=== PATIENT | female | born 1955 | race Caucasian/White ===

== ENCOUNTER → 2016-09-26 | Outpatient (CLI) | payer OTHER ==
[~2016-09-26] MED LIST: CEPH500C2 PO; CLOP1TAB54 PO; DLN/100 PO; DOXY100C41 PO; FOLI1TAB7 PO; GLC/500 PO; GLIM1TAB2 PO; LOSA50TA54 PO; PRAV40TA2 PO; PYRI100T4 PO; ZNT/150 PO
[2016-09-26 14:43] LABS: URINE APPEARANCE CLOUDY (CLEAR); URINE BILIRUBIN NEG (NEG); URINE COLOR YELLOW; URINE NITRITE NEG (NEG); URINE PH 7.5 (4.5-7.5); URINE SPECIFIC GRAVITY 1.002 (1.000-1.030); UROBILINOGEN NEG (NEG)
[2016-09-26 14:47] LABS: MANUAL MICROSCOPIC REQUIRED? NO; REVIEW REQ? YES
== END | disposition home or self-care (01) ==
LOC: C.LAB 13:01
PROVIDERS: ATTEND Internal Medicine Geriatric Medicine
DX: R35.0 Frequency of micturition (principal); R30.0 Dysuria

== ENCOUNTER → 2016-10-12 | Outpatient (CLI) | payer OTHER ==
[2016-10-12 13:05] LABS: URINE APPEARANCE CLEAR (CLEAR); URINE BILIRUBIN NEG (NEG); URINE COLOR YELLOW; URINE NITRITE NEG (NEG); URINE PH 6.5 (4.5-7.5); UROBILINOGEN NEG (NEG)
[2016-10-12 13:09] LABS: MANUAL MICROSCOPIC REQUIRED? NO; REVIEW REQ? NO
== END | disposition home or self-care (01) ==
LOC: C.LAB 12:00
PROVIDERS: ATTEND Internal Medicine Geriatric Medicine
DX: R30.0 Dysuria (principal)

== ENCOUNTER → 2016-10-31 | Outpatient (CLI) | payer OTHER ==
[~2016-10-31] MED LIST changes: +AZIT-57 PO
[2016-10-31 18:37] LABS: URINE APPEARANCE CLEAR (CLEAR); URINE BILIRUBIN NEG (NEG); URINE COLOR YELLOW; URINE NITRITE NEG (NEG); URINE SPECIFIC GRAVITY 1.007 (1.000-1.030); UROBILINOGEN NEG (NEG)
[2016-10-31 18:44] LABS: MANUAL MICROSCOPIC REQUIRED? NO; REVIEW REQ? NO
== END | disposition home or self-care (01) ==
LOC: C.LABSPEC 17:54
PROVIDERS: ATTEND Physician Assistant
DX: R39.9 Unspecified symptoms and signs involving the genitourinary system (principal); L29.8 Other pruritus

== ENCOUNTER → 2016-10-31 | Outpatient (CLI) | payer OTHER ==
[2016-11-10 13:05] LABS: HPV 16 RNA NOT DETECTED (NOT DETECTED); HPV 18 45 RNA NOT DETECTED (NOT DETECTED)
== END | disposition home or self-care (01) ==
LOC: C.PAPS 09:57
PROVIDERS: ATTEND Physician Assistant
DX: Z01.419 Encounter for gynecological examination (general) (routine) without abnormal findings (principal)

== ENCOUNTER 2017-02-09 11:45 | Emergency (ER) | payer OTHER ==
[~2017-02-09] VITALS: Ht 142.2 cm; Wt 48.9 kg
[~2017-02-09 11:45] MED LIST changes: -AZIT-57 PO; -CEPH500C2 PO; -DOXY100C41 PO; -GLC/500 PO
[2017-02-09 11:48] VITALS: TEMP 36.7; Ht 142.2 cm; Wt 48.9 kg
[2017-02-09] MEDS ORDERED: CEPH500C2 PO (13:09)
[2017-02-09 13:20] VITALS: BP 142/78; PULSE 75; O2SAT 97
--- NOTE | 2017-02-09 20:59 | EMERGENCY ROOM VISIT NOTE ---
ED Visit Note First contact with patient: 12:52 Chief Complaint: Rash. History of Present Illness: Ms. vera is a 62-year-old white female who ambulates into the ED complaining of a rash over the right lateral chest wall. Patient reports approximately 3 days ago she noted a small lump that she thought was a possible insect bite over the right lateral chest wall. She reports she picked at this area and broke it open but had no drainage. Over the last couple of days she has been noted increasing redness and swelling in this area. She denies any associated pain with this rash. Does report the rash is he itchy and she has been taken oral Benadryl without relief. She denies any other symptoms including fevers, chills, sweats, other skin eruptions, other skin color changes,, upper respiratory tract symptoms, cough, wheezing, shortness of breath, chest pain, abdominal pain, decreased appetite, nausea/vomiting. Review of Systems: As noted above in history of present illness. 8 body systems were reviewed and found to be negative as noted above. Past Medical History: Diabetes, hypertension, dyslipidemia, kidney stones, and status post cholecystectomy. Current Medications: Dilantin, Plavix, folate, vitamins, Zantac, Cozaar, Glimepiride, Pravastatin. Allergies to Medications: Clarithromycin, levothyroxine, lisinopril, Bactrim. Social History: Patient is not currently employed; she feels safe in her home environment; patient denies tobacco use. Physical Examination: Vital Signs: Date Time Temp Pulse Resp B/P (MAP) Pulse Ox O2 Delivery O2 Flow Rate FiO2 02/09/17 13:20 75 16 142/78 97 02/09/17 11:48 36.7 77 15 149/81 97 Room Air GENERAL: 62-year-old female in no acute distress, nontoxic-appearing, afebrile and hemodynamically stable. NEUROLOGICAL: Awake, alert and oriented to person, place and time. Answering questions appropriately and following commands. SKIN: Warm, dry and pink. Right Lateral Chest: Patient has an oval-shaped area of erythema measuring approximately 13 cm. This area is warm to the touch. There is no lymphangitis. No drainage from her initial wound. HEENT: Atraumatic and normocephalic. Sclera white and conjunctiva pink. Oral cavity moist and pink. Pharynx is nonerythematous or edematous. Speech normal. No lymphadenopathy. Trachea midline. No jugular venous distention. BACK: No tenderness over the bony spine. No CVA tenderness. THORAX: Lungs sounds are clear to auscultation and equal bilaterally with symmetrical chest wall. No crepitus, tenderness, subcutaneous air or deformities noted. ABDOMEN: Flat, soft and nontender. Positive bowel sounds in all quadrants. No guarding, rigidity or organomegaly. EXTREMITIES: Moves all extremities well on command and with purpose. All distal neurovascular statuses are intact and equal bilaterally. No calf tenderness or cords. ED Course: Patient is assessed as noted above. Patient's medication list was reviewed. Patient was educated about today's findings and instructed on her treatment plan ; she verbalizes understanding and agreement with this plan. Clinical Impression: Right lateral chest wall cellulitis. Decision-Making: Initially my differential diagnosis I considered cellulitis, hives, Lyme's disease, herpes zoster and other causes. Disposition: Patient discharged home in stable condition; prior to departure she was reassessed and subjectively reported she was still pain and symptom- free. Plan: Patient was encouraged to continue her current medications. Patient was prescribed Keflex 500 mg 4 times a day for 10 days. Patient was encouraged to follow-up with primary care provider return to the ED in 36-48 hours for recheck. Patient was encouraged return the ED sooner for spreading rash, red streaking, puslike drainage, fevers or any new/concerning symptoms.
== END 2017-02-09 13:22 | disposition home or self-care (01) ==
LOC: C.EDB 11:46 → C.EDD 13:22
DX: L03.313 Cellulitis of chest wall (principal); E11.9 Type 2 diabetes mellitus without complications; I10 Essential (primary) hypertension; E78.5 Hyperlipidemia, unspecified; Z87.442 Personal history of urinary calculi; Z90.49 Acquired absence of other specified parts of digestive tract; Z79.01 Long term (current) use of anticoagulants; Z79.899 Other long term (current) drug therapy

== ENCOUNTER 2017-02-11 18:35 | Emergency (ER) | payer OTHER ==
[~2017-02-11] VITALS: Ht 142.2 cm; Wt 49.0 kg
[~2017-02-11 18:35] MED LIST changes: +CEPH500C2 PO
[2017-02-11 18:38] VITALS: TEMP 36.9; Ht 142.2 cm; Wt 49.0 kg
[2017-02-11] MEDS ORDERED: GLC/500 PO (18:44)
[2017-02-11] MEDS ORDERED: DOXYCYCLINE HYCLATE 100 MG CAP PO STA (18:49)
[2017-02-11] MEDS ORDERED: DOXY100C41 PO (19:00)
--- NOTE | 2017-02-11 19:02 | EMERGENCY ROOM VISIT NOTE ---
History First contact with patient: 18:45 Chief Complaint: RASH Stated Complaint: BAD RASH DOWN SIDE History of Present Illness The patient is a 62 year old female who presents to the Emergency Room with complaints of worsening rash. The patient is evaluated 2 days ago and felt to have a cellulitis related to a bug bite. The patient states that the rash seems to be worsening and she came in for reevaluation. She is on Keflex. She denies any fevers or chills. No nausea vomiting. No trouble breathing. Review of Systems As above otherwise negative for 10 systems Past Medical/Surgical History Medical Problems: (1) Chest pain (2) CVA (3) Diabetes mellitus type 2 (4) Dizziness (5) Dizziness (6) Elevated blood pressure (7) Hyperlipidemia (8) HYPERTENSION NOS (9) Hypertensive heart disease (10) Kidney stone (11) MTHFR mutation (12) MTHR HOMOZYGOUS (13) Otitis externa (14) Rash (15) Urticaria Surgical Problems: (1) Cholecystectomy Family History Diabetes mellitus FH: gallbladder disease Hypertension Seizures Social History Smoking Status: Never Smoker Alcohol Use: occasionally Drug Use: none Marital Status: Housing Status: lives with family Occupation Status: unemployed Current/Historical Medications Scheduled Cephalexin Monohydrate (Keflex), 500 MG PO QID Clopidogrel Bisulfate (Plavix), 75 MG PO DAILY Folic Acid (Folvite), 1 MG PO DAILY Glimepiride (Glimepiride), 1 MG PO DAILY Losartan Potassium (Cozaar), 50 MG PO UD Metformin Hcl (Glucophage), 500 MG PO BID Phenytoin Sodium (Dilantin), 100 MG PO TID Pravastatin Sodium (Pravastatin Sodium), 40 MG PO HS Pyridoxine (Vitamin B6), 250 MG PO DAILY Ranitidine Hcl (Zantac), 150 MG PO DAILY Allergies Coded Allergies: Levofloxacin (Verified Allergy, Intermediate, CHEST TIGHTNESS, RASH, ) Lisinopril (Verified Allergy, Unknown, unknown, 02/05/16) Clarithromycin (Verified Adverse Reaction, Intermediate, GI UPSET, 02/05/16) Sulfamethoxazole w/Trimethoprim (Verified Adverse Reaction, Intermediate, GI UPSET,HEADACHE, 02/05/16) Physical Exam Vital Signs Date Time Temp Pulse Resp B/P (MAP) Pulse Ox O2 Delivery O2 Flow Rate FiO2 02/11/17 18:38 36.9 90 18 179/89 94 Room Air Physical Exam CONSTITUTIONAL/VITAL SIGNS: Reviewed / noted above. GENERAL: Non-toxic in appearance. INTEGUMENTARY: Warm, dry, and [place]. HEAD: Normocephalic. EYES: without scleral icterus or trauma. ENT/OROPHARYNX: clear and moist. LYMPHADENOPATHY/NECK: Is supple without lymphadenopathy or meningismus. RESPIRATORY: Lungs clear and equal. CHEST: There is a circular red area on the right lower anterior thorax with a surrounding red line. This has a characteristic appearance of erythema migrans. The patient denies seeing a tick. CARDIOVASCULAR: Regular rate and rhythm. GI/ABDOMEN: Soft and nontender. No organomegaly or pulsatile mass. No rebound or guarding. Normal bowel sounds. EXTREMITIES: Warm and well perfused. BACK: No CVA tenderness. NEUROLOGICAL: Intact without focal deficits. PSYCHIATRIC: normal affect. MUSCULOSKELETAL: Normally developed with good muscle tone. TRIAGE NURSING DOCUMENTATION REVIEWED. Medical Decision & Procedures Laboratory Results Test 02/11/17 18:49 ED Course The patient was given doxycycline by mouth. Lyme test has been drawn. Medical Decision Differential includes lung disease/erythema migrans, cellulitis. There is no evidence of systemic infection. This is a 62-year-old female who presents with worsening rash on her right lower chest wall. The findings are concerning for erythema migrans. The patient was switched from Keflex to doxycycline. Lyme test is been sent. Patient is to follow-up with her PCP for test results. She will complete a 14 day course of doxycycline for this. Impression Primary Impression: Erythema migrans (Lyme disease) Departure Information Dispostion Home / Self-Care Prescriptions Doxycycline (Monohydrate) (MONODOX) 100 Mg Cap 1 CAP PO BID for 14 Days, #28 CAP Prov: Sohail Marin D.O. 02/11/17 Referrals Damion Suárez M.D. (PCP) Patient Instructions My [facility] Additional Instructions Take doxycycline twice daily for 14 days as prescribed. Discontinue Keflex after starting doxycycline tomorrow. Follow-up with your doctor for test results. Even if Lyme test is negative, finished a course of doxycycline. Follow-up with your doctor for further care and evaluation in 1-2 days. Return to the emergency department for worsening or new symptoms or any concerns. You have been examined and treated today on an emergency basis only. This is not a substitute for, or an effort to provide, complete comprehensive medical care. It is impossible to recognize and treat all injuries or illnesses in a single emergency department visit. It is therefore important that you follow up closely with your doctor. Call as soon as possible for an appointment.
[2017-02-11 19:15] VITALS: BP 132/68; PULSE 76; O2SAT 98
== END 2017-02-11 19:16 | disposition home or self-care (01) ==
LOC: C.EDB 18:36 → C.EDD 19:16
DX: A69.20 Lyme disease, unspecified (principal); E78.5 Hyperlipidemia, unspecified; I10 Essential (primary) hypertension; I11.0 Hypertensive heart disease with heart failure; E11.9 Type 2 diabetes mellitus without complications; Z86.73 Personal history of transient ischemic attack (TIA), and cerebral infarction without residual deficits; Z87.442 Personal history of urinary calculi; Z90.49 Acquired absence of other specified parts of digestive tract; Z79.84 Long term (current) use of oral hypoglycemic drugs; Z79.899 Other long term (current) drug therapy; Z88.2 Allergy status to sulfonamides; Z88.8 Allergy status to other drugs, medicaments and biological substances; Z83.3 Family history of diabetes mellitus; Z83.79 Family history of other diseases of the digestive system; Z82.49 Family history of ischemic heart disease and other diseases of the circulatory system; Z82.0 Family history of epilepsy and other diseases of the nervous system

== ENCOUNTER 2017-05-14 12:35 | Emergency (ER) | payer OTHER ==
[~2017-05-14] VITALS: Ht 142.2 cm; Wt 51.0 kg
[~2017-05-14 12:35] MED LIST changes: -CEPH500C2 PO; +GLC/500 PO
[2017-05-14 12:40] VITALS: TEMP 36.9; Ht 142.2 cm; Wt 51.0 kg
[2017-05-14] MEDS ORDERED: ZTHM250 PO (12:58)
[2017-05-14] MEDS ORDERED: ONDANSETRON INJ 2 MG/ML 2 ML VIAL IV STA (13:15)
--- NOTE | 2017-05-14 13:28 | EMERGENCY ROOM VISIT NOTE ---
History First contact with patient: 13:03 Chief Complaint: OTHER COMPLAINT Stated Complaint: CANT SEE, PAIN, CHILLS History of Present Illness The patient is a 62 year old female who presents to the Emergency Room with complaints of headache and sinus pressure for the past week. Positive sick contacts with similar symptoms. She was prescribed a Z-Felice a few days ago which she states she has been taking. She states that she was feeling somewhat better yesterday, but her symptoms got worse again today, particularly having a headache with a lot of sinus drainage and nausea. She has had some chills as well, she is unsure about fevers as she did not check her temperature. She has been taking [id number] nighttime cold medicine and using nasal spray, she is unsure if any of the medications have decongestants in them. She also mentions that she has been having intermittent numbness/tingling in her arms and face for the past week, she is concerned about this because she has a history of a stroke in the past. She denies any persistent numbness, weakness, difficulty walking, neck pain, vision changes, slurring speech, or confusion associated with this. She states she currently has the feeling of numbness in her left arm and face. She denies any chest pain, shortness of breath, dizziness or passing out, abdominal pain, vomiting, diarrhea, urinary symptoms, rash. She does note that her son has been sick, she thinks he might have the flu and she would like to be tested for the flu today. Review of Systems A complete 10 point review of systems was reviewed with the patient with pertinent positives and negatives as per history of present illness. All else were negative. Past Medical/Surgical History Medical Problems: (1) Chest pain (2) CVA (3) Diabetes mellitus type 2 (4) Dizziness (5) Dizziness (6) Elevated blood pressure (7) Hyperlipidemia (8) HYPERTENSION NOS (9) Hypertensive heart disease (10) Kidney stone (11) MTHFR mutation (12) MTHR HOMOZYGOUS (13) Otitis externa (14) Rash (15) Urticaria Surgical Problems: (1) Cholecystectomy Family History Diabetes mellitus FH: gallbladder disease Hypertension Seizures Social History Smoking Status: Never Smoker Alcohol Use: occasionally Drug Use: none Marital Status: Housing Status: lives with family Occupation Status: unemployed Current/Historical Medications Scheduled Azithromycin (Azithromycin), 250 MG PO DIRECTED Clopidogrel Bisulfate (Plavix), 75 MG PO DAILY Folic Acid (Folvite), 1 MG PO DAILY Glimepiride (Glimepiride), 1 MG PO DAILY Losartan Potassium (Cozaar), 50 MG PO QAM Metformin Hcl (Glucophage), 500 MG PO BID Phenytoin Sodium (Dilantin), 100 MG PO TID Pravastatin Sodium (Pravastatin Sodium), 40 MG PO HS Pyridoxine (Vitamin B6), 250 MG PO DAILY Ranitidine Hcl (Zantac), 150 MG PO DAILY Physical Exam Vital Signs Date Time Temp Pulse Resp B/P (MAP) Pulse Ox O2 Delivery O2 Flow Rate FiO2 05/14/17 16:05 98 178/89 05/14/17 15:29 83 20 173/126 95 Room Air 05/14/17 14:42 82 05/14/17 14:32 96 Room Air 05/14/17 14:32 87 16 194/120 96 Room Air 05/14/17 12:40 36.9 91 18 193/110 97 Room Air Physical Exam CONSTITUTIONAL: No acute distress. Well appearing and well nourished. Alert and oriented X 4 with normal affect. HEENT: Normocephalic, atraumatic. Pupils equal, round and reactive to light, EOMI. TMs normal. Pharynx normal. Tenderness to palpation of the maxillary sinuses. NECK: Supple, full active range of motion without discomfort. RESPIRATORY: Clear to auscultation bilaterally with no wheezing, crackles, rhonchi or stridor. Equal expansion bilaterally. CARDIOVASCULAR: Regular rate and rhythm with no murmurs, rubs or gallops. Normal peripheral perfusion. No edema. GASTROINTESTINAL: Soft, nontender, nondistended. Bowel sounds present in all quadrants. MUSCULOSKELETAL: Full range of motion of all joints without discomfort. INTEGUMENTARY: No rash or other significant dermatologic conditions noted. NEUROLOGIC: Cranial nerves II-XII grossly intact. No focal neurologic deficits noted. Normal strength in all 4 extremities, normal sensation in all 4 extremities, able to differentiate sharp and dull, normal coordination, normal speech. Medical Decision & Procedures ER Provider Diagnostic Interpretation: CHEST ONE VIEW PORTABLE CLINICAL HISTORY: severe hypertension COMPARISON STUDY: 05/15/2016 FINDINGS: The cardiac and mediastinal contours are normal. There is no evidence of focal pulmonary consolidation. There is no evidence of failure. No pleural effusions are visualized. IMPRESSION: No active disease in the chest. ----- CT OF THE HEAD WITHOUT CONTRAST CLINICAL HISTORY: Severe hypertension. Blurred vision. COMPARISON STUDY: Head CT May 15, 2016. CT DOSE: 638.56 mGycm TECHNIQUE: Helical axial images of the head were obtained without IV contrast. Automated exposure control was utilized for the study. A dose lowering technique was utilized adhering to the principles of ALARA. FINDINGS: No acute intracranial hemorrhage, midline shift or mass effect is present. Ventricular system is normal. Basilar cisterns are patent. There are no extra-axial collections. An old left parieto-occipital infarct is noted. There are no findings to suggest acute dural sinus thrombosis or acute territorial infarct. There is an old lacunar infarct within the right occipital lobe. There are no significant calvarial abnormalities. There is mild mucosal thickening of the sinuses. A tiny right maxillary sinus air-fluid level is present. IMPRESSION: No acute intracranial findings. No change since exam of May 15, 2016. Laboratory Results 05/14/17 14:08 Red Blood Count 4.79, Mean Corpuscular Volume 90.2, Mean Corpuscular Hemoglobin 30.9, Mean Corpuscular Hemoglobin Concent 34.3, Mean Platelet Volume 9.1, Neutrophils (%) (Auto) 70.5, Lymphocytes (%) (Auto) 23.5, Monocytes (%) (Auto) 5.0, Eosinophils (%) (Auto) 0.3, Basophils (%) (Auto) 0.2, Neutrophils # (Auto) 4.54, Lymphocytes # (Auto) 1.51, Monocytes # (Auto) 0.32, Eosinophils # (Auto) 0.02, Basophils # (Auto) 0.01 05/14/17 14:08 Test 05/14/17 13:28 05/14/17 13:40 05/14/17 14:08 05/14/17 15:20 Influenza Type A Antigen Neg for Influ A (NEG) Influenza Type B Antigen Neg for Influ B (NEG) Prothrombin Time 10.2 SECONDS (9.0-12.0) Prothromb Time International Ratio 1.0 (0.9-1.1) Activated Partial Thromboplast Time 23.8 SECONDS (21.0-31.0) Partial Thromboplastin Ratio 0.9 White Blood Count 6.43 K/uL (4.8-10.8) Red Blood Count 4.79 M/uL (4.2-5.4) Hemoglobin 14.8 g/dL (12.0-16.0) Hematocrit 43.2 % (37-47) Mean Corpuscular Volume 90.2 fL (80-100) Mean Corpuscular Hemoglobin 30.9 pg (25-34) Mean Corpuscular Hemoglobin Concent 34.3 g/dl (32-36) Platelet Count 195 K/uL (130-400) Mean Platelet Volume 9.1 fL (7.4-10.4) Neutrophils (%) (Auto) 70.5 % Lymphocytes (%) (Auto) 23.5 % Monocytes (%) (Auto) 5.0 % Eosinophils (%) (Auto) 0.3 % Basophils (%) (Auto) 0.2 % Neutrophils # (Auto) 4.54 K/uL (1.4-6.5) Lymphocytes # (Auto) 1.51 K/uL (1.2-3.4) Monocytes # (Auto) 0.32 K/uL (0.11-0.59) Eosinophils # (Auto) 0.02 K/uL (0-0.5) Basophils # (Auto) 0.01 K/uL (0-0.2) RDW Standard Deviation 41.1 fL (36.4-46.3) RDW Coefficient of Variation 12.5 % (11.5-14.5) Immature Granulocyte % (Auto) 0.5 % Immature Granulocyte # (Auto) 0.03 K/uL (0.00-0.02) Anion Gap 8.0 mmol/L (3-11) Est Creatinine Clear Calc Drug Dose 62.4 ml/min Estimated GFR () 112.2 Estimated GFR (Non- 96.8 BUN/Creatinine Ratio 16.6 (10-20) Calcium Level 9.1 mg/dl (8.5-10.1) Urine Color YELLOW Urine Appearance CLEAR (CLEAR) Urine pH 7.0 (4.5-7.5) Urine Specific [place] 1.005 (1.000-1.030) Urine Protein NEG (NEG) Urine Glucose (UA) NEG (NEG) Urine Ketones NEG (NEG) Urine Occult Blood NEG (NEG) Urine Nitrite NEG (NEG) Urine Bilirubin NEG (NEG) Urine Urobilinogen NEG (NEG) Urine Leukocyte Esterase LARGE (NEG) Urine WBC (Auto) 10-30 /hpf (0-5) Urine RBC (Auto) 0-4 /hpf (0-4) Urine Hyaline Casts (Auto) 0 /lpf (0-5) Urine Epithelial Cells (Auto) >30 /lpf (0-5) Urine Bacteria (Auto) NEG (NEG) Medications Administered Medications (Trade) Dose Ordered Sig/Jalil Route Start Time Stop Time Status Last Admin Dose Admin Losartan Potassium (coZAAR TAB) 50 mg TODAY@1359 PO 05/14/17 13:59 05/14/17 16:56 DC 05/14/17 14:31 50 MG Ondansetron HCl (Zofran Odt) 4 mg TODAY@1359 PO 05/14/17 13:59 05/14/17 16:56 DC 05/14/17 14:31 4 MG ECG Indication: nausea Rate (beats per minute): 88 Rhythm: normal sinus Findings: no acute ischemic change, no ectopy Change: no significant change (05/15/2016) Medical Decision CC: Patient presenting with complaint of sinus congestion, headache, numbness/ tingling in arms Interpretation of Labs: No leukocytosis, no anemia, no significant electrolyte abnormalities, normal renal function. UA with leukocyte esterase and large epithelial cells, this favors contamination, urine culture pending. Differential Diagnosis: Includes, but not limited to sinusitis, viral URI, influenza, sinus headache, tension headache, migraine, CVA, intracranial hemorrhage, among others. Medication Reconciliation: I attest that I have personally reviewed the patient' s current medication list. Vital signs review: I reviewed the patient's vital signs and interpret them as follows: T: Afebrile; BP: Hypertensive; HR: Tachycardic; RR: Within normal limits; Pulse Ox: Within normal limits on room air. Blood pressure screening: The patient was found to have an elevated blood pressure and was referred to their primary doctor for recheck and further treatment. Summary: Patient was evaluated at bedside, history of physical exam performed. Patient is alert and oriented, in no acute distress, resting calmly in the stretcher. Neuro exam is normal with no focal deficits. Specifically patient has intact sensation in the bilateral extremities and face. Patient does not have any stroke-like symptoms or findings on exam. Patient is noted to be quite hypertensive and mildly tachycardic on initial exam. She did not take her morning blood pressure medicine. I also believe she may have been taking decongestants. Orders were placed at bedside for labs, UA, EKG, chest x-ray, CT of head to evaluate for cranial abnormalities. Patient discussed with Dr. Plaza, who agrees with my assessment and plan. Labs reviewed as above, no significant abnormalities. Patient denies any urinary symptoms, will send urine for culture for further evaluation. No proteinuria. Chest x-ray is clear. EKG shows normal sinus rhythm with no ischemic changes. Patient reassessed multiple times throughout ED stay, she reports that her headache has improved, her nausea is resolved. I encouraged the patient to continue taking her Z-Felice for the full course, and discussed symptomatic management and appropriate [id number] medications, specifically instructing her to avoid decongestants due to her elevated blood pressure. I encouraged her to follow up with her PCP to have her blood pressure rechecked. I also discussed return precautions should her symptoms worsen, she verbalized understanding. Patient was discharged home in stable condition and ambulatory. Impression Primary Impression: Sinus headache Departure Information Dispostion Home / Self-Care Condition GOOD Referrals Damion Suárez M.D. (PCP) Patient Instructions ED Headache Sinus, ED Sinusitis Abx Tx, My [facility] Additional Instructions Keep taking your antibiotics for your sinus infection, until you have completed the course of antibiotics. Drink plenty fluids to stay well hydrated. You may use saline nasal spray several times with the day to help flush her sinuses. You should also use humidifier or vaporizer in your bedroom to help improve your congestion. You may take Tylenol extra strength 1-2 tablets every 8 hours as needed for headache. May also try taking Mucinex, which is [id number], to help improve your congestion. Avoid any cold medications that have decongestants in them, as this can increase her blood pressure. Follow-up with your PCP in the next few days if you are not improving, or sooner if your symptoms are worsening. Please return to the emergency department for severe worsening headaches, difficulty breathing, severe dizziness or passing out, fevers/chills/feeling ill , or any other concerns.
--- NOTE | 2017-05-14 13:51 | DIAGNOSTIC IMAGING REPORT ---
CHEST ONE VIEW PORTABLE CLINICAL HISTORY: severe hypertension COMPARISON STUDY: 05/15/2016 FINDINGS: The cardiac and mediastinal contours are normal. There is no evidence of focal pulmonary consolidation. There is no evidence of failure. No pleural effusions are visualized.[ IMPRESSION: No active disease in the chest. Electronically signed by: Gavin Malhotra M.D. 05/14/2017 1:49 PM Dictated Date/Time: 05/14/2017 1:49 PM
[2017-05-14] MEDS ORDERED: ONDANSETRON 4MG OD TAB PO SCH (13:59)
[2017-05-14] MEDS ORDERED: LOSARTAN POTASSIUM 50 MG TAB PO SCH (13:59)
[2017-05-14 14:05] LABS: PARTIAL THROMBOPLASTIN RATIO 0.9; PROTHROMBIN TIME (PATIENT) 10.2 SECONDS (9.0-12.0)
[2017-05-14 14:32] VITALS: O2SAT 96
--- NOTE | 2017-05-14 14:36 | DIAGNOSTIC IMAGING REPORT ---
CT OF THE HEAD WITHOUT CONTRAST CLINICAL HISTORY: Severe hypertension. Blurred vision. COMPARISON STUDY: Head CT May 15, 2016. CT DOSE: 638.56 mGycm TECHNIQUE: Helical axial images of the head were obtained without IV contrast. Automated exposure control was utilized for the study. A dose lowering technique was utilized adhering to the principles of ALARA. FINDINGS: No acute intracranial hemorrhage, midline shift or mass effect is present. Ventricular system is normal. Basilar cisterns are patent. There are no extra-axial collections. An old left parieto-occipital infarct is noted. There are no findings to suggest acute dural sinus thrombosis or acute territorial infarct. There is an old lacunar infarct within the right occipital lobe. There are no significant calvarial abnormalities. There is mild mucosal thickening of the sinuses. A tiny right maxillary sinus air-fluid level is present. IMPRESSION: No acute intracranial findings. No change since exam of May 15, 2016. Electronically signed by: Jonn Sanchez M.D. 05/14/2017 2:35 PM Dictated Date/Time: 05/14/2017 2:25 PM
[2017-05-14 14:42] LABS: BASO % 0.2 %; BASO ABS # 0.01 K/uL (0-0.2); COMPLETE YES; EOS % 0.3 %; HEMATOCRIT 43.2 % (37-47); IG% 0.5 %; LYMPH % 23.5 %; LYMPH ABS # 1.51 K/uL (1.2-3.4); MEAN CELL VOLUME 90.2 fL (80-100); MEAN CORPUSCULAR HEMOGLOBIN 30.9 pg (25-34); MEAN CORPUSCULAR HGB CONC 34.3 g/dl (32-36); MEAN PLATELET VOLUME 9.1 fL (7.4-10.4); NEUT % 70.5 %; PLATELET COUNT 195 K/uL (130-400); RED BLOOD COUNT 4.79 M/uL (4.2-5.4); WHITE BLOOD COUNT 6.43 K/uL (4.8-10.8)
[2017-05-14 15:00] LABS: BUN/CREATININE RATIO 16.6 (10-20); CALCIUM 9.1 mg/dl (8.5-10.1); CREATININE 0.63 mg/dl (0.60-1.20); POTASSIUM 3.8 mmol/L (3.5-5.1)
[2017-05-14 15:29] VITALS: O2SAT 95
[2017-05-14 15:48] LABS: URINE APPEARANCE CLEAR (CLEAR); URINE BILIRUBIN NEG (NEG); URINE COLOR YELLOW; URINE EPITHELIAL CELL AUTO >30 /lpf (0-5); URINE NITRITE NEG (NEG); URINE SPECIFIC GRAVITY 1.005 (1.000-1.030); UROBILINOGEN NEG (NEG)
[2017-05-14 15:49] LABS: MANUAL MICROSCOPIC REQUIRED? NO; REVIEW REQ? NO
[2017-05-14 16:05] VITALS: BP 178/89; PULSE 98
== END 2017-05-14 16:30 | disposition home or self-care (01) ==
LOC: C.EDB 12:37
DX: R51 Headache (principal); Z86.73 Personal history of transient ischemic attack (TIA), and cerebral infarction without residual deficits; E11.9 Type 2 diabetes mellitus without complications; E78.5 Hyperlipidemia, unspecified; I10 Essential (primary) hypertension; Z87.442 Personal history of urinary calculi; E72.12 Methylenetetrahydrofolate reductase deficiency; Z90.49 Acquired absence of other specified parts of digestive tract; Z83.3 Family history of diabetes mellitus; Z82.49 Family history of ischemic heart disease and other diseases of the circulatory system; Z82.0 Family history of epilepsy and other diseases of the nervous system; Z79.01 Long term (current) use of anticoagulants; Z79.899 Other long term (current) drug therapy

== ENCOUNTER → 2017-11-05 | Outpatient (CLI) | payer OTHER ==
[~2017-11-05] MED LIST changes: +AZIT-57 PO; -FOLI1TAB7 PO; +FOLI1TAB8 PO
== END | disposition home or self-care (01) ==
LOC: C.PAPS 09:38
PROVIDERS: ATTEND Physician Assistant
DX: Z12.4 Encounter for screening for malignant neoplasm of cervix (principal); Z11.51 Encounter for screening for human papillomavirus (HPV)

== ENCOUNTER 2017-12-11 12:21 | Emergency (ER) | payer OTHER ==
[2017-12-11 12:24] VITALS: BP 130/73; PULSE 82; TEMP 36.7; O2SAT 99
--- NOTE | 2017-12-11 12:43 | EMERGENCY ROOM VISIT NOTE ---
History First contact with patient: 12:28 Chief Complaint: BITE Stated Complaint: TICK BITE, RED History of Present Illness The patient is a 62 year old female who presents to the Emergency Room with complaints of a tick bite to the back. The patient reports that she noticed something black in an area of redness, and is concerned that it is a tick. She was outdoors yesterday morning doing yard work. She is uncertain how long the tick may have been attached. She rates her discomfort a 7 out of 10. Review of Systems 6 system review was performed and was negative except for pertinent positives and negatives as indicated in history of present illness Past Medical/Surgical History Medical Problems: (1) Chest pain (2) CVA (3) Diabetes mellitus type 2 (4) Dizziness (5) Dizziness (6) Elevated blood pressure (7) Hyperlipidemia (8) HYPERTENSION NOS (9) Hypertensive heart disease (10) Kidney stone (11) MTHFR mutation (12) MTHR HOMOZYGOUS (13) Otitis externa (14) Rash (15) Urticaria Surgical Problems: (1) Cholecystectomy Family History Diabetes mellitus FH: gallbladder disease Hypertension Seizures Social History Smoking Status: Never Smoker Alcohol Use: occasionally Drug Use: none Marital Status: Housing Status: lives with family Occupation Status: unemployed Current/Historical Medications Scheduled Azithromycin (Azithromycin), 250 MG PO DIRECTED Clopidogrel Bisulfate (Plavix), 75 MG PO DAILY Folic Acid (Folvite), 1 MG PO DAILY Glimepiride (Glimepiride), 1 MG PO DAILY Losartan Potassium (Cozaar), 50 MG PO QAM Metformin Hcl (Glucophage), 500 MG PO BID Phenytoin Sodium (Dilantin), 100 MG PO TID Pravastatin Sodium (Pravastatin Sodium), 40 MG PO HS Pyridoxine (Vitamin B6), 250 MG PO DAILY Ranitidine Hcl (Zantac), 150 MG PO DAILY Physical Exam Vital Signs Date Time Temp Pulse Resp B/P (MAP) Pulse Ox O2 Delivery O2 Flow Rate FiO2 12/11/18 12:24 36.7 82 20 130/73 99 Room Air Physical Exam CONSTITUTIONAL: Healthy and well nourished. Alert and oriented X 3 with positive affect. RESPIRATORY: Clear to auscultation bilaterally with no wheezing, crackles, rhonchi or stridor. CARDIOVASCULAR: Regular rate and rhythm with no murmurs, rubs or gallops. INTEGUMENTARY: Examination of the right central back shows an embedded tick with notable surrounding skin erythema. No induration or fluctuance noted. NEUROLOGIC: o focal neurologic deficits noted. Medical Decision & Procedures ED Course Patient history and physical exam were performed. Nurse's notes were reviewed. The patient was found to have a tickle in the back. This was removed using a tick twister. The patient was provided education regarding tick bites. I did elect to prophylactically treat the patient with doxycycline 200 mg orally. She was instructed to follow-up with her PCP for any progressively worsening redness, swelling, pain or fever. The patient was happy with plan of care, voiced understanding of all discharge instructions, and rated her discomfort a 4 out of 10 at the time of discharge. She refused any analgesics. Medical Decision Medication Reconcilliation Current Medication List: was personally reviewed by me Blood Pressure Screening Patient's blood pressure: Normal blood pressure Impression Primary Impression: Tick bite of back Departure Information Dispostion Home / Self-Care Forms HOME CARE DOCUMENTATION FORM, IMPORTANT VISIT INFORMATION Patient Instructions My [facility], ED Facts Tick Additional Instructions You have been administered doxycycline which should eliminate your risk for Lyme disease. Follow-up with your family doctor if you have any worsening redness of the back. Problem Qualifiers Primary Impression: Tick bite of back Encounter type: initial encounter Qualified Codes: S30.860A - Insect bite ( nonvenomous) of lower back and pelvis, initial encounter; W57.XXXA - Bitten or stung by nonvenomous insect and other nonvenomous arthropods, initial encounter
[2017-12-11] MEDS ORDERED: DOXYCYCLINE HYCLATE 100 MG CAP PO ONE (12:45)
== END 2017-12-11 12:48 | disposition home or self-care (01) ==
LOC: C.EDB 12:22 → C.EDD 12:48
DX: S30.860A Insect bite (nonvenomous) of lower back and pelvis, initial encounter (principal); W57.XXXA Bitten or stung by nonvenomous insect and other nonvenomous arthropods, initial encounter; Z86.73 Personal history of transient ischemic attack (TIA), and cerebral infarction without residual deficits; E11.9 Type 2 diabetes mellitus without complications; E78.5 Hyperlipidemia, unspecified; I10 Essential (primary) hypertension; Z87.442 Personal history of urinary calculi; E72.12 Methylenetetrahydrofolate reductase deficiency; Z90.49 Acquired absence of other specified parts of digestive tract; Z83.3 Family history of diabetes mellitus; Z82.49 Family history of ischemic heart disease and other diseases of the circulatory system; Z82.0 Family history of epilepsy and other diseases of the nervous system; Z79.01 Long term (current) use of anticoagulants; Z79.899 Other long term (current) drug therapy; Z79.84 Long term (current) use of oral hypoglycemic drugs

== ENCOUNTER 2018-03-15 10:25 | Emergency (ER) | payer OTHER ==
[~2018-03-15] VITALS: Ht 142.2 cm; Wt 46.9 kg
[~2018-03-15 10:25] MED LIST changes: -AZIT-57 PO
[2018-03-15 10:30] VITALS: TEMP 37; Ht 142.2 cm; Wt 46.9 kg
--- NOTE | 2018-03-15 10:55 | EMERGENCY ROOM VISIT NOTE ---
History Report prepared by Calin: Douglas Gambino Under the Supervision of: Dr. Sohail Baumann M.D. First contact with patient: 10:39 Chief Complaint: ARM PAIN Stated Complaint: BLACK AND BLUE UPPER ARM History of Present Illness The patient is a 63 year old female who presents to the Emergency Room with complaints of pain and bruising/discoloration to the right arm and left hand. The patient states that she has been on Plavix 75 mg for the past 3-4 years following a stroke. She does not remember bruising herself. She has no other complaints. Source of History: patient Position: shoulder (left), arm (right) Quality: other (bruising) Note: No pain Review of Systems See HPI for pertinent positives & negatives. A total of 6 systems reviewed and were otherwise negative. Past Medical & Surgical Medical Problems: (1) Chest pain (2) CVA (3) Diabetes mellitus type 2 (4) Dizziness (5) Dizziness (6) Elevated blood pressure (7) Hyperlipidemia (8) HYPERTENSION NOS (9) Hypertensive heart disease (10) Kidney stone (11) MTHFR mutation (12) MTHR HOMOZYGOUS (13) Otitis externa (14) Rash (15) Urticaria Surgical Problems: (1) Cholecystectomy Family History Diabetes mellitus FH: gallbladder disease Hypertension Seizures Social History Smoking Status: Never Smoker Alcohol Use: occasionally Drug Use: none Marital Status: Housing Status: lives with family Occupation Status: unemployed Current/Historical Medications Scheduled Clopidogrel Bisulfate (Plavix), 75 MG PO DAILY Folic Acid (Folvite), 1 MG PO DAILY Glimepiride (Glimepiride), 1 MG PO DAILY Losartan Potassium (Cozaar), 50 MG PO QAM Metformin Hcl (Glucophage), 500 MG PO BID Phenytoin Sodium (Dilantin), 100 MG PO TID Pravastatin Sodium (Pravastatin Sodium), 40 MG PO HS Pyridoxine (Vitamin B6), 250 MG PO DAILY Ranitidine Hcl (Zantac), 150 MG PO DAILY Allergies Coded Allergies: Levofloxacin (Verified Allergy, Intermediate, CHEST TIGHTNESS, RASH, ) Lisinopril (Verified Allergy, Unknown, unknown, 03/15/18) Clarithromycin (Verified Adverse Reaction, Intermediate, GI UPSET, 03/15/18 ) Sulfamethoxazole w/Trimethoprim (Verified Adverse Reaction, Intermediate, GI UPSET,HEADACHE, 03/15/18) Physical Exam Vital Signs Date Time Temp Pulse Resp B/P (MAP) Pulse Ox O2 Delivery O2 Flow Rate FiO2 03/15/18 11:22 85 18 175/93 92 03/15/18 10:30 37.0 88 17 173/78 98 Room Air Physical Exam GENERAL: Awake, alert, well-appearing, in no acute distress HENT: Normocephalic, atraumatic. Oropharynx unremarkable. EYES: Normal conjunctiva. Sclera non-icteric. NECK: Supple. No nuchal rigidity. FROM. No JVD. RESPIRATORY: Clear to auscultation. CARDIAC: Regular rate, normal rhythm. Extremities warm and well perfused. Pulses equal. ABDOMEN: Soft, non-distended. No tenderness to palpation. No rebound or guarding. No masses. RECTAL: Deferred. MUSCULOSKELETAL: Chest examination reveals no tenderness. The back is symmetrical on inspection without obvious abnormality. There is no CVA tenderness to palpation. No joint edema. LOWER EXTREMITIES: Calves are equal size bilaterally and non-tender. No edema. No discoloration. NEURO: Normal sensorium. No sensory or motor deficits noted. SKIN: There is a quarter sized hematoma to the left shoulder as well as a 2x2 inch area of hematoma to the right humerus. Medical Decision & Procedures ED Course 1043: Past medical records reviewed. The patient was evaluated in room C2B. A complete history and physical examination was performed. Medical Decision Prior records reviewed and summarized above. Triage Nursing notes reviewed. Differential diagnosis: Etiologies such as fracture, dislocation, neurovascular compromise, compartment syndrome, soft tissue injury, as well as others were entertained. This is a 63-year-old female who presents emergency department complaining of bruises to her arms. There is no outright evidence of a large hematoma. The patient does have small contusions and I believe this is from taking Plavix. We reviewed the patient's history including 2 CVAs and noted this is why the patient is on Plavix. I do not believe that these bruises represent active extravasation and noted that the patient will bruise easily on Plavix. Using shared medical decision making with the patient I strongly recommended that she continue her Plavix use due to her past medical history. The patient is going to follow-up with her primary care physician. Ice was applied to the bruises. Blood Pressure Screening Patient's blood pressure: Normal blood pressure Blood pressure disposition: Elevated BP felt to be situational Impression Primary Impression: Contusion Scribe Attestation The scribe's documentation has been prepared under my direction and personally reviewed by me in its entirety. I confirm that the note above accurately reflects all work, treatment, procedures, and medical decision making performed by me. Departure Information Dispostion Home / Self-Care Referrals Damion Suárez M.D. (PCP) Forms HOME CARE DOCUMENTATION FORM, IMPORTANT VISIT INFORMATION Patient Instructions My [facility] Additional Instructions Follow up with Dr Nguyen's office You have been examined and treated today on an emergency basis only. This is not a substitute for, or an effort to provide, complete comprehensive medical care. It is impossible to recognize and treat all injuries or illnesses in a single emergency department visit. It is therefore important that you follow up closely with Dr Suárez. Call as soon as possible for an appointment. Thank you for your time and consideration. I look forward to speaking with you again soon. Please don't hesitate to call us if you have any questions. Problem Qualifiers Primary Impression: Contusion Encounter type: initial encounter Contusion area: upper arm Laterality: right Qualified Codes: S40.021A - Contusion of right upper arm, initial encounter
[2018-03-15 11:22] VITALS: BP 175/93; PULSE 85; O2SAT 92
== END 2018-03-15 11:28 | disposition home or self-care (01) ==
LOC: C.EDB 10:28 → C.EDC 11:28
DX: S40.021A Contusion of right upper arm, initial encounter (principal); X58.XXXA Exposure to other specified factors, initial encounter; Z86.73 Personal history of transient ischemic attack (TIA), and cerebral infarction without residual deficits; E11.9 Type 2 diabetes mellitus without complications; E78.5 Hyperlipidemia, unspecified; I11.9 Hypertensive heart disease without heart failure; Z79.02 Long term (current) use of antithrombotics/antiplatelets; Z79.84 Long term (current) use of oral hypoglycemic drugs; Z79.899 Other long term (current) drug therapy; Z88.2 Allergy status to sulfonamides; Z88.1 Allergy status to other antibiotic agents; Z88.8 Allergy status to other drugs, medicaments and biological substances

== ENCOUNTER → 2018-03-19 | Outpatient (CLI) | payer OTHER ==
--- NOTE | 2018-03-19 15:19 | DIAGNOSTIC IMAGING REPORT ---
R EXTREMITY NONVASCULAR LIMITED HISTORY: 63 years-old Female T14.8XXA [id number] Skin [id number] acute contusion with palpable abnormality of the right upper extremity COMPARISON: None available TECHNIQUE: Multiple real-time significant images of the right upper extremity were obtained assessing grayscale appearance and color flow FINDINGS: Mild subcutaneous edema within the area of clinical concern. There is reported bruising seen about the right upper extremity. Just deep to the area of bruising there is a ovoid hypoechoic structure within the subcutaneous tissues which is mildly complex measuring 2.0 x 0.9 x 2.0 cm without internal vascularity identified. IMPRESSION: 2.0 cm hypoechoic subcutaneous lesion within the area of clinical concern suggests probable hematoma. Correlate with clinical exam and patient history. The above report was generated using voice recognition software. It may contain grammatical, syntax or spelling errors. Electronically signed by: Wiliam Sheldon M.D. 03/19/2018 3:18 PM Dictated Date/Time: 03/19/2018 3:17 PM
[2018-03-19 17:30] LABS: MEAN CORPUSCULAR HGB CONC 34.2 g/dl (32-36); MEAN PLATELET VOLUME 9.6 fL (7.4-10.4); PLATELET COUNT 240 K/uL (130-400)
[2018-03-19 17:49] LABS: BASO % 0.7 %; BASO ABS # 0.04 K/uL (0-0.2); EOS % 0.5 %; EOS ABS # 0.03 K/uL (0-0.5); HEMATOCRIT 42.1 % (37-47); HEMOGLOBIN 14.4 g/dL (12.0-16.0); IG# 0.01 K/uL (0.00-0.02); LYMPH % 31.1 %; LYMPH ABS # 1.77 K/uL (1.2-3.4); MEAN CELL VOLUME 91.7 fL (80-100); MEAN CORPUSCULAR HEMOGLOBIN 31.4 pg (25-34); MONO % 3.9 %; MONO ABS # 0.22 K/uL (0.11-0.59); NEUT % 63.6 %; NEUT ABS # 3.62 K/uL (1.4-6.5); RED CELL DISTRIBUTION WIDTH CV 13.2 % (11.5-14.5); RED CELL DISTRIBUTION WIDTH SD 43.7 fL (36.4-46.3); WHITE BLOOD COUNT 5.69 K/uL (4.8-10.8)
== END | disposition home or self-care (01) ==
LOC: C.ULTRBC 14:56
PROVIDERS: ATTEND Nurse Practitioner Adult Health
DX: T14.8XXA Other injury of unspecified body region, initial encounter (principal); X58.XXXA Exposure to other specified factors, initial encounter; R22.9 Localized swelling, mass and lump, unspecified

== ENCOUNTER 2019-08-06 06:38 | Observation (INO) ==
[2019-08-06] MEDS ORDERED: HEPARIN (PORCINE) 1000 UNIT/ML 10 ML (CATH LAB USE ONLY) ONE (07:24)
[2019-08-06] MEDS ORDERED: fentaNYL citrate 100 MCG/2 ML VIAL ONE (07:24)
[2019-08-06] MEDS ORDERED: NiCARDipine HCL INJ 2.5 MG/ML 10 ML AMP ONE (07:24)
[2019-08-06] MEDS ORDERED: MIDAZOLAM HCL 1 MG/ML 2ML VIAL ONE ×2 (07:25→09:03)
[2019-08-06] MEDS ORDERED: NITROGLYCERIN/D5W 100MCG/ML 20ML SYR ONE (07:25)
--- NOTE | 2019-08-06 08:15 | History & Physical Bridge Note ---
Date of Service August 06, 2019 History & Physical Bridge Note I have examined the patient, reviewed the History & Physical and in the interval since the performance of the History & Physical I have noted the following changes of clinical significance: no changes noted
--- NOTE | 2019-08-06 08:15 | Pre Anesthesia Assessment ---
Date of Service August 06, 2019 Pre Sedation Assessment Vital Signs Temp Pulse Pulse Resp BP BP Pulse Ox 08/07/19 07:00 36.7 C 79 20 156/78 H 95 08/07/19 05:32 36.8 C 87 16 161/87 H 94 08/07/19 01:00 76 16 155/76 H 95 08/06/19 23:47 76 08/06/19 23:34 36.8 C 75 17 129/77 93 08/06/19 19:23 36.7 C 88 16 165/79 H 91 08/06/19 15:28 73 16 137/81 95 08/06/19 14:28 72 16 138/83 96 08/06/19 13:15 78 16 150/83 H 96 08/06/19 12:45 75 16 138/83 95 08/06/19 12:28 74 16 143/64 H 94 08/06/19 12:12 36.7 C 71 16 131/82 94 08/06/19 11:45 73 20 171/87 H 94 08/06/19 11:30 73 20 171/96 H 94 08/06/19 11:15 73 20 174/92 H 94 08/06/19 11:00 74 20 170/90 H 94 08/06/19 10:45 74 20 164/86 H 94 08/06/19 10:30 72 20 148/96 H 94 08/06/19 10:15 70 20 138/81 94 08/06/19 10:10 68 20 146/86 H 91 08/06/19 09:55 69 20 153/80 H 93 08/06/19 09:50 70 20 152/83 H 95 08/06/19 09:45 68 20 152/77 H 94 08/06/19 09:40 66 20 148/80 H 93 Cardiovascular RRR, no murmur, no edema Respiratory normal respiratory effort, lungs clear to auscultation Pre-Sedation Airway Assessment Smoking Status: Former smoker Hx Sleep Apnea: Yes Short, Thick Neck: No Thyromental Distance: > or= 3.5 Finger Breadths Oral Cavity: + Loose Teeth Mallampati Class: II ASA: ASA3 NPO Status Date of Last Intake of Fluids: 08/05/19 Time of Last Intake of Fluids: 18:00 Date of Last Intake of Solid Food: 08/05/19 Time of Last Intake of Solid Foods: 18:00 Procedure Planning Contraindications for Sedation: none Current Medications Reviewed: Yes Notes The planned sedation has been discussed with the patient. Informed Consent was obtained. I have identified the patient, determined the appropriateness of sedation and have assessed the patient immediately prior to the procedure. All medicine(s) and interventions are by my order.
[2019-08-06] MEDS ORDERED: ADENOSINE IV SOLN 3 MG/ML 20 ML VIAL IV ONE (08:58)
--- NOTE | 2019-08-06 09:02 | Post Anesthesia Assessment ---
Date of Service August 06, 2019 Post Sedation Assessment Vital Signs Temp Pulse Pulse Resp BP BP Pulse Ox 08/07/19 07:00 36.7 C 79 20 156/78 H 95 08/07/19 05:32 36.8 C 87 16 161/87 H 94 08/07/19 01:00 76 16 155/76 H 95 08/06/19 23:47 76 08/06/19 23:34 36.8 C 75 17 129/77 93 08/06/19 19:23 36.7 C 88 16 165/79 H 91 08/06/19 15:28 73 16 137/81 95 08/06/19 14:28 72 16 138/83 96 08/06/19 13:15 78 16 150/83 H 96 08/06/19 12:45 75 16 138/83 95 08/06/19 12:28 74 16 143/64 H 94 08/06/19 12:12 36.7 C 71 16 131/82 94 08/06/19 11:45 73 20 171/87 H 94 08/06/19 11:30 73 20 171/96 H 94 08/06/19 11:15 73 20 174/92 H 94 08/06/19 11:00 74 20 170/90 H 94 08/06/19 10:45 74 20 164/86 H 94 08/06/19 10:30 72 20 148/96 H 94 08/06/19 10:15 70 20 138/81 94 08/06/19 10:10 68 20 146/86 H 91 08/06/19 09:55 69 20 153/80 H 93 08/06/19 09:50 70 20 152/83 H 95 08/06/19 09:45 68 20 152/77 H 94 08/06/19 09:40 66 20 148/80 H 93 Recovery Score Activity: Moves 4 extremities Respiration: Deep Breath/Cough Circulation: +/-20% PreAnes Value Consciousness: Arouseable (by name) Oxygen Saturation: > 92% On Room Air Discharge Sedation Level of Care: Phase I Post Sedation Plan On clinical assessment, the patient appears to have tolerated the sedation without complications. Patient is recovering as anticipated. Patient will continue to be monitored by nursing and may be discharged when sedation discharge criteria are met per below protocol. Upon Completions of procedure up to 15 minutes continue every 5 minute vital signs and the P.A.R. score; then discharge to a Phase I or Fast Track to Phase II per the following guidelines: * Discharge Patient to appropriate Phase II area if PAR is 8 or greater or return to pre- procedure baseline. The post - procedure orders will be as directed. * If PAR score is less than 8 or not return to pre-procedure baseline then patient will follow Phase I monitoring till PAR is reached for Phase II. The Phase I may be done in procedure room or may call to secure a Phase I area. * If naloxone or flumazenil are used for reversal, hold in Phase I for continued monitoring from when last reversal dose was given for a minimum of 60 minutes or longer pending the nurse and/or physician discretion of patient condition before discharge to Phase II. Please call the Sedation Physician to re-evaluate and complete post-note for discharge to Phase II area. Do NOT discharge from procedure sedation or Phase 1 until post- sedation evaluation note is complete by procedure /sedation MD Sedation Discharge Instructions to be given to the patient at discharge to home.
--- NOTE | 2019-08-06 09:10 | Cardiac Catheterization ---
Cardiac Cath Procedure Full Procedure Date August 06, 2019 Pre-Procedure Diagnosis Pre-Procedure Diagnosis: Angina AUC Score AUC Score: 7 Post-Procedure Diagnosis Post-Procedure Diagnosis: Severe CAD Procedure(s) Performed Procedure(s) Performed: Coronary Angiography and Left Heart Cath Thresher [employer] John Travis DO Supply Coordinator(s) [employer]te QUALITY TECH Estimated Blood Loss Estimated Blood Loss: 5cc Medication(s) Medication(s): Fentanyl, Heparin, Lidocaine 1%, Nicardipine, Nitroglycerin and Versed Summary of Findings 75% mid LAD Hemodynamics Rest Ao:: 131/61/111 Final Ao: 125/59/88 LV: 120/5/15 Recommendations Recommendations: Management Recommendatons (FFR LAD, see interventional report under separate cover) Specimens Specimens: None Radiation Exposure (mGy) 440 Contrast (mls) 40 Fluids (cc crystalloids) Fluids (cc crystalloids): 54 Nss Anesthesia Moderate sedation. Start 0837. End 0858. Sedation monitor. Tanisha LOYD. Procedural Complication(s) None Disposition cath lab radiological technologist for FFR I attest to the content of the Intraoperative Record and any orders documented therein. Any exceptions are noted below. 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 Cardiac Status Clinical evaluation leading to the procedure CAD Presenation: Stable angina Anginal Classification: CCS III Heart Failure: No Imaging Studies Past 6 Months: Yes Stress Studies Past 6 Months: No (cardiac CT was non-diagnostic, however, mid LAD calcification reported) Coronary Anatomy Dominant: Right Left Main (% Stenosis): Ostial (30%) LAD (% Stenosis): Proximal (30% at origin of 1st diagonal, and 1st septal supervisor production), Mid (75% focal, mild calcification proximal to D2) and Distal (tapers to 1mm vessel apically with diffuse mild disease, 10-20%) D1 (% Stenosis): Ostial (20%. small vessel) D2 (% Stenosis): Ostial (20%, small vessel) Circumflex (% Stenosis): Mid (30%) OM1 (% Stenosis): Ostial (1mm vessel with mild luminal irregularities. 10%) OM2 (% Stenosis): Ostial (30%) OM3 (% Stenosis): Normal (largest of the 3 marginal branch vessels) RCA (% Stenosis): Mid (20% diffuse) and Distal (40%) R PDA (% Stenosis): Ostial (30%) R PL1 (% Stenosis): Ostial (20%) R PL2 (% Stenosis): Normal AM (% Stenosis): Normal Diagnostic Physicians Name: John Travis DO Closure Device Recommendations: Management Recommendatons (FFR LAD, see interventional report under separate cover)
[2019-08-06] MEDS ORDERED: CLOPIDOGREL BISULFATE 300 MG TAB ONE (09:33)
[2019-08-06] MEDS ORDERED: NITROGLYCERIN SL 0.4 MG/TAB TAB SL PRN (09:42)
[2019-08-06] MEDS ORDERED: ONDANSETRON INJ 2 MG/ML 2 ML VIAL IV PRN (09:42)
[2019-08-06] MEDS ORDERED: SODIUM CHLORIDE 0.9% 1000ML 1,000 ML IV SCH (09:45)
[2019-08-06] MEDS ORDERED: GLUCAGON FOR INJ 1 MG VIAL SQ PRN (09:46)
[2019-08-06] MEDS ORDERED: GLUCOSE 40% GEL 15 GM TUBE PO PRN (09:46)
[2019-08-06] MEDS ORDERED: DEXTROSE 50% 50 ML SYRINGE IV PRN (09:46)
[2019-08-06] MEDS ORDERED: CARBOHYDRATES FOR HYPOGLYCEMIA PO PRN (09:46)
[2019-08-06] MEDS ORDERED: GLUCOSE 10 TABS/TUBE PO PRN (09:46)
[2019-08-06] MEDS: INSULIN ASPART 100 UNITS/ML 3 ML PEN SC SCH ×3 (13:51→21:10)
[2019-08-06 14:15] LABS: Creatinine Clr Calc Pharmacy 53.9 ml/min; Est GFR (African American) 98.3; Est GFR (Non-African American) 84.8
[2019-08-06] MEDS: PHENYTOIN SODIUM ER 100 MG CAP PO SCH ×2 (14:24→20:27)
--- NOTE | 2019-08-06 15:29 | Electrocardiogram Report ---
Test Reason : Blood Pressure : / mmHG Vent. Rate : 069 BPM Atrial Rate : 069 BPM P-R Int : 210 ms QRS Dur : 138 ms QT Int : 458 ms P-R-T Axes : 040 -49 038 degrees QTc Int : 490 ms Sinus rhythm with 1st degree A-V block Left axis deviation Left bundle branch block Abnormal ECG When compared with ECG of 14-MAY-2017 13:26, Left bundle branch block is now Present Confirmed by Mayo Taylor ([id number]) on 08/06/2019 3:29:15 PM Referred By: Tom Vergara Confirmed By:Mayo Taylor
--- NOTE | 2019-08-06 15:35 | Electrocardiogram Report ---
Test Reason : Blood Pressure : / mmHG Vent. Rate : 071 BPM Atrial Rate : 071 BPM P-R Int : 200 ms QRS Dur : 142 ms QT Int : 446 ms P-R-T Axes : 031 -52 040 degrees QTc Int : 484 ms Normal sinus rhythm Left axis deviation Left bundle branch block Abnormal ECG When compared with ECG of 06-AUG-2019 10:35, (unconfirmed) No significant change was found Confirmed by Mayo Taylor ([id number]) on 08/06/2019 3:34:53 PM Referred By: Tom Vergara Confirmed By:Mayo Taylor
--- NOTE | 2019-08-06 16:23 | Cardiac Catheterization ---
[facility] Data: Group Home Manager Cardiac Status Clinical evaluation leading to the procedure CAD Presenation: Unstable angina Anginal Classification: CCS III Heart Failure: No Cardiogenic Shock within 24 Hours: No Cardiac Arrest within 24 Hours: No Imaging Studies Past 6 Months: Yes Stress Studies Past 6 Months: No Diagnostic Physicians Name: Gio Padilla MD Status: Elective Closure Device Closure Device: Radial Band Recommendations: PCI without planned CABG PCI Indication: Angina despite med therapy Lesion Segment Name: mid LAD Culprit Artery: Yes Stenosis Prior to Rx (%): 70 Chronic Total Occlusion: No IVUS: No FFR: Yes Ratio: greater than 0.75% (iFR) Pre-Procedure STACY Flow: 3 Previously Treated Lesion: No Lesion Complexity: Non-High/Non-C Lesion Length (mm): 15 Thrombus Present: No Bifurcation Lesion: Yes Guidewire Across Lesion: Stenosis Post-Procedure (%): 0 Post-Procedure STACY Flow: 3 Devices(s) Deployed: Yes Yes Intraprocedure Events Significant Disection: No Perforation: No Cardiac Cath Procedure Full Procedure Date August 06, 2019 Pre-Procedure Diagnosis Pre-Procedure Diagnosis: Angina AUC Score AUC Score: 7 Post-Procedure Diagnosis Post-Procedure Diagnosis: Severe CAD and Successful PCI Procedure(s) Performed Procedure(s) Performed: Drug Eluting Stent and Fractional Flow [place] Admission Specialist Gio Padilla MD Professional Model(s) Chente DARDEN Estimated Blood Loss Estimated Blood Loss: 15 Medication(s) Medication(s): Clopidogrel, Fentanyl, Heparin, Nicardipine, Nitroglycerin and Versed Summary of Findings Indication: Refractory angina Access: 6Fr right radial artery Catheters: EBU 3.5 guide Findings: For full details of patient's coronary angiography please cath report dictated by Dr. Travis. Briefly, patient found to have severe single vessel disease with a 70% stenosis involving her Mid LAD. Decision to further evaluate with FFR and potentially proceed with PCI. -- PCI -- Antithrombotic therapy: Heparin, Clopidogrel Procedure: Left main cannulated with EBU 3.5 guide BMW wire passed across lesion into distal vessel ACIST FFR catheter placed across lesion into late-mid LAD Pd/Pa 0.76 Mid LAD lesion predilated with 2.0 compliant balloon Dilated lesion stented with 2.25 x 18 mm Natalio LEANDER Stent post-dilated with stent balloon. IC vasodilators administered for spasm Post procedure STACY 3 flow, stent well expanded with minimal residual stenosis and no apparent cardiac complications. Arterial Closure: TR Band Summary: 1. Severe single vessel coronary artery disease - 70% mid LAD (iFR 0.76) 2. Successful PCI of mid LAD with single drug-eluting stent (2.25 x 18 mm Natalio LEANDER). 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 Procedural Complication(s) None Disposition PCU I attest to the content of the Intraoperative Record and any orders documented therein. Any exceptions are noted below. [facility] Card Cath Procedure Codes Cardiac Catheterization Procedure 1: Cardiovascular Cath Procedures: 47706 (Doppler) Pressure Wire Moderate Sedation Procedure 1: Sedation/Anesthesia: 40494 Mod Sedation by the same physician;Init15 Min Child Age 5 & Up Procedure 2: Sedation/Anesthesia: 81555 Mod Sedation by the same physician; Ea [id number] Minutes Stenting Procedure 1: Cardiovascular Stent Procedures: 79084 Perc transcatheter placement of intracoronary stent(s), with ang PG Care Time/CCT Total # of Minutes Spent Total Time Spent with Patient: Total time spent is greater than 50% in coordination of care (as documented) at patient's floor/unit and/or counseling patient:
[2019-08-06] MEDS: PRAVASTATIN SOD 40 MG TAB PO SCH (20:27)
--- NOTE | 2019-08-07 05:11 | Consultation Report ---
DATE OF CONSULTATION: 08/07/2019 CHIEF COMPLAINT: Chest pain. HISTORY OF PRESENT ILLNESS: This is a 64-year-old female with past medical history significant for CVA 6 years ago, diabetes, hypertension, epilepsy, former smoker, depression, hypothyroidism, hyperlipidemia, GERD, status post elective cardiac catheterization, found to have mid LAD lesion which was status post stent. The patient was having chest pain as outpatient and coronary CT was nondiagnostic from significant motion artifact and she is status post cardiac catheterization yesterday and found to have 70% occlusion of mid LAD and status post stent placement. In the middle of the night, she complained of chest pain, so we were called for a consult. The patient says the pain lasted for about 2 hours and it got resolved when she changed the position of her sleep. Nitro was given, but she says the pain got resolved before the nitro. EKG, no significant changes. Currently resting comfortably and hemodynamically stable. She says she is walking and going to the bathroom for micturating and she is doing fine. Denies any nausea. No headache, no blurred vision, no earache, no runny nose, no sore throat. Appetite is okay. Normal bowel and bladder movements. Currently resting comfortably and hemodynamically stable. ALLERGIES: LEVOFLOXACIN, LISINOPRIL, BACTRIM, CLARITHROMYCIN, FAMOTIDINE, BIAXIN. PAST MEDICAL HISTORY: As mentioned above. PAST SURGICAL HISTORY: Status post cardiac catheterization and stent placement, , laparoscopic cholecystectomy. MEDICATIONS: Currently the patient is on aspirin 81 mg p.o. daily, Plavix 75 mg p.o. daily, amlodipine 5 mg p.o. daily, Lovenox 40 mg subcutaneous q. 24 hours, Lexapro 10 mg p.o. daily, folic acid 1 mg p.o. a.m., insulin sliding scale, levothyroxine 25 mcg p.o. daily, losartan 100 mg p.o. daily, Toprol 25 mg p.o. daily, nitroglycerin sublingual p.r.n., Protonix 40 mg p.o. daily, Dilantin ER 100 mg p.o. t.i.d., pravastatin 40 mg p.o. at bedtime. FAMILY HISTORY: Significant for father had prostate cancer; mother had diabetes, CHF; sister has heart disorder and diabetes; brother has kidney disease and alcoholism. SOCIAL HISTORY: . Former smoker, quit 30 years ago. No alcohol use, no drug use. REVIEW OF SYSTEMS: As per HPI. Rest of the review of systems negative. PHYSICAL EXAMINATION: GENERAL: The patient is of moderate build, not in acute distress. VITAL SIGNS: Temperature 36.8, pulse 76, respiratory rate 16, blood pressure 150/76, oxygen 95% on room air. HEENT: No pallor, no icterus. NECK: No JVD, no neck masses, no carotid bruits. CARDIOVASCULAR: S1, S2 heard, regular rate and rhythm, no murmur, no gallop. RESPIRATORY SYSTEM: Normal AP diameter. No accessory muscle use. No wheezing, no crackles. ABDOMEN: Soft, bowel sounds present, nontender. No distention. CENTRAL NERVOUS SYSTEM: Nonfocal. EXTREMITIES: No edema, no erythema. LABORATORY DATA: Creatinine 0.7. Troponin I of 7.4. EKG: Sinus rhythm with first-degree AV block at a rate of 83, left axis deviation, left bundle branch block, QT prolongation of 502. ASSESSMENT AND PLAN: This is a 64-year-old female status post ongoing chest pain and status post elective cardiac catheterization and status post stent to LAD who complains of chest pain. 1. Chest pain, unstable angina. The patient is status post cardiac catheterization and mid LAD stent, complains of chest pain. EKG is unremarkable. Troponin is 7.4, possibly from procedure, but we will do serial cardiac enzymes. Cardiology on board and notified. On aspirin, Plavix, On Toprol-XL and statin. Closely monitor in the tele floor. 2. Diabetes. Continue holding home p.o. medication. Placed on insulin sliding scale. Follow the blood sugars. 3. Hypertension, on losartan, Toprol-XL and amlodipine. Will monitor the blood pressure. 4. Depression, on Lexapro. 5. Hypothyroidism, on Synthroid. 6. History of convulsive seizures, on phenytoin, we will monitor. 7. Deep venous thrombosis prophylaxis, on Lovenox. DISPOSITION: Monitor in the tele floor, as per cardiology. Level 1 full code. MTDD
[2019-08-07] MEDS: LEVOTHYROXINE SODIUM 25 MCG TABLET PO SCH (05:33)
[2019-08-07 07:30] LABS: Basophils # (auto) 0.02 K/uL (0-0.2); Basophils % (auto) 0.2 %; Eosinophils # (auto) 0.03 K/uL (0-0.5); Eosinophils % (auto) 0.4 %; Hematocrit (blood only) 40.6 % (37-47); Hemoglobin 14.1 g/dL (12.0-16.0); Immature Granulocytes # (auto) 0.03 K/uL (0.00-0.02); Immature Granulocytes % (auto) 0.4 %; Lymphocytes # (auto) 1.32 K/uL (1.2-3.4); Lymphocytes % (auto) 15.6 %; Mean Corpuscular Hemoglobin 31.8 pg (25-34); Mean Corpuscular Hgb Conc 34.7 g/dL (32-36); Mean Corpuscular Volume 91.4 fL (80-100); Monocytes # (auto) 0.43 K/uL (0.11-0.59); Monocytes % (auto) 5.1 %; Neutrophils # (auto) 6.65 K/uL (1.4-6.5); Neutrophils % (auto) 78.3 %; Platelet Count 195 K/uL (130-400); RDW Coefficient of Variation 12.9 % (11.5-14.5); Red Blood Count 4.44 M/uL (4.2-5.4); White Blood Count 8.48 K/uL (4.8-10.8)
[2019-08-07] MEDS: ISOSORBIDE MONO EXTENDED REL 30 MG TABCR PO SCH (08:03)
[2019-08-07] MEDS: PANTOprazole 40 MG TAB PO SCH (08:04)
[2019-08-07] MEDS: CLOPIDOGREL BISULFATE 75 MG TAB PO SCH (08:04)
[2019-08-07] MEDS: METOPROLOL SUCC 25MG EXT REL TAB PO SCH (08:04)
[2019-08-07] MEDS: LOSARTAN POTASSIUM 50 MG TAB PO SCH (08:04)
[2019-08-07] MEDS: FOLIC ACID 1 MG TAB PO SCH (08:04)
[2019-08-07] MEDS: AMLODIPINE BESYLATE 5 MG TAB PO SCH (08:04)
[2019-08-07] MEDS: PHENYTOIN SODIUM ER 100 MG CAP PO SCH ×3 (08:05→19:51)
[2019-08-07] MEDS: ESCITALOPRAM OXALATE 10 MG TAB PO SCH (08:05)
[2019-08-07] MEDS: ASPIRIN 81 MG ECTAB PO SCH (08:05)
[2019-08-07] MEDS: INSULIN ASPART 100 UNITS/ML 3 ML PEN SC SCH ×4 (08:05→21:31)
[2019-08-07 08:06] LABS: BUN Creatinine Ratio 14.8 (10-20); Creatinine Clr Calc Pharmacy 51.1 ml/min; Est GFR (African American) 93.8; Est GFR (Non-African American) 80.9
[2019-08-07] MEDS: ENOXAPARIN INJ 40 MG/0.4 ML SYR SQ SCH (08:06)
[2019-08-07 08:16] LABS: Estimated Average Glucose 174 mg/dl; Hemoglobin A1C 7.7 % (4.5-5.6)
--- NOTE | 2019-08-07 08:57 | Cardiology Progress Note ---
Date of Service August 07, 2019 Assessment & Plan (1) Presence of stent in LAD coronary artery: (2) Elevated troponin I level: (3) Hypertension: (4) Hyperlipidemia: 64-year-old female admitted 08/06/2019 for elective cardiac catheterization due to anginal symptoms. Cardiac catheterization demonstrating severe mid LAD stenosis. Drug-eluting stent implanted 08/06/2019. I suspect the diagonal branch vessel covered by the LAD stent may have occluded resulting in chest discomfort and elevated troponin, although stent thrombosis is a concern. Her troponin has trended upward to 10.5. No significant ECG changes, however, nondiagnostic due to underlying left bundle branch block. Resting 2D transthoracic echocardiogram ordered for regional wall motion assessment. Long-acting nitrates added this morning. Patient remains pain-free. Further recommendations pending review of echocardiogram. Addendum: Echo reviewed demonstrating anteroapical hypokinesis. Recommend repeat coronary angiography. Patient agreeable. Subjective Patient seen and examined at the bedside. I was called by nursing overnight due to chest pressure and tightness. Patient evaluated the bedside by hospitalist. Repeat ECG unchanged, however, nondiagnostic due to left bundle branch block. Discomfort spontaneously resolved. Patient treated with 1 sublingual nitroglycerin. Reports mild recurrence in the early a.m., however, currently asymptomatic and feeling well. She is consuming her a.m. meal and is requesting discharge if possible. Initial troponin 7.4 which is trended upward to 10.5 this morning. Blood pressure remains mildly elevated. She received her medications at approximately 8:30 AM. is present at bedside. Review of Systems Review of Systems: All systems reviewed & are unremarkable except as noted in HPI & below Physical Exam Constitutional: well nourished Respiratory: normal respiratory effort, lungs clear to auscultation Cardiovascular: Rate/Rhythm: regular rate and regular rhythm Heart Sounds: normal S1 and normal S2; no click, no gallop, no murmur and no cardiac rub Vessels: radial pulses present; no JVD and no carotid bruit Extremities: no edema Gastrointestinal (Abdomen): Inspection/Auscultation: normal bowel sounds; abdomen not distended Percussion/Palpation: abdomen soft; abdomen nontender, no guarding and abdomen not rigid Musculoskeletal: no cyanosis or clubbing, extremities motor strength 5/5 Skin: no rashes, warm and dry Neurologic: CN's II-XI intact bilaterally and moves all extremities; no focal motor deficits Psychiatric: A+Ox3, euthymic affect Results & Data Vital Signs (Past 12 Hours) Vital Signs Temp Pulse Pulse Resp BP BP Pulse Ox 08/07/19 07:00 36.7 C 79 20 156/78 H 95 08/07/19 05:32 36.8 C 87 16 161/87 H 94 08/07/19 01:00 76 16 155/76 H 95 08/06/19 23:47 76 08/06/19 23:34 36.8 C 75 17 129/77 93 Laboratory Results Laboratory Results - last 24 hr 08/06/19 08/06/19 08/06/19 09:17 12:47 13:37 WBC RBC Hgb Hct MCV MCH MCHC RDW Std Deviation RDW Coeff of Celina Plt Count MPV Immature Gran % (Auto) Neut % (Auto) Lymph % (Auto) [place] % (Auto) Eos % (Auto) Baso % (Auto) Immature Gran # (Auto) Neut # (Auto) Lymph # (Auto) [place] # (Auto) Eos # (Auto) Baso # (Auto) Activ Coag Time Kaolin 268 H Sodium Potassium Chloride Carbon Dioxide Anion Gap BUN Creatinine 0.75 Est Cr Clr Drug Dosing 53.9 Est GFR ( Amer) 98.3 Est GFR (Non-Af Amer) 84.8 BUN/Creatinine Ratio Glucose POC Glucose 252 H Estimat Average Glucose Hemoglobin A1c Calcium Troponin I 08/06/19 08/06/19 08/07/19 16:28 20:47 01:26 WBC RBC Hgb Hct MCV MCH MCHC RDW Std Deviation RDW Coeff of Celina Plt Count MPV Immature Gran % (Auto) Neut % (Auto) Lymph % (Auto) [place] % (Auto) Eos % (Auto) Baso % (Auto) Immature Gran # (Auto) Neut # (Auto) Lymph # (Auto) [place] # (Auto) Eos # (Auto) Baso # (Auto) Activ Coag Time Kaolin Sodium Potassium Chloride Carbon Dioxide Anion Gap BUN Creatinine Est Cr Clr Drug Dosing Est GFR ( Amer) Est GFR (Non-Af Amer) BUN/Creatinine Ratio Glucose POC Glucose 136 H 169 H Estimat Average Glucose Hemoglobin A1c Calcium Troponin I 7.460 H* 08/07/19 08/07/19 08/07/19 07:06 07:16 07:16 WBC 8.48 RBC 4.44 Hgb 14.1 Hct 40.6 MCV 91.4 MCH 31.8 MCHC 34.7 RDW Std Deviation 43.0 RDW Coeff of Celina 12.9 Plt Count 195 MPV 9.0 Immature Gran % (Auto) 0.4 Neut % (Auto) 78.3 Lymph % (Auto) 15.6 [place] % (Auto) 5.1 Eos % (Auto) 0.4 Baso % (Auto) 0.2 Immature Gran # (Auto) 0.03 H Neut # (Auto) 6.65 H Lymph # (Auto) 1.32 [place] # (Auto) 0.43 Eos # (Auto) 0.03 Baso # (Auto) 0.02 Activ Coag Time Kaolin Sodium 134 L Potassium 4.0 Chloride 102 Carbon Dioxide 26 Anion Gap 6.0 BUN 12 Creatinine 0.78 Est Cr Clr Drug Dosing 51.1 Est GFR ( Amer) 93.8 Est GFR (Non-Af Amer) 80.9 BUN/Creatinine Ratio 14.8 Glucose 214 H POC Glucose 275 H Estimat Average Glucose Hemoglobin A1c Calcium 9.0 Troponin I 08/07/19 08/07/19 07:16 07:16 WBC RBC Hgb Hct MCV MCH MCHC RDW Std Deviation RDW Coeff of Celina Plt Count MPV Immature Gran % (Auto) Neut % (Auto) Lymph % (Auto) [place] % (Auto) Eos % (Auto) Baso % (Auto) Immature Gran # (Auto) Neut # (Auto) Lymph # (Auto) [place] # (Auto) Eos # (Auto) Baso # (Auto) Activ Coag Time Kaolin Sodium Potassium Chloride Carbon Dioxide Anion Gap BUN Creatinine Est Cr Clr Drug Dosing Est GFR ( Amer) Est GFR (Non-Af Amer) BUN/Creatinine Ratio Glucose POC Glucose Estimat Average Glucose 174 Hemoglobin A1c 7.7 H Calcium Troponin I 10.500 H*
[2019-08-07] MEDS ORDERED: HEPARIN (PORCINE) 1000 UNIT/ML 10 ML (CATH LAB USE ONLY) ONE (11:24)
[2019-08-07] MEDS ORDERED: fentaNYL citrate 100 MCG/2 ML VIAL ONE (11:24)
[2019-08-07] MEDS ORDERED: NiCARDipine HCL INJ 2.5 MG/ML 10 ML AMP ONE (11:24)
[2019-08-07] MEDS ORDERED: MIDAZOLAM HCL 1 MG/ML 2ML VIAL ONE (11:24)
[2019-08-07] MEDS ORDERED: NITROGLYCERIN/D5W 100MCG/ML 20ML SYR ONE (11:25)
--- NOTE | 2019-08-07 11:32 | Pre Anesthesia Assessment ---
Date of Service August 07, 2019 Pre Sedation Assessment Vital Signs Temp Pulse Pulse Resp BP BP Pulse Ox 08/07/19 13:05 75 16 117/68 92 08/07/19 13:00 72 16 126/78 92 08/07/19 12:57 83 16 133/66 94 08/07/19 11:48 86 16 115/57 L 97 08/07/19 08:00 76 08/07/19 07:00 36.7 C 79 20 156/78 H 95 08/07/19 05:32 36.8 C 87 16 161/87 H 94 08/07/19 01:00 76 16 155/76 H 95 08/06/19 23:47 76 08/06/19 23:34 36.8 C 75 17 129/77 93 08/06/19 19:23 36.7 C 88 16 165/79 H 91 08/06/19 15:28 73 16 137/81 95 08/06/19 14:28 72 16 138/83 96 Cardiovascular RRR, no murmur, no edema Respiratory normal respiratory effort, lungs clear to auscultation Pre-Sedation Airway Assessment Smoking Status: Former smoker Hx Sleep Apnea: Yes Short, Thick Neck: No Thyromental Distance: > or= 3.5 Finger Breadths Oral Cavity: + Loose Teeth Mallampati Class: II ASA: ASA3 NPO Status Date of Last Intake of Fluids: 08/07/19 Time of Last Intake of Fluids: 07:00 Date of Last Intake of Solid Food: 08/07/19 Time of Last Intake of Solid Foods: 07:00 Notes The planned sedation has been discussed with the patient. Informed Consent was obtained. I have identified the patient, determined the appropriateness of sedation and have assessed the patient immediately prior to the procedure. All medicine(s) and interventions are by my order.
[2019-08-07] MEDS ORDERED: ONDANSETRON INJ 2 MG/ML 2 ML VIAL IV PRN (11:46)
--- NOTE | 2019-08-07 12:51 | Post Anesthesia Assessment ---
Date of Service August 07, 2019 Post Sedation Assessment Vital Signs Temp Pulse Pulse Resp BP BP Pulse Ox 08/07/19 11:48 86 16 115/57 L 97 08/07/19 08:00 76 08/07/19 07:00 98.1 F 79 20 156/78 H 95 08/07/19 05:32 98.2 F 87 16 161/87 H 94 08/07/19 01:00 76 16 155/76 H 95 08/06/19 23:47 76 08/06/19 23:34 98.2 F 75 17 129/77 93 08/06/19 19:23 98.1 F 88 16 165/79 H 91 08/06/19 15:28 73 16 137/81 95 08/06/19 14:28 72 16 138/83 96 08/06/19 13:15 78 16 150/83 H 96 Recovery Score Activity: Moves 4 extremities Respiration: Deep Breath/Cough Circulation: +/-20% PreAnes Value Consciousness: Fully Awake Oxygen Saturation: > 92% On Room Air Post Anesthesia Score: 10 Discharge Sedation Level of Care: Fast Track Phase II Post Sedation Plan On clinical assessment, the patient appears to have tolerated the sedation without complications. Patient is recovering as anticipated. Patient will continue to be monitored by nursing and may be discharged when sedation discharge criteria are met per below protocol. Upon Completions of procedure up to 15 minutes continue every 5 minute vital signs and the P.A.R. score; then discharge to a Phase I or Fast Track to Phase II per the following guidelines: * Discharge Patient to appropriate Phase II area if PAR is 8 or greater or return to pre- procedure baseline. The post - procedure orders will be as directed. * If PAR score is less than 8 or not return to pre-procedure baseline then patient will follow Phase I monitoring till PAR is reached for Phase II. The Phase I may be done in procedure room or may call to secure a Phase I area. * If naloxone or flumazenil are used for reversal, hold in Phase I for continued monitoring from when last reversal dose was given for a minimum of 60 minutes or longer pending the nurse and/or physician discretion of patient condition before discharge to Phase II. Please call the Sedation Physician to re-evaluate and complete post-note for discharge to Phase II area. Do NOT discharge from procedure sedation or Phase 1 until post- sedation evaluation note is complete by procedure /sedation MD Sedation Discharge Instructions to be given to the patient at discharge to home.
--- NOTE | 2019-08-07 12:54 | Post Anesthesia Assessment ---
Date of Service August 07, 2019 Post Sedation Assessment Vital Signs Temp Pulse Pulse Resp BP BP Pulse Ox 08/07/19 13:05 75 16 117/68 92 08/07/19 13:00 72 16 126/78 92 08/07/19 12:57 83 16 133/66 94 08/07/19 11:48 86 16 115/57 L 97 08/07/19 08:00 76 08/07/19 07:00 36.7 C 79 20 156/78 H 95 08/07/19 05:32 36.8 C 87 16 161/87 H 94 08/07/19 01:00 76 16 155/76 H 95 08/06/19 23:47 76 08/06/19 23:34 36.8 C 75 17 129/77 93 08/06/19 19:23 36.7 C 88 16 165/79 H 91 08/06/19 15:28 73 16 137/81 95 08/06/19 14:28 72 16 138/83 96 Recovery Score Activity: Moves 4 extremities Respiration: Deep Breath/Cough Circulation: +/-20% PreAnes Value Consciousness: Fully Awake Oxygen Saturation: > 92% On Room Air Post Anesthesia Score: 10 Discharge Sedation Level of Care: Phase I Post Sedation Plan On clinical assessment, the patient appears to have tolerated the sedation without complications. Patient is recovering as anticipated. Patient will continue to be monitored by nursing and may be discharged when sedation discharge criteria are met per below protocol. Upon Completions of procedure up to 15 minutes continue every 5 minute vital signs and the P.A.R. score; then discharge to a Phase I or Fast Track to Phase II per the following guidelines: * Discharge Patient to appropriate Phase II area if PAR is 8 or greater or return to pre- procedure baseline. The post - procedure orders will be as directed. * If PAR score is less than 8 or not return to pre-procedure baseline then patient will follow Phase I monitoring till PAR is reached for Phase II. The Phase I may be done in procedure room or may call to secure a Phase I area. * If naloxone or flumazenil are used for reversal, hold in Phase I for continued monitoring from when last reversal dose was given for a minimum of 60 minutes or longer pending the nurse and/or physician discretion of patient condition before discharge to Phase II. Please call the Sedation Physician to re-evaluate and complete post-note for discharge to Phase II area. Do NOT discharge from procedure sedation or Phase 1 until post- sedation evaluation note is complete by procedure /sedation MD Sedation Discharge Instructions to be given to the patient at discharge to home.
--- NOTE | 2019-08-07 12:57 | Cardiac Catheterization ---
Cardiac Cath Procedure Full Procedure Date August 07, 2019 Pre-Procedure Diagnosis Pre-Procedure Diagnosis: Angina AUC Score AUC Score: 7 Post-Procedure Diagnosis Post-Procedure Diagnosis: Moderate CAD Procedure(s) Performed Procedure(s) Performed: Coronary Angiography Rail Car Welder John Travis DO Railway Station Manager(s) Narendra DARDEN Estimated Blood Loss Estimated Blood Loss: 5cc Medication(s) Medication(s): Clopidogrel, Fentanyl, Heparin, Nicardipine, Nitroglycerin and Versed Summary of Findings Patent LAD stent 50% hazy mid LAD stenosis distal to stent Hemodynamics Rest Ao:: 123/67/89 Final Ao: 137/68/105 LV: n/A Recommendations Recommendations: PCI without planned CABG Specimens Specimens: None Radiation Exposure (mGy) 448 Contrast (mls) 40 Fluids (cc crystalloids) Fluids (cc crystalloids): 117 Drains Drains: none Anesthesia Moderate sedation. Start 1205. End 1233. Sedation monitorMelecio RN Procedural Complication(s) None Disposition Case discussed with interventional cardiology. Patient will remain in Application Analyst for PCI of mid LAD. I attest to the content of the Intraoperative Record and any orders documented therein. Any exceptions are noted below. ACC Data: Application Analyst Cardiac Status Clinical evaluation leading to the procedure Patient developed chest discomfort at approximately 1 AM 08/07/2019. Discomfort lasting nearly 60 minutes and spontaneously resolved. She was treated with sublingual nitroglycerin. Mild episode of recurrent chest discomfort in the a.m. 08/07/2019. Initial troponin 7.4 trending upward to 10.5. 2D transthoracic echocardiogram demonstrating apical hypokinesis suggestive of LAD territory ischemia/infarction. Repeat coronary angiography recommended for reassessment. CAD Presenation: Non STEMI Anginal Classification: CCS IV Heart Failure: No Cardiogenic Shock within 24 Hours: No Cardiac Arrest within 24 Hours: No Imaging Studies Past 6 Months: Yes Stress Studies Past 6 Months: No STEMI OR Non-STEMI Symptom Onset Date: 08/07/19 Symptom Onset Time: 01:02 Thrombolytics: No Coronary Anatomy Dominant: Right Left Main (% Stenosis): Ostial (30% ) LAD (% Stenosis): Proximal (30% at origin of first diagonal branch vessel, first septal supervisor sheet manufacturing), Mid (Widely patent stent. 50% hazy stenosis distal to stent) and Distal (Tapers to 1 mm vessel apically with diffuse mild disease, 10 to 20%) D1 (% Stenosis): Ostial (20%, small vessel) D2 (% Stenosis): Ostial (subtotal occlusion, jailed by LAD stent, STACY 1 flow) Circumflex (% Stenosis): Mid (30%) OM1 (% Stenosis): Ostial (1mm vessel with mild luminal irregularities, 10%) OM2 (% Stenosis): Ostial (30%) OM3 (% Stenosis): Normal (Largest of the 3 marginal branch vessels.) L PL1 (% Stenosis): Proximal (10-20% diffuse, small 1.5mm vessel) RCA (% Stenosis): Mid (20% diffuse) and Distal (40%) R PDA (% Stenosis): Ostial (40%) R PL1 (% Stenosis): Ostial (20%) R PL2 (% Stenosis): Distal (tapers to 1mm with diffuse moderate luminal irregularities, 30-40%) AM (% Stenosis): Normal Diagnostic Physicians Name: John Travis DO Status: Urgent Closure Device Percutaneous Entry Location: Radial Closure Device: Radial Band Recommendations: PCI without planned CABG Intraprocedure Events Significant Disection: No Perforation: No
--- NOTE | 2019-08-07 13:02 | Cardiac Catheterization ---
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 Clinical evaluation leading to the procedure CAD Presenation: Non STEMI Anginal Classification: CCS IV Heart Failure: No Cardiogenic Shock within 24 Hours: No Cardiac Arrest within 24 Hours: No Imaging Studies Past 6 Months: Yes Stress Studies Past 6 Months: No Diagnostic Physicians Name: Gio Padilla MD Status: Elective Closure Device Percutaneous Entry Location: Radial Recommendations: PCI without planned CABG PCI Indication: PCI for high risk Non-HAZEL Lesion Segment Name: Mid LAD Culprit Artery: Yes Stenosis Prior to Rx (%): 50-60 Chronic Total Occlusion: No IVUS: No FFR: No Pre-Procedure STACY Flow: 3 Previously Treated Lesion: Timeframe: less than 1 month Treated with Stent: Yes Stent Type: LEANDER Yes Lesion Complexity: Non-High/Non-C Lesion Length (mm): 8 Thrombus Present: No Bifurcation Lesion: No Guidewire Across Lesion: Stenosis Post-Procedure (%): 0 Post-Procedure STACY Flow: 3 Devices(s) Deployed: Yes Yes Intraprocedure Events Significant Disection: No Perforation: No Cardiac Cath Procedure Full Procedure Date August 07, 2019 Pre-Procedure Diagnosis Pre-Procedure Diagnosis: Non STEMI and Angina AUC Score AUC Score: 7 Post-Procedure Diagnosis Post-Procedure Diagnosis: Severe CAD and Successful PCI Procedure(s) Performed Procedure(s) Performed: Drug Eluting Stent Fire Prevention Engineer Gio Padilla MD Appeals Nurse(s) Narendra Estimated Blood Loss Estimated Blood Loss: 15 Medication(s) Medication(s): Clopidogrel, Fentanyl, Heparin, Nicardipine, Nitroglycerin and Versed Summary of Findings Indication: Post PCI with single LEANDER to mid LAD yesterday (2.25 x 18 mm Natalio). After initially feeling well patient developed chest pain overnight with rising troponin to 10 and apical wall motion abnormality. Repeat angiography revealed STACY I flow in very small second diagonal which was unchanged from post procedure. Also noted to have a 50% eccentric, hazy stenosis just distal to prior stent. With new wall motion abnormality decision made to proceed stenting of stenosis in LAD just distal to prior stent. Access: 6 Fr right radial artery Catheters: JL 3.5 guide -- PCI -- Antithrombotic therapy: Heparin, clopidogrel Procedure: Left main cannulated with EBU 3.5 guide BMW wire passed across lesion into distal vessel 2.25 x 12 mm [place] stent placed to residual mid LAD lesion, overlapping distal aspect of stent placed yesterday Stent postdilated with stent balloon IC vasodilators administered for spasm Post procedure STACY 3 flow, stent well expanded with minimal residual stenosis and no apparent cardiac complications. Arterial Closure: TR band Summary: 1. Residual mid LAD moderate to severe disease (STACY III flow), possible edge dissection post stenting yesterday. 2. Successful PCI of mid LAD with drug-eluting stent (2.25 x 12 Natalio) overlapping distal aspect of prior stent. Recommendations: To PCU for continued monitoring Continue dual-antiplatelet therapy for at least 1 year Continue statin, and ASCVD risk factor modification Consult cardiac Rehab Hemodynamics Rest Ao:: 146/62/95 Final Ao: 167/79/114 LV: -- Recommendations Recommendations: PCI without planned CABG Specimens Specimens: None Radiation Exposure (mGy) 823 Contrast (mls) 80 Fluids (cc crystalloids) Fluids (cc crystalloids): 76 Drains Drains: none Anesthesia Moderate sedation. Procedural Complication(s) None Disposition PCU I attest to the content of the Intraoperative Record and any orders documented therein. Any exceptions are noted below. [facility] Card Cath Procedure Codes Moderate Sedation Procedure 1: Sedation/Anesthesia: 62248 Mod Sedation by the same physician;Init15 Min Child Age 5 & Up Stenting Procedure 1: Cardiovascular Stent Procedures: 36927 Perc transcatheter placement of intracoronary stent(s), with ang PG Care Time/CCT Total # of Minutes Spent Total Time Spent with Patient: Total time spent is greater than 50% in coordination of care (as documented) at patient's floor/unit and/or counseling patient:
[2019-08-07] MEDS ORDERED: SODIUM CHLORIDE 0.9% 1000ML 1,000 ML IV SCH (13:15)
--- NOTE | 2019-08-07 16:38 | Hospitalist Progress Note ---
Date of Service August 07, 2019 Assessment & Plan (1) CAD (coronary artery disease): Elective cardiac cath due to anginal symptoms was done on 08/06/2019 Noted to have 70% mid LAD lesion status post LEANDER placement Did not have any significant symptoms following the procedure but troponin has been going up She underwent repeat cardiac cath today and another stent was placed in LAD overlapping the first stent Will observe in the telemetry Present on Admission?: Yes (2) Presence of stent in LAD coronary artery: Status post mid LAD stent placement on 08/06/2019 NST MO with increasing troponin Repeat cardiac cath today with a second stent placement distal to the first 1 overlapping it We will monitor overnight Appreciate cardiology input and recommendation Dual antiplatelet for 1 year and continue other cardiac medications including statin (3) Elevated troponin I level: As above (4) Depression with anxiety: Very anxious Continue with current medications (5) Hypothyroidism: Continue replacement (6) Seizure disorder: Continue phenytoin No seizure activity Subjective 08/07/2019 The patient was seen and examined in telemetry unit in presence of the She does not complain any chest pain and/or palpitation She is worried of having an heart attack with increasing troponin She denies any shortness of breath and/or nausea vomiting Review of Systems Review of Systems: All systems reviewed and are unremarkable except as noted below Cardiovascular: no chest pain and no palpitations Physical Exam Physical Exam: Lying in bed comfortably but very anxious Constitutional: well developed, well nourished and + ill appearing; no acute distress Eyes: PERRL, conjunctivae normal, anicteric sclerae ENMT: external ear and nose normal, oropharynx normal Neck: trachea midline, no thyromegaly Respiratory: normal respiratory effort Auscultation: lungs clear to auscultation bilaterally Cardiovascular: Rate/Rhythm: regular rate and regular rhythm Heart Sounds: no murmur Gastrointestinal (Abdomen): Inspection/Auscultation: abdomen normal to inspection and normal bowel sounds Percussion/Palpation: abdomen soft Neurologic: moves all extremities and + focal motor deficit Lymphatic: no cervical or axillary lymphadenopathy Results & Data Vital Signs (Past 12 Hours) Vital Signs Temp Pulse Pulse Resp BP BP Pulse Ox 08/07/19 15:17 76 16 135/83 96 08/07/19 14:47 78 106/66 95 08/07/19 14:17 76 16 107/66 95 08/07/19 13:47 82 16 111/68 94 08/07/19 13:15 76 16 115/75 92 08/07/19 13:10 76 16 104/75 92 08/07/19 13:05 75 16 117/68 92 08/07/19 13:00 72 16 126/78 92 08/07/19 12:57 83 16 133/66 94 08/07/19 11:48 86 16 115/57 L 97 08/07/19 08:00 76 08/07/19 07:00 36.7 C 79 20 156/78 H 95 08/07/19 05:32 36.8 C 87 16 161/87 H 94 Laboratory Results Short CBC 08/07/19 Range/Units 07:16 WBC 8.48 (4.8-10.8) K/uL Hgb 14.1 (12.0-16.0) g/dL Hct 40.6 (37-47) % Plt Count 195 (130-400) K/uL BMP 08/07/19 07:16 Sodium 134 L Potassium 4.0 Chloride 102 Carbon Dioxide 26 BUN 12 Creatinine 0.78 Glucose 214 H Calcium 9.0 Cardiac Enzymes 08/07/19 08/07/19 08/07/19 Range/Units 01:26 07:16 13:44 Troponin I 7.460 H* 10.500 H* 10.400 H* (0-0.045) ng/ml Medications Administered Current Inpatient Medications Amlodipine Besylate (Norvasc) 5 mg PO DAILY [facility] Stop: 09/06/19 08:59 Last Admin: 08/07/19 08:04 Dose: 5 mg Documented by: Aspirin (Ecotrin Ectab) 81 mg PO DAILY [facility] Stop: 09/06/19 08:59 Last Admin: 08/07/19 08:05 Dose: 81 mg Documented by: Clopidogrel Bisulfate (Plavix) 75 mg PO DAILY [facility] Stop: 09/06/19 08:59 Last Admin: 08/07/19 08:04 Dose: 75 mg Documented by: Dextrose (Dextrose 50%) 25 - 50 ml IV UD PRN; Protocol PRN Reason: Hypoglycemia Protocol Stop: 09/05/19 09:45 Enoxaparin Sodium (Lovenox) 40 mg SQ Q24H [facility] Stop: 09/06/19 08:59 Last Admin: 08/07/19 08:06 Dose: 40 mg Documented by: Escitalopram Oxalate (Lexapro Tab) [facility] Stop: 09/06/19 08:59 Last Admin: 08/07/19 08:05 Dose: 10 mg Documented by: Folic Acid (Folvite) 1 mg [facility] Stop: 09/06/19 08:59 Last Admin: 08/07/19 08:04 Dose: 1 mg Documented by: Glucagon (Glucagen) 1 mg SQ UD PRN; Protocol PRN Reason: Hypoglycemia Protocol Stop: 09/05/19 09:45 Glucose (Dex4 Glucose) 4 - 8 tabs PO UD PRN; Protocol PRN Reason: Hypoglycemia Protocol Stop: 09/05/19 09:45 Glucose (Glucose 40%) 15 - 30 gm PO UD PRN; Protocol PRN Reason: Hypoglycemia Protocol Stop: 09/05/19 09:45 Sodium Chloride (Nss 1000ml) 1,000 mls @ 100 mls/hr IV .Q10H [facility] Stop: 08/07/19 18:14 Last Admin: 08/07/19 13:50 Dose: 100 mls/hr Documented by: Insulin Aspart (Novolog Flexpen) 0 units SC [facility] Stop: 09/05/19 11:29 Last Admin: 08/07/19 12:19 Dose: Not Given Documented by: Isosorbide Mononitrate (Imdur Extended Rel) 30 mg PO [facility] Stop: 09/06/19 08:59 Last Admin: 08/07/19 08:03 Dose: 30 mg Documented by: Levothyroxine Sodium (Synthroid) 25 mcg PO DAILYBB [facility] Stop: 09/06/19 06:29 Last Admin: 08/07/19 05:33 Dose: 25 mcg Documented by: Losartan Potassium (Cozaar) 100 mg PO [facility] Stop: 09/06/19 08:59 Last Admin: 08/07/19 08:04 Dose: 100 mg Documented by: Metoprolol Succinate (Toprol Xl) 25 mg PO DAILY [facility] Stop: 09/06/19 08:59 Last Admin: 08/07/19 08:04 Dose: 25 mg Documented by: Miscellaneous (Order Awaiting Action) 1 ea N/A QS [facility] Stop: 09/05/19 15:59 Last Admin: 08/06/19 23:26 Dose: Not Given Documented by: Miscellaneous (Carbohydrates For Hypoglycemia) 15 - 30 gm PO UD PRN PRN Reason: Hypoglycemia Protocol Stop: 09/05/19 09:45 Nitroglycerin (Nitrostat) 0.4 mg SL PRN PRN PRN Reason: Chest Pain Stop: 09/05/19 09:41 Last Admin: 08/07/19 01:01 Dose: 0.4 mg Documented by: Ondansetron HCl (Zofran) 4 mg IV Q6H PRN PRN Reason: Nausea And Vomiting Stop: 09/05/19 09:41 Last Admin: 08/07/19 11:50 Dose: 4 mg Documented by: Ondansetron HCl (Zofran) 4 mg IV Q4H PRN PRN Reason: Nausea Stop: 09/06/19 11:45 Pantoprazole Sodium (Protonix) 40 mg PO DAILY [facility] Stop: 09/06/19 08:59 Last Admin: 08/07/19 08:04 Dose: 40 mg Documented by: Phenytoin Sodium (Dilantin Er) 100 mg PO TID [facility] Stop: 09/05/19 13:59 Last Admin: 08/07/19 15:15 Dose: 100 mg Documented by: Pravastatin Sodium (Pravachol) 40 mg PO HS [facility] Stop: 09/05/19 20:59 Last Admin: 08/06/19 20:27 Dose: 40 mg Documented by:
[2019-08-07] MEDS: PRAVASTATIN SOD 40 MG TAB PO SCH (19:51)
--- NOTE | 2019-08-07 23:10 | Electrocardiogram Report ---
Test Reason : Blood Pressure : / mmHG Vent. Rate : 075 BPM Atrial Rate : 075 BPM P-R Int : 198 ms QRS Dur : 132 ms QT Int : 438 ms P-R-T Axes : 028 099 042 degrees QTc Int : 489 ms Normal sinus rhythm Rightward axis Non-specific intra-ventricular conduction block Abnormal ECG When compared with ECG of 06-AUG-2019 14:04, QRS axis Shifted right QRS voltage has decreased Confirmed by Daniel Back ([id number]) on 08/07/2019 11:10:36 PM Referred By: Tom Vergara Confirmed By:Daniel Back
--- NOTE | 2019-08-07 23:11 | Electrocardiogram Report ---
Test Reason : Blood Pressure : / mmHG Vent. Rate : 083 BPM Atrial Rate : 083 BPM P-R Int : 228 ms QRS Dur : 140 ms QT Int : 428 ms P-R-T Axes : 065 -55 080 degrees QTc Int : 502 ms Sinus rhythm with 1st degree A-V block Left axis deviation Left bundle branch block Abnormal ECG When compared with ECG of 07-AUG-2019 00:32, [place] interval has increased QRS axis Shifted left T wave inversion now evident in Lateral leads Confirmed by Daniel Back ([id number]) on 08/07/2019 11:11:15 PM Referred By: Tom Vergara Confirmed By:Daniel Back
--- NOTE | 2019-08-07 23:34 | Electrocardiogram Report ---
Test Reason : Blood Pressure : / mmHG Vent. Rate : 081 BPM Atrial Rate : 081 BPM P-R Int : 194 ms QRS Dur : 136 ms QT Int : 428 ms P-R-T Axes : 039 -52 070 degrees QTc Int : 497 ms Normal sinus rhythm Left axis deviation Left bundle branch block Abnormal ECG When compared with ECG of 07-AUG-2019 01:11, [place] interval has decreased Confirmed by Daniel Back ([id number]) on 08/07/2019 11:34:49 PM Referred By: Tom Vergara Confirmed By:Daniel Back
[2019-08-08] MEDS: LEVOTHYROXINE SODIUM 25 MCG TABLET PO SCH (05:50)
[2019-08-08 05:53] LABS: Basophils # (auto) 0.01 K/uL (0-0.2); Basophils % (auto) 0.1 %; Eosinophils # (auto) 0.03 K/uL (0-0.5); Eosinophils % (auto) 0.4 %; Hematocrit (blood only) 37.6 % (37-47); Hemoglobin 12.9 g/dL (12.0-16.0); Immature Granulocytes # (auto) 0.01 K/uL (0.00-0.02); Immature Granulocytes % (auto) 0.1 %; Lymphocytes # (auto) 1.37 K/uL (1.2-3.4); Lymphocytes % (auto) 17.5 %; Mean Corpuscular Hemoglobin 31.5 pg (25-34); Mean Corpuscular Hgb Conc 34.3 g/dL (32-36); Mean Corpuscular Volume 91.9 fL (80-100); Monocytes # (auto) 0.51 K/uL (0.11-0.59); Monocytes % (auto) 6.5 %; Neutrophils # (auto) 5.88 K/uL (1.4-6.5); Neutrophils % (auto) 75.4 %; Platelet Count 184 K/uL (130-400); RDW Standard Deviation 43.5 fL (36.4-46.3); Red Blood Count 4.09 M/uL (4.2-5.4); White Blood Count 7.81 K/uL (4.8-10.8)
[2019-08-08 06:24] LABS: BUN Creatinine Ratio 17.2 (10-20); Calcium 8.3 mg/dl (8.5-10.1); Creatinine Clr Calc Pharmacy 63.1 ml/min; Est GFR (African American) 110.6; Est GFR (Non-African American) 95.5; Magnesium 1.9 mg/dl (1.8-2.4); Potassium 3.9 mmol/L (3.5-5.1)
[2019-08-08] MEDS: INSULIN ASPART 100 UNITS/ML 3 ML PEN SC SCH ×2 (08:50→11:56)
[2019-08-08] MEDS: CLOPIDOGREL BISULFATE 75 MG TAB PO SCH (08:51)
[2019-08-08] MEDS: METOPROLOL SUCC 25MG EXT REL TAB PO SCH (08:51)
[2019-08-08] MEDS: PHENYTOIN SODIUM ER 100 MG CAP PO SCH (08:51)
[2019-08-08] MEDS: ISOSORBIDE MONO EXTENDED REL 30 MG TABCR PO SCH (08:51)
[2019-08-08] MEDS: AMLODIPINE BESYLATE 5 MG TAB PO SCH (08:51)
[2019-08-08] MEDS: ESCITALOPRAM OXALATE 10 MG TAB PO SCH (08:51)
[2019-08-08] MEDS: PANTOprazole 40 MG TAB PO SCH (08:52)
[2019-08-08] MEDS: LOSARTAN POTASSIUM 50 MG TAB PO SCH (08:52)
[2019-08-08] MEDS: ASPIRIN 81 MG ECTAB PO SCH (08:52)
[2019-08-08] MEDS: FOLIC ACID 1 MG TAB PO SCH (08:52)
[2019-08-08] MEDS: ENOXAPARIN INJ 40 MG/0.4 ML SYR SQ SCH (08:53)
--- NOTE | 2019-08-08 10:26 | Cardiology Progress Note ---
Date of Service August 08, 2019 Assessment & Plan (1) Non-ST elevation (NSTEMI) myocardial infarction: (2) Presence of stent in LAD coronary artery: (3) Elevated troponin I level: (4) Hypertension: (5) Hyperlipidemia: Patient underwent repeat coronary angiography secondary to postprocedural NSTEMI. Angiography demonstrated 50% LAD stenosis distal to the previously implanted stent. Subtotal diagonal branch occlusion noted. A second drug- eluting stent was implanted without complication. Patient observed overnight without recurrent chest discomfort. No sustained dysrhythmias. Recommend continuing dual antiplatelet therapy for a minimum of 6 months post percutaneous intervention. Previously taking dual antiplatelet therapy long- term secondary to history of TIA/CVA. Transition to high potency statin therapy, atorvastatin 40 mg daily. Repeat resting 2D transthoracic echocardiogram in 6 to 12 weeks for reassessment of LV wall motion/systolic function. Continue isosorbide monohydrate 30 mg daily in addition to other cardiovascular medications as previously ordered. I will arrange for outpatient cardiology follow-up in 2 weeks. Subjective Patient seen and examined at the bedside. No recurrent chest pain overnight. Feeling well from a cardiovascular perspective. Requesting discharge if possible. Patient underwent successful repeat catheterization yesterday with implantation of a second drug-eluting stent to left anterior descending artery. The diagonal branch vessel was noted to be subtotally occluded. Tolerating medications and diet. Denies abdominal discomfort, back pain, fever, chills, frequency, urgency, or dysuria. Notes tenderness of her right anterior wrist. is present at bedside. Offers no additional concerns/complaints this time. Review of Systems Review of Systems: All systems reviewed & are unremarkable except as noted in HPI & below Physical Exam Constitutional: well nourished ENMT: Mallampati Class: II Respiratory: normal respiratory effort, lungs clear to auscultation Cardiovascular: RRR, no murmur, no edema Rate/Rhythm: regular rate and regular rhythm Heart Sounds: normal S1 and normal S2; no click, no gallop, no murmur and no cardiac rub Vessels: radial pulses present; no JVD and no carotid bruit Extremities: no edema Gastrointestinal (Abdomen): Inspection/Auscultation: normal bowel sounds; abdomen not distended Percussion/Palpation: abdomen soft; abdomen nontender, no guarding and abdomen not rigid Musculoskeletal: no cyanosis or clubbing, extremities motor strength 5/5 Skin: no rashes, warm and dry Neurologic: CN's II-XI intact bilaterally and moves all extremities; no focal motor deficits Psychiatric: A+Ox3, euthymic affect Results & Data Vital Signs (Past 12 Hours) Vital Signs Temp Pulse Resp BP Pulse Ox 08/08/19 06:46 36.8 C 78 19 122/74 95 08/08/19 04:03 36.5 C 82 19 145/65 H 94 08/07/19 23:21 36.8 C 87 17 123/69 92
[2019-08-08 10:56] VITALS: PULSE 83; TEMP 97.9; O2SAT 94
[2019-08-08] MEDS ORDERED: ATORVASTATIN 40 MG TAB PO SCH (11:00)
--- NOTE | 2019-08-08 11:25 | Hospitalist Progress Note ---
Date of Service August 08, 2019 Assessment & Plan (1) CAD (coronary artery disease): Elective cardiac cath due to anginal symptoms was done on 08/06/2019 Noted to have 70% mid LAD lesion status post LEANDER placement Did not have any significant symptoms following the procedure but troponin has b een going up She underwent repeat cardiac cath today and another stent was placed in LAD overlapping the first stent Will observe in the telemetry No events overnight and the patient remains asymptomatic Was evaluated by cardiology this morning and advised that she can go home today (2) Presence of stent in LAD coronary artery: Status post mid LAD stent placement on 08/06/2019 NST NM with increasing troponin Repeat cardiac cath today with a second stent placement distal to the first 1 overlapping it We will monitor overnight Appreciate cardiology input and recommendation Dual antiplatelet therapy for at least 6 months with increasing dose of atorvastatin and continue with the [facility] Outpatient cardiology and primary care appointment (3) Elevated troponin I level: As above (4) Depression with anxiety: Very anxious Continue with current medications (5) Hypothyroidism: Continue replacement (6) Seizure disorder: Continue phenytoin No seizure activity Subjective 08/07/2019 The patient was seen and examined in telemetry unit in presence of the She does not complain any chest pain and/or palpitation She is worried of having an heart attack with increasing troponin She denies any shortness of breath and/or nausea vomiting 08/08/2019 Patient was seen and examined in telemetry unit She is a status post second stent placement following non-ST elevation NM after the first stent She has been stable overnight and denies any symptoms as of this morning She will be discharged home this afternoon Review of Systems Review of Systems: All systems reviewed and are unremarkable except as noted below Physical Exam Physical Exam: Lying in bed comfortably Constitutional: well developed, well nourished and + ill appearing; no acute distress Eyes: PERRL, conjunctivae normal, anicteric sclerae ENMT: external ear and nose normal, oropharynx normal Neck: trachea midline, no thyromegaly Respiratory: normal respiratory effort Auscultation: lungs clear to ausc ultation bilaterally Cardiovascular: Rate/Rhythm: regular rate and regular rhythm Heart Sounds: no murmur Gastrointestinal (Abdomen): Inspection/Auscultation: abdomen normal to inspection and normal bowel sounds Percussion/Palpation: abdomen soft Musculoskeletal: Denies any acute arthritis involving any joints Neurologic: moves all extremities and + focal motor deficit Lymphatic: no cervical or axillary lymphadenopathy Results & Data Vital Signs (Past 12 Hours) Vital Signs Temp Pulse Resp BP Pulse Ox 08/08/19 10:55 36.6 C 83 18 97/57 L 94 08/08/19 06:46 36.8 C 78 19 122/74 95 08/08/19 04:03 36.5 C 82 19 145/65 H 94 Laboratory Results Short CBC 08/08/19 Range/Units 05:35 WBC 7.81 (4.8-10.8) K/uL Hgb 12.9 (12.0-16.0) g/dL Hct 37.6 (37-47) % Plt Count 184 (130-400) K/uL BMP 08/08/19 05:35 Sodium 138 Potassium 3.9 Chloride 105 Carbon Dioxide 27 BUN 11 Creatinine 0.63 Glucose 189 H Calcium 8.3 L Cardiac Enzymes 08/07/19 Range/Units 13:44 Troponin I 10.400 H* (0-0.045) ng/ml Medications Administered Current Inpatient Medications Amlodipine Besylate (Norvasc) 5 mg PO DAILY [facility] Stop: 09/06/19 08:59 Last Admin: 08/08/19 08:51 Dose: 5 mg Documented by: Aspirin (Ecotrin Ectab) 81 mg PO DAILY [facility] Stop: 09/06/19 08:59 Last Admin: 08/08/19 08:52 Dose: 81 mg Documented by: Atorvastatin Calcium (Lipitor) 40 mg PO QAM [facility] Stop: 09/07/19 10:59 Clopidogrel Bisulfate (Plavix) 75 mg PO DAILY [facility] Stop: 09/06/19 08:59 Last Admin: 08/08/19 08:51 Dose: 75 mg Documented by: Dextrose (Dextrose 50%) 25 - 50 ml IV UD PRN; Protocol PRN Reason: Hypoglycemia Protocol Stop: 09/05/19 09:45 Enoxaparin Sodium (Lovenox) 40 mg SQ Q24H [facility] Stop: 09/06/19 08:59 Last Admin: 08/08/19 08:53 Dose: Not Given Documented by: Escitalopram Oxalate (Lexapro Tab) 10 mg PO QAM [facility] Stop: 09/06/19 08:59 Last Admin: 08/08/19 08:51 Dose: 10 mg Documented by: Folic Acid (Folvite) 1 mg PO QAM [facility] Stop: 09/06/19 08:59 Last Admin: 08/08/19 08:52 Dose: 1 mg Documented by: Glucagon (Glucagen) 1 mg SQ UD PRN; Protocol PRN Reason: Hypoglycemia Protocol Stop: 09/05/19 09:45 Glucose (Dex4 Glucose) 4 - 8 tabs PO UD PRN; Protocol PRN Reason: Hypoglycemia Protocol Stop: 09/05/19 09:45 Glucose (Glucose 40%) 15 - 30 gm PO UD PRN; Protocol PRN Reason: Hypoglycemia Protocol Stop: 09/05/19 09:45 Insulin Aspart (Novolog Flexpen) 0 units SC [facility] Stop: 09/05/19 11:29 Last Admin: 08/08/19 08:50 Dose: 1 units Documented by: Isosorbide Mononitrate (Imdur Extended Rel) 30 mg PO [facility] Stop: 09/06/19 08:59 Last Admin: 08/08/19 08:51 Dose: 30 mg Documented by: [facility]othy[facility]ine [facility]) [facility]: 09/06/19 06:29 Last Admin: 08/08/19 05:50 Dose: 25 mcg Documented by: Losartan Potassium (Cozaar) 100 mg PO [facility] Stop: 09/06/19 08:59 Last Admin: 08/08/19 08:52 Dose: 100 mg Documented by: Metoprolol Succinate (Toprol Xl) 25 mg PO DAILY [facility] Stop: 09/06/19 08:59 Last Admin: 08/08/19 08:51 Dose: 25 mg Documented by: Miscellaneous (Order Awaiting Action) 1 ea N/A QS [facility] Stop: 09/05/19 15:59 Last Admin: 08/08/19 01:02 Dose: Not Given Documented by: Miscellaneous (Carbohydrates For Hypoglycemia) 15 - 30 gm PO UD PRN PRN Reason: Hypoglycemia Protocol Stop: 09/05/19 09:45 Nitroglycerin (Nitrostat) 0.4 mg SL PRN PRN PRN Reason: Chest Pain Stop: 09/05/19 09:41 Last Admin: 08/07/19 01:01 Dose: 0.4 mg Documented by: Ondansetron HCl (Zofran) 4 mg IV Q6H PRN PRN Reason: Nausea And Vomiting Stop: 09/05/19 09:41 Last Admin: 08/07/19 11:50 Dose: 4 mg Documented by: Ondansetron HCl (Zofran) 4 mg IV Q4H PRN PRN Reason: Nausea Stop: 09/06/19 11:45 Pantoprazole Sodium (Protonix) 40 mg PO DAILY [facility] Stop: 09/06/19 08:59 Last Admin: 08/08/19 08:52 Dose: 40 mg Documented by: Phenytoin Sodium (Dilantin Er) 100 mg PO TID [facility] Stop: 09/05/19 13:59 Last Admin: 08/08/19 08:51 Dose: 100 mg Documented by:
[2019-08-08 14:09] VITALS: BP 161/87
--- NOTE | 2019-08-09 08:01 | Discharge Summary ---
Date of Service August 09, 2019 Admission HPI Per Admitting Provider DICTATED BY: Ra De Luna MD DATE OF CONSULTATION: 08/07/2019 CHIEF COMPLAINT: Chest pain. HISTORY OF PRESENT ILLNESS: This is a 64-year-old female with past medical history significant for CVA 6 years ago, diabetes, hypertension, epilepsy, former smoker, depression, hypothyroidism, hyperlipidemia, GERD, status post elective cardiac catheterization, found to have mid LAD lesion which was status post stent. The patient was having chest pain as outpatient and coronary CT was nondiagnostic from significant motion artifact and she is status post cardiac catheterization yesterday and found to have 70% occlusion of mid LAD and status post stent placement. In the middle of the night, she complained of chest pain, so we were called for a consult. The patient says the pain lasted for about 2 hours and it got resolved when she changed the position of her sleep. Nitro was given, but she says the pain got resolved before the nitro. EKG, no significant changes. Currently resting comfortably and hemodynamically stable. She says she is walking and going to the bathroom for micturating and she is doing fine. Denies any nausea. No headache, no blurred vision, no earache, no runny nose, no sore throat. Appetite is okay. Normal bowel and bladder movements. Currently resting comfortably and hemodynamically stable Admission Exam Per Admitting Provider GENERAL: The patient is of moderate build, not in acute distress. VITAL SIGNS: Temperature 36.8, pulse 76, respiratory rate 16, blood pressure 150/76, oxygen 95% on room air. HEENT: No pallor, no icterus. NECK: No JVD, no neck masses, no carotid bruits. CARDIOVASCULAR: S1, S2 heard, regular rate and rhythm, no murmur, no gallop. RESPIRATORY SYSTEM: Normal AP diameter. No accessory muscle use. No wheezing, no crackles. ABDOMEN: Soft, bowel sounds present, nontender. No distention. CENTRAL NERVOUS SYSTEM: Nonfocal. EXTREMITIES: No edema, no erythema. Principal Diagnosis CAD status post LAD stents x2, non-ST STEFANIE, depression with anxiety, hypothyroidism Discharge Exam Constitutional well developed, well nourished and + ill appearing; no acute distress Eyes PERRL, conjunctivae normal, anicteric sclerae ENMT external ear and nose normal, oropharynx normal Neck trachea midline, no thyromegaly Respiratory normal respiratory effort Auscultation: lungs clear to auscultation bilaterally Cardiovascular Rate/Rhythm: regular rate and regular rhythm Heart Sounds: no murmur Gastrointestinal (Abdomen) Inspection/Auscultation: abdomen normal to inspection and normal bowel sounds Percussion/Palpation: abdomen soft Neurologic moves all extremities and + focal motor deficit Lymphatic no cervical or axillary lymphadenopathy Discharge Data Allergies Allergy/AdvReac Type Severity Reaction Status Date / Time levofloxacin Allergy Intermediate CHEST Verified 06/17/19 10:03 TIGHTNESS, RASH lisinopril Allergy Unknown unknown Verified 06/17/19 10:03 Bactrim AdvReac Intermediate GI Verified 03/15/18 11:06 UPSET,HEADACHE clarithromycin AdvReac Intermediate GI UPSET Verified 06/17/19 10:03 sulfamethoxazole AdvReac Intermediate GI Verified 06/17/19 10:03 UPSET,HEADACHE trimethoprim AdvReac Intermediate GI Verified 06/17/19 10:03 UPSET,HEADACHE famotidine AdvReac Chest Pain Verified 08/01/19 12:31 Biaxin TABS Allergy Unknown Unknown Uncoded 08/06/19 07:34 Consultations 08/06/19 09:44 Consult Cardiac Rehabilitation Routine 08/07/19 00:53 Consult Hospitalist Stat 08/07/19 11:25 Consult Cardiac Catheterization Stat Procedures Performed Operation Date: 08/06/19 08:00 Actual Procedures p Cath, Left with Cors and Vent - John Travis, DO s Cineradiography w/Routine Exam - John Travis, DO s Drug Eluting Stent SGl Vessel - Benjie Padilla MD s Fraction Flow [place] SGL Ves - Benjie Padilla MD Operation Date: 08/07/19 11:25 Actual Procedures s Cineradiography w/Routine Exam - John Travis DO p Cath, Coronaries ONLY (no LV) - John Travis DO p Drug Eluting Stent SGl Vessel - Benjie Padilla MD Ordered Studies 08/06/19 06:36 CL Cath Imgs for PACS use only Routine 08/07/19 11:24 CL Cath Imgs for PACS use only Urgent Hospital Course (1) CAD (coronary artery disease): Elective cardiac cath due to anginal symptoms was done on 08/06/2019 Noted to have 70% mid LAD lesion status post LEANDER placement Did not have any significant symptoms following the procedure but troponin has been going up She underwent repeat cardiac cath today and another stent was placed in LAD overlapping the first stent Will observe in the telemetry No events overnight and the patient remains asymptomatic Was evaluated by cardiology this morning and advised that she can go home today (2) Presence of stent in LAD coronary artery: Status post mid LAD stent placement on 08/06/2019 NST SC with increasing troponin Repeat cardiac cath today with a second stent placement distal to the first 1 overlapping it We will monitor overnight Appreciate cardiology input and recommendation Dual antiplatelet therapy for at least 6 months with increasing dose of atorvastatin and continue with the [facility] Outpatient cardiology and primary care appointment (3) Elevated troponin I level: As above (4) Depression with anxiety: Very anxious Continue with current medications (5) Hypothyroidism: Continue replacement (6) Seizure disorder: Continue phenytoin No seizure activity Total Time Total Time Spent Total Time Spent (In Minutes): 35 minutes Total Time Includes: Examination of the Patient, Discharge Planning, Medication Reconciliation and Communication With Other Providers Discharge Plan Discharge Items Patient Disposition: Home - Self-Care Reason For Visit: POST PCI Discharge Diagnosis: CAD status post LAD stents x2, non-ST STEFANIE, depression with anxiety, hypothyroidism Condition on Discharge: Good Activity: Resume your previous activity Non-emergency contact: Primary Care Provider Call non-emergency contact if: you have any medication questions and your symptoms worsen Follow-up/Referrals: Eliazar Peck, [Primary Care Provider] - (Your doctor's office will call for an appointment within 7 days. Cardiology will call with an appointment in 2 weeks) Diet: Heart Healthy Addtl Attending Provider Instructions: Please continue the medications as advised Dual antiplatelet therapy continued for at least 6 months Pending Studies at Discharge: No Stand-Alone Forms: [employer], Smoking Cessation Medications and DC Order Prescriptions: New atorvastatin 40 mg Tablet 40 mg PO QAM 30 Days Qty: 30 RF: 0 isosorbide mononitrate 30 mg Tablet Extended Release 24 Hr 30 mg PO QAM 30 Days Qty: 30 RF: 0 pantoprazole 40 mg Tablet,Delayed Release (Dr/Ec) 40 mg PO DAILY 30 Days Qty: 30 RF: 0 nitroglycerin [Nitrostat] 0.4 mg Tablet, Sublingual 0.4 mg sublingual PRN PRN (Reason: chest pain) 30 Days Qty: 25 RF: 0 Continued escitalopram oxalate 10 mg tablet 10 mg PO QAM Qty: 90 RF: 3 levothyroxine 25 mcg tablet 25 mcg PO QAM Qty: 90 RF: 3 losartan 100 mg tablet 100 mg PO QAM Qty: 30 RF: 6 metoprolol succinate 25 mg tablet extended release 24 hr 25 mg PO DAILY Qty: 30 RF: 2 aspirin [Adult Low Dose Aspirin] 81 mg tablet,delayed release (DR/EC) 81 mg PO DAILY RF: 0 phenytoin sodium extended 100 mg Capsule 100 mg PO TID RF: 0 clopidogrel [Plavix] 75 mg Tablet 75 mg PO DAILY RF: 0 olopatadine 0.1 % Drops 1 drp OPHTHALMIC (EYE) DAILY RF: 0 folic acid 1 mg Tablet 1 mg PO QAM RF: 0 pyridoxine (vitamin B6) [Vitamin B-6] 250 mg Tablet 250 mg PO QAM RF: 0 amlodipine 5 mg Tablet 5 mg PO DAILY RF: 0 metformin 1,000 mg Tablet 1,000 mg PO BID RF: 0 Discontinued omeprazole 20 mg capsule,delayed release(DR/EC) 20 mg PO DAILY Qty: 30 RF: 3 pravastatin 40 mg Tablet 40 mg PO HS RF: 0 Discharge Orders: Discharge Order (Routine); Ordered 08/08/19 Ordered By: Mirlande Turcios/Other Patient Handouts: Diabetes Manage A1C Test Admission Data Admit Date/Time: 08/06/19 09:41 Attending Provider: John Travis Admit Provider: Benjie Padilla Primary Care Provider: Eliazar Peck Other Providers: Ra De Luna Manabendra ; John Travis Other Interventions: Discharge Summary Assessment (RN) Last Done: 08/08/19 14:05 DC Date/Time DO NOT enter until pt leaves facility: 08/08/19 14:58
== END 2019-08-08 14:58 | disposition home or self-care (01) ==
LOC: 2S 06:38 → CC 06:38
PROC: CLB.CCO (2019-08-07 11:25)
DX: Z79.4 Long term (current) use of insulin; Z88.2 Allergy status to sulfonamides; E78.5 Hyperlipidemia, unspecified; Z86.73 Personal history of transient ischemic attack (TIA), and cerebral infarction without residual deficits; Z79.82 Long term (current) use of aspirin; I10 Essential (primary) hypertension; R79.89 Other specified abnormal findings of blood chemistry; Z88.1 Allergy status to other antibiotic agents; Z79.899 Other long term (current) drug therapy; F32.9 Major depressive disorder, single episode, unspecified; E03.9 Hypothyroidism, unspecified; G40.909 Epilepsy, unspecified, not intractable, without status epilepticus; Z88.8 Allergy status to other drugs, medicaments and biological substances; E11.9 Type 2 diabetes mellitus without complications; I25.119 Atherosclerotic heart disease of native coronary artery with unspecified angina pectoris; Z87.891 Personal history of nicotine dependence; K21.9 Gastro-esophageal reflux disease without esophagitis

== ENCOUNTER 2024-02-06 11:44 | Inpatient (IN) ==
--- NOTE | 2024-02-06 12:34 | Emergency Department Note ---
History of Present Illness General Chief complaint: Hypotension Stated complaint: LOW BP , REF BY DOC Time Seen by Provider: 02/06/24 12:21 Source: patient, family ( who is at the bedside), RN notes reviewed and old records reviewed (I have reviewed records from primary care office visit today for similar) Mode of arrival: ambulatory Limitations: no limitations History of Present Illness This patient is a 61-year-old female was sent over from her doctor's office with concern for possible sepsis. The patient has been sick for a couple weeks she says she has been having bladder pain with some dysuria she had cloudy urine in the office she has pain in her back bilaterally she had a fever off-and-on no nausea or vomiting but she is not been drinking much ,no diarrhea, no blood or melena stool. No fall or trauma, no chest pain or shortness of breath. Her blood pressure was in the 90s in the office although she only weighs 44 kg. Home Medications Medication Instructions Recorded Confirmed Type folic acid 1 mg tablet 1 mg PO QAM 12/31/18 02/06/24 History pyridoxine (vitamin B6) 250 mg 250 mg PO QAM 12/31/18 02/06/24 History tablet (Vitamin B-6) aspirin 81 mg tablet,delayed 81 mg PO QAM 06/17/19 02/06/24 History release (Adult Low Dose Aspirin) nitroglycerin 0.4 mg sublingual 0.4 mg sublingual Q5M PRN chest 04/07/20 02/06/24 Rx tablet pain #30 tabs cholecalciferol (vitamin D3) 50 50 mcg PO QAM 03/10/21 02/06/24 History mcg (2,000 unit) capsule miscellaneous medical supply #1 ea 10/27/21 02/06/24 Rx (Blood Pressure Cuff) losartan 100 mg tablet 100 mg PO QAM #90 tabs 02/07/23 02/06/24 Rx phenytoin sodium extended 100 mg 100 mg PO TID #270 caps 02/16/23 02/06/24 Rx capsule ezetimibe 10 mg tablet 10 mg PO QAM 06/08/23 02/06/24 History escitalopram oxalate 10 mg tablet 10 mg PO QAM PRN anxiety #90 tabs 11/15/23 02/06/24 Rx amlodipine 5 mg tablet 5 mg PO BID 02/06/24 02/06/24 History atorvastatin 80 mg tablet 80 mg PO QAM 02/06/24 02/06/24 History carvedilol 6.25 mg tablet 6.25 mg PO BID 02/06/24 02/06/24 History clopidogrel 75 mg tablet (Plavix) 75 mg PO QAM 02/06/24 02/06/24 History empagliflozin 10 mg tablet 10 mg PO HS 02/06/24 02/06/24 History (Jardiance) isosorbide mononitrate 30 mg 30 mg PO BID 02/06/24 02/06/24 History tablet,extended release 24 hr levothyroxine 50 mcg tablet 50 mcg PO DAILYBB 02/06/24 02/06/24 History (Synthroid) pantoprazole 40 mg tablet,delayed 40 mg PO QAM 02/06/24 02/06/24 History release Allergies Allergy/AdvReac Type Severity Reaction Status Date / Time levofloxacin Allergy Intermediate CHEST Verified 02/06/24 11:04 TIGHTNESS, RASH Bactrim AdvReac Intermediate GI Verified 03/15/18 11:06 UPSET,HEADACHE clarithromycin AdvReac Intermediate GI UPSET Verified 02/06/24 11:04 levothyroxine sodium AdvReac Intermediate dizziness, Verified 02/06/24 11:04 headache, nausea and vomitting lisinopril AdvReac Intermediate cough Verified 02/06/24 11:04 sulfamethoxazole AdvReac Intermediate GI Verified 02/06/24 11:04 UPSET,HEADACHE trimethoprim AdvReac Intermediate GI Verified 02/06/24 11:04 UPSET,HEADACHE famotidine AdvReac Chest Pain Verified 02/06/24 11:04 Biaxin TABS Allergy Intermediate GI upset Uncoded 02/06/24 11:04 Past Med/Surg History Problem List (Updated 02/06/24 @ 14:00 by Eliazar Rg MD) Back pain (Acute) Hydronephrosis (Acute) UTI (urinary tract infection) (Acute) Abdominal pain (Acute) Hypertension CAD (coronary artery disease) DM type 2 (diabetes mellitus, type 2) Hyperlipidemia Stroke 5-6 years ago - on plavix; no residual deficits Seizure disorder last seizure 5-6 years shortly after stroke Hypothyroidism Depression with anxiety 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 Xerosis cutis (Acute) Medical History Abnormal CT scan, gastrointestinal tract No further Intervention, seen by General Surgery Non-ST elevation (NSTEMI) myocardial infarction Left facial numbness Primary hypercoagulable state Fatty liver History of cerebral artery occlusion 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) Elevated alkaline phosphatase level Elevated blood protein Diverticular disease Cataract Chronic headache GERD (gastroesophageal reflux disease) Surgical History Presence of stent in LAD coronary artery Hx of right cataract extraction 01/21/19: was given 3mg of IV versed History of esophagogastroduodenoscopy (EGD) History of colonoscopy History of cholecystectomy History of x 3 Family History Mother Family history of diabetes mellitus Acute myocardial infarction Heart disease Daughter Family history of diabetes mellitus Son Family history of diabetes mellitus Brother Cirrhosis of liver Father Acute myocardial infarction Prostate cancer Aunt Breast cancer Ovarian carcinoma Social History Smoking Status: Never smoker Second Hand Exposure: Yes (as a child; mother smoked); Do You Dip or Chew Tobacco: No; Hx Alcohol Use: No Hx Substance Use: No Preferred Language: Occitan Communication Ability: Effective Food Mixer Assembler Required: No Beliefs That Will Affect Care: None Current Living Situation: Family Current Living Situation Comment: son and brother Feels Safe at Home: Yes caffeine: Yes Dental Care, Regularly: No Physical Activity Frequency: Does not Exercise Seatbelt Use: always Sunscreen Use: No Assistive Devices: None Review of Systems A total of 10 systems reviewed and were otherwise negative Physical Exam Vital Signs Vital Signs - 24 hr 02/06/24 11:47 02/06/24 12:15 02/06/24 12:36 Temperature 36.7 C Temperature Source Oral Pulse Rate 85 89 Pulse Rhythm Respiratory Rate 16 Respiratory Effort / Characteristics Non-Labored Spontaneous Respiratory Depth Normal Blood Pressure 109/62 Blood Pressure Mean 77 Pulse Oximetry 98 98 Oxygen Delivery Method Room Air Room Air Oxygen Flow Rate 0 Sepsis Recent Fever Within 48 Hours Yes Sepsis New/Unexplained Change in Mental Status No Sepsis Action Taken by Nursing No Action Required 02/06/24 12:36 02/06/24 13:02 02/06/24 14:18 Temperature Temperature Source Pulse Rate 80 78 75 Pulse Rhythm Regular Respiratory Rate 21 17 15 Respiratory Effort / Characteristics Respiratory Depth Blood Pressure 109/64 109/65 Blood Pressure Mean 76 79 Pulse Oximetry 98 98 Oxygen Delivery Method Room Air Oxygen Flow Rate Sepsis Recent Fever Within 48 Hours Sepsis New/Unexplained Change in Mental Status Sepsis Action Taken by Nursing General: Well developed well nourished older female who appears in no acute distress, breathing comfortably on room air. Normal speech HEENT: Normal cephalic atraumatic. Pupils are equal round and reactive to light. Extraocular movements are intact. Oropharynx is pink with moist mucous membranes. No swelling of the mouth lips or tongue. Neck: Supple with a midline trachea. No meningeal signs or stiffness, no JVD or bruits. No Stridor. Chest: Clear to auscultation bilaterally. No wheezes or rhonchi. No increased work of breathing. Heart: Regular rate and rhythm without murmurs or gallops. Abdomen: Soft nontender, nondistended without rebound guarding or rigidity. Extremities: No cyanosis clubbing or edema. No calf tenderness or assymetry Spine/Back. Non tender to palpation. No CVA tenderness Skin: Good turgor without rashes. Neurologic exam: Cranial nerves two through 12 are intact. Motor and sensation are intact and symmetrical throughout. Course Administered Medications Discontinued Medications Sodium Chloride (Nss) 500 mls @ 999 mls/hr IV .Q31M STA Stop: 02/06/24 12:20 Last Admin: 02/06/24 13:07 Dose: Not Given Documented By: QUIANA Ceftriaxone Sodium (Rocephin) 1,000 mg in 50 mls @ 100 mls/hr IV NOW STA Stop: 02/06/24 13:04 Last Infusion: 02/06/24 13:49 Dose: Infused Documented By: Admin: 02/06/24 13:06 Dose: 100 mls/hr Documented By: QUIANA Medical Decision Making Differential Diagnosis Urinary tract infection, kidney stone, sepsis, intra-abdominal process, dehydration, electrolyte or metabolic abnormality Medical Records Attestation: I reviewed the patient's medical records. Home Medications Current Medication List: was personally reviewed by ut Laboratory Data Attestation: I reviewed the patient's lab results. 02/06/24 12:15 02/06/24 12:15 Lab Results 02/06/24 02/06/24 02/06/24 Range/Units 12:15 12:31 12:50 WBC 5.66 (4.8-10.8) K/ul RBC 4.13 L (4.20-5.40) M/uL Hgb 12.2 (12.0-16.0) g/dl Hct 36.6 L (37.0-47.0) % MCV 88.6 (80.0-100.0) fL MCH 29.5 (25.0-34.0) pg MCHC 33.3 (32.0-36.0) g/dL RDW Std Deviation 44.6 (36.4-46.3) fL RDW Coeff of [place] 13.7 (11.5-14.5) % Plt Count 271 (130-400) K/uL MPV 9.6 (9.4-12.4) fL Immature Gran % (Auto) 0.5 % Neut % (Auto) 71.2 % Lymph % (Auto) 19.3 % [place] % (Auto) 8.3 % Eos % (Auto) 0.0 % Baso % (Auto) 0.7 % Neut # (Auto) 4.03 (1.40-6.50) K/uL Lymph # (Auto) 1.09 L (1.20-3.40) K/uL [place] # (Auto) 0.47 (0.11-0.59) K/uL Eos # (Auto) 0.00 (0.00-0.50) K/uL Baso # (Auto) 0.04 (0.00-0.20) K/uL Immature Gran # (Auto) 0.03 (0.01-0.20) K/uL PT 11.1 (9.0-12.0) Seconds INR 1.0 (0.9-1.1) APTT 25 (21-31) Seconds PTT Ratio 0.9 Sodium 133 L (136-145) mmol/L Potassium 4.0 (3.5-5.1) mmol/L Chloride 98 (98-107) mmol/L Carbon Dioxide 26 (21-32) mmol/L Anion Gap 9 (3-11) BUN 20 (6-23) mg/dl Creatinine 0.98 (0.6-1.2) mg/dl Est Cr Clr Drug Dosing 34.4 ml/min Est GFR ( Amer) 68.7 ml/min Est GFR (Non-Af Amer) 59.3 ml/min BUN/Creatinine Ratio 20.4 H (10-20) Glucose 156 H (70-99(Fasting)) mg/dl Lactate 1.1 (0.4-2.0) mmol/L Calcium 9.3 (8.6-10.3) mg/dl Magnesium 2.0 (1.7-2.4) mg/dl Total Bilirubin 0.4 (0.2-1.0) mg/dl AST 240 H (13-39) U/L ALT 186 H (7-52) U/L Alkaline Phosphatase 106 H (34-104) U/L Troponin I High Sens 3.9 (0-14) pg/ml Total Protein 8.9 H (6.0-8.3) gm/dl Albumin 3.6 (3.4-5.0) gm/dl Globulin 5.3 H (2.5-4.0) gm/dl Albumin/Globulin Ratio 0.7 L (0.9-2) Urine Color Yellow Urine Appearance Turbid A (Clear) Urine pH 6.0 (4.5-7.5) Ur Specific [place] 1.013 (1.000-1.030) Urine Protein 1+ H (Negative) Urine Glucose (UA) 3+ H (Negative) Urine Ketones Negative (Negative) Urine Blood 2+ H (Negative) Urine Nitrite Negative (Negative) Urine Bilirubin Negative (Negative) Urine Urobilinogen Negative (Negative) Ur Leukocyte Esterase 3+ H (Negative) Urine WBC (Auto) >50 H (0-5) /hpf Urine RBC (Auto) 0-2 (0-2) /hpf U Hyaline Cast (Auto) 0-2 (0-2) /lpf U Epithel Cells (Auto) 0-2 (0-2) /hpf Urine Bacteria (Auto) 3+ H (None Seen) Ur Renal Epithelial Cell Present A (None Presnt) /lpf Urine Mucus Present A (None Prsent) Imaging Data Attestation: I personally reviewed and interpreted this imaging study as follows: My Impression: CT of the abdomen and pelvis with and without contrastthere is hydronephrosis on the right. Radiologist's Impression: Abdomen/Pelvis CT 02/06/24 12:29 CT SCAN OF THE ABDOMEN AND PELVIS WITHOUT IV CONTRAST CLINICAL HISTORY: Generalized abdominal pain. Flank pain. COMPARISON STUDY: Abdominal CT dated 02/28/2021. TECHNIQUE: CT scan of the abdomen and pelvis is performed from the lung bases to the proximal femora. Images are reviewed in the axial, sagittal, and coronal planes. IV contrast was not administered for this examination. Note that the examination was performed in suboptimal fashion without oral and IV contrast. A dose lowering technique was utilized adhering to the principles of ALARA. The examination is significantly degraded by motion artifact. CT DOSE: 445.12 mGy.cm FINDINGS: Lung bases: The heart is top normal in size and without pericardial effusion. The coronary arteries are densely calcified. Evaluation of the lung bases is degraded by motion artifact. There is a 2.0 cm irregular nodular opacity at the left lung base seen on image #19. A nodule is seen in the right middle lobe on image #16. No lobar consolidation or pleural effusion is identified.. Liver: The unenhanced liver is normal in size, contour, and attenuation. There is no intrahepatic biliary ductal dilatation. Gallbladder: Surgically absent noting clips in the gallbladder fossa. Spleen: Normal in size and attenuation. Pancreas: The unenhanced pancreas is grossly unremarkable. Adrenal glands: Unremarkable. Kidneys: The unenhanced kidneys are normal in size. There is moderate right- sided hydroureteronephrosis. The mid to distal ureter is decompressed, and no obstructing stone or lesion is identified. This may related to retroperitoneal lymphadenopathy versus scarring/fibrosis. There are 2 nonobstructing right renal calculi which measure up to 5 mm. No left renal calculi are seen and there is no left-sided hydronephrosis. Foci of cortical scarring are noted in the right kidney. A 2.4 cm exophytic cyst arises from the right upper pole. Abdominal vasculature: The abdominal aorta is normal in course and caliber noting moderate atherosclerotic calcification. Bowel: There is mild to moderate colonic diverticulosis without CT evidence of acute diverticulitis. No bowel obstruction is seen. The appendix is well- visualized and normal. Peritoneum: There is no intraperitoneal free air or abdominal ascites. There are fat-containing umbilical and periumbilical hernias. Lymphadenopathy: There is ill-defined soft tissue thickening in the retroperitoneum around the abdominal aorta seen on axial images #92-129. Some of this almost certainly represents lymphadenopathy. An aortocaval node on image #102 measures 1.1 cm in short axis. There are enlarged right iliac chain nodes seen on image #20 and 35 and #247. These measure up to 1.8 cm in short axis. A mildly enlarged left iliac chain node on image #220 measures 1.0 cm in short axis. No inguinal lymphadenopathy is seen. Pelvic viscera: The bladder is decompressed and appears thick-walled with surrounding infiltration. The uterus and adnexa are normal as visualized. Skeletal structures: The skeletal structures are osteopenic. There is mild lumbosacral spondylosis. No lytic or blastic lesions are seen. IMPRESSION: 1. There are pathologically enlarged retroperitoneal and iliac chain lymph nodes. Neoplasm is the diagnosis of exclusion. 2. There is moderate right hydroureteronephrosis. There is abrupt caliber change in the retroperitoneum, with no obstructing stone identified. This could be related to retroperitoneal scarring/fibrosis or possibly lymphadenopathy. Follow up with urology is recommended. 3. There is an indeterminant 2.0 cm pulmonary lesion at the left lung mass. Although this could potentially be on an infectious/inflammatory basis, a neoplastic process is not excluded. A follow-up chest CT in 1 months time is recommended for reassessment and full evaluation of the thorax. 4. There is a 4 mm right middle lobe pulmonary nodule. This can also be resistive follow-up. 5. Coronary artery atherosclerosis. 6. Colonic diverticulosis without CT evidence of acute diverticulitis. 7. Right-sided nephrolithiasis. 8. The bladder is decompressed and appears thick walled. Correlate with clinical findings and urinalysis. 9. Additional findings as above. ACT 112: Positive. There are findings on this exam that require communication between the performing entity and the patient following Patient Test Result Information Act ([place] Act 112) guidelines. Electronically signed by: Gordo Arias M.D. 02/06/2024 1:29 PM ECG Data Attestation: I personally reviewed and interpreted this ECG as follows: Indication: + abdominal pain and + weakness Rate (beats per minute): 80 Rhythm: + normal sinus ECG Intervals/blocks: + Left bundle branch block and + Normal QT ECG [place]: + Normal ECG ST segments: + Normal ST segments ECG Findings: no PACs or no PVCs Comparison ECG Date: from (06/18/2023) Change: no significant change MDM Narrative This patient is 69-year-old female who was sent over from her doctor's office after having concern for possible urosepsis. IV access was established was hydrated with 1 L IV normal saline bolus. Blood and urine cultures were obtained she was given Rocephin 1 g IV. I did a CAT scan to rule out any obstructive uropathy or any intra-abdominal process. Her inflammatory markers with a white count and lactic acid are normal. Her liver functions are moderately elevated, she tells me she has not been taking any Tylenol/acetaminophen. She tells me her liver functions have been elevated for years. Urinalysis does suggest UTI. She did have an abnormal CT with some moderate right hydronephrosis. She also had a 2 cm pulmonary nodule as well as pathologic enlarged retroperitoneal and iliac lymph nodes concerning for possible malignancy. I do think she will need to be admitted/observed I discussed the case at length in consultation with urology, I did discuss case with Peggy and she will discuss with her attending as well. The patient will need to be admitted/observed to the medical team I have consulted and discussed the case with Dr. Root, [facility] hospitalist, as well and urology will consult as needed. Continuous cardiac monitoring: Orders placed in EMR for continuous registered nurse cardiac telemetry call upon my evaluation patient to be normal sinus rhythm with a rate of 80 Impression & Plan Abdominal pain, UTI (urinary tract infection), Hydronephrosis, Back pain Discharge Plan Visit Data Chief Complaint: Hypotension Stated Complaint: LOW BP , REF BY DOC ED Provider: Eliazar Rg Discharge Problem: Abdominal pain, UTI (urinary tract infection), Hydronephrosis, Back pain Forms Stand Alone Forms: My [facility] Prescriptions Prescriptions: No Action nitroglycerin 0.4 mg tablet, sublingual 0.4 mg sublingual Q5M PRN (Reason: chest pain) Qty: 30 0RF Rx Instructions: do not exceed 3 doses per episode cholecalciferol (vitamin D3) 50 mcg (2,000 unit) capsule 50 mcg PO QAM (DME) Blood Pressure Cuff Misc See Rx Instructions .Route Qty: 1 0RF Rx Instructions: BLOOD PRESSURE CUFF CHECK 2-3 TIMES DAILY DX: I10 losartan 100 mg tablet 100 mg PO QAM Qty: 90 3RF phenytoin sodium extended 100 mg capsule 100 mg PO TID Qty: 270 3RF escitalopram oxalate 10 mg tablet 10 mg PO QAM PRN (Reason: anxiety) Qty: 90 3RF aspirin [Adult Low Dose Aspirin] 81 mg tablet,delayed release (DR/EC) 81 mg PO QAM folic acid 1 mg Tablet 1 mg PO QAM pyridoxine (vitamin B6) [Vitamin B-6] 250 mg Tablet 250 mg PO QAM ezetimibe 10 mg tablet 10 mg PO QAM carvedilol 6.25 mg tablet 6.25 mg PO BID atorvastatin 80 mg tablet 80 mg PO QAM isosorbide mononitrate 30 mg tablet extended release 24 hr 30 mg PO BID clopidogrel [Plavix] 75 mg tablet 75 mg PO QAM amlodipine 5 mg tablet 5 mg PO BID pantoprazole 40 mg tablet,delayed release (DR/EC) 40 mg PO QAM Jardiance 10 mg tablet 10 mg PO HS levothyroxine [Synthroid] 50 mcg tablet 50 mcg PO DAILYBB Referrals Referrals: Eliazar Peck DO [Primary Care Provider] - Discharge Problem: Abdominal pain Qualifiers: Abdominal location: generalized Qualified Code(s): R10.84 - Generalized abdominal pain UTI (urinary tract infection) Qualifiers: Urinary tract infection type: acute cystitis Hematuria presence: with hematuria Qualified Code(s): N30.01 - Acute cystitis with hematuria Hydronephrosis Qualifiers: Hydronephrosis type: unspecified Qualified Code(s): N13.30 - Unspecified hydronephrosis Back pain Qualifiers: Back pain location: low back pain Chronicity: acute Back pain laterality: b ilateral Sciatica presence: without sciatica Qualified Code(s): M54.50 - Low back pain, unspecified
[2024-02-06 12:53] LABS: Basophils # (auto) 0.04 K/uL (0.00-0.20); Basophils % (auto) 0.7 %; Hematocrit (blood only) 36.6 % (37.0-47.0); Hemoglobin 12.2 g/dl (12.0-16.0); Immature Granulocytes # (auto) 0.03 K/uL (0.01-0.20); Immature Granulocytes % (auto) 0.5 %; Lymphocytes # (auto) 1.09 K/uL (1.20-3.40); Lymphocytes % (auto) 19.3 %; Mean Corpuscular Hemoglobin 29.5 pg (25.0-34.0); Mean Corpuscular Hgb Conc 33.3 g/dL (32.0-36.0); Mean Corpuscular Volume 88.6 fL (80.0-100.0); Mean Platelet Volume 9.6 fL (9.4-12.4); Monocytes # (auto) 0.47 K/uL (0.11-0.59); Monocytes % (auto) 8.3 %; Neutrophils # (auto) 4.03 K/uL (1.40-6.50); Neutrophils % (auto) 71.2 %; Platelet Count 271 K/uL (130-400); RDW Coefficient of Variation 13.7 % (11.5-14.5); RDW Standard Deviation 44.6 fL (36.4-46.3); Red Blood Count 4.13 M/uL (4.20-5.40); White Blood Count 5.66 K/ul (4.8-10.8)
--- NOTE | 2024-02-06 12:56 | Electrocardiogram Report ---
Test Reason : Blood Pressure : / mmHG Vent. Rate : 162 BPM Atrial Rate : 162 BPM P-R Int : 000 ms QRS Dur : 062 ms QT Int : 166 ms P-R-T Axes : -10 264 -12 degrees QTc Int : 272 ms Sinus rhythm Non-specific intra-ventricular conduction delay Poor R wave progression, consider anterior VT vs. lead placement vs. LVH Abnormal ECG Confirmed by Gio Vallejo ([id number]) on 02/06/2024 12:56:02 PM Referred By: Confirmed By:Tc Vallejo
[2024-02-06 13:01] LABS: Albumin Globulin Ratio 0.7 (0.9-2); Albumin Level 3.6 gm/dl (3.4-5.0); BUN Creatinine Ratio 20.4 (10-20); Bilirubin,Total 0.4 mg/dl (0.2-1.0); Calcium 9.3 mg/dl (8.6-10.3); Creatinine Clr Calc Pharmacy 34.4 ml/min; Est GFR (African American) 68.7 ml/min; Est GFR (Non-African American) 59.3 ml/min; Globulin 5.3 gm/dl (2.5-4.0); Total Protein 8.9 gm/dl (6.0-8.3)
[2024-02-06] MEDS: cefTRIAXone SODIUM 1,000 MG/50 ML BAG IV STA (13:06)
[2024-02-06 13:07] LABS: Troponin I High Sensitivity 3.9 pg/ml (0-14)
[2024-02-06] MEDS: SODIUM CHLORIDE 0.9% 500 ML IV STA (13:07)
[2024-02-06 13:10] LABS: Partial Thromboplastin Ratio 0.9; Partial Thromboplastin Time 25 Seconds (21-31); Prothrombin Time 11.1 Seconds (9.0-12.0)
--- NOTE | 2024-02-06 13:30 | CT Scan Report ---
CT SCAN OF THE ABDOMEN AND PELVIS WITHOUT IV CONTRAST CLINICAL HISTORY: Generalized abdominal pain. Flank pain. COMPARISON STUDY: Abdominal CT dated 02/28/2021. TECHNIQUE: CT scan of the abdomen and pelvis is performed from the lung bases to the proximal femora. Images are reviewed in the axial, sagittal, and coronal planes. IV contrast was not administered for this examination. Note that the examination was performed in suboptimal fashion without oral and IV contrast. A dose lowering technique was utilized adhering to the principles of ALARA. The examination is significantly degraded by motion artifact. CT DOSE: 445.12 mGy.cm FINDINGS: Lung bases: The heart is top normal in size and without pericardial effusion. The coronary arteries a re densely calcified. Evaluation of the lung bases is degraded by motion artifact. There is a 2.0 cm irregular nodular opacity at the left lung base seen on image #19. A nodule is seen in the right midd le lobe on image #16. No lobar consolidation or pleural effusion is identified.. Liver: The unenhanced liver is normal in size, contour, and attenuation. There is no intrahepatic tatyana iary ductal dilatation. Gallbladder: Surgically absent noting clips in the gallbladder fossa. Spleen: Normal in size and attenuation. Pancreas: The unenhanced pancreas is grossly unremarkable. Adrenal glands: Unremarkable. Kidneys: The unenhanced kidneys are normal in size. There is moderate right-sided hydroureteronephros is. The mid to distal ureter is decompressed, and no obstructing stone or lesion is identified. This may related to retroperitoneal lymphadenopathy versus scarring/fibrosis. There are 2 nonobstructing r ight renal calculi which measure up to 5 mm. No left renal calculi are seen and there is no left-side d hydronephrosis. Foci of cortical scarring are noted in the right kidney. A 2.4 cm exophytic cyst ar ises from the right upper pole. Abdominal vasculature: The abdominal aorta is normal in course and caliber noting moderate atheroscle rotic calcification. Bowel: There is mild to moderate colonic diverticulosis without CT evidence of acute diverticulitis. No bowel obstruction is seen. The appendix is well-visualized and normal. Peritoneum: There is no intraperitoneal free air or abdominal ascites. There are fat-containing umbil ical and periumbilical hernias. Lymphadenopathy: There is ill-defined soft tissue thickening in the retroperitoneum around the abdomi nal aorta seen on axial images #92-129. Some of this almost certainly represents lymphadenopathy. An aortocaval node on image #102 measures 1.1 cm in short axis. There are enlarged right iliac chain nod es seen on image #20 and 35 and #247. These measure up to 1.8 cm in short axis. A mildly enlarged lef t iliac chain node on image #220 measures 1.0 cm in short axis. No inguinal lymphadenopathy is seen. Pelvic viscera: The bladder is decompressed and appears thick-walled with surrounding infiltration. T he uterus and adnexa are normal as visualized. Skeletal structures: The skeletal structures are osteopenic. There is mild lumbosacral spondylosis. N o lytic or blastic lesions are seen. IMPRESSION: 1. There are pathologically enlarged retroperitoneal and iliac chain lymph nodes. Neoplasm is the marilu gnosis of exclusion. 2. There is moderate right hydroureteronephrosis. There is abrupt caliber change in the retroperitone um, with no obstructing stone identified. This could be related to retroperitoneal scarring/fibrosis or possibly lymphadenopathy. Follow up with urology is recommended. 3. There is an indeterminant 2.0 cm pulmonary lesion at the left lung mass. Although this could poten tially be on an infectious/inflammatory basis, a neoplastic process is not excluded. A follow-up ches t CT in 1 months time is recommended for reassessment and full evaluation of the thorax. 4. There is a 4 mm right middle lobe pulmonary nodule. This can also be resistive follow-up. 5. Coronary artery atherosclerosis. 6. Colonic diverticulosis without CT evidence of acute diverticulitis. 7. Right-sided nephrolithiasis. 8. The bladder is decompressed and appears thick walled. Correlate with clinical findings and urinaly sis. 9. Additional findings as above. ACT 112: Positive. There are findings on this exam that require communication between the performing entity and the patient following Patient Test Result Information Act ([place] Act 112) guidelines. Electronically signed by: Gordo Arias M.D. 02/06/2024 1:29 PM
[2024-02-06 13:31] LABS: Appearance Urine Turbid (Clear); Bacteria Urine Automated 3+ (None Seen); Bilirubin Urine Negative (Negative); Blood Urine 2+ (Negative); Color Urine Yellow; Epithelial Cell Urine Auto 0-2 /hpf (0-2); Glucose Urine UA 3+ (Negative); Ketones Urine Negative (Negative); Leukocyte Esterase Urine 3+ (Negative); Nitrite Urine Negative (Negative); Protein Urine 1+ (Negative); RBC Urine Automated 0-2 /hpf (0-2); Specific Gravity Urine 1.013 (1.000-1.030); Urobilinogen Urine Negative (Negative); WBC Urine Automated >50 /hpf (0-5)
[2024-02-06 13:49] LABS: Mucus Urine Present (None Prsent); Renal Epithelial Cells Urine Present /lpf (None Presnt)
[2024-02-06 13:50] LABS: Cast Urine Automated 0-2 /lpf (0-2)
--- NOTE | 2024-02-06 14:31 | History & Physical Report ---
Date of Service February 06, 2024 Assessment & Plan (1) UTI (urinary tract infection): Plan: with obstruction therefore urology consulted with plan for ureteral stent Hold Jardiance Ceftriaxone 2g IV daily pending follow up urine and blood cultures (2) Hydronephrosis: Plan: Urology consulted (3) Retroperitoneal lymphadenopathy: Plan: with pulmonary nodules concerning for metastatic disease CT chest with IV contrast in AM - consider biopsy of appropriate area inpatient vs. outpatient (4) DM type 2 (diabetes mellitus, type 2): Plan: Hemoglobin A1C 8.01 February 2023, repeat with AM labs Hold Jardiance due to UTI Novolog: --Goal BSG Range: Low 110 mg/dL, High 140 mg/dL --Correction Factor: 50 mg/dL/unit No carb ratio --BSGs ACHS if eating, q6h if npo Add Lantus if needing regular Novolog (5) Seizure disorder: Plan: Continue phenytoin (6) Depression with anxiety: Plan: Prescribed PRN - patient reports taking q2d (7) Hypertension: Plan: Due to hypotension will hold losartan, ISMN and amlodipine and re-introduce as BP allows Continue carvedilol to avoid rebound tachycardia and increased risk of GA Plan VTE Prophylaxis - Lovenox 40mg SQ daily Diet - NPO, T2DM after stent insertion Disposition - admit to PCU Admission and Anticipated Discharge Date Admission Date: February 06, 2024 History of Present Illness Chief Complaint: Low blood pressure Primary Care Provider: Eliazar Peck DO Arabella Jordan is a 69 year old female who presents to the ER from PCP office due to concerns for UTI and low blood pressure with concerns of sepsis. She reports symptoms started 2 weeks ago with feeling nauseous when eating, decreased taste, sweating, chills, pain in lower abdomen. Abdominal pain with no radiation. Worse on bending over and palpation. Severity 0/10 currently while lying down and not moving. Associated dysuria and cloudy urine. The pain got worse today so she called PCP office and after visit recommended coming to the ER due to low blood pressure. She has noticed dizziness and lightheadedness but this is no worse than usual and ongoing for year. No syncopal episodes. She took all her morning medications but did notice they were harder to swallow today - this has not been an issue previously. Allergies Allergy/AdvReac Type Severity Reaction Status Date / Time levofloxacin Allergy Intermediate CHEST Verified 02/06/24 16:45 TIGHTNESS, RASH Bactrim AdvReac Intermediate GI Verified 03/15/18 11:06 UPSET,HEADACHE clarithromycin AdvReac Intermediate GI UPSET Verified 02/06/24 16:45 levothyroxine sodium AdvReac Intermediate dizziness, Verified 02/06/24 16:45 headache, nausea and vomitting lisinopril AdvReac Intermediate cough Verified 02/06/24 16:45 sulfamethoxazole AdvReac Intermediate GI Verified 02/06/24 16:45 UPSET,HEADACHE trimethoprim AdvReac Intermediate GI Verified 02/06/24 16:45 UPSET,HEADACHE famotidine AdvReac Chest Pain Verified 02/06/24 16:45 Home Medications Medication Instructions Recorded Confirmed Type folic acid 1 mg tablet 1 mg PO QAM 12/31/18 02/06/24 History pyridoxine (vitamin B6) 250 mg 250 mg PO QAM 12/31/18 02/06/24 History tablet (Vitamin B-6) aspirin 81 mg tablet,delayed 81 mg PO QAM 06/17/19 02/06/24 History release (Adult Low Dose Aspirin) nitroglycerin 0.4 mg sublingual 0.4 mg sublingual Q5M PRN chest 04/07/20 02/06/24 Rx tablet pain #30 tabs cholecalciferol (vitamin D3) 50 50 mcg PO QAM 03/10/21 02/06/24 History mcg (2,000 unit) capsule miscellaneous medical supply #1 ea 10/27/21 02/06/24 Rx (Blood Pressure Cuff) losartan 100 mg tablet 100 mg PO QAM #90 tabs 02/07/23 02/06/24 Rx phenytoin sodium extended 100 mg 100 mg PO TID #270 caps 02/16/23 02/06/24 Rx capsule ezetimibe 10 mg tablet 10 mg PO QAM 06/08/23 02/06/24 History escitalopram oxalate 10 mg tablet 10 mg PO QAM PRN anxiety #90 tabs 11/15/23 02/06/24 Rx amlodipine 5 mg tablet 5 mg PO BID 02/06/24 02/06/24 History atorvastatin 80 mg tablet 80 mg PO QAM 02/06/24 02/06/24 History carvedilol 6.25 mg tablet 6.25 mg PO BID 02/06/24 02/06/24 History clopidogrel 75 mg tablet (Plavix) 75 mg PO QAM 02/06/24 02/06/24 History empagliflozin 10 mg tablet 10 mg PO HS 02/06/24 02/06/24 History (Jardiance) isosorbide mononitrate 30 mg 30 mg PO BID 02/06/24 02/06/24 History tablet,extended release 24 hr levothyroxine 50 mcg tablet 50 mcg PO DAILYBB 02/06/24 02/06/24 History (Synthroid) pantoprazole 40 mg tablet,delayed 40 mg PO QAM 02/06/24 02/06/24 History release Past Med/Surg History Problem List (Updated 02/06/24 @ 19:33 by Navjot Root MD) Retroperitoneal lymphadenopathy Back pain (Acute) Hydronephrosis (Acute) UTI (urinary tract infection) (Acute) Abdominal pain (Acute) Hypertension CAD (coronary artery disease) DM type 2 (diabetes mellitus, type 2) Hyperlipidemia Seizure disorder last seizure 5-6 years shortly after stroke Depression with anxiety 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 Xerosis cutis (Acute) Medical History (Updated 02/06/24 @ 19:33 by Navjot Root MD) Stroke 5-6 years ago - on plavix; no residual deficits Hypothyroidism Abnormal CT scan, gastrointestinal tract No further Intervention, seen by General Surgery Non-ST elevation (NSTEMI) myocardial infarction Left facial numbness Primary hypercoagulable state Fatty liver History of cerebral artery occlusion 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) Elevated alkaline phosphatase level Elevated blood protein Diverticular disease Cataract Chronic headache GERD (gastroesophageal reflux disease) Surgical History Presence of stent in LAD coronary artery Hx of right cataract extraction 01/21/19: was given 3mg of IV versed History of esophagogastroduodenoscopy (EGD) History of colonoscopy History of cholecystectomy History of x 3 Family History Mother Family history of diabetes mellitus Acute myocardial infarction Heart disease Daughter Family history of diabetes mellitus Son Family history of diabetes mellitus Brother Cirrhosis of liver Father Acute myocardial infarction Prostate cancer Aunt Breast cancer Ovarian carcinoma Social History Smoking Status: Never smoker Second Hand Exposure: Yes (as a child; mother smoked); Do You Dip or Chew Tobacco: No; Hx Alcohol Use: No Hx Substance Use: No Preferred Language: German Communication Ability: Effective Silk Screen Layout Drafter Required: No Beliefs That Will Affect Care: None Current Living Situation: Spouse and Family Current Living Situation Comment: son and brother Feels Safe at Home: Yes caffeine: Yes Dental Care, Regularly: No Physical Activity Frequency: Does not Exercise Seatbelt Use: always Sunscreen Use: No Assistive Devices: None Review of Systems Review of Systems: All systems reviewed & are unremarkable except as noted in HPI & below Physical Exam Constitutional: well developed and + frail appearing; + not well nourished and no acute distress Eyes: PERRL, conjunctivae normal, anicteric sclerae ENMT: external ear and nose normal, oropharynx normal Respiratory: normal respiratory effort, lungs clear to auscultation Cardiovascular: RRR, no murmur, no edema Gastrointestinal (Abdomen): Inspection/Auscultation: abdomen normal to inspection; abdomen not distended Percussion/Palpation: + abdomen tender (lower abdominal) and abdomen soft; no guarding and abdomen not rigid Musculoskeletal: no cyanosis or clubbing, extremities motor strength 5/5 Skin: no rashes, warm and dry Neurologic: moves all extremities and awake; not confused Psychiatric: A+Ox3, euthymic affect Genitourinary: no CVA tenderness Results & Data Results & Data Vital Signs (Past 12 Hours) Vital Signs Temp Pulse Resp BP Pulse Ox O2 Del Method O2 Flow Rate 02/06/24 14:18 75 15 109/65 02/06/24 13:02 78 17 109/64 98 02/06/24 12:36 80 21 98 Room Air 02/06/24 12:36 98 Room Air 0 02/06/24 12:15 89 02/06/24 11:47 36.7 C 85 16 109/62 98 Room Air Laboratory Results Abnormal lab results 02/06/24 02/06/24 Range/Units 12:15 12:50 RBC 4.13 L (4.20-5.40) M/uL Hct 36.6 L (37.0-47.0) % Lymph # (Auto) 1.09 L (1.20-3.40) K/uL Sodium 133 L (136-145) mmol/L BUN/Creatinine Ratio 20.4 H (10-20) Glucose 156 H (70-99(Fasting)) mg/dl AST 240 H (13-39) U/L ALT 186 H (7-52) U/L Alkaline Phosphatase 106 H (34-104) U/L Total Protein 8.9 H (6.0-8.3) gm/dl Globulin 5.3 H (2.5-4.0) gm/dl Albumin/Globulin Ratio 0.7 L (0.9-2) Urine Appearance Turbid A (Clear) Urine Protein 1+ H (Negative) Urine Glucose (UA) 3+ H (Negative) Urine Blood 2+ H (Negative) Ur Leukocyte Esterase 3+ H (Negative) Urine WBC (Auto) >50 H (0-5) /hpf Urine Bacteria (Auto) 3+ H (None Seen) Ur Renal Epithelial Cell Present A (None Presnt) /lpf Urine Mucus Present A (None Prsent) Diagnostic Findings CT SCAN OF THE ABDOMEN AND PELVIS WITHOUT IV CONTRAST CLINICAL HISTORY: Generalized abdominal pain. Flank pain. COMPARISON STUDY: Abdominal CT dated 02/28/2021. TECHNIQUE: CT scan of the abdomen and pelvis is performed from the lung bases to the proximal femora. Images are reviewed in the axial, sagittal, and coronal planes. IV contrast was not administered for this examination. Note that the examination was performed in suboptimal fashion without oral and IV contrast. A dose lowering technique was utilized adhering to the principles of ALARA. The examination is significantly degraded by motion artifact. CT DOSE: 445.12 mGy.cm FINDINGS: Lung bases: The heart is top normal in size and without pericardial effusion. The coronary arteries are densely calcified. Evaluation of the lung bases is de graded by motion artifact. There is a 2.0 cm irregular nodular opacity at the left lung base seen on image #19. A nodule is seen in the right middle lobe on image #16. No lobar consolidation or pleural effusion is identified.. Liver: The unenhanced liver is normal in size, contour, and attenuation. There is no intrahepatic biliary ductal dilatation. Gallbladder: Surgically absent noting clips in the gallbladder fossa. Spleen: Normal in size and attenuation. Pancreas: The unenhanced pancreas is grossly unremarkable. Adrenal glands: Unremarkable. Kidneys: The unenhanced kidneys are normal in size. There is moderate right- sided hydroureteronephrosis. The mid to distal ureter is decompressed, and no obstructing stone or lesion is identified. This may related to retroperitoneal lymphadenopathy versus scarring/fibrosis. There are 2 nonobstructing right renal calculi which measure up to 5 mm. No left renal calculi are seen and there is no left-sided hydronephrosis. Foci of cortical scarring are noted in the right kidney. A 2.4 cm exophytic cyst arises from the right upper pole. Abdominal vasculature: The abdominal aorta is normal in course and caliber noting moderate atherosclerotic calcification. Bowel: There is mild to moderate colonic diverticulosis without CT evidence of acute diverticulitis. No bowel obstruction is seen. The appendix is well- visualized and normal. Peritoneum: There is no intraperitoneal free air or abdominal ascites. There are fat-containing umbilical and periumbilical hernias. Lymphadenopathy: There is ill-defined soft tissue thickening in the retroperitoneum around the abdominal aorta seen on axial images #92-129. Some of this almost certainly represents lymphadenopathy. An aortocaval node on image #102 measures 1.1 cm in short axis. There are enlarged right iliac chain nodes seen on image #20 and 35 and #247. These measure up to 1.8 cm in short axis. A mildly enlarged left iliac chain node on image #220 measures 1.0 cm in short axis. No inguinal lymphadenopathy is seen. Pelvic viscera: The bladder is decompressed and appears thick-walled with surrounding infiltration. The uterus and adnexa are normal as visualized. Skeletal structures: The skeletal structures are osteopenic. There is mild lumbosacral spondylosis. No lytic or blastic lesions are seen. IMPRESSION: 1. There are pathologically enlarged retroperitoneal and iliac chain lymph nod es. Neoplasm is the diagnosis of exclusion. 2. There is moderate right hydroureteronephrosis. There is abrupt caliber change in the retroperitoneum, with no obstructing stone identified. This could be related to retroperitoneal scarring/fibrosis or possibly lymphadenopathy. Follow up with urology is recommended. 3. There is an indeterminant 2.0 cm pulmonary lesion at the left lung mass. Although this could potentially be on an infectious/inflammatory basis, a neoplastic process is not excluded. A follow-up chest CT in 1 months time is recommended for reassessment and full evaluation of the thorax. 4. There is a 4 mm right middle lobe pulmonary nodule. This can also be resistive follow-up. 5. Coronary artery atherosclerosis. 6. Colonic diverticulosis without CT evidence of acute diverticulitis. 7. Right-sided nephrolithiasis. 8. The bladder is decompressed and appears thick walled. Correlate with clinical findings and urinalysis. 9. Additional findings as above. Medications Administered ER medications given: Normal saline 500 mL bolus Ceftriaxone 1000 mg IV ECG Rate (beats per minute): 77 Rhythm: normal sinus Findings: + LBBB Comparison ECG Date: from (June 08, 2023) Change: the following changes noted (Suspected lead placement changes only with poor quality background) Code Status & VTE Plan Code Status Full VTE Prophylaxis Plan VTE Prophylaxis will be ordered: Yes PG Care Time/CCT Total # of Minutes Spent Total Time Spent with Patient: Total time spent is greater than 50% in coordination of care (as documented) at patient's floor/unit and/or counseling patient: Coding Level of Care Code 82067 INT INP/OBS CARE 3/75MIN Diagnoses UTI (urinary tract infection) N30.01 Hematuria presence: with hematuria Urinary tract infection type: acute cystitis Hydronephrosis N13.30 Hydronephrosis type: unspecified Retroperitoneal lymphadenopathy R59.0 DM type 2 (diabetes mellitus, type 2) E11.9 Seizure disorder G40.909 Depression with anxiety F41.8 Hypertension I10 (1) UTI (urinary tract infection) Hematuria presence: with hematuria Urinary tract infection type: acute cyst itis Qualified Code(s): N30.01 - Acute cystitis with hematuria (2) Hydronephrosis Hydronephrosis type: unspecified Qualified Code(s): N13.30 - Unspecified hydronephrosis
--- NOTE | 2024-02-06 14:46 | XRay Report ---
XR chest 1V portable HISTORY: 69 years-old Female Sepsis COMPARISON: 06/08/2023 TECHNIQUE: AP view of the chest FINDINGS: Cardiomediastinal and hilar silhouettes are within normal limits. Coronary arterial stenting. No pneu mothorax or pleural effusion. Indeterminate 2.0 cm nodular density projects over the lateral left hea rt border. The lungs are clear. Bones appear grossly intact. Bilateral rotator cuff calcific tendinos is. Cholecystectomy. IMPRESSION: 1. No acute process. 2. Suspicious 2 cm left lower lobe pulmonary nodule. Follow-up with pulmonology is needed. ACT 112: Positive. There are findings on this exam that require communication between the performing entity and the patient following Patient Test Result Information Act ([place] Act 112) guidelines. The above report was generated using voice recognition software. It may contain grammatical, syntax o r spelling errors. Electronically signed by: Wilver Sheldon M.D. 02/06/2024 2:44 PM
--- NOTE | 2024-02-06 15:36 | Anesthesiology Consultation ---
Date of Service February 06, 2024 Assessment & Plan (1) Encounter for pre-operative examination: Chart Review Chart Review: Acceptable Risk for Surgery History Surgery Operation Date: 02/06/24 11:25 Proposed Procedures p Cystoscopy, Right Retrograde Pyelogram, Right Stent Placement - Niraj Ceballos MD Height/Weight Height: 4 ft 8 in Weight: 44.6 kg Allergies Allergy/AdvReac Type Severity Reaction Status Date / Time levofloxacin Allergy Intermediate CHEST Verified 02/06/24 11:04 TIGHTNESS, RASH Bactrim AdvReac Intermediate GI Verified 03/15/18 11:06 UPSET,HEADACHE clarithromycin AdvReac Intermediate GI UPSET Verified 02/06/24 11:04 levothyroxine sodium AdvReac Intermediate dizziness, Verified 02/06/24 11:04 headache, nausea and vomitting lisinopril AdvReac Intermediate cough Verified 02/06/24 11:04 sulfamethoxazole AdvReac Intermediate GI Verified 02/06/24 11:04 UPSET,HEADACHE trimethoprim AdvReac Intermediate GI Verified 02/06/24 11:04 UPSET,HEADACHE famotidine AdvReac Chest Pain Verified 02/06/24 11:04 Biaxin TABS Allergy Intermediate GI upset Uncoded 02/06/24 11:04 Medications Home Medications Medication Instructions Recorded Confirmed Last Taken folic acid 1 mg tablet 1 mg PO QAM 12/31/18 02/06/24 02/06/24 pyridoxine (vitamin B6) 250 mg 250 mg PO QAM 12/31/18 02/06/24 02/06/24 tablet (Vitamin B-6) aspirin 81 mg tablet,delayed 81 mg PO QAM 06/17/19 02/06/24 02/06/24 release (Adult Low Dose Aspirin) nitroglycerin 0.4 mg sublingual 0.4 mg sublingual Q5M PRN chest 04/07/20 02/06/24 Unknown tablet pain #30 tabs cholecalciferol (vitamin D3) 50 50 mcg PO QAM 03/10/21 02/06/24 02/06/24 mcg (2,000 unit) capsule miscellaneous medical supply #1 ea 10/27/21 02/06/24 Unknown (Blood Pressure Cuff) losartan 100 mg tablet 100 mg PO QAM #90 tabs 07/12/23 07/10/24 07/10/24 phenytoin sodium extended 100 mg 100 mg PO TID #270 caps 02/16/23 02/06/24 02/06/24 capsule ezetimibe 10 mg tablet 10 mg PO QAM 06/08/23 02/06/24 02/06/24 escitalopram oxalate 10 mg tablet 10 mg PO QAM PRN anxiety #90 tabs 11/15/23 02/06/24 02/06/24 amlodipine 5 mg tablet 5 mg PO BID 02/06/24 02/06/24 02/06/24 atorvastatin 80 mg tablet 80 mg PO QAM 02/06/24 02/06/24 02/06/24 carvedilol 6.25 mg tablet 6.25 mg PO BID 02/06/24 02/06/24 02/06/24 clopidogrel 75 mg tablet (Plavix) 75 mg PO QAM 02/06/24 02/06/24 02/06/24 empagliflozin 10 mg tablet 10 mg PO HS 02/06/24 02/06/24 02/05/24 (Jardiance) isosorbide mononitrate 30 mg 30 mg PO BID 02/06/24 02/06/24 02/06/24 tablet,extended release 24 hr levothyroxine 50 mcg tablet 50 mcg PO DAILYBB 02/06/24 02/06/24 02/06/24 (Synthroid) pantoprazole 40 mg tablet,delayed 40 mg PO QAM 02/06/24 02/06/24 02/06/24 release Past Medical History Medical History (Updated 02/06/24 @ 15:35 by Fidencio Shaw MD) Stroke 5-6 years ago - on plavix; no residual deficits Hypothyroidism Abnormal CT scan, gastrointestinal tract No further Intervention, seen by General Surgery Non-ST elevation (NSTEMI) myocardial infarction Left facial numbness Primary hypercoagulable state Fatty liver History of cerebral artery occlusion Homozygous MTHFR mutation 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 (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/11) Elevated alkaline phosphatase level Elevated blood protein Diverticular disease Cataract Chronic headache GERD (gastroesophageal reflux disease) Past Family History Family History Mother Family history of diabetes mellitus Acute myocardial infarction Heart disease Daughter Family history of diabetes mellitus Son Family history of diabetes mellitus Brother Cirrhosis of liver Father Acute myocardial infarction Prostate cancer Aunt Breast cancer Ovarian carcinoma Past Surgical History Surgical History Presence of stent in LAD coronary artery Hx of right cataract extraction 01/21/19: was given 3mg of IV versed History of esophagogastroduodenoscopy (EGD) History of colonoscopy History of cholecystectomy History of x 3 Social History Smoking Status: Never smoker Do You Dip or Chew Tobacco: No Hx Alcohol Use: No Alcohol type: beer alcohol intake frequency: a few times a week Hx Substance Use: No substance use type: does not use Physical Exam Vital Signs Last Vital Signs Temp 36.7 C 02/06/24 11:47 Pulse 75 02/06/24 14:18 Resp 15 02/06/24 14:18 BP 109/65 02/06/24 14:18 Pulse Ox 98 02/06/24 13:02 O2 Del Method Room Air 02/06/24 12:36 O2 Flow Rate 0 02/06/24 12:36 Testing Laboratory Results 02/06/24 12:15 02/06/24 12:15 PT 11.1 Seconds (9.0-12.0) 02/06/24 12:15 INR 1.0 (0.9-1.1) 02/06/24 12:15 APTT 25 Seconds (21-31) 02/06/24 12:15 Urine Color Yellow 02/06/24 12:50 Urine Appearance Turbid (Clear) A 02/06/24 12:50 Urine pH 6.0 (4.5-7.5) 02/06/24 12:50 Ur Specific Cropsey 1.013 (1.000-1.030) 02/06/24 12:50 Urine Protein 1+ (Negative) H 02/06/24 12:50 Urine Glucose (UA) 3+ (Negative) H 02/06/24 12:50 Urine Ketones Negative (Negative) 02/06/24 12:50 Urine Nitrite Negative (Negative) 02/06/24 12:50 Ur Leukocyte Esterase 3+ (Negative) H 02/06/24 12:50 Urine WBC (Auto) >50 /hpf (0-5) H 02/06/24 12:50 Urine RBC (Auto) 0-2 /hpf (0-2) 02/06/24 12:50 U Hyaline Cast (Auto) 0-2 /lpf (0-2) 02/06/24 12:50 U Epithel Cells (Auto) 0-2 /hpf (0-2) 02/06/24 12:50 Urine Bacteria (Auto) 3+ (None Seen) H 02/06/24 12:50 Echocardiogram Date: 09/09/21 EF: 60-65% LV Function: normal Valvular Disease: + MR (mod) mod TR
[2024-02-06] MEDS ORDERED: ONDANSETRON INJ 2 MG/ML 2 ML VIAL IV PRN (16:45)
[2024-02-06] MEDS ORDERED: ATROPINE SULFATE 0.1 MG/ML 10ML SYR IV PRN (16:45)
[2024-02-06] MEDS ORDERED: fentaNYL citrate PF 100 MCG/2 ML VIAL IV PRN (16:45)
--- NOTE | 2024-02-06 16:45 | Urology Consultation ---
Date of Consultation February 06, 2024 Assessment & Plan (1) Hydronephrosis: (2) UTI (urinary tract infection): Plan We reviewed her CT findings, specifically the moderate right-sided hydronephrosis with an abrupt caliber change in the retroperitoneum, with no obstructing stone identified and could be related to retroperitoneal scarring/fibrosis or possibly lymphadenopathy. We discussed recommendation for ureteral stent placement given the right-sided hydronephrosis and concern for infection. Ureteral stents were discussed as well as postoperative issues and pain management. Risks and benefits were discussed. All questions were answered. She is agreeable to proceeding. Will plan to proceed to OR today for cystoscopy, right retrograde pyelogram, right ureteral stent placement with Dr. Ceballos. Risks and benefits to be reviewed with patient by Dr. Ceballos. She had ceftriaxone in the ED. Keep NPO. Urology will follow. Supervising Physician Co-Signing Physician Notes Discussed patient with JULIAN. Agree with plan. Given her new right hydronephrosis and urinalysis concerning for infection, recommend cystoscopy with right stent placement. This is likely from enlarged retroperitoneal lymphadenopathy given that she had no hydro or lymphadenopathy on a scan 3 years ago. Consent obtained. Patient marked History of Present Illness History of Present Illness 69 year old female who presented to the ER today at the recommendation of her PCP due to hypotension and concerns for UTI and sepsis. On arrival she was a febrile and mildly hypotensive. Labs showing no leukocytosis and normal renal function. Urinalysis with 2+ blood, 3+ LE,>50 WBC, 3+ bacteria. CT abdomen pelvis was obtained and demonstrated moderate right hydronephrosis with an abrupt caliber change in the retroperitoneum with no obstructing stone identified which could be related to retroperitoneal scarring/fibrosis or possibly lymphadenopathy. Urine and blood cultures collected and pending. IV ceftriaxone given. Patient admitted to medicine service. CT abdomen pelvis- 1. There are pathologically enlarged retroperitoneal and iliac chain lymph nodes. Neoplasm is the diagnosis of exclusion. 2. There is moderate right hydroureteronephrosis. There is abrupt caliber change in the retroperitoneum, with no obstructing stone identified. This could be related to retroperitoneal scarring/fibrosis or possibly lymphadenopathy. Follow up with urology is recommended. 3. There is an indeterminant 2.0 cm pulmonary lesion at the left lung mass. Although this could potentially be on an infectious/inflammatory basis, a neoplastic process is not excluded. A follow-up chest CT in 1 months time is recommended for reassessment and full evaluation of the thorax. 4. There is a 4 mm right middle lobe pulmonary nodule. This can also be resistive follow-up. 5. Coronary artery atherosclerosis. 6. Colonic diverticulosis without CT evidence of acute diverticulitis. 7. Right-sided nephrolithiasis. 8. The bladder is decompressed and appears thick walled. Correlate with clinical findings and urinalysis. Patient seen at bedside in the ED. Awake, resting bed on arrival. No acute distress. She denies any prior urological history. Allergies Allergy/AdvReac Type Severity Reaction Status Date / Time levofloxacin Allergy Intermediate CHEST Verified 02/06/24 16:45 TIGHTNESS, RASH Bactrim AdvReac Intermediate GI Verified 03/15/18 11:06 UPSET,HEADACHE clarithromycin AdvReac Intermediate GI UPSET Verified 02/06/24 16:45 levothyroxine sodium AdvReac Intermediate dizziness, Verified 02/06/24 16:45 headache, nausea and vomitting lisinopril AdvReac Intermediate cough Verified 02/06/24 16:45 sulfamethoxazole AdvReac Intermediate GI Verified 02/06/24 16:45 UPSET,HEADACHE trimethoprim AdvReac Intermediate GI Verified 02/06/24 16:45 UPSET,HEADACHE famotidine AdvReac Chest Pain Verified 02/06/24 16:45 Biaxin TABS Allergy Intermediate GI upset Uncoded 02/06/24 11:04 Home Medications Medication Instructions Recorded Confirmed Type folic acid 1 mg tablet 1 mg PO QAM 12/31/18 02/06/24 History pyridoxine (vitamin B6) 250 mg 250 mg PO QAM 12/31/18 02/06/24 History tablet (Vitamin B-6) aspirin 81 mg tablet,delayed 81 mg PO QAM 06/17/19 02/06/24 History release (Adult Low Dose Aspirin) nitroglycerin 0.4 mg sublingual 0.4 mg sublingual Q5M PRN chest 04/07/20 02/06/24 Rx tablet pain #30 tabs cholecalciferol (vitamin D3) 50 50 mcg PO QAM 03/10/21 02/06/24 History mcg (2,000 unit) capsule miscellaneous medical supply #1 ea 10/27/21 02/06/24 Rx (Blood Pressure Cuff) losartan 100 mg tablet 100 mg PO QAM #90 tabs 02/07/23 02/06/24 Rx phenytoin sodium extended 100 mg 100 mg PO TID #270 caps 02/16/23 02/06/24 Rx capsule ezetimibe 10 mg tablet 10 mg PO QAM 06/08/23 02/06/24 History escitalopram oxalate 10 mg tablet 10 mg PO QAM PRN anxiety #90 tabs 11/15/23 02/06/24 Rx amlodipine 5 mg tablet 5 mg PO BID 02/06/24 02/06/24 History atorvastatin 80 mg tablet 80 mg PO QAM 02/06/24 02/06/24 History carvedilol 6.25 mg tablet 6.25 mg PO BID 02/06/24 02/06/24 History clopidogrel 75 mg tablet (Plavix) 75 mg PO QAM 02/06/24 02/06/24 History empagliflozin 10 mg tablet 10 mg PO HS 02/06/24 02/06/24 History (Jardiance) isosorbide mononitrate 30 mg 30 mg PO BID 02/06/24 02/06/24 History tablet,extended release 24 hr levothyroxine 50 mcg tablet 50 mcg PO DAILYBB 02/06/24 02/06/24 History (Synthroid) pantoprazole 40 mg tablet,delayed 40 mg PO QAM 02/06/24 02/06/24 History release Patient History Medical History (Updated 02/06/24 @ 15:35 by Fidencio Shaw MD) Stroke 5-6 years ago - on plavix; no residual deficits Hypothyroidism Abnormal CT scan, gastrointestinal tract No further Intervention, seen by General Surgery Non-ST elevation (NSTEMI) myocardial infarction Left facial numbness Primary hypercoagulable state Fatty liver History of cerebral artery occlusion Homozygous MTHFR mutation [id number] (12/30/11) Elevated alkaline phosphatase level Elevated blood protein Diverticular disease Cataract Chronic headache GERD (gastroesophageal reflux disease) Surgical History Presence of stent in LAD coronary artery Hx of right cataract extraction 01/21/19: was given 3mg of IV versed History of esophagogastroduodenoscopy (EGD) History of colonoscopy History of cholecystectomy History of x 3 Family History Mother Family history of diabetes mellitus Acute myocardial infarction Heart disease Daughter Family history of diabetes mellitus Son Family history of diabetes mellitus Brother Cirrhosis of liver Father Acute myocardial infarction Prostate cancer Aunt Breast cancer Ovarian carcinoma Social History Smoking Status: Never smoker Second Hand Exposure: Yes (as a child; mother smoked); Do You Dip or Chew Tobacco: No; Hx Alcohol Use: No Hx Substance Use: No Preferred Language: Sinhala Communication Ability: Effective Teaching Associate Required: No Beliefs That Will Affect Care: None Current Living Situation: Family Current Living Situation Comment: son and brother Feels Safe at Home: Yes caffeine: Yes Dental Care, Regularly: No Physical Activity Frequency: Does not Exercise Seatbelt Use: always Sunscreen Use: No Assistive Devices: None Review of Systems Review of Systems: All systems reviewed & are unremarkable except as noted in HPI & below Physical Exam Constitutional: no acute distress Neck: normal visual inspection Respiratory: no respiratory distress and no labored breathing Musculoskeletal: Head/Neck/Chest: normocephalic Skin: No visible rashes or lesions to exposed skin areas Neurologic: moves all extremities and awake Psychiatric: A+Ox3, euthymic affect Results & Data Vital Signs (Past 12 Hours) Vital Signs Temp Pulse Resp BP Pulse Ox O2 Del Method O2 Flow Rate 02/06/24 14:18 75 15 109/65 02/06/24 13:02 78 17 109/64 98 02/06/24 12:36 80 21 98 Room Air 02/06/24 12:36 98 Room Air 0 02/06/24 12:15 89 02/06/24 11:47 36.7 C 85 16 109/62 98 Room Air PG Care Time/CCT Total # of Minutes Spent Total Time Spent with Patient: Total time spent is greater than 50% in coordination of care (as documented) at patient's floor/unit and/or counseling patient: Coding Level of Care Code 20110 INT INP/OBS CARE 2/55MIN Diagnoses Hydronephrosis N13.30 Hydronephrosis type: unspecified UTI (urinary tract infection) N30.01 Hematuria presence: with hematuria Urinary tract infection type: acute cystitis (1) Hydronephrosis Hydronephrosis type: unspecified Qualified Code(s): N13.30 - Unspecified hydronephrosis (2) UTI (urinary tract infection) Hematuria presence: with hematuria Urinary tract infection type: acute cystitis Qualified Code(s): N30.01 - Acute cystitis with hematuria
[2024-02-06] MEDS ORDERED: LIDOCAINE 2% 2 ML VIAL/AMP(20MG/ML) INFIL ONE (16:54)
[2024-02-06] MEDS ORDERED: MIDAZOLAM HCL 1 MG/ML 2ML VIAL ONE (16:54)
[2024-02-06] MEDS ORDERED: DEXAMETHASONE SOD INJ 4 MG/ML VIAL ONE (16:54)
[2024-02-06] MEDS ORDERED: ESCITALOPRAM OXALATE 10 MG TAB PO PRN (16:54)
[2024-02-06] MEDS ORDERED: fentaNYL citrate PF 100 MCG/2 ML VIAL ONE (16:54)
[2024-02-06] MEDS ORDERED: PROPOFOL IV EMULSION 10 MG/ML 20 ML VIAL IV ONE (16:54)
[2024-02-06] MEDS ORDERED: ONDANSETRON INJ 2 MG/ML 2 ML VIAL ONE (16:54)
[2024-02-06] MEDS: IOTHALAMATE MEGLUMINE II 17.2% 250 ML VIAL INSTIL ONE (17:16)
--- NOTE | 2024-02-06 17:19 | Operative Report ---
PG Post Operative Report Pre & Post Diagnosis Operation Date: 02/06/24 11:25 Pre-Op Diagnosis: urinary tract infection with hydronephrosis Post-Op Diagnosis: urinary tract infection with hydronephrosis I identified the patient and participated in the time-out.: Yes Procedure Operation Date: 02/06/24 11:25 Actual Procedures p Cystoscopy, Right Retrograde Pyelogram with radiographic interpretation, Right Stent Placement(Right) - Niraj Ceballos MD Surgeon Niraj Ceballos MD Instant Potato Processor None Estimated Blood Loss 0 Findings See Below Moderate right hydronephrosis. Stent in appropriate position. Specimens None Drains 6 Jamaican by 26 cm right ureteral stent Anesthesia Type MAC Complications none Indications 69-year-old female with right hydronephrosis and retroperitoneal lymphadenopathy with a UA suspicious Description of Procedure After informed consent was obtained, the patient was transported operative suite. MAC anesthesia was induced. The patient was placed in dorsolithotomy position prepped and draped in a sterile fashion. They received preoperative ceftriaxone for antibiotic prophylaxis. An appropriate surgical timeout was performed. A 22 Jamaican rigid scope was inserted per urethra into the bladder. Shin cystoscopy revealed no stones or lesions. There was global cystitis cystica likely from infection. I turned my attention the right ureteral orifice and intubated this with a 5 Jamaican open-ended catheter. A right retrograde pyelogram was shot which showed mild to moderate hydronephrosis. A sensor wire was advanced into the kidney and confirmed fluoroscopically. A 6 Jamaican by 26 cm right ureteral stent was deployed with a good proximal coil in the renal pelvis and a good distal coil noted in the bladder, confirmed fluoroscopically and under direct visualization, respectively. The bladder was emptied and the scope was removed. This concluded the end of the case. All counts were correct at the end of the case. I was present, scrubbed, and actively participated for the entirety of the procedure. I attest to the content of the Intraoperative Record and any orders documented therein. Any exceptions are noted below.
--- NOTE | 2024-02-06 17:42 | Fluoroscopy Report ---
FL retrograde includes kub CLINICAL HISTORY: RT SIDEright-sided ureteral stent placement COMPARISON STUDY: CT of same day FLUOROSCOPY TIME: 7.2 seconds FLUOROSCOPY IMAGES: 1 EXPOSURE DOSE: 0.80 mGy FINDINGS: Status post placement of a right ureteral stent. Proximal portion appears to be in satisfac tory positioning and the distal portion was not imaged. Contrast noted within the dilated renal colle cting system. Right upper quadrant surgical clips. IMPRESSION: Fluoroscopic assistance as above. ACT 112: Negative or not required by law. Electronically signed by: Wilver Sheldon M.D. 02/06/2024 5:41 PM
--- NOTE | 2024-02-06 17:44 | Anesthesiology Progress Note ---
Date of Service February 06, 2024 Anesthesia Post Procedure Vital Signs Vital Signs: Temp Pulse Pulse Resp BP BP Pulse Ox 02/06/24 17:30 78 20 106/67 93 02/06/24 17:24 36.4 C L 78 18 97/64 L 99 02/06/24 16:46 36.6 C 79 20 109/68 95 02/06/24 16:40 36.6 C 79 20 109/68 95 02/06/24 14:18 75 15 109/65 02/06/24 13:02 78 17 109/64 98 02/06/24 12:36 80 21 98 02/06/24 12:36 98 02/06/24 12:15 89 02/06/24 11:47 36.7 C 85 16 109/62 98 O2 Del Method O2 Flow Rate 02/06/24 17:30 Room Air 02/06/24 17:24 Oxymask 6 02/06/24 16:46 Room Air 02/06/24 16:40 Room Air 02/06/24 14:18 02/06/24 13:02 02/06/24 12:36 Room Air 02/06/24 12:36 Room Air 0 02/06/24 12:15 02/06/24 11:47 Room Air Transfer of Care Handoff Completed per policy Notes Mental Status: alert / awake / arousable Patient Amnestic to Procedure: Yes Nausea / Vomiting: adequately controlled Pain: adequately controlled Airway Patency, RR, SpO2: stable & adequate BP & HR: stable & adequate Hydration State: stable & adequate Anesthetic Complications: no major complications apparent
[2024-02-06] MEDS: LACTATED RINGER'S 1,000 ML IV SCH (18:05)
[2024-02-06] MEDS ORDERED: GLUCAGON FOR INJ 1 MG VIAL SQ PRN (19:30)
[2024-02-06] MEDS ORDERED: DEXTROSE 50% 50 ML SYRINGE IV PRN (19:30)
[2024-02-06] MEDS ORDERED: CARBOHYDRATES FOR HYPOGLYCEMIA PO PRN (19:30)
[2024-02-06] MEDS ORDERED: GLUCOSE 40% GEL 15 GM TUBE PO PRN (19:30)
[2024-02-06] MEDS ORDERED: GLUCOSE 10 TAB/TUBE PO PRN (19:30)
[2024-02-06] MEDS: PHENYTOIN SODIUM ER 100 MG CAP PO SCH (20:17)
[2024-02-06] MEDS: carvediloL 6.25 MG TAB PO SCH (20:17)
[2024-02-06] MEDS: INSULIN ASPART PER UNIT CHARGE SC SCH (21:31)
[2024-02-07] MEDS: HYDROmorphone INJ 0.5 MG/0.5 ML SYR IV STA (04:10)
[2024-02-07] MEDS: LEVOTHYROXINE SODIUM 50 MCG TABLET PO SCH (05:44)
[2024-02-07] MEDS: OPTIRAY 320 100ml IV ONE (06:41)
[2024-02-07 06:52] LABS: Basophils # (auto) 0.01 K/uL (0.00-0.20); Basophils % (auto) 0.2 %; Hematocrit (blood only) 30.7 % (37.0-47.0); Hemoglobin 10.1 g/dl (12.0-16.0); Immature Granulocytes # (auto) 0.02 K/uL (0.01-0.20); Immature Granulocytes % (auto) 0.5 %; Lymphocytes % (auto) 28.5 %; Mean Corpuscular Hemoglobin 29.5 pg (25.0-34.0); Mean Corpuscular Hgb Conc 32.9 g/dL (32.0-36.0); Mean Corpuscular Volume 89.8 fL (80.0-100.0); Mean Platelet Volume 9.6 fL (9.4-12.4); Monocytes # (auto) 0.34 K/uL (0.11-0.59); Monocytes % (auto) 8.1 %; Neutrophils # (auto) 2.64 K/uL (1.40-6.50); Neutrophils % (auto) 62.7 %; Platelet Count 223 K/uL (130-400); RDW Coefficient of Variation 13.2 % (11.5-14.5); RDW Standard Deviation 43.6 fL (36.4-46.3); Red Blood Count 3.42 M/uL (4.20-5.40); White Blood Count 4.21 K/ul (4.8-10.8)
[2024-02-07 07:05] LABS: Estimated Average Glucose 160 mg/dl; Hemoglobin A1C 7.2 % (4.5-5.6)
[2024-02-07 07:38] LABS: Albumin Globulin Ratio 0.7 (0.9-2); Albumin Level 2.9 gm/dl (3.4-5.0); BUN Creatinine Ratio 22.2 (10-20); Bilirubin,Total 0.2 mg/dl (0.2-1.0); Calcium 8.4 mg/dl (8.6-10.3); Est GFR (African American) 99.7 ml/min; Est GFR (Non-African American) 86.1 ml/min; Globulin 3.9 gm/dl (2.5-4.0); Potassium 4.1 mmol/L (3.5-5.1); Total Protein 6.8 gm/dl (6.0-8.3)
[2024-02-07] MEDS: CHOLECALCIFEROL 25 MCG (1000 UNITS) TAB PO SCH (07:55)
[2024-02-07] MEDS: ATORVASTATIN 40 MG TAB PO SCH (07:55)
[2024-02-07] MEDS: FOLIC ACID 1 MG TAB PO SCH (07:55)
[2024-02-07] MEDS: EZETIMIBE 10 MG TAB PO SCH (07:56)
[2024-02-07] MEDS: PANTOprazole 40 MG TAB PO SCH (07:56)
[2024-02-07] MEDS: ASPIRIN 81 MG ECTAB PO SCH (07:56)
[2024-02-07] MEDS: CLOPIDOGREL BISULFATE 75 MG TAB PO SCH (07:56)
[2024-02-07] MEDS: ESCITALOPRAM OXALATE 10 MG TAB PO SCH (07:57)
[2024-02-07] MEDS: ENOXAPARIN INJ 40 MG/0.4 ML SYR SQ SCH (07:57)
--- NOTE | 2024-02-07 08:25 | Hospitalist Progress Note ---
Date of Service February 07, 2024 Assessment & Plan (1) UTI (urinary tract infection): (2) Hydronephrosis: (3) Retroperitoneal lymphadenopathy: (4) DM type 2 (diabetes mellitus, type 2): (5) Seizure disorder: (6) Depression with anxiety: (7) Hypertension: (8) Pulmonary nodule: Plan Arabella Jordan is a 69 year old female w PMH CAD, T2DM, HTN, HPLD, stroke and seizure d/o who presents from PCP for UTI and low BP w concern for sepsis. #UTI, uncomplicated #Hydronephrosis - 2 wks dysuria w cloudy urine, a/w abd pain. BP 90s/60s at admission. Does not meet SIRS criteria (temp, WBC count wnl) - UA showed turbid appearance, 1+ prot, 3+ gluc, 2+ blood, 3+ leuk esterase, >50 WBC/hpf, 3+ bact - Initial UCx showed gram negative bacilli - CT abd/pelvis showed R hydronephrosis w no obstructing stone; may be 2/2 retroperitoneal scarring / LAD - Urology consulted: s/p cystoscopy and right ureteral stent placement - Continue Ceftriaxone 2g IV daily and modify according to sensitivities; follow up urine and blood cultures pending #Retroperitoneal lymphadenopathy - CT showed pathologically enlarged retroperitoneal and iliac chain lymph nodes; - Outpatient followup to biopsy #Pulmonary nodule - CT showed: 1.3 x 0.8 cm lymph node adjacent to the descending thoracic aorta increased in size from prior; new 4 mm solid nodule in apical REILLY, 4 mm subpleural solid nodule in LLL, 8 mm fissural nodule within lingula, 2.2 cm nodular consolidation in basal LLL + adjacent linear consolidative opacities, several additional scattered bilateral solid pulmonary nodules which are subcentimeter include a 6 mm solid nodule within the right upper lobe - follow up chest CT recc'd in 1 mo - Pulmonology f/u outpt T2DM - last A1c (02/06) was 7.2 - holding jardiance - sliding scale insulin while inpatient - Novolog: Goal: Low 110, High 140; Correction Factor: 50 mg/dL/unit; no carb ratio --BSGs ACHS if eating, q6h if npo --Add Lantus if needing regular Novolog #HTN - Holding losartan, ISMN, amlodipine d/t low BP; re-introduce as BP allows - Continue carvedilol to avoid rebound tachy #Transaminitis - recheck LFT daily Continue tx for chronic conditions - CAD - s/p stent placement - h/o stroke - aspirin and Plavix - seizure d/o - phenytoin - HPLD - atorvastatin, ezetimibe - GERD - pantoprazole - Depression + anxiety - escitalopram VTE Prophylaxis - Lovenox 40mg SQ daily Diet - NPO, T2DM after stent insertion Disposition - admit to PCU Admission and Anticipated Discharge Date Admission Date: February 06, 2024 Supervising Physician Co-Signing Physician Notes Attending attestation Pt seen and examined in concert with Dr. Rush. In agreement with the documented findings as noted in the resident documentation with any exceptions or additions as noted here. Essential resolution of urinary complaint with improving fatigue and reports no subjective fevers, though flushing somewhat. On examination, S1/S2 nl RRR no MCG. CTAB. Abd NT/ND BS+ve UTI, acute - UCx, BCx pending - continue ceftriaxone, narrow as culture results become available Pulmonary nodules - will need outpatient pulm follow up for further evaluation Abdominal lymphadenopathy - concerning for neoplasm vs. systemic inflammatory/autoimmune - patient aware after d/w Dr. Ceballos and questions further answered by primary team. Will need outpatient follow up w/ bx Else see resident documentation as noted. Subjective Pt reports feeling well this morning. She says she has been eating well, able to get out of bed to urinate, and no longer experiencing abd pain or burning with urination. She denies any chest or flank pain, SOB, n/v, difficulties urinating. Her daughter is present at bedside and CT findings and need for biopsy was discussed with them. Pt has no questions or complaints and expressed understanding of the results and treatment plan. Review of Systems 2 Review of Systems: Per HPI. Physical Exam 2 Physical Exam: General: NAD HEENT: NCAT, poor dentition CV: RRR, no edema Pulm: CTAB, no increased WOB GI: soft, nt/nd, +BS : no suprapubic tenderness Skin: warm, dry, pink Results & Data Results & Data Vital Signs (Past 12 Hours) Vital Signs Temp Pulse Pulse Resp BP BP Pulse Ox 02/07/24 16:01 36.8 C 71 19 128/79 94 02/07/24 11:32 37.2 C 69 18 122/70 93 02/07/24 09:00 56 L 02/07/24 09:00 02/07/24 07:20 36.6 C 59 L 18 147/73 H 94 02/07/24 03:38 36.5 C 63 18 142/74 H 94 02/06/24 23:00 36.4 C L 77 16 112/64 96 02/06/24 23:00 75 02/06/24 20:10 36.5 C 82 16 104/60 92 02/06/24 18:25 81 02/06/24 18:12 02/06/24 18:06 36.4 C L 79 18 123/79 98 Intake and Output 02/07/24 02/07/24 02/07/24 06:59 14:59 22:59 Intake Total 1200 / 1850 1770 / 1770 Output Total 1050 / 1200 1025 / 1375 350 / 1375 Balance 150 / 650 745 / 395 -350 / 395 Intake: IV 1000 / 1050 1050 / 1050 Lactated Ringer's 1,000 ml @ 1000 / 1000 1000 / 1000 125 mls/hr IV .Q8H [facility] Rx#: [id number] cefTRIAXone SODIUM 2,000 mg In 50 / 50 50 ml @ 100 mls/hr IV Q24H [facility] Rx#:[id number] Oral 200 / 400 720 / 720 Output: Urine 1050 / 1200 1025 / 1375 350 / 1375 Other: Weight 45 kg Weight Measurement Method Standing Scale Laboratory Results 02/07/24 06:04 02/07/24 06:04 AST 190 H (13-39) ALT 152 H (7-52) UA Color Yellow Appearance Turbid pH 5.5 Sp. Gr 1.014 Protein 2+ Glucose 3+ Ketones trace Blood 2+ Nitrite Pos Bilirubin Neg Leuk. Esterase 3+ WBC >50/hpf Hyaline cast 11-20/lpf Bacteria 4+ Diagnostic Findings Retrograde Pyelogram 02/06/24 00:00 FL retrograde includes kub CLINICAL HISTORY: RT SIDEright-sided ureteral stent placement COMPARISON STUDY: CT of same day FLUOROSCOPY TIME: 7.2 seconds FLUOROSCOPY IMAGES: 1 EXPOSURE DOSE: 0.80 mGy FINDINGS: Status post placement of a right ureteral stent. Proximal portion appears to be in satisfactory positioning and the distal portion was not imaged. Contrast noted within the dilated renal collecting system. Right upper quadrant surgical clips. IMPRESSION: Fluoroscopic assistance as above. Electronically signed by: Wilver Sheldon M.D. 02/06/2024 5:41 PM Chest X-Ray 02/06/24 11:50 XR chest 1V portable HISTORY: 69 years-old Female Sepsis COMPARISON: 06/08/2023 TECHNIQUE: AP view of the chest FINDINGS: Cardiomediastinal and hilar silhouettes are within normal limits. Coronary arterial stenting. No pneumothorax or pleural effusion. Indeterminate 2.0 cm nodular density projects over the lateral left heart border. The lungs are clear. Bones appear grossly intact. Bilateral rotator cuff calcific tendinosis. Cholecystectomy. IMPRESSION: 1. No acute process. 2. Suspicious 2 cm left lower lobe pulmonary nodule. Follow-up with pulmonology is needed. Electronically signed by: Wilver Sheldon M.D. 02/06/2024 2:44 PM Abdomen/Pelvis CT 02/06/24 12:29 CT SCAN OF THE ABDOMEN AND PELVIS WITHOUT IV CONTRAST CLINICAL HISTORY: Generalized abdominal pain. Flank pain. COMPARISON STUDY: Abdominal CT dated 02/28/2021. TECHNIQUE: CT scan of the abdomen and pelvis is performed from the lung bases to the proximal femora. Images are reviewed in the axial, sagittal, and coronal planes. IV contrast was not administered for this examination. Note that the examination was performed in suboptimal fashion without oral and IV contrast. A dose lowering technique was utilized adhering to the principles of ALARA. The examination is significantly degraded by motion artifact. CT DOSE: 445.12 mGy.cm FINDINGS: Lung bases: The heart is top normal in size and without pericardial effusion. The coronary arteries are densely calcified. Evaluation of the lung bases is degraded by motion artifact. There is a 2.0 cm irregular nodular opacity at the left lung base seen on image #19. A nodule is seen in the right middle lobe on image #16. No lobar consolidation or pleural effusion is identified.. Liver: The unenhanced liver is normal in size, contour, and attenuation. There is no intrahepatic biliary ductal dilatation. Gallbladder: Surgically absent noting clips in the gallbladder fossa. Spleen: Normal in size and attenuation. Pancreas: The unenhanced pancreas is grossly unremarkable. Adrenal glands: Unremarkable. Kidneys: The unenhanced kidneys are normal in size. There is moderate right- sided hydroureteronephrosis. The mid to distal ureter is decompressed, and no obstructing stone or lesion is identified. This may related to retroperitoneal lymphadenopathy versus scarring/fibrosis. There are 2 nonobstructing right renal calculi which measure up to 5 mm. No left renal calculi are seen and there is no left-sided hydronephrosis. Foci of cortical scarring are noted in the right kidney. A 2.4 cm exophytic cyst arises from the right upper pole. Abdominal vasculature: The abdominal aorta is normal in course and caliber noting moderate atherosclerotic calcification. Bowel: There is mild to moderate colonic diverticulosis without CT evidence of acute diverticulitis. No bowel obstruction is seen. The appendix is well- visualized and normal. Peritoneum: There is no intraperitoneal free air or abdominal ascites. There are fat-containing umbilical and periumbilical hernias. Lymphadenopathy: There is ill-defined soft tissue thickening in the retroperitoneum around the abdominal aorta seen on axial images #92-129. Some of this almost certainly represents lymphadenopathy. An aortocaval node on image #102 measures 1.1 cm in short axis. There are enlarged right iliac chain nodes seen on image #20 and 35 and #247. These measure up to 1.8 cm in short axis. A mildly enlarged left iliac chain node on image #220 measures 1.0 cm in short axis. No inguinal lymphadenopathy is seen. Pelvic viscera: The bladder is decompressed and appears thick-walled with surrounding infiltration. The uterus and adnexa are normal as visualized. Skeletal structures: The skeletal structures are osteopenic. There is mild lumbosacral spondylosis. No lytic or blastic lesions are seen. IMPRESSION: 1. There are pathologically enlarged retroperitoneal and iliac chain lymph nodes. Neoplasm is the diagnosis of exclusion. 2. There is moderate right hydroureteronephrosis. There is abrupt caliber change in the retroperitoneum, with no obstructing stone identified. This could be related to retroperitoneal scarring/fibrosis or possibly lymphadenopathy. Follow up with urology is recommended. 3. There is an indeterminant 2.0 cm pulmonary lesion at the left lung mass. Although this could potentially be on an infectious/inflammatory basis, a neoplastic process is not excluded. A follow-up chest CT in 1 months time is recommended for reassessment and full evaluation of the thorax. 4. There is a 4 mm right middle lobe pulmonary nodule. This can also be resistive follow-up. 5. Coronary artery atherosclerosis. 6. Colonic diverticulosis without CT evidence of acute diverticulitis. 7. Right-sided nephrolithiasis. 8. The bladder is decompressed and appears thick walled. Correlate with clinical findings and urinalysis. 9. Additional findings as above. Electronically signed by: Gordo Arias M.D. 02/06/2024 1:[address] 02/07/24 07:[address] WITH CONTRAST CT DOSE: 392.24 mGy.cm HISTORY: Follow-up study in a patient with history of pulmonary nodules pulmonary nodules ?metastatic disease TECHNIQUE: Multiaxial CT images of the chest were performed following the IV administration of 94 cc of Optiray. A dose lowering technique was utilized adhering to the principles of ALARA. COMPARISON: Chest CT from outside hospital 12/02/2020 FINDINGS: Unremarkable thyroid. The heart is enlarged. No pericardial effusion. Extensive coronary artery calcifications. Atherosclerosis of the aorta without aneurysm or dissection. Unremarkable pulmonary artery. No pathologically enlarged lymph nodes identified. Subcentimeter mediastinal and hilar lymph nodes. There is a 1.3 x 0.8 cm lymph node adjacent to the descending thoracic aorta image 125 which is increased in size from prior. There is no pneumothorax or pleural effusion. No airspace consolidation typical for pneumonia. Scattered bilateral subcentimeter solid pulmonary nodules. There is a 4 mm solid nodule within the apical left upper lobe on image 38, new from prior. 4 mm subpleural solid nodule within the left lower lobe on image 58 is also new. There is an 8 mm fissural nodule within the lingula on image 118 which is new. 2.2 cm nodular consolidation within the basal left lower lobe on image 135 with adjacent linear consolidative opacities. Several additional scattered bilateral solid pulmonary nodules which are subcentimeter include a 6 mm solid nodule within the right upper lobe on image 72. Central airways are patent. No acute upper abdominal abnormality. Exophytic cyst of the superior pole right kidney. Cortical scarring of the right kidney superior pole. Unremarkable soft tissues. No acute fracture or destructive bone lesion. IMPRESSION: 1. There are numerous new mostly subcentimeter solid pulmonary nodules of the lungs as above, most of which measure 4-6 mm. 2. 2.2 cm lobular nodular consolidation within the basal left lower lobe with 8 mm solid nodule in the lingula. Follow-up with pulmonology is needed. 3. 1.3 x 0.8 cm lymph node adjacent to the descending thoracic aorta. Attention on follow-up recommended. 4. No pleural effusion. Please refer to below summary of Fleischner criteria recommendations for follow- up of incidental CT nodules (Rubén Morales, Guidelines for management of small pulmonary nodules detected on CT scans: A statement from the Fleischner Society, Radiology 237: [phone].) SOLID NODULES Multiple nodules size: <6 mm * Low risk patients: no routine follow-up * high risk patients: optional CT at 12 months Multiple nodules size: 6-8 mm * Low risk patients: follow-up at 3-6 months, then consider further follow-up at 18-24 months * high risk patients: follow-up at 3-6 months, then at 18-24 months if no change Multiple nodules size: >8 mm * Low risk patients: follow-up at 3-6 months, then consider further follow-up at 18-24 months * high risk patients: follow-up at 3-6 months, then at 18-24 months if no change Note: newly detected indeterminate nodule in persons 35 years of age or older. * Low risk patients: minimal or absent history of smoking and/or other known risk factors * high risk patients: history of smoking or of other known risk factors (e.g. first degree relative with lung cancer, or exposure to asbestos, radon, uranium) * if a nodule up to 8 mm is partly solid or is ground glass further follow-up is required after 24 months to exclude possible slow growing adenocarcinoma (ESTEPHANIA) Electronically signed by: Wilver Sheldon M.D. 02/07/2024 8:27 AM Resident Activity Tracking Resident Involvement: Resident Care Provided Care Provided: Adult Hospital Medicine (1) UTI (urinary tract infection) Hematuria presence: with hematuria Urinary tract infection type: acute cystitis Qualified Code(s): N30.01 - Acute cystitis with hematuria (2) Hydronephrosis Hydronephrosis type: unspecified Qualified Code(s): N13.30 - Unspecified hydronephrosis
--- NOTE | 2024-02-07 08:29 | CT Scan Report ---
CHEST CT WITH CONTRAST CT DOSE: 392.24 mGy.cm HISTORY: Follow-up study in a patient with history of pulmonary nodules pulmonary nodules ?metastati c disease TECHNIQUE: Multiaxial CT images of the chest were performed following the IV administration of 94 cc of Optiray. A dose lowering technique was utilized adhering to the principles of ALARA. COMPARISON: Chest CT from outside hospital 12/02/2020 FINDINGS: Unremarkable thyroid. The heart is enlarged. No pericardial effusion. Extensive coronary ar isidoro calcifications. Atherosclerosis of the aorta without aneurysm or dissection. Unremarkable pulmon maite artery. No pathologically enlarged lymph nodes identified. Subcentimeter mediastinal and hilar ly mph nodes. There is a 1.3 x 0.8 cm lymph node adjacent to the descending thoracic aorta image 125 whi ch is increased in size from prior. There is no pneumothorax or pleural effusion. No airspace consolidation typical for pneumonia. Scatte red bilateral subcentimeter solid pulmonary nodules. There is a 4 mm solid nodule within the apical l eft upper lobe on image 38, new from prior. 4 mm subpleural solid nodule within the left lower lobe o n image 58 is also new. There is an 8 mm fissural nodule within the lingula on image 118 which is new . 2.2 cm nodular consolidation within the basal left lower lobe on image 135 with adjacent linear con solidative opacities. Several additional scattered bilateral solid pulmonary nodules which are subcen timeter include a 6 mm solid nodule within the right upper lobe on image 72. Central airways are donovan nt. No acute upper abdominal abnormality. Exophytic cyst of the superior pole right kidney. Cortical scar ring of the right kidney superior pole. Unremarkable soft tissues. No acute fracture or destructive b one lesion. IMPRESSION: 1. There are numerous new mostly subcentimeter solid pulmonary nodules of the lungs as above, most of which measure 4-6 mm. 2. 2.2 cm lobular nodular consolidation within the basal left lower lobe with 8 mm solid nodule in th e lingula. Follow-up with pulmonology is needed. 3. 1.3 x 0.8 cm lymph node adjacent to the descending thoracic aorta. Attention on follow-up recommen ded. 4. No pleural effusion. Please refer to below summary of Fleischner criteria recommendations for follow-up of incidental CT n payam Morales, Guidelines for management of small pulmonary nodules detected on CT scans: A sta tement from the Fleischner Society, Radiology 237: [phone].) SOLID NODULES Multiple nodules size: <6 mm * Low risk patients: no routine follow-up * high risk patients: optional CT at 12 months Multiple nodules size: 6-8 mm * Low risk patients: follow-up at 3-6 months, then consider further follow-up at 18-24 months * high risk patients: follow-up at 3-6 months, then at 18-24 months if no change Multiple nodules size: >8 mm * Low risk patients: follow-up at 3-6 months, then consider further follow-up at 18-24 months * high risk patients: follow-up at 3-6 months, then at 18-24 months if no change Note: newly detected indeterminate nodule in persons 35 years of age or older. * Low risk patients: minimal or absent history of smoking and/or other known risk factors * high risk patients: history of smoking or of other known risk factors (e.g. first degree relative with lung cancer, or exposure to asbestos, radon, uranium) * if a nodule up to 8 mm is partly solid or is ground glass further follow-up is required after 24 m onths to exclude possible slow growing adenocarcinoma (ESTEPHANIA) ACT 112: Negative or not required by law. Electronically signed by: Wilver Sheldon M.D. 02/07/2024 8:27 AM
[2024-02-07] MEDS: cefTRIAXone SODIUM 2,000 MG/50 ML BAG IV SCH (12:13)
--- NOTE | 2024-02-07 14:06 | Urology Progress Note ---
Date of Service February 07, 2024 Assessment & Plan (1) Hydronephrosis: (2) UTI (urinary tract infection): Plan - Postop day #1 status post cystoscopy and right ureteral stent placement - Tolerating the stent with minimal bother - Afebrile and hemodynamically stable - Labs reviewed-WBC 4.21, hemoglobin 10.1, creatinine 0.72 - Urine culture preliminary gram-negative bacilli - Voiding spontaneously, continue to monitor. Bladder scan PRN. - No further urological intervention warranted - Continue antibiotics and tailor as culture data becomes available - Continue supportive care and management per primary team - Will arrange outpatient follow-up with our service for stent management - Urology will follow peripherally. Please call with any further questions or concerns. Admission and Anticipated Discharge Date Admission Date: February 06, 2024 Subjective Patient seen at bedside today Awake, resting in bed on arrival No acute distress Daughter at bedside Overall feeling better Tolerating the stent with minimal bother Denies fever, chills, nausea, vomiting Voiding without issue Review of Systems Constitutional: as per Subjective / HPI Gastrointestinal: as per Subjective / HPI Genitourinary: as per Subjective / HPI Physical Exam Constitutional: no acute distress Respiratory: no respiratory distress and no labored breathing Neurologic: moves all extremities and awake Psychiatric: A+Ox3, euthymic affect Results & Data Vital Signs (Past 12 Hours) Vital Signs Temp Pulse Pulse Resp BP BP Pulse Ox 02/07/24 11:32 37.2 C 69 18 122/70 93 02/07/24 09:00 56 L 02/07/24 09:00 02/07/24 07:20 36.6 C 59 L 18 147/73 H 94 02/07/24 03:38 36.5 C 63 18 142/74 H 94 O2 Del Method 02/07/24 11:32 Room Air 02/07/24 09:00 02/07/24 09:00 Room Air 02/07/24 07:20 Room Air 02/07/24 03:38 Room Air PG Care Time/CCT Total # of Minutes Spent Total Time Spent with Patient: Total time spent is greater than 50% in coordination of care (as documented) at patient's floor/unit and/or counseling patient: Coding Level of Care Code 00171 SUB INP/OBS CARE 2/35MIN Diagnoses Hydronephrosis N13.30 Hydronephrosis type: unspecified UTI (urinary tract infection) N30.01 Hematuria presence: with hematuria Urinary tract infection type: acute cystitis (1) Hydronephrosis Hydronephrosis type: unspecified Qualified Code(s): N13.30 - Unspecified hydronephrosis (2) UTI (urinary tract infection) Hematuria presence: with hematuria Urinary tract infection type: acute cystitis Qualified Code(s): N30.01 - Acute cystitis with hematuria
[2024-02-08 07:22] LABS: Basophils # (auto) 0.04 K/uL (0.00-0.20); Basophils % (auto) 0.8 %; Eosinophils # (auto) 0.05 K/uL (0.00-0.50); Hematocrit (blood only) 34.4 % (37.0-47.0); Hemoglobin 11.5 g/dl (12.0-16.0); Immature Granulocytes # (auto) 0.01 K/uL (0.01-0.20); Immature Granulocytes % (auto) 0.2 %; Lymphocytes # (auto) 1.46 K/uL (1.20-3.40); Lymphocytes % (auto) 30.6 %; Mean Corpuscular Hemoglobin 29.9 pg (25.0-34.0); Mean Corpuscular Hgb Conc 33.4 g/dL (32.0-36.0); Mean Corpuscular Volume 89.6 fL (80.0-100.0); Mean Platelet Volume 9.5 fL (9.4-12.4); Monocytes # (auto) 0.32 K/uL (0.11-0.59); Monocytes % (auto) 6.7 %; Neutrophils # (auto) 2.89 K/uL (1.40-6.50); Neutrophils % (auto) 60.7 %; Platelet Count 263 K/uL (130-400); RDW Coefficient of Variation 13.3 % (11.5-14.5); RDW Standard Deviation 43.7 fL (36.4-46.3); Red Blood Count 3.84 M/uL (4.20-5.40); White Blood Count 4.77 K/ul (4.8-10.8)
[2024-02-08 07:45] LABS: Albumin Globulin Ratio 0.7 (0.9-2); BUN Creatinine Ratio 18.4 (10-20); Bilirubin,Total 0.3 mg/dl (0.2-1.0); Calcium 8.5 mg/dl (8.6-10.3); Creatinine Clr Calc Pharmacy 44.4 ml/min; Est GFR (African American) 93.4 ml/min; Est GFR (Non-African American) 80.6 ml/min; Globulin 4.4 gm/dl (2.5-4.0); Potassium 4.1 mmol/L (3.5-5.1); Total Protein 7.4 gm/dl (6.0-8.3)
--- NOTE | 2024-02-08 10:45 | Discharge Summary ---
Date of Service February 08, 2024 Admission HPI Per Admitting Provider Arabella Jordan is a 69 year old female who presents to the ER from PCP office due to concerns for UTI and low blood pressure with concerns of sepsis. She reports symptoms started 2 weeks ago with feeling nauseous when eating, decreased taste, sweating, chills, pain in lower abdomen. Abdominal pain with no radiation. Worse on bending over and palpation. Severity 0/10 currently while lying down and not moving. Associated dysuria and cloudy urine. The pain got worse today so she called PCP office and after visit recommended coming to the ER due to low blood pressure. She has noticed dizziness and lightheadedness but this is no worse than usual and ongoing for year. No syncopal episodes. She took all her morning medications but did notice they were harder to swallow today - this has not been an issue previously. Admission Exam Per Admitting Provider Constitutional: well developed and + frail appearing; + not well nourished and no acute distress Eyes: PERRL, conjunctivae normal, anicteric sclerae ENMT: external ear and nose normal, oropharynx normal Respiratory: normal respiratory effort, lungs clear to auscultation Cardiovascular: RRR, no murmur, no edema Gastrointestinal (Abdomen): Inspection/Auscultation: abdomen normal to inspection; abdomen not distended Percussion/Palpation: + abdomen tender (lower abdominal) and abdomen soft; no guarding and abdomen not rigid Musculoskeletal: no cyanosis or clubbing, extremities motor strength 5/5 Skin: no rashes, warm and dry Neurologic: moves all extremities and awake; not confused Psychiatric: A+Ox3, euthymic affect Genitourinary: no CVA tenderness Principal Diagnosis UTI Discharge Exam General: NAD HEENT: NCAT, poor dentition CV: RRR, no edema Pulm: CTAB, no increased WOB GI: soft, nt/nd, +BS : no suprapubic tenderness Skin: warm, dry, pink Discharge Data Allergies Allergy/AdvReac Type Severity Reaction Status Date / Time levofloxacin Allergy Intermediate CHEST Verified 02/06/24 16:45 TIGHTNESS, RASH Bactrim AdvReac Intermediate GI Verified 03/15/18 11:06 UPSET,HEADACHE clarithromycin AdvReac Intermediate GI UPSET Verified 02/06/24 16:45 levothyroxine sodium AdvReac Intermediate dizziness, Verified 02/06/24 16:45 headache, nausea and vomitting lisinopril AdvReac Intermediate cough Verified 02/06/24 16:45 sulfamethoxazole AdvReac Intermediate GI Verified 02/06/24 16:45 UPSET,HEADACHE trimethoprim AdvReac Intermediate GI Verified 02/06/24 16:45 UPSET,HEADACHE famotidine AdvReac Chest Pain Verified 02/06/24 16:45 Consultations 02/06/24 19:33 Consult Urology Routine Procedures Performed Operation Date: 02/06/24 11:25 Actual Procedures p Cystoscopy, Right Retrograde Pyelogram, Right Stent Placement(Right) - Niraj Ceballos MD Ordered Studies Retrograde Pyelogram 02/06/24 00:00 FL retrograde includes kub FINDINGS: Status post placement of a right ureteral stent. Proximal portion appears to be in satisfactory positioning and the distal portion was not imaged. Contrast noted within the dilated renal collecting system. Right upper quadrant surgical clips. IMPRESSION: Fluoroscopic assistance as above. Electronically signed by: Wilver Sheldon M.D. 02/06/2024 5:41 PM Chest X-Ray 02/06/24 11:50 XR chest 1V portable FINDINGS: Cardiomediastinal and hilar silhouettes are within normal limits. Coronary arterial stenting. No pneumothorax or pleural effusion. Indeterminate 2.0 cm nodular density projects over the lateral left heart border. The lungs are clear. Bones appear grossly intact. Bilateral rotator cuff calcific tendinosis. Cholecystectomy. IMPRESSION: 1. No acute process. 2. Suspicious 2 cm left lower lobe pulmonary nodule. Follow-up with pulmonology is needed. Electronically signed by: Wilver Sheldon M.D. 02/06/2024 2:44 PM Abdomen/Pelvis CT 02/06/24 12:29 CT SCAN OF THE ABDOMEN AND PELVIS WITHOUT IV CONTRAST FINDINGS: Lung bases: The heart is top normal in size and without pericardial effusion. The coronary arteries are densely calcified. Evaluation of the lung bases is degraded by motion artifact. There is a 2.0 cm irregular nodular opacity at the left lung base seen on image #19. A nodule is seen in the right middle lobe on image #16. No lobar consolidation or pleural effusion is identified.. Liver: The unenhanced liver is normal in size, contour, and attenuation. There is no intrahepatic biliary ductal dilatation. Gallbladder: Surgically absent noting clips in the gallbladder fossa. Spleen: Normal in size and attenuation. Pancreas: The unenhanced pancreas is grossly unremarkable. Adrenal glands: Unremarkable. Kidneys: The unenhanced kidneys are normal in size. There is moderate right- sided hydroureteronephrosis. The mid to distal ureter is decompressed, and no obstructing stone or lesion is identified. This may related to retroperitoneal lymphadenopathy versus scarring/fibrosis. There are 2 nonobstructing right renal calculi which measure up to 5 mm. No left renal calculi are seen and there is no left-sided hydronephrosis. Foci of cortical scarring are noted in the right kidney. A 2.4 cm exophytic cyst arises from the right upper pole. Abdominal vasculature: The abdominal aorta is normal in course and caliber noting moderate atherosclerotic calcification. Bowel: There is mild to moderate colonic diverticulosis without CT evidence of acute diverticulitis. No bowel obstruction is seen. The appendix is well- visualized and normal. Peritoneum: There is no intraperitoneal free air or abdominal ascites. There are fat-containing umbilical and periumbilical hernias. Lymphadenopathy: There is ill-defined soft tissue thickening in the retroperitoneum around the abdominal aorta seen on axial images #92-129. Some of this almost certainly represents lymphadenopathy. An aortocaval node on image #102 measures 1.1 cm in short axis. There are enlarged right iliac chain nodes seen on image #20 and 35 and #247. These measure up to 1.8 cm in short axis. A mildly enlarged left iliac chain node on image #220 measures 1.0 cm in short axis. No inguinal lymphadenopathy is seen. Pelvic viscera: The bladder is decompressed and appears thick-walled with surrounding infiltration. The uterus and adnexa are normal as visualized. Skeletal structures: The skeletal structures are osteopenic. There is mild lumbosacral spondylosis. No lytic or blastic lesions are seen. IMPRESSION: 1. There are pathologically enlarged retroperitoneal and iliac chain lymph nodes. Neoplasm is the diagnosis of exclusion. 2. There is moderate right hydroureteronephrosis. There is abrupt caliber change in the retroperitoneum, with no obstructing stone identified. This could be related to retroperitoneal scarring/fibrosis or possibly lymphadenopathy. Follow up with urology is recommended. 3. There is an indeterminant 2.0 cm pulmonary lesion at the left lung mass. Although this could potentially be on an infectious/inflammatory basis, a neoplastic process is not excluded. A follow-up chest CT in 1 months time is recommended for reassessment and full evaluation of the thorax. 4. There is a 4 mm right middle lobe pulmonary nodule. This can also be resistive follow-up. 5. Coronary artery atherosclerosis. 6. Colonic diverticulosis without CT evidence of acute diverticulitis. 7. Right-sided nephrolithiasis. 8. The bladder is decompressed and appears thick walled. Correlate with clinical findings and urinalysis. 9. Additional findings as above. Electronically signed by: Gordo Arias M.D. 02/06/2024 1:[address] 02/07/24 07:[address] WITH CONTRAST COMPARISON: Chest CT from outside hospital 12/02/2020 FINDINGS: Unremarkable thyroid. The heart is enlarged. No pericardial effusion. Extensive coronary artery calcifications. Atherosclerosis of the aorta without aneurysm or dissection. Unremarkable pulmonary artery. No pathologically enlarged lymph nodes identified. Subcentimeter mediastinal and hilar lymph nodes. There is a 1.3 x 0.8 cm lymph node adjacent to the descending thoracic aorta image 125 which is increased in size from prior. There is no pneumothorax or pleural effusion. No airspace consolidation typical for pneumonia. Scattered bilateral subcentimeter solid pulmonary nodules. There is a 4 mm solid nodule within the apical left upper lobe on image 38, new from prior. 4 mm subpleural solid nodule within the left lower lobe on image 58 is also new. There is an 8 mm fissural nodule within the lingula on image 118 which is new. 2.2 cm nodular consolidation within the basal left lower lobe on image 135 with adjacent linear consolidative opacities. Several additional scattered bilateral solid pulmonary nodules which are subcentimeter include a 6 mm solid nodule within the right upper lobe on image 72. Central airways are patent. No acute upper abdominal abnormality. Exophytic cyst of the superior pole right kidney. Cortical scarring of the right kidney superior pole. Unremarkable soft tissues. No acute fracture or destructive bone lesion. IMPRESSION: 1. There are numerous new mostly subcentimeter solid pulmonary nodules of the lungs as above, most of which measure 4-6 mm. 2. 2.2 cm lobular nodular consolidation within the basal left lower lobe with 8 mm solid nodule in the lingula. Follow-up with pulmonology is needed. 3. 1.3 x 0.8 cm lymph node adjacent to the descending thoracic aorta. Attention on follow-up recommended. 4. No pleural effusion. Please refer to below summary of Fleischner criteria recommendations for follow- up of incidental CT nodules (Rubén Morales, Guidelines for management of small pulmonary nodules detected on CT scans: A statement from the Fleischner Society, Radiology 237: [phone].) SOLID NODULES Multiple nodules size: <6 mm * Low risk patients: no routine follow-up * high risk patients: optional CT at 12 months Multiple nodules size: 6-8 mm * Low risk patients: follow-up at 3-6 months, then consider further follow-up at 18-24 months * high risk patients: follow-up at 3-6 months, then at 18-24 months if no change Multiple nodules size: >8 mm * Low risk patients: follow-up at 3-6 months, then consider further follow-up at 18-24 months * high risk patients: follow-up at 3-6 months, then at 18-24 months if no change Note: newly detected indeterminate nodule in persons 35 years of age or older. * Low risk patients: minimal or absent history of smoking and/or other known risk factors * high risk patients: history of smoking or of other known risk factors (e.g. first degree relative with lung cancer, or exposure to asbestos, radon, uranium) * if a nodule up to 8 mm is partly solid or is ground glass further follow-up is required after 24 months to exclude possible slow growing adenocarcinoma ([place]) Electronically signed by: Wilver Sheldon M.D. 02/07/2024 8:27 AM Hospital Course (1) UTI (urinary tract infection): (2) Pulmonary nodule: (3) Retroperitoneal lymphadenopathy: (4) Hydronephrosis: (5) Hypertension: (6) DM type 2 (diabetes mellitus, type 2): (7) Seizure disorder: (8) Depression with anxiety: Plan Arabella Jordan is a 69 year old female w PMH CAD, T2DM, HTN, HPLD, stroke and seizure d/o who presents from PCP for UTI and low BP w concern for sepsis. #UTI, uncomplicated #Hydronephrosis - 2 wks dysuria w cloudy urine, a/w abd pain. BP 90s/60s at admission. Did not meet SIRS criteria (temp, WBC count wnl) - UA showed turbid appearance, 1+ prot, 3+ gluc, 2+ blood, 3+ leuk esterase, >50 WBC/hpf, 3+ bact. Initial UCx showed gram negative bacilli, further speciated as roy-sensitive E. coli. CT abd/pelvis showed R hydronephrosis w no obstructing stone - Urology consulted: s/p cystoscopy and right ureteral stent placement - Started on cephalexin 500mg PO BID for 7 days - Will need followup with urology for stent removal #Retroperitoneal lymphadenopathy - CT showed pathologically enlarged retroperitoneal and iliac chain lymph nodes. - Need for biopsy was discussed with patient, and outpatient followup will be necessary - Schedule followup with IR for after resolution of her sx #Pulmonary nodule - CT showed: 1.3 x 0.8 cm lymph node adjacent to the descending thoracic aorta increased in size from prior; new 4 mm solid nodule in apical REILLY, 4 mm subpleural solid nodule in LLL, 8 mm fissural nodule within lingula, 2.2 cm nodular consolidation in basal LLL + adjacent linear consolidative opacities, several additional scattered bilateral solid pulmonary nodules which are subcentimeter include a 6 mm solid nodule within the right upper lobe - Follow up chest CT recc'd in 1 mo; needs outpatient appt with pulmonology T2DM - last A1c (02/06) was 7.2 - pt was on sliding scale insulin while inpatient. jardiance was held and can be restarted - Novolog: BSGs ACHS, goal 110-140, Correction Factor 50 mg/dL/unit; no carb ratio --Add Lantus if needing regular Novolog #HTN - Losartan, ISMN, and amlodipine were held d/t initial low BP; carvedilol continued to avoid rebound tachy - Restart losartan and ISM, continue carvedilol, hold amlodipine and evaluate need to continue at appt with PCP #Transaminitis - trending down. likely 2/2 acute infection/inflammation - recheck LFTs at outpt followup Continue tx for chronic conditions - CAD - s/p stent placement - h/o stroke - aspirin and Plavix - seizure d/o - phenytoin - HPLD - atorvastatin, ezetimibe - GERD - pantoprazole - Depression + anxiety - escitalopram Total Time Total Time Spent Total Time Spent (In Minutes): 35 minutes Discharge Plan Discharge Items Patient Disposition: Home - Self-Care Reason For Visit: UTI, HYPOTENSION, HYDRONEPHROSIS Discharge Diagnosis: UTI Activity: Per Instructions section Non-emergency contact: Primary Care Provider Call non-emergency contact if: you have any medication questions, your symptoms worsen and you have a fever Follow-up/Referrals: Eliazar Peck DO [Primary Care Provider] - 02/12/24 11:30 am Diet: Regular Diet Texture: Easy to Chew Addtl Attending Provider Instructions: You were seen here due to a urinary tract infection. You were treated with antibiotics, which will continue for another 7 days after discharge. Be sure take as directed and to complete your full course of antibiotics. You also had swelling in one kidney, so a stent was placed, which will need to be removed. Your medication list has been reviewed and reconciled upon discharge to ensure accuracy and continuity of care. An updated list of all your medications is included with your hospital discharge paperwork. Please review this list closely and make not of any changes. NEW: Keflex (cephalexin) 500mg twice a day for 7 days KEEP: * carvedilol 6.25mg PO twice a day * isosorbide 30mg PO twice a day * losartan 100mg PO every morning HOLD: amlodipine 5 mg PO twice a day A discharge summary will be sent to your PCP to ensure continuity of care. Please bring this discharge summary with you to your next office appointment so that your provider can review it at that time. Follow-up appointments: * 02/12/24, 10:00am - Eliazar Peck/Aziza English * You will need to follow up with urology to remove the ureteral stent * You will need to follow up with pulmonology to further evaluate nodules identified on imaging. * You will need to follow up with IR to biopsy the enlarged lymph nodes identified on imaging. Contact your PCP if your symptoms worsen. Call 911 or go to the emergency department if you have any of the following: * Sudden, severe abdominal pain or nausea/vomiting * Severe chest pain, or chest pain that radiates to your jaw or arm * Sudden, severe shortness of breath or difficulty breathing Pending Studies at Discharge: No Stand-Alone Forms: My [employer], Smoking Cessation Medications and DC Order Prescriptions: New cephalexin 500 mg capsule 500 mg PO BID 7 Days Qty: 14 0RF Continued nitroglycerin 0.4 mg tablet, sublingual 0.4 mg sublingual Q5M PRN (Reason: chest pain) Qty: 30 0RF Rx Instructions: do not exceed 3 doses per episode cholecalciferol (vitamin D3) 50 mcg (2,000 unit) capsule 50 mcg PO QAM (DME) Blood Pressure Cuff Misc See Rx Instructions .Route Qty: 1 0RF Rx Instructions: BLOOD PRESSURE CUFF CHECK 2-3 TIMES DAILY DX: I10 losartan 100 mg tablet 100 mg PO QAM Qty: 90 3RF phenytoin sodium extended 100 mg capsule 100 mg PO TID Qty: 270 3RF escitalopram oxalate 10 mg tablet 10 mg PO QAM PRN (Reason: anxiety) Qty: 90 3RF aspirin [Adult Low Dose Aspirin] 81 mg tablet,delayed release (DR/EC) 81 mg PO QAM folic acid 1 mg Tablet 1 mg PO QAM pyridoxine (vitamin B6) [Vitamin B-6] 250 mg Tablet 250 mg PO QAM ezetimibe 10 mg tablet 10 mg PO QAM carvedilol 6.25 mg tablet 6.25 mg PO BID atorvastatin 80 mg tablet 80 mg PO QAM isosorbide mononitrate 30 mg tablet extended release 24 hr 30 mg PO BID clopidogrel [Plavix] 75 mg tablet 75 mg PO QAM pantoprazole 40 mg tablet,delayed release (DR/EC) 40 mg PO QAM Jardiance 10 mg tablet 10 mg PO HS levothyroxine [Synthroid] 50 mcg tablet 50 mcg PO DAILYBB Held amlodipine 5 mg tablet 5 mg PO BID Hold Instructions: Resume on 02/15/24. Hypertension meds stopped during hospital stay. Did not want to re-introduce all at once Discharge Orders: Discharge Order (Routine); Ordered 02/08/24 Ordered By: Mian Rush Admission Data Admit Date/Time: 02/06/24 14:33 Attending Provider: Too Cyr Admit Provider: Navjot Root Primary Care Provider: Eliazar Peck Other Providers: Niraj Ceballos Other Interventions: Discharge Summary Assessment (RN) Last Done: 02/08/24 14:34 Supervising Physician Co-Signing Physician Notes ATTESTATION I also saw the patient and confirmed aleman portions of the history and exam. I agree with the impression and plan in the resident documentation, and as summarized below. Patient feeling well today. She is looking forward to going home. Reviewed all the findings of the CT scan and potential workup. Fortunately, she does have a follow-up with her PCP previously scheduled next week. EXAM 128/79, 79, 19, 36.8, 93% on room air She is pleasant. No distress appreciated. Heart regular rate and rhythm Lungs clear with nonlabored respirations Abdomen soft and nontender Calf without tenderness or swelling DATA Labs Hemoglobin 11.5 BMP unremarkable except for elevated glucose of 123 AST 141, ALT 146 Micro Urine culture collected 02/06/2024 shows pansensitive E. coli IMPRESSION & PLAN Urinary tract infection, acute Transition to Keflex 500 mg p.o. twice daily to complete course Pulmonary nodules Pulmonary follow-up arranged by case management Abdominal lymphadenopathy Uncertain, neoplasm versus inflammatory Tissue could be obtained via interventional radiology Will coordinate additional follow-up with PCP Hypertension Blood pressures were low upon admission so antihypertensives held appropriately Will have her resume losartan and Imdur Will have her hold her amlodipine until PCP follow-up Additional per resident documentation Resident Activity Tracking Resident Involvement: Resident Care Provided Care Provided: Adult [facility] Medicine
== END 2024-02-08 15:02 | disposition home or self-care (01) | DRG 660 ==
LOC: ED 11:44 → SUATTDRO 14:33 → 2E 14:33

== ENCOUNTER 2024-02-18 17:22 | Inpatient (IN) ==
[2024-02-18 18:46] LABS: Appearance Urine Clear (Clear); Bacteria Urine Automated None Seen (None Seen); Bilirubin Urine Negative (Negative); Blood Urine 2+ (Negative); Cast Urine Automated 0-2 /lpf (0-2); Color Urine Yellow; Epithelial Cell Urine Auto 0-2 /hpf (0-2); Glucose Urine UA 2+ (Negative); Ketones Urine Negative (Negative); Leukocyte Esterase Urine 2+ (Negative); Nitrite Urine Negative (Negative); Protein Urine 1+ (Negative); RBC Urine Automated >20 /hpf (0-2); Specific Gravity Urine 1.012 (1.000-1.030); Urobilinogen Urine Negative (Negative)
[2024-02-18 18:55] LABS: Basophils # (auto) 0.08 K/uL (0.00-0.20); Basophils % (auto) 1.2 %; Eosinophils # (auto) 0.12 K/uL (0.00-0.50); Eosinophils % (auto) 1.8 %; Hematocrit (blood only) 36.8 % (37.0-47.0); Hemoglobin 11.9 g/dl (12.0-16.0); Immature Granulocytes # (auto) 0.02 K/uL (0.01-0.20); Immature Granulocytes % (auto) 0.3 %; Lymphocytes # (auto) 2.06 K/uL (1.20-3.40); Lymphocytes % (auto) 31.4 %; Mean Corpuscular Hemoglobin 29.5 pg (25.0-34.0); Mean Corpuscular Hgb Conc 32.3 g/dL (32.0-36.0); Mean Corpuscular Volume 91.3 fL (80.0-100.0); Mean Platelet Volume 9.1 fL (9.4-12.4); Monocytes # (auto) 0.35 K/uL (0.11-0.59); Monocytes % (auto) 5.3 %; Neutrophils # (auto) 3.93 K/uL (1.40-6.50); Platelet Count 375 K/uL (130-400); RDW Coefficient of Variation 14.9 % (11.5-14.5); RDW Standard Deviation 49.2 fL (36.4-46.3); Red Blood Count 4.03 M/uL (4.20-5.40); White Blood Count 6.56 K/ul (4.8-10.8)
[2024-02-18 19:13] LABS: Alanine Aminotransferase 48 U/L (7-52); Albumin Level 3.8 gm/dl (3.4-5.0); Alkaline Phosphatase 140 U/L (34-104); Anion Gap 6 (3-11); Aspartate Aminotransferase 60 U/L (13-39); BUN Creatinine Ratio 8.8 (10-20); Bilirubin,Total 0.4 mg/dl (0.2-1.0); Blood Urea Nitrogen 9 mg/dl (6-23); Calcium 9.3 mg/dl (8.6-10.3); Carbon Dioxide 31 mmol/L (21-32); Chloride 102 mmol/L (98-107); Est GFR (African American) 65.5 ml/min; Est GFR (Non-African American) 56.5 ml/min; Glucose 122 mg/dl (70-99(Fasting)); Lipase 23 U/L (11-82); Potassium 4.8 mmol/L (3.5-5.1); Sodium 139 mmol/L (136-145)
[2024-02-18] MEDS: cefTRIAXone SODIUM 2,000 MG/50 ML BAG IV STA (20:32)
--- NOTE | 2024-02-18 20:37 | Emergency Department Note ---
Impression & Plan Infection and inflammatory reaction due to indwelling ureteral stent, sequela, UTI (urinary tract infection) ED Provider Note NAME: ED QUIROZ AGE: 69 SEX: F : 1955 ARRIVES VIA: Walk-In INFORMANT: Patient, ED PROVIDER(S): Erasmo Hooker MD CHIEF COMPLAINT: Stent infection HPI: This is a 69-year-old female presenting for concerns of stent infection. Patient notes that over the past few days she has noticed intermittent fevers, increasing urinary frequency/dysuria. She has worsening back pain as well. She finished antibiotics for a previous UTI/hydronephrosis that required right-sided stenting. She reports a new cough, congestion as well. She notes no significant shortness of breath or chest pain however. ROS: See above HPI for pertinent positives & negatives. A total of 10 systems reviewed and were otherwise negative. PHYSICAL EXAMINATION: General: resting comfortably in no acute distress Head: Normocephalic and atraumatic Eyes: Normal inspection, extraocular muscles intact Ear, nose, throat: Normal external exam Neck: Normal range of motion Respiratory: lungs clear to auscultation bilaterally Cardiovascular: Regular rate/rhythm, no murmur GI: soft, nontender, no guarding or rebound Extremities: nontender, moves all extremities Neuro: The patient awake and alert, appropriately conversive, no focal deficits, symmetric faces Skin: Warm, dry, and intact MEDICAL DECISION MAKING: This is a 69-year-old female presenting for concerns of stent infection. Patient has noted increased back pain, intermittent fevers, increased urinary frequency/dysuria. Patient have a stent in place. Concern for stent infection. Will also order an upper respiratory panel as patient has no congestion and right-sided cervical lymphadenopathy. -Blood work is reviewed showing no leukocytosis, hemoglobin 11.9. Otherwise patient's no electrolyte disturbances. AST still elevated over ALT. Urinalysis reveals signs of UTI. -Discussed care with Dr. Sands, urology, who states that with UTI, previous symptoms and stent patient will likely require IV antibiotics. -Discussed with patient was comfortable with admission at this time -Upper respiratory panel is negative -Discussed care with Dr. Richmond, for admission Differential diagnosis: UTI, stent infection, upper respiratory infection, pneumonia ER treatment provided: See below Diagnostics interpreted by me: ECG: None Cardiac Monitoring: An order was placed for continuous cardiac monitoring. The monitor shows a rate of 86 with sinus rhythm. Laboratory studies: As stated above and show below. Imaging studies: See below. 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 Xerosis cutis (Acute) Medical History Stroke Hypothyroidism Abnormal CT scan, gastrointestinal tract Non-ST elevation (NSTEMI) myocardial infarction Left facial numbness Primary hypercoagulable state Fatty liver History of cerebral artery occlusion 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) Elevated alkaline phosphatase level Elevated blood protein Diverticular disease Cataract Chronic headache GERD (gastroesophageal reflux disease) Surgical History Presence of stent in LAD coronary artery Hx of right cataract extraction History of esophagogastroduodenoscopy (EGD) History of colonoscopy History of cholecystectomy History of Family History Mother Family history of diabetes mellitus Acute myocardial infarction Heart disease Daughter Family history of diabetes mellitus Son Family history of diabetes mellitus Brother Cirrhosis of liver Father Acute myocardial infarction Prostate cancer Aunt Breast cancer Ovarian carcinoma Social History Smoking Status: Never smoker Second Hand Exposure: Yes (as a child; mother smoked); Do You Dip or Chew Tobacco: No; Hx Alcohol Use: No Hx Substance Use: No Preferred Language: Romansh Communication Ability: Effective Polystyrene Bead Molder Required: No Beliefs That Will Affect Care: None Current Living Situation: Spouse and Family Current Living Situation Comment: son and brother Feels Safe at Home: Yes caffeine: Yes Dental Care, Regularly: No Physical Activity Frequency: Does not Exercise Seatbelt Use: always Sunscreen Use: No Assistive Devices: None Allergies Allergies Allergy/AdvReac Type Severity Reaction Status Date / Time levofloxacin Allergy Intermediate CHEST Verified 02/18/24 21:00 TIGHTNESS, RASH Bactrim AdvReac Intermediate GI Verified 03/15/18 11:06 UPSET,HEADACHE clarithromycin AdvReac Intermediate GI UPSET Verified 02/18/24 21:00 levothyroxine sodium AdvReac Intermediate dizziness, Verified 02/18/24 21:00 headache, nausea and vomitting lisinopril AdvReac Intermediate cough Verified 02/18/24 21:00 sulfamethoxazole AdvReac Intermediate GI Verified 02/18/24 21:00 UPSET,HEADACHE trimethoprim AdvReac Intermediate GI Verified 02/18/24 21:00 UPSET,HEADACHE famotidine AdvReac Chest Pain Verified 02/18/24 21:00 Home Meds Home Medications Medication Instructions Recorded Confirmed folic acid 1 mg tablet 1 mg PO QAM 12/31/18 02/18/24 pyridoxine (vitamin B6) 250 mg 250 mg PO QAM 12/31/18 02/18/24 tablet (Vitamin B-6) aspirin 81 mg tablet,delayed 81 mg PO QAM 06/17/19 02/18/24 release (Adult Low Dose Aspirin) cholecalciferol (vitamin D3) 50 50 mcg PO QAM 03/10/21 02/18/24 mcg (2,000 unit) capsule ezetimibe 10 mg tablet 10 mg PO QAM 06/08/23 02/18/24 atorvastatin 80 mg tablet 80 mg PO QAM 02/06/24 02/18/24 carvedilol 6.25 mg tablet 6.25 mg PO BID 02/06/24 02/18/24 clopidogrel 75 mg tablet (Plavix) 75 mg PO QAM 02/06/24 02/18/24 isosorbide mononitrate 30 mg 30 mg PO BID 02/06/24 02/18/24 tablet,extended release 24 hr levothyroxine 50 mcg tablet 50 mcg PO DAILYBB 02/06/24 02/18/24 (Synthroid) pantoprazole 40 mg tablet,delayed 40 mg PO QAM 02/06/24 02/18/24 release Previous Rx's Medication Instructions Recorded nitroglycerin 0.4 mg sublingual 0.4 mg sublingual Q5M PRN chest 04/07/20 tablet pain #30 tabs miscellaneous medical supply #1 ea 10/27/21 (Blood Pressure Cuff) losartan 100 mg tablet 100 mg PO QAM #90 tabs 02/07/23 phenytoin sodium extended 100 mg 100 mg PO TID #270 caps 02/16/23 capsule escitalopram oxalate 10 mg tablet 10 mg PO QAM PRN anxiety #90 tabs 11/15/23 amlodipine 5 mg tablet 5 mg PO DAILY #1 tab 02/12/24 Results & Data (ED) Vital Signs Vital Signs - 24 hr 02/18/24 17:37 02/18/24 18:26 02/18/24 18:34 Temperature 36.6 C Temperature Source Temporal Artery Scan Pulse Rate 86 Pulse Rate [Apical] 87 Respiratory Rate 18 18 Respiratory Effort / Characteristics Non-Labored Respiratory Depth Normal Respiratory Pattern Regular Blood Pressure 146/77 H Blood Pressure [Right Arm] 135/85 Blood Pressure Mean 100 Blood Pressure Mean [Right Arm] 101 Blood Pressure Position Sitting Pulse Oximetry 95 96 Oxygen Delivery Method Room Air Room Air Sepsis Recent Fever Within 48 Hours No Sepsis New/Unexplained Change in Mental Status No Sepsis Action Taken by Nursing No Action Required 02/18/24 20:04 02/18/24 22:04 02/18/24 22:29 Temperature Temperature Source Pulse Rate 86 Pulse Rate [Apical] 85 93 H Respiratory Rate 15 21 Respiratory Effort / Characteristics Respiratory Depth Respiratory Pattern Blood Pressure Blood Pressure [Right Arm] 122/75 128/85 Blood Pressure Mean Blood Pressure Mean [Right Arm] 90 99 Blood Pressure Position Pulse Oximetry 94 95 Oxygen Delivery Method Room Air Room Air Sepsis Recent Fever Within 48 Hours Sepsis New/Unexplained Change in Mental Status Sepsis Action Taken by Nursing Laboratory Data 02/18/24 18:30 02/18/24 18:30 Lab Results 02/18/24 02/18/24 02/18/24 Range/Units 18:30 19:58 22:10 WBC 6.56 (4.8-10.8) K/ul RBC 4.03 L (4.20-5.40) M/uL Hgb 11.9 L (12.0-16.0) g/dl Hct 36.8 L (37.0-47.0) % MCV 91.3 (80.0-100.0) fL MCH 29.5 (25.0-34.0) pg MCHC 32.3 (32.0-36.0) g/dL RDW Std Deviation 49.2 H (36.4-46.3) fL RDW Coeff of [place] 14.9 H (11.5-14.5) % Plt Count 375 (130-400) K/uL MPV 9.1 L (9.4-12.4) fL Immature Gran % (Auto) 0.3 % Neut % (Auto) 60.0 % Lymph % (Auto) 31.4 % [place] % (Auto) 5.3 % Eos % (Auto) 1.8 % Baso % (Auto) 1.2 % Neut # (Auto) 3.93 (1.40-6.50) K/uL Lymph # (Auto) 2.06 (1.20-3.40) K/uL [place] # (Auto) 0.35 (0.11-0.59) K/uL Eos # (Auto) 0.12 (0.00-0.50) K/uL Baso # (Auto) 0.08 (0.00-0.20) K/uL Immature Gran # (Auto) 0.02 (0.01-0.20) K/uL Sodium 139 (136-145) mmol/L Potassium 4.8 (3.5-5.1) mmol/L Chloride 102 (98-107) mmol/L Carbon Dioxide 31 (21-32) mmol/L Anion Gap 6 (3-11) BUN 9 (6-23) mg/dl Creatinine 1.02 (0.6-1.2) mg/dl Est Cr Clr Drug Dosing 33.0 ml/min Est GFR ( Amer) 65.5 ml/min Est GFR (Non-Af Amer) 56.5 ml/min BUN/Creatinine Ratio 8.8 L (10-20) Glucose 122 H (70-99(Fasting)) mg/dl POC Glucose 135 H (70-99) mg/dl Calcium 9.3 (8.6-10.3) mg/dl Total Bilirubin 0.4 (0.2-1.0) mg/dl Direct Bilirubin TNP AST 60 H (13-39) U/L ALT 48 (7-52) U/L Alkaline Phosphatase 140 H (34-104) U/L Total Protein 8.0 (6.0-8.3) gm/dl Albumin 3.8 (3.4-5.0) gm/dl Lipase 23 (11-82) U/L Urine Color Yellow Urine Appearance Clear (Clear) Urine pH 8.0 H (4.5-7.5) Ur Specific [place] 1.012 (1.000-1.030) Urine Protein 1+ H (Negative) Urine Glucose (UA) 2+ H (Negative) Urine Ketones Negative (Negative) Urine Blood 2+ H (Negative) Urine Nitrite Negative (Negative) Urine Bilirubin Negative (Negative) Urine Urobilinogen Negative (Negative) Ur Leukocyte Esterase 2+ H (Negative) Urine WBC (Auto) 11-20 H (0-5) /hpf Urine RBC (Auto) >20 H (0-2) /hpf U Hyaline Cast (Auto) 0-2 (0-2) /lpf U Epithel Cells (Auto) 0-2 (0-2) /hpf Urine Bacteria (Auto) None Seen (None Seen) Adenovirus (PCR) Not Detected (NotDetected) B. pertussis DNA (PCR) Not Detected (NotDetected) B.parapertussis DNA PCR Not Detected (NotDetected) C. pneumoniae DNA (PCR) Not Detected (NotDetected) Coronavirus OC43 (PCR) Not Detected (NotDetected) Coronavirus HKU1 (PCR) Not Detected (NotDetected) Coronavirus 229E (PCR) Not Detected (NotDetected) SARS-CoV-2 (PCR) Not Detected (NotDetected) Coronavirus NL63 (PCR) Not Detected (NotDetected) Human Metapneumovir PCR Not Detected (NotDetected) Influenza Type A (PCR) Not Detected (NotDetected) Influenza Type B (PCR) Not Detected (NotDetected) M. pneumoniae (PCR) Not Detected (NotDetected) Parainfluenza 1 (PCR) Not Detected (NotDetected) Parainfluenza 2 (PCR) Not Detected (NotDetected) Parainfluenza 3 (PCR) Not Detected (NotDetected) Parainfluenza 4 (PCR) Not Detected (NotDetected) RSV (PCR) Not Detected (NotDetected) Entero/Rhino (PCR) Not Detected (NotDetected) Administered Medications Discontinued Medications Ceftriaxone Sodium (Rocephin) 2,000 mg in 50 mls @ 100 mls/hr IV NOW STA Stop: 02/18/24 20:48 Last Infusion: 02/18/24 21:45 Dose: Infused Documented By: Admin: 02/18/24 20:32 Dose: 100 mls/hr Documented By: ROGER Phenytoin Sodium (Phenytoin Sodium Er 100 Mg Cap) 100 mg PO NOW STA Stop: 02/18/24 21:32 Last Admin: 02/18/24 22:31 Dose: 100 mg Documented By: SHIVAM Discharge Plan Visit Data Chief Complaint: Infection Stated Complaint: STENT, INFECTION ED Provider: Erasmo Hooker Discharge Problem: Infection and inflammatory reaction due to indwelling ureteral stent, sequela, UTI (urinary tract infection) Forms Stand Alone Forms: [facility] [employer] Prescriptions Prescriptions: No Action nitroglycerin 0.4 mg tablet, sublingual 0.4 mg sublingual Q5M PRN (Reason: chest pain) Qty: 30 0RF Rx Instructions: do not exceed 3 doses per episode cholecalciferol (vitamin D3) 50 mcg (2,000 unit) capsule 50 mcg PO QAM (DME) Blood Pressure Cuff Misc See Rx Instructions .Route Qty: 1 0RF Rx Instructions: BLOOD PRESSURE CUFF CHECK 2-3 TIMES DAILY DX: I10 losartan 100 mg tablet 100 mg PO QAM Qty: 90 3RF phenytoin sodium extended 100 mg capsule 100 mg PO TID Qty: 270 3RF escitalopram oxalate 10 mg tablet 10 mg PO QAM PRN (Reason: anxiety) Qty: 90 3RF aspirin [Adult Low Dose Aspirin] 81 mg tablet,delayed release (DR/EC) 81 mg PO QAM amlodipine 5 mg tablet 5 mg PO DAILY Qty: 1 0RF Hold Instructions: Resume on 02/15/24. Hypertension meds stopped during hospital stay. Did not want to re-introduce all at once folic acid 1 mg Tablet 1 mg PO QAM pyridoxine (vitamin B6) [Vitamin B-6] 250 mg Tablet 250 mg PO QAM ezetimibe 10 mg tablet 10 mg PO QAM carvedilol 6.25 mg tablet 6.25 mg PO BID atorvastatin 80 mg tablet 80 mg PO QAM isosorbide mononitrate 30 mg tablet extended release 24 hr 30 mg PO BID clopidogrel [Plavix] 75 mg tablet 75 mg PO QAM pantoprazole 40 mg tablet,delayed release (DR/EC) 40 mg PO QAM levothyroxine [Synthroid] 50 mcg tablet 50 mcg PO DAILYBB Referrals Referrals: Eliazar Peck DO [Primary Care Provider] -
--- NOTE | 2024-02-18 20:51 | History & Physical Report ---
Date of Service February 18, 2024 Assessment & Plan (1) UTI (urinary tract infection): Plan: Admit to med/surge Currently stable nontoxic-appearing Patient presented to the ED at the recommendation of her PCP today due to recurrent bilateral flank pain, dysuria, and increased urinary frequency UA today notes 11-20 WBC, 2+ leukocyte esterase Urology was consulted as she had a right ureteral stent placed with Dr. Ceballos on 02/06/2024, the recommended admission with IV antibiotics at this time Status post 1 dose of ceftriaxone in the ED, we will continue with ceftriaxone for now as she recently grew pansensitive E. coli on last admission Renal function is stable, will hold off on repeat imaging at this time Urology has been consulted Follow urine/blood cultures obtained in the ED Heart healthy/DM type II diet Lovenox for DVT prophylaxis AM CBC, CMP, mag, PT/INR (2) Status post placement of ureteral stent: Plan: See UTI Follow urology consult (3) Hypertension: Plan: Currently stable Will continue home carvedilol, losartan Will hold home amlodipine for now to avoid hypotension in case she would become septic (4) CAD (coronary artery disease): Plan: No recent chest pain Continue aspirin, carvedilol (5) DM type 2 (diabetes mellitus, type 2): Plan: Monitor BSG ACHS, goal is [id number] Will start CF of 50 and CR 15 ACHS Hold basal insulin for now she is not on this at home Adjust regimen as needed (6) Seizure disorder: Plan: Continue phenytoin Plan The patient was discussed with Dr. Richmond at time of admission History of Present Illness Primary Care Provider: DO Arabella Pierson is a 69-year-old female with a past medical history significant for DM type II, hypertension, GERD, previous stroke, seizure disorder, coronary artery disease who presented to the [facility] ED at the recommendation of her PCP due to concerns for developing kidney infection. Per chart review, the patient was recently admitted to [facility] from 02/06/2024 - 02/08/2024 due to UTI and right-sided hydronephrosis with an abrupt caliber change in the retroperitoneum without obstructing stone. Caliber change was thought to be related to retroperitoneal scarring/fibrosis or possible lymphadenopathy. The patient underwent cystoscopy with right ureteral stent placement with Dr. Ceballos on 02/06/2024.Urine cultures grew gram-negative bacilli with pansensitive E. coli. She was discharged with a course of cephalexin twice daily x 7 days with urology follow-up for stent removal. She was noted to be hypertensive on arrival at 146/77 but otherwise stable. Creatinine of 1.02 (baseline appears to be near 0.8), Improving LFTs compared to last admission, UA with 1+ protein, 2+ glucose, 2+ blood, 2+ leukocyte Estrace, 11-20 WBC, greater than 20 RBC, and negative for bacteria.Full respiratory BioFire was negative. The ED spoke with urology who recommended medicine admission for IV antibiotics for at least 24 hours prior to any intervention, they will continue to follow. Prior to admission the patient was given a dose of ceftriaxone. Patient was sitting in bed in no acute distress at time of exam. She states that she had been doing well after discharge and confirmed that she did complete her course of Keflex. Starting on 02/15/2022 she started develop chills, subjective fever, bilateral flank pain, dysuria, and increased urinary frequency. Denies recent chest pain, shortness of breath, abdominal pain, nausea/vomiting, lower extremity swelling, diarrhea, and recent trauma. She confirms that she is a full code. Please refer to Dr. Richmond's attestation for any changes to the treatment plan Allergies Allergy/AdvReac Type Severity Reaction Status Date / Time levofloxacin Allergy Intermediate CHEST Verified 02/18/24 21:00 TIGHTNESS, RASH Bactrim AdvReac Intermediate GI Verified 03/15/18 11:06 UPSET,HEADACHE clarithromycin AdvReac Intermediate GI UPSET Verified 02/18/24 21:00 levothyroxine sodium AdvReac Intermediate dizziness, Verified 02/18/24 21:00 headache, nausea and vomitting lisinopril AdvReac Intermediate cough Verified 02/18/24 21:00 sulfamethoxazole AdvReac Intermediate GI Verified 02/18/24 21:00 UPSET,HEADACHE trimethoprim AdvReac Intermediate GI Verified 02/18/24 21:00 UPSET,HEADACHE famotidine AdvReac Chest Pain Verified 02/18/24 21:00 Home Medications Medication Instructions Recorded Confirmed Type folic acid 1 mg tablet 1 mg PO QAM 12/31/18 02/18/24 History pyridoxine (vitamin B6) 250 mg 250 mg PO QAM 12/31/18 02/18/24 History tablet (Vitamin B-6) aspirin 81 mg tablet,delayed 81 mg PO QAM 06/17/19 02/18/24 History release (Adult Low Dose Aspirin) nitroglycerin 0.4 mg sublingual 0.4 mg sublingual Q5M PRN chest 04/07/20 02/18/24 Rx tablet pain #30 tabs cholecalciferol (vitamin D3) 50 50 mcg PO QAM 03/10/21 02/18/24 History mcg (2,000 unit) capsule miscellaneous medical supply #1 ea 10/27/21 02/18/24 Rx (Blood Pressure Cuff) losartan 100 mg tablet 100 mg PO QAM #90 tabs 02/07/23 02/18/24 Rx phenytoin sodium extended 100 mg 100 mg PO TID #270 caps 02/16/23 02/18/24 Rx capsule ezetimibe 10 mg tablet 10 mg PO QAM 06/08/23 02/18/24 History escitalopram oxalate 10 mg tablet 10 mg PO QAM PRN anxiety #90 tabs 11/15/23 02/18/24 Rx atorvastatin 80 mg tablet 80 mg PO QAM 02/06/24 02/18/24 History carvedilol 6.25 mg tablet 6.25 mg PO BID 02/06/24 02/18/24 History clopidogrel 75 mg tablet (Plavix) 75 mg PO QAM 02/06/24 02/18/24 History isosorbide mononitrate 30 mg 30 mg PO BID 02/06/24 02/18/24 History tablet,extended release 24 hr levothyroxine 50 mcg tablet 50 mcg PO DAILYBB 02/06/24 02/18/24 History (Synthroid) pantoprazole 40 mg tablet,delayed 40 mg PO QAM 02/06/24 02/18/24 History release amlodipine 5 mg tablet 5 mg PO DAILY #1 tab 02/12/24 02/18/24 Rx 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 Xerosis cutis (Acute) Medical History Stroke Hypothyroidism Abnormal CT scan, gastrointestinal tract Non-ST elevation (NSTEMI) myocardial infarction Left facial numbness Primary hypercoagulable state Fatty liver History of cerebral artery occlusion 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) Elevated alkaline phosphatase level Elevated blood protein Diverticular disease Cataract Chronic headache GERD (gastroesophageal reflux disease) Surgical History Presence of stent in LAD coronary artery Hx of right cataract extraction History of esophagogastroduodenoscopy (EGD) History of colonoscopy History of cholecystectomy History of Family History Mother Family history of diabetes mellitus Acute myocardial infarction Heart disease Daughter Family history of diabetes mellitus Son Family history of diabetes mellitus Brother Cirrhosis of liver Father Acute myocardial infarction Prostate cancer Aunt Breast cancer Ovarian carcinoma Social History Smoking Status: Never smoker Second Hand Exposure: Yes (as a child; mother smoked); Do You Dip or Chew Tobacco: No; Hx Alcohol Use: No Hx Substance Use: No Preferred Language: Telugu Communication Ability: Effective Dance Master Required: No Beliefs That Will Affect Care: None Current Living Situation: Spouse Current Living Situation Comment: son and brother Other Information That Helps Us Care for You: No Feels Safe at Home: Yes Safety Concerns: Feels Safe At This Time caffeine: Yes Dental Care, Regularly: No Physical Activity Frequency: Does not Exercise Seatbelt Use: always Sunscreen Use: No Assistive Devices: None Physical Exam Physical Exam: Physical Exam: General: In no acute distress, stated age, well-nourished, non-toxic appearing HEENT: Normocephalic, atraumatic, no scleral icterus, pupils around round, symmetrical, and reactive to light, moist mucus membranes, trachea midline, no thyromegaly Chest/Pulm: No respiratory distress, symmetrical chest expansion, clear breath sounds throughout Cardiac: RRR, no murmurs noted Abdomen: Negative for ascites and bruising, normoactive bowel sounds, soft, non-tender to palpation throughout : Negative CVA tenderness BL Musculoskeletal: Symmetrical and without signs of acute trauma, upper and lower extremities with full ROM, no atrophy, spasticity, or flaccidity Extremities: Radial, dorsalis pedis, and posterior tibial pulses are intact and symmetrical, no edema noted in the BL LE's Skin: Warm, dry, no rashes , lesions, or scars noted Neuro: Alert and oriented to person, place, month, year, and president, no focal defects, no tremors noted Psych: No acute distress, calm and cooperative during the exam Results & Data Results & Data Vital Signs (Past 12 Hours) Vital Signs Temp Pulse Pulse Resp BP BP Pulse Ox 02/18/24 20:04 85 15 122/75 94 02/18/24 18:34 86 02/18/24 18:26 87 18 135/85 96 02/18/24 17:37 36.6 C 18 146/77 H 95 O2 Del Method 02/18/24 20:04 Room Air 02/18/24 18:34 02/18/24 18:26 Room Air 02/18/24 17:37 Room Air Laboratory Results Abnormal lab results 02/18/24 Range/Units 18:30 RBC 4.03 L (4.20-5.40) M/uL Hgb 11.9 L (12.0-16.0) g/dl Hct 36.8 L (37.0-47.0) % RDW Std Deviation 49.2 H (36.4-46.3) fL RDW Coeff of [place]ina 14.9 H (11.5-14.5) % MPV 9.1 L (9.4-12.4) fL BUN/Creatinine Ratio 8.8 L (10-20) Glucose 122 H (70-99(Fasting)) mg/dl AST 60 H (13-39) U/L Alkaline Phosphatase 140 H (34-104) U/L Urine pH 8.0 H (4.5-7.5) Urine Protein 1+ H (Negative) Urine Glucose (UA) 2+ H (Negative) Urine Blood 2+ H (Negative) Ur Leukocyte Esterase 2+ H (Negative) Urine WBC (Auto) 11-20 H (0-5) /hpf Urine RBC (Auto) >20 H (0-2) /hpf Code Status & VTE Plan Code Status Full code VTE Prophylaxis Plan VTE Prophylaxis will be ordered: Yes Supervising Physician Co-Signing Physician Notes Patient seen and examined, chart reviewed, case discussed with ANDI Fox and I agree with the assessment and plan as above. In brief, patient is a 69yo female with history of DM, HTN, GERD, Seizure and CAD - recently had cystoscopy with placement of right ureteral stent on 02/06/24. Patient had a UTI secondary to roy-sensitive E. coli which was treated with Keflex. Patient returns with dysuria and increased urinary frequency as well as fever, flank pain and chills. On exam she is resting comfortably, NAD Skin - intact, no rash HEENT - MMM, Neck supple Heart - +S1/S2, regular, no m/r/g Lungs - CTA Abd - soft, NT/ND. No CVA tenderness appreciated Ext - warm, well perfused Labs and images reviewed UA with no bacteria - was just on abx Assessment/Plan- suspected UTI, right ureteral stent in place -Urology consultation -Ceftriaxone -Follow cultures -Consider imaging to confirm location of stent -Remainder as above PG Care Time/CCT Total # of Minutes Spent Total Time Spent with Patient: Total time spent is greater than 50% in coordination of care (as documented) at patient's floor/unit and/or counseling patient: [place] [address] INT INP/OBS CARE 2/55MIN Patient Type Established Medical Decision Making Moderate Complexity Diagnoses UTI (urinary tract infection) N30.01 Hematuria presence: with hematuria Urinary tract infection type: acute cystitis Status post placement of ureteral stent Z96.0 Hypertension I10 CAD (coronary artery disease) I25.10 DM type 2 (diabetes mellitus, type 2) E11.9 Seizure disorder G40.909 (1) UTI (urinary tract infection) Hematuria presence: with hematuria Urinary tract infection type: acute cyst itis Qualified Code(s): N30.01 - Acute cystitis with hematuria
[2024-02-18] MEDS ORDERED: CARBOHYDRATES FOR HYPOGLYCEMIA PO PRN (20:58)
[2024-02-18] MEDS ORDERED: DEXTROSE 50% 50 ML SYRINGE IV PRN (20:58)
[2024-02-18] MEDS ORDERED: GLUCAGON FOR INJ 1 MG VIAL SQ PRN (20:58)
[2024-02-18] MEDS ORDERED: GLUCOSE 40% GEL 15 GM TUBE PO PRN (20:58)
[2024-02-18] MEDS ORDERED: GLUCOSE 10 TAB/TUBE PO PRN (20:58)
[2024-02-18 21:04] LABS: Adenovirus PCR Not Detected (NotDetected); Bordetella parapertussis PCR Not Detected (NotDetected); Bordetella pertussis PCR Not Detected (NotDetected); Chlamydia pneumoniae PCR Not Detected (NotDetected); Coronavirus 229E PCR Not Detected (NotDetected); Coronavirus CoV-2 (COVID19)PCR Not Detected (NotDetected); Coronavirus HKU1 PCR Not Detected (NotDetected); Coronavirus NL63 PCR Not Detected (NotDetected); Coronavirus OC43PCR Not Detected (NotDetected); Human Metapneumovirus PCR Not Detected (NotDetected); Influenza A PCR Not Detected (NotDetected); Influenza B PCR Not Detected (NotDetected); Mycoplasma pneumoniae PCR Not Detected (NotDetected); Parainfluenza Virus 1 PCR Not Detected (NotDetected); Parainfluenza Virus 2 PCR Not Detected (NotDetected); Parainfluenza Virus 3 PCR Not Detected (NotDetected); Parainfluenza Virus 4 PCR Not Detected (NotDetected); Respiratory Syncytial VirusPCR Not Detected (NotDetected); Rhinovirus/Enterovirus PCR Not Detected (NotDetected)
[2024-02-18] MEDS: PHENYTOIN SODIUM ER 100 MG CAP PO STA (22:31)
[2024-02-18] MEDS ORDERED: ENOXAPARIN INJ 40 MG/0.4 ML SYR SQ SCH (23:19)
[2024-02-18] MEDS ORDERED: ESCITALOPRAM OXALATE 10 MG TAB PO PRN (23:19)
[2024-02-18] MEDS: INSULIN ASPART PER UNIT CHARGE SC SCH (23:22)
[2024-02-18] MEDS: carvediloL 6.25 MG TAB PO SCH (23:58)
[2024-02-18] MEDS: ISOSORBIDE MONO EXTENDED REL 30 MG TABCR PO SCH (23:58)
[2024-02-19] MEDS: LEVOTHYROXINE SODIUM 50 MCG TABLET PO SCH (05:35)
--- NOTE | 2024-02-19 07:22 | Hospitalist Progress Note ---
Date of Service February 19, 2024 Assessment & Plan (1) UTI (urinary tract infection): Plan: Pt had right ureteral stent placed with Dr. Ceballos on 02/06/2024. UA in ED on 02-18-24 showed WBC, 2+ leukocyte esterase, urine cultures were obtained. Pt started on IV ceftriaxone in ED due to pansensitive with most recent UTI. Pt appears stable and reporting improvement in symptoms. Awaiting results from urine culture. Continue IV ceftriaxone Urology has been consulted Follow urine/blood cultures obtained in the ED Lovenox for DVT prophylaxis (2) Status post placement of ureteral stent: Plan: See UTI Follow urology consult (3) Hypertension: Plan: Patient's BP have been stable since arrival to ED. Will continue home carvedilol and losartan Holding home amlodipine to avoid hypotension in case she would become septic - Will continue to monitor (4) CAD (coronary artery disease): Plan: Pt has hx of CAD and hyperlipidemia. Pt is currently not c/o chest pain or SOB. Continue aspirin, carvedilol - Heart healthy diet (5) DM type 2 (diabetes mellitus, type 2): Plan: Patient's BG have have been fairly stable running between 122-146 since admission. - Monitor BSG ACHS, goal is [id number] Continue CF of 50 and CR 15 ACHS No basal insulin as she is not on this at home - DM2 diet (6) Seizure disorder: Plan: No current reported seizures since admission. Continue phenytoin Admission and Anticipated Discharge Date Admission Date: February 18, 2024 Supervising Physician Co-Signing Physician Notes Attending Physician Supervision Note: I independently interviewed and examined the patient and verified the aleman history and physical, reviewed labs and image studies and agree with findings and care plan noted above. 69-year-old female who is status post right stent placement on 02/06/2024 who reported back to the ER due to concern for stent infection. Probable Urinary Stent (placed 02/05) infection - Normal WBC, kidney function. KUB confirmed good stent placement. -pain, dysuria, frequency, flank pain, fever/chills - all resolved. -continue ceftriaxone until cultures are back. -consider adding prn flomax/pyridum if needed. -urology following. -suspecting presenting symptoms as expected post stent symptoms. Subjective Pt is a 69 yo female who with PMedHX HTN, DM2, seizure disorder, hyperlipidemia. Patient had recent hospital stay for UTI s/p ureteral stent 2 weeks ago. Pt had recently finished her course of abx prescribed after last hospital stay on 02-17-24. She started having chills, dysuria, increase urinary frequency, and generally feeling ill, pt called PCP and was advised to go to ED. Pt was started on IV ceftriaxone on 02-18-24. She is reporting feeling better on 02-19-24 with reduced frequency of urination, no dysuria, and no chills. Physical Exam Physical Exam: Physical Exam: General: In no acute distress, stated age, well-nourished, non-toxic appearing HEENT: Normocephalic, atraumatic, no scleral icterus, pupils around round, symmetrical, and reactive to light, moist mucus membranes, trachea midline, no thyromegaly Chest/Pulm: No respiratory distress, symmetrical chest expansion, clear breath sounds throughout Cardiac: RRR, no murmurs noted Abdomen: Negative for ascites and bruising, normoactive bowel sounds, soft, tender to palpation at bladder : Negative CVA tenderness B/L Extremities: Radial, dorsalis pedis, and posterior tibial pulses are intact and symmetrical, no edema noted in the BL LE's Skin: Warm, dry Neuro: Alert and oriented x3, no focal defects Psych: No acute distress, calm and cooperative during the exam Results & Data Results & Data Vital Signs (Past 12 Hours) Vital Signs Temp Pulse Pulse Resp BP Pulse Ox Pulse Ox 02/19/24 07:18 36.7 C 84 16 111/82 93 02/18/24 23:19 96 02/18/24 23:10 02/18/24 23:10 36.5 C 15 160/85 H 96 02/18/24 22:57 36.6 C 92 H 17 138/83 95 02/18/24 22:29 86 02/18/24 22:04 93 H 21 128/85 95 02/18/24 20:04 85 15 122/75 94 O2 Del Method O2 Del Method 02/19/24 07:18 Room Air 02/18/24 23:19 Room Air 02/18/24 23:10 Room Air 02/18/24 23:10 Room Air 02/18/24 22:57 Room Air 02/18/24 22:29 02/18/24 22:04 Room Air 02/18/24 20:04 Room Air Laboratory Results 02/19/24 02/19/24 02/18/24 Range/Units 07:56 07:55 22:10 WBC 5.11 (4.8-10.8) K/ul RBC 3.89 L (4.20-5.40) M/uL Hgb 11.5 L (12.0-16.0) g/dl Hct 35.6 L (37.0-47.0) % MCV 91.5 (80.0-100.0) fL MCH 29.6 (25.0-34.0) pg MCHC 32.3 (32.0-36.0) g/dL RDW Std Deviation 49.2 H (36.4-46.3) fL RDW Coeff of Celina 14.8 H (11.5-14.5) % Plt Count 328 (130-400) K/uL MPV 9.1 L (9.4-12.4) fL Immature Gran % (Auto) 0.2 % Neut % (Auto) 60.4 % Lymph % (Auto) 29.9 % [place] % (Auto) 6.1 % Eos % (Auto) 2.0 % Baso % (Auto) 1.4 % Neut # (Auto) 3.09 (1.40-6.50) K/uL Lymph # (Auto) 1.53 (1.20-3.40) K/uL [place] # (Auto) 0.31 (0.11-0.59) K/uL Eos # (Auto) 0.10 (0.00-0.50) K/uL Baso # (Auto) 0.07 (0.00-0.20) K/uL Immature Gran # (Auto) 0.01 (0.01-0.20) K/uL Sodium Pending (136-145) mmol/L Potassium Pending (3.5-5.1) mmol/L Chloride Pending (98-107) mmol/L Carbon Dioxide Pending (21-32) mmol/L Anion Gap Pending (3-11) BUN Pending (6-23) mg/dl Creatinine Pending (0.6-1.2) mg/dl Est Cr Clr Drug Dosing Pending ml/min Est GFR ( Amer) Pending ml/min Est GFR (Non-Af Amer) Pending ml/min BUN/Creatinine Ratio Pending (10-20) Glucose Pending (70-99(Fasting)) mg/dl POC Glucose 145 H 135 H (70-99) mg/dl Calcium Pending (8.6-10.3) mg/dl Magnesium Pending Total Bilirubin Pending (0.2-1.0) mg/dl Direct Bilirubin AST Pending (13-39) U/L ALT Pending (7-52) U/L Alkaline Phosphatase Pending (34-104) U/L Total Protein Pending (6.0-8.3) gm/dl Albumin Pending (3.4-5.0) gm/dl Globulin Pending Albumin/Globulin Ratio Pending Lipase (11-82) U/L Urine Color Urine Appearance (Clear) Urine pH (4.5-7.5) Ur Specific [place] (1.000-1.030) Urine Protein (Negative) Urine Glucose (UA) (Negative) Urine Ketones (Negative) Urine Blood (Negative) Urine Nitrite (Negative) Urine Bilirubin (Negative) Urine Urobilinogen (Negative) Ur Leukocyte Esterase (Negative) Urine WBC (Auto) (0-5) /hpf Urine RBC (Auto) (0-2) /hpf U Hyaline Cast (Auto) (0-2) /lpf U Epithel Cells (Auto) (0-2) /hpf Urine Bacteria (Auto) (None Seen) Adenovirus (PCR) (NotDetected) B. pertussis DNA (PCR) (NotDetected) B.parapertussis DNA PCR (NotDetected) C. pneumoniae DNA (PCR) (NotDetected) Coronavirus OC43 (PCR) (NotDetected) Coronavirus HKU1 (PCR) (NotDetected) Coronavirus 229E (PCR) (NotDetected) SARS-CoV-2 (PCR) (NotDetected) Coronavirus NL63 (PCR) (NotDetected) Human Metapneumovir PCR (NotDetected) Influenza Type A (PCR) (NotDetected) Influenza Type B (PCR) (NotDetected) M. pneumoniae (PCR) (NotDetected) Parainfluenza 1 (PCR) (NotDetected) Parainfluenza 2 (PCR) (NotDetected) Parainfluenza 3 (PCR) (NotDetected) Parainfluenza 4 (PCR) (NotDetected) RSV (PCR) (NotDetected) Entero/Rhino (PCR) (NotDetected) 02/18/24 02/18/24 Range/Units 19:58 18:30 WBC 6.56 (4.8-10.8) K/ul RBC 4.03 L (4.20-5.40) M/uL Hgb 11.9 L (12.0-16.0) g/dl Hct 36.8 L (37.0-47.0) % MCV 91.3 (80.0-100.0) fL MCH 29.5 (25.0-34.0) pg MCHC 32.3 (32.0-36.0) g/dL RDW Std Deviation 49.2 H (36.4-46.3) fL RDW Coeff of [place] 14.9 H (11.5-14.5) % Plt Count 375 (130-400) K/uL MPV 9.1 L (9.4-12.4) fL Immature Gran % (Auto) 0.3 % Neut % (Auto) 60.0 % Lymph % (Auto) 31.4 % [place] % (Auto) 5.3 % Eos % (Auto) 1.8 % Baso % (Auto) 1.2 % Neut # (Auto) 3.93 (1.40-6.50) K/uL Lymph # (Auto) 2.06 (1.20-3.40) K/uL [place] # (Auto) 0.35 (0.11-0.59) K/uL Eos # (Auto) 0.12 (0.00-0.50) K/uL Baso # (Auto) 0.08 (0.00-0.20) K/uL Immature Gran # (Auto) 0.02 (0.01-0.20) K/uL Sodium 139 (136-145) mmol/L Potassium 4.8 (3.5-5.1) mmol/L Chloride 102 (98-107) mmol/L Carbon Dioxide 31 (21-32) mmol/L Anion Gap 6 (3-11) BUN 9 (6-23) mg/dl Creatinine 1.02 (0.6-1.2) mg/dl Est Cr Clr Drug Dosing 33.0 ml/min Est GFR ( Amer) 65.5 ml/min Est GFR (Non-Af Amer) 56.5 ml/min BUN/Creatinine Ratio 8.8 L (10-20) Glucose 122 H (70-99(Fasting)) mg/dl POC Glucose (70-99) mg/dl Calcium 9.3 (8.6-10.3) mg/dl Magnesium Total Bilirubin 0.4 (0.2-1.0) mg/dl Direct Bilirubin TNP AST 60 H (13-39) U/L ALT 48 (7-52) U/L Alkaline Phosphatase 140 H (34-104) U/L Total Protein 8.0 (6.0-8.3) gm/dl Albumin 3.8 (3.4-5.0) gm/dl Globulin Albumin/Globulin Ratio Lipase 23 (11-82) U/L Urine Color Yellow Urine Appearance Clear (Clear) Urine pH 8.0 H (4.5-7.5) Ur Specific [place] 1.012 (1.000-1.030) Urine Protein 1+ H (Negative) Urine Glucose (UA) 2+ H (Negative) Urine Ketones Negative (Negative) Urine Blood 2+ H (Negative) Urine Nitrite Negative (Negative) Urine Bilirubin Negative (Negative) Urine Urobilinogen Negative (Negative) Ur Leukocyte Esterase 2+ H (Negative) Urine WBC (Auto) 11-20 H (0-5) /hpf Urine RBC (Auto) >20 H (0-2) /hpf U Hyaline Cast (Auto) 0-2 (0-2) /lpf U Epithel Cells (Auto) 0-2 (0-2) /hpf Urine Bacteria (Auto) None Seen (None Seen) Adenovirus (PCR) Not Detected (NotDetected) B. pertussis DNA (PCR) Not Detected (NotDetected) B.parapertussis DNA PCR Not Detected (NotDetected) C. pneumoniae DNA (PCR) Not Detected (NotDetected) Coronavirus OC43 (PCR) Not Detected (NotDetected) Coronavirus HKU1 (PCR) Not Detected (NotDetected) Coronavirus 229E (PCR) Not Detected (NotDetected) SARS-CoV-2 (PCR) Not Detected (NotDetected) Coronavirus NL63 (PCR) Not Detected (NotDetected) Human Metapneumovir PCR Not Detected (NotDetected) Influenza Type A (PCR) Not Detected (NotDetected) Influenza Type B (PCR) Not Detected (NotDetected) M. pneumoniae (PCR) Not Detected (NotDetected) Parainfluenza 1 (PCR) Not Detected (NotDetected) Parainfluenza 2 (PCR) Not Detected (NotDetected) Parainfluenza 3 (PCR) Not Detected (NotDetected) Parainfluenza 4 (PCR) Not Detected (NotDetected) RSV (PCR) Not Detected (NotDetected) Entero/Rhino (PCR) Not Detected (NotDetected) (1) UTI (urinary tract infection) Hematuria presence: with hematuria Urinary tract infection type: acute cystitis Qualified Code(s): N30.01 - Acute cystitis with hematuria
--- NOTE | 2024-02-19 08:03 | Urology Consultation ---
Date of Consultation February 19, 2024 Assessment & Plan (1) UTI (urinary tract infection): (2) Status post placement of ureteral stent: (3) Hydronephrosis: Plan 69-year-old female who is status post right stent placement on 02/06/2024 who reported back to the ER due to concern for stent infection. No leukocytosis on admission, normal kidney function No imaging was completed to verify right stent placement Patient has been afebrile and hemodynamically stable Urine and blood cultures are still pending Patient was having stent discomfort which is common post stent placement including dysuria, urinary frequency/urgency Trend antibiotics according to culture results, treat empirically until data available KUB to verify right stent placement May use Pyridium and Flomax to help with stent discomfort-we do lengthy discussion about common symptoms post stent placement Other medical management and comfort care per primary team Urology outpatient appointment- follow-up as scheduled We will follow peripherally-please contact for any questions or concerns History of Present Illness Attending Physician: Tata Young MD History of Present Illness 69-year-old female who reported to the ER on 02/18/2024 with intermittent fevers, urinary urgency frequency and dysuria and worsening bilateral flank pain. In the ER they had concerns for stent infection and recommended admitting patient with urine and blood cultures. On 02/06/2024 she underwent a right stent placement due to right-sided mild to moderate hydronephrosis without stone, could be related to retroperitoneal scarring/fibrosis or possibly lymphadenopathy. Labs reviewed: WBCs 6.56 Hemoglobin 11.9 Creatinine 1.02 Glucose 122 UA showed 1+ protein, 2+ glucose, negative ketones, 2+ blood negative nitrates 2+ leukocyte Estrace, 11-20 WBCs, greater than 20 RBCs no bacteria Blood and urine cultures pending No imaging has been completed. Patient resting comfortably in bed. She states she finished her antibiotics on Sunday and on Sunday was developing chills and sweats. She was also having she admitted also to urinary urgency and frequency along with bilateral flank pain so she came to the ER for further evaluation. This morning she is denying any abdominal or flank pain, fevers, chills, sweats, N/V, gross hematuria, dysuria. She is overall feeling well. Allergies Allergy/AdvReac Type Severity Reaction Status Date / Time levofloxacin Allergy Intermediate CHEST Verified 02/18/24 21:00 TIGHTNESS, RASH Bactrim AdvReac Intermediate GI Verified 03/15/18 11:06 UPSET,HEADACHE clarithromycin AdvReac Intermediate GI UPSET Verified 02/18/24 21:00 levothyroxine sodium AdvReac Intermediate dizziness, Verified 02/18/24 21:00 headache, nausea and vomitting lisinopril AdvReac Intermediate cough Verified 02/18/24 21:00 sulfamethoxazole AdvReac Intermediate GI Verified 02/18/24 21:00 UPSET,HEADACHE trimethoprim AdvReac Intermediate GI Verified 02/18/24 21:00 UPSET,HEADACHE famotidine AdvReac Chest Pain Verified 02/18/24 21:00 Home Medications Medication Instructions Recorded Confirmed Type folic acid 1 mg tablet 1 mg PO QAM 12/31/18 02/18/24 History pyridoxine (vitamin B6) 250 mg 250 mg PO QAM 12/31/18 02/18/24 History tablet (Vitamin B-6) aspirin 81 mg tablet,delayed 81 mg PO QAM 06/17/19 02/18/24 History release (Adult Low Dose Aspirin) nitroglycerin 0.4 mg sublingual 0.4 mg sublingual Q5M PRN chest 04/07/20 02/18/24 Rx tablet pain #30 tabs cholecalciferol (vitamin D3) 50 50 mcg PO QAM 03/10/21 02/18/24 History mcg (2,000 unit) capsule miscellaneous medical supply #1 ea 10/27/21 02/18/24 Rx (Blood Pressure Cuff) losartan 100 mg tablet 100 mg PO QAM #90 tabs 02/07/23 02/18/24 Rx phenytoin sodium extended 100 mg 100 mg PO TID #270 caps 02/16/23 02/18/24 Rx capsule ezetimibe 10 mg tablet 10 mg PO QAM 06/08/23 02/18/24 History escitalopram oxalate 10 mg tablet 10 mg PO QAM PRN anxiety #90 tabs 11/15/23 02/18/24 Rx atorvastatin 80 mg tablet 80 mg PO QAM 02/06/24 02/18/24 History carvedilol 6.25 mg tablet 6.25 mg PO BID 02/06/24 02/18/24 History clopidogrel 75 mg tablet (Plavix) 75 mg PO QAM 02/06/24 02/18/24 History isosorbide mononitrate 30 mg 30 mg PO BID 02/06/24 02/18/24 History tablet,extended release 24 hr levothyroxine 50 mcg tablet 50 mcg PO DAILYBB 02/06/24 02/18/24 History (Synthroid) pantoprazole 40 mg tablet,delayed 40 mg PO QAM 02/06/24 02/18/24 History release amlodipine 5 mg tablet 5 mg PO DAILY #1 tab 02/12/24 02/18/24 Rx Patient History Medical History Stroke Hypothyroidism Abnormal CT scan, gastrointestinal tract Non-ST elevation (NSTEMI) myocardial infarction Left facial numbness Primary hypercoagulable state Fatty liver History of cerebral artery occlusion 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) Elevated alkaline phosphatase level Elevated blood protein Diverticular disease Cataract Chronic headache GERD (gastroesophageal reflux disease) Surgical History Presence of stent in LAD coronary artery Hx of right cataract extraction History of esophagogastroduodenoscopy (EGD) History of colonoscopy History of cholecystectomy History of Family History Mother Family history of diabetes mellitus Acute myocardial infarction Heart disease Daughter Family history of diabetes mellitus Son Family history of diabetes mellitus Brother Cirrhosis of liver Father Acute myocardial infarction Prostate cancer Aunt Breast cancer Ovarian carcinoma Social History Smoking Status: Never smoker Second Hand Exposure: Yes (as a child; mother smoked); Do You Dip or Chew Tobacco: No; Hx Alcohol Use: No Hx Substance Use: No Preferred Language: Thai Communication Ability: Effective Sales Operations Required: No Beliefs That Will Affect Care: None Current Living Situation: Spouse Current Living Situation Comment: son and brother Other Information That Helps Us Care for You: No Feels Safe at Home: Yes Safety Concerns: Feels Safe At This Time caffeine: Yes Dental Care, Regularly: No Physical Activity Frequency: Does not Exercise Seatbelt Use: always Sunscreen Use: No Assistive Devices: None Review of Systems Review of Systems: 14 point review of systems negative exce pt for otherwise indicated. Physical Exam Constitutional: well developed and well nourished; no acute distress Respiratory: normal respiratory effort and able to speak in complete sentences Musculoskeletal: Extremities: extremities normal to inspection Psychiatric: Orientation: alert and oriented x 3 Results & Data Vital Signs (Past 12 Hours) Vital Signs Temp Pulse Pulse Resp BP Pulse Ox Pulse Ox 02/19/24 07:18 36.7 C 84 16 111/82 93 02/18/24 23:19 96 02/18/24 23:10 02/18/24 23:10 36.5 C 15 160/85 H 96 02/18/24 22:57 36.6 C 92 H 17 138/83 95 02/18/24 22:29 86 02/18/24 22:04 93 H 21 128/85 95 02/18/24 20:04 85 15 122/75 94 O2 Del Method O2 Del Method 02/19/24 07:18 Room Air 02/18/24 23:19 Room Air 02/18/24 23:10 Room Air 02/18/24 23:10 Room Air 02/18/24 22:57 Room Air 02/18/24 22:29 02/18/24 22:04 Room Air 02/18/24 20:04 Room Air PG Care Time/CCT Total # of Minutes Spent Total Time Spent with Patient: Total time spent is greater than 50% in coordination of care (as documented) at patient's floor/unit and/or counseling patient: Coding Level of Care Code 76726 INT INP/OBS CARE 2MIN Diagnoses UTI (urinary tract infection) N39.0 Status post placement of ureteral stent Z96.0 Hydronephrosis N13.30 Hydronephrosis type: unspecified (3) Hydronephrosis Hydronephrosis type: unspecified Qualified Code(s): N13.30 - Unspecified hydronephrosis
[2024-02-19 08:44] LABS: Basophils # (auto) 0.07 K/uL (0.00-0.20); Basophils % (auto) 1.4 %; Hematocrit (blood only) 35.6 % (37.0-47.0); Hemoglobin 11.5 g/dl (12.0-16.0); Immature Granulocytes # (auto) 0.01 K/uL (0.01-0.20); Immature Granulocytes % (auto) 0.2 %; Lymphocytes # (auto) 1.53 K/uL (1.20-3.40); Lymphocytes % (auto) 29.9 %; Mean Corpuscular Hemoglobin 29.6 pg (25.0-34.0); Mean Corpuscular Hgb Conc 32.3 g/dL (32.0-36.0); Mean Corpuscular Volume 91.5 fL (80.0-100.0); Mean Platelet Volume 9.1 fL (9.4-12.4); Monocytes # (auto) 0.31 K/uL (0.11-0.59); Monocytes % (auto) 6.1 %; Neutrophils # (auto) 3.09 K/uL (1.40-6.50); Neutrophils % (auto) 60.4 %; Platelet Count 328 K/uL (130-400); RDW Coefficient of Variation 14.8 % (11.5-14.5); RDW Standard Deviation 49.2 fL (36.4-46.3); Red Blood Count 3.89 M/uL (4.20-5.40); White Blood Count 5.11 K/ul (4.8-10.8)
[2024-02-19] MEDS: LOSARTAN POTASSIUM 50 MG TAB PO SCH (08:55)
[2024-02-19] MEDS: CLOPIDOGREL BISULFATE 75 MG TAB PO SCH (08:55)
[2024-02-19] MEDS: HEPARIN SOD 5,000 UNIT/0.5 ML VIAL SQ SCH (08:55)
[2024-02-19] MEDS: EZETIMIBE 10 MG TAB PO SCH (08:55)
[2024-02-19] MEDS: ASPIRIN 81 MG ECTAB PO SCH (08:55)
[2024-02-19] MEDS: PANTOprazole 40 MG TAB PO SCH (08:55)
[2024-02-19] MEDS: PYRIDOXINE HCL 50 MG TAB PO SCH (08:56)
[2024-02-19] MEDS: PHENYTOIN SODIUM ER 100 MG CAP PO SCH (08:56)
[2024-02-19 09:12] LABS: Albumin Level 3.6 gm/dl (3.4-5.0); BUN Creatinine Ratio 16.1 (10-20); Bilirubin,Total 0.4 mg/dl (0.2-1.0); Creatinine Clr Calc Pharmacy 38.7 ml/min; Est GFR (African American) 79.3 ml/min; Est GFR (Non-African American) 68.5 ml/min; Globulin 3.7 gm/dl (2.5-4.0); Potassium 4.1 mmol/L (3.5-5.1); Total Protein 7.3 gm/dl (6.0-8.3)
[2024-02-19] MEDS: ATORVASTATIN 40 MG TAB PO SCH (10:56)
--- NOTE | 2024-02-19 12:25 | XRay Report ---
KUB HISTORY: Right ureteral stent placement. COMPARISON: Abdomen and pelvis CT 02/06/2024. FINDINGS: The bowel gas pattern is unremarkable. There are no dilated loops of small bowel to suggest an obstruction. No ureteral calculi. Calcifications in the deep pelvis likely represent phleboliths . A right ureteral stent appears in good position. Prior cholecystectomy. Moderate fecal retention. T here is a stable 4 mm stone within the lower pole of the right kidney. No left renal calculi. No pneu moperitoneum or pneumatosis. IMPRESSION: 1. The right ureteral stent appears in good position. 2. Stable right-sided nephrolithiasis. 3. No ureteral calculi. ACT 112: Negative or not required by law. Electronically signed by: Bret Andrade M.D. 02/19/2024 12:24 PM
[2024-02-19] MEDS: cefTRIAXone SODIUM 2,000 MG/50 ML BAG IV SCH (20:39)
--- NOTE | 2024-02-20 06:48 | Hospitalist Progress Note ---
Date of Service February 20, 2024 Assessment & Plan (1) UTI (urinary tract infection): Plan: Pt had right ureteral stent placed with Dr. Ceballos on 02/06/2024. UA in ED on 02-18-24 showed WBC, 2+ leukocyte esterase, urine cultures were obtained. Pt started on IV ceftriaxone in ED due to pansensitive with most recent UTI. Pt appears stable and reporting improvement in symptoms. Awaiting results from blood and urine culture. Continue IV ceftriaxone Urology has been consulted Follow urine/blood cultures obtained in the ED Lovenox for DVT prophylaxis (2) Status post placement of ureteral stent: Plan: See UTI Follow urology consult (3) Hypertension: Plan: Patient's BP have been stable since arrival to ED. Will continue home carvedilol and losartan Holding home amlodipine to avoid hypotension in case she would become septic - Will continue to monitor (4) CAD (coronary artery disease): Plan: Pt has hx of CAD and hyperlipidemia. Pt is currently not c/o chest pain or SOB. Continue aspirin, carvedilol - Heart healthy diet (5) DM type 2 (diabetes mellitus, type 2): Plan: Patient's BG have have been fairly stable running between 122-146 since admission. - Monitor BSG ACHS, goal is [id number] Continue CF of 50 and CR 15 ACHS No basal insulin as she is not on this at home - DM2 diet (6) Seizure disorder: Plan: No current reported seizures since admission. Continue phenytoin Admission and Anticipated Discharge Date Admission Date: February 18, 2024 Subjective Pt is a 69 yo female who with PMedHX HTN, DM2, seizure disorder, hyperlipidemia. Patient had recent hospital stay for UTI s/p ureteral stent 2 weeks ago. Pt had recently finished her course of abx prescribed after last hospital stay on 02-17-24. She started having chills, dysuria, increase urinary frequency, and generally feeling ill, pt called PCP and was advised to go to ED. Pt was started on IV ceftriaxone on 02-18-24. She is reporting feeling better on 02-19-24 with reduced frequency of urination, no dysuria, and no chills. Physical Exam Physical Exam: Physical Exam: General: In no acute distress, stated age, well-nourished, non-toxic appearing HEENT: Normocephalic, atraumatic, no scleral icterus, pupils around round, symmetrical, and reactive to light, moist mucus membranes, trachea midline, no thyromegaly Chest/Pulm: No respiratory distress, symmetrical chest expansion, clear breath sounds throughout Cardiac: RRR, no murmurs noted Abdomen: Negative for ascites and bruising, normoactive bowel sounds, soft, nontender to palpation : Negative CVA tenderness B/L Skin: Warm, dry Neuro: Alert and oriented x3, no focal defects Psych: No acute distress, calm and cooperative during the exam Results & Data Results & Data Vital Signs (Past 12 Hours) Vital Signs Temp Pulse Resp BP Pulse Ox O2 Del Method 02/19/24 20:46 36.6 C 81 16 100/63 96 Room Air 02/19/24 19:15 Room Air (1) UTI (urinary tract infection) Hematuria presence: with hematuria Urinary tract infection type: acute cystitis Qualified Code(s): N30.01 - Acute cystitis with hematuria
[2024-02-20 08:09] LABS: Basophils # (auto) 0.07 K/uL (0.00-0.20); Basophils % (auto) 1.3 %; Eosinophils % (auto) 1.9 %; Hematocrit (blood only) 36.3 % (37.0-47.0); Hemoglobin 11.5 g/dl (12.0-16.0); Immature Granulocytes # (auto) 0.01 K/uL (0.01-0.20); Immature Granulocytes % (auto) 0.2 %; Lymphocytes # (auto) 1.65 K/uL (1.20-3.40); Lymphocytes % (auto) 30.8 %; Mean Corpuscular Hemoglobin 29.6 pg (25.0-34.0); Mean Corpuscular Hgb Conc 31.7 g/dL (32.0-36.0); Mean Corpuscular Volume 93.3 fL (80.0-100.0); Monocytes % (auto) 5.6 %; Neutrophils # (auto) 3.22 K/uL (1.40-6.50); Neutrophils % (auto) 60.2 %; Platelet Count 294 K/uL (130-400); RDW Standard Deviation 51.3 fL (36.4-46.3); Red Blood Count 3.89 M/uL (4.20-5.40); White Blood Count 5.35 K/ul (4.8-10.8)
[2024-02-20 08:14] LABS: Albumin Globulin Ratio 0.9 (0.9-2); Albumin Level 3.7 gm/dl (3.4-5.0); BUN Creatinine Ratio 21.5 (10-20); Bilirubin,Total 0.3 mg/dl (0.2-1.0); Creatinine Clr Calc Pharmacy 36.2 ml/min; Est GFR (African American) 73.2 ml/min; Est GFR (Non-African American) 63.1 ml/min; Potassium 4.4 mmol/L (3.5-5.1); Total Protein 7.7 gm/dl (6.0-8.3)
--- NOTE | 2024-02-20 18:02 | Discharge Summary ---
Date of Service February 20, 2024 Admission HPI Per Admitting Provider Arabella is a 69-year-old female with a past medical history significant for DM type II, hypertension, GERD, previous stroke, seizure disorder, coronary artery disease who presented to the [facility] ED at the recommendation of her PCP due to concerns for developing kidney infection. Per chart review, the patient was recently admitted to [facility] from 02/06/2024 - 02/08/2024 due to UTI and right-sided hydronephrosis with an abrupt caliber change in the retroperitoneum without obstructing stone. Caliber change was thought to be related to retroperitoneal scarring/fibrosis or possib le lymphadenopathy. The patient underwent cystoscopy with right ureteral stent placement with Dr. Ceballos on 02/06/2024.Urine cultures grew gram-negative bacilli with pansensitive E. coli. She was discharged with a course of cephalexin twice daily x 7 days with urology follow-up for stent removal. She was noted to be hypertensive on arrival at 146/77 but otherwise stable. Creatinine of 1.02 (baseline appears to be near 0.8), Improving LFTs compared to last admission, UA with 1+ protein, 2+ glucose, 2+ blood, 2+ leukocyte Estrace, 11-20 WBC, greater than 20 RBC, and negative for bacteria.Full respiratory BioFire was negative. The ED spoke with urology who recommended medicine admission for IV antibiotics for at least 24 hours prior to any intervention, they will continue to follow. Prior to admission the patient was given a dose of ceftriaxone. Patient was sitting in bed in no acute distress at time of exam. She states that she had been doing well after discharge and confirmed that she did complete her course of Keflex. Starting on 02/15/2022 she started develop chills, subjective fever, bilateral flank pain, dysuria, and increased urinary frequency. Denies recent chest pain, shortness of breath, abdominal pain, nausea/vomiting, lower extremity swelling, diarrhea, and recent trauma. She confirms that she is a full code. Please refer to Dr. Richmond's attestation for any changes to the treatment plan Principal Diagnosis Ureteral stent pain Discharge Exam General: NAD, A&O x 3 HEENT: NCAT, poor dentition CV: RRR, no edema Pulm: CTAB, no increased WOB GI: soft, nt/nd, +BS : no suprapubic tenderness Skin: warm, dry, pink Discharge Data Allergies Allergy/AdvReac Type Severity Reaction Status Date / Time levofloxacin Allergy Intermediate CHEST Verified 02/18/24 21:00 TIGHTNESS, RASH Bactrim AdvReac Intermediate GI Verified 03/15/18 11:06 UPSET,HEADACHE clarithromycin AdvReac Intermediate GI UPSET Verified 02/18/24 21:00 levothyroxine sodium AdvReac Intermediate dizziness, Verified 02/18/24 21:00 headache, nausea and vomitting lisinopril AdvReac Intermediate cough Verified 02/18/24 21:00 sulfamethoxazole AdvReac Intermediate GI Verified 02/18/24 21:00 UPSET,HEADACHE trimethoprim AdvReac Intermediate GI Verified 02/18/24 21:00 UPSET,HEADACHE famotidine AdvReac Chest Pain Verified 02/18/24 21:00 Consultations 02/18/24 21:13 ED Decision to Admit Stat 02/18/24 21:27 Consult Urology Routine Ordered Studies KUB X-Ray 02/19/24 10:50 KUB HISTORY: Right ureteral stent placement. COMPARISON: Abdomen and pelvis CT 02/06/2024. FINDINGS: The bowel gas pattern is unremarkable. There are no dilated loops of small bowel to suggest an obstruction. No ureteral calculi. Calcifications in the deep pelvis likely represent phleboliths. A right ureteral stent appears in good position. Prior cholecystectomy. Moderate fecal retention. There is a stable 4 mm stone within the lower pole of the right kidney. No left renal calculi. No pneumoperitoneum or pneumatosis. IMPRESSION: 1. The right ureteral stent appears in good position. 2. Stable right-sided nephrolithiasis. 3. No ureteral calculi. ACT 112: Negative or not required by law. Electronically signed by: Bret Andrade M.D. 02/19/2024 12:24 PM Hospital Course (1) UTI (urinary tract infection): (2) Status post placement of ureteral stent: (3) Hypertension: (4) CAD (coronary artery disease): (5) DM type 2 (diabetes mellitus, type 2): (6) Seizure disorder: Plan 1) UTI (urinary tract infection): (2) Status post placement of ureteral stent: Plan: Pt had right ureteral stent placed with Dr. Ceballos on 02/06/2024. UA in ED on 02-18-24 showed WBC, 2+ leukocyte esterase, urine cultures were obtained. Pt started on IV ceftriaxone in ED due to pansensitive with most recent UTI. Pt appears stable and reporting improvement in symptoms. Blood culture was negative, urine culture resulted in gram+ cocci with low counts of other mixed dagoberto totaling <9000 cfu/ml Discontinued IV ceftriaxone Urology recommended Flomax Total Time Total Time Spent Total Time Spent (In Minutes): Refer to attending attestation Discharge Plan Discharge Items Patient Disposition: Home - Self-Care Reason For Visit: UTI, RECENT URETERAL STENT PLACEMENT Discharge Diagnosis: Urinary stent discomfort Activity: Resume your previous activity Non-emergency contact: Primary Care Provider Call non-emergency contact if: you have any medication questions, your pain is concerning for you and your temperature is above 101.5 Follow-up/Referrals: Eliazar Peck DO [Primary Care Provider] - 02/22/24 2:45 pm (WITH ELEN VALENTIN) Niraj Ceballos MD [Physician] - 03/14/24 11:20 am Diet: Regular Addtl Attending Provider Instructions: You were admitted to the hospital for urinary stent discomfort. A discharge summary will be sent to your primary care physician to ensure continuity of care. Please bring this discharge summary with you to your next of fice appointment so that your provider can review it at that time. Follow-up appointments: * Make a follow-up appointment with your PCP within the next week. It is very important that you follow up with them shortly after discharge from the hospital. * You have appointment with urology on 03/14/[address] Ceballos at 11:20am. * Keep all your follow-up appointments as already scheduled. If you cannot make an appointment, notify your provider. Medications: Your medication list has been reviewed and reconciled upon discharge to ensure accuracy and continuity of care. An updated list of all your medications is included with your hospital discharge paperwork. Please review this list closely, and make note of any changes. * We sent a new medication called Flomax to the pharmacy. Take Flomax 0.4 mg once a day. * If you have any issues filling these prescriptions, please call [phone] and ask to leave a message for Dr. Sharma. * Take your medications as instructed; do not skip a dose of your medicines. Make sure all of your doctors know every medicine you are taking (including [id number] medicines, vitamins, and supplements). Call your primary care provider before taking any new medicines (including over- the-counter medicines, vitamins, and supplements), because some of these may interact with your current medications, or may make your symptoms worse. Tell your primary care provider if you cannot afford your medications. CONTACT YOUR PRIMARY CARE PROVIDER if you experience any of the following: * Worsening of symptoms * Fever, chills, or fatigue * Difficulty following your treatment plan, or difficulty taking medications CALL 911 OR GO TO THE EMERGENCY DEPARTMENT if you experience any of the following: * Sudden, severe abdominal pain or nausea/vomiting * Severe chest pain, or chest pain that radiates (moves) to your jaw or arm * Sudden, severe shortness of breath or difficulty breathing Thank you for allowing us to participate in your care. Pending Studies at Discharge: No Stand-Alone Forms: [employer], Smoking Cessation Medications and DC Order Prescriptions: New tamsulosin [Flomax] 0.4 mg capsule 0.4 mg PO DAILY Qty: 30 0RF Continued nitroglycerin 0.4 mg tablet, sublingual 0.4 mg sublingual Q5M PRN (Reason: chest pain) Qty: 30 0RF Rx Instructions: do not exceed 3 doses per episode cholecalciferol (vitamin D3) 50 mcg (2,000 unit) capsule 50 mcg PO QAM (DME) Blood Pressure Cuff Misc See Rx Instructions .Route Qty: 1 0RF Rx Instructions: BLOOD PRESSURE CUFF CHECK 2-3 TIMES DAILY DX: I10 losartan 100 mg tablet 100 mg PO QAM Qty: 90 3RF phenytoin sodium extended 100 mg capsule 100 mg PO TID Qty: 270 3RF escitalopram oxalate 10 mg tablet 10 mg PO QAM PRN (Reason: anxiety) Qty: 90 3RF aspirin [Adult Low Dose Aspirin] 81 mg tablet,delayed release (DR/EC) 81 mg PO QAM amlodipine 5 mg tablet 5 mg PO DAILY Qty: 1 0RF Hold Instructions: Resume on 02/15/24. Hypertension meds stopped during hospital stay. Did not want to re-introduce all at once folic acid 1 mg Tablet 1 mg PO QAM pyridoxine (vitamin B6) [Vitamin B-6] 250 mg Tablet 250 mg PO QAM ezetimibe 10 mg tablet 10 mg PO QAM carvedilol 6.25 mg tablet 6.25 mg PO BID atorvastatin 80 mg tablet 80 mg PO QAM isosorbide mononitrate 30 mg tablet extended release 24 hr 30 mg PO BID clopidogrel [Plavix] 75 mg tablet 75 mg PO QAM pantoprazole 40 mg tablet,delayed release (DR/EC) 40 mg PO QAM levothyroxine [Synthroid] 50 mcg tablet 50 mcg PO DAILYBB Discharge Orders: Discharge Order (Routine); Ordered 02/20/24 Ordered By: Gordo Turcios/Other Patient Handouts: Anatomy of the Female Urinary Tract, Having a Ureteral Stent, Urinary Tract Infections in Women Admission Data Admit Date/Time: 02/18/24 20:57 Attending Provider: Tata Young Admit Provider: Lorena Richmond Primary Care Provider: Eliazar Peck Other Providers: Lorena Richmond; Beltran Sands Other Interventions: Discharge Summary Assessment (RN) Last Done: 02/20/24 15:12 Supervising Physician Co-Signing Physician Notes Attending Physician Supervision Note: I independently interviewed and examined the patient and verified the aleman history and physical, reviewed labs and image studies and agree with findings and care plan noted above. 69-year-old female who is status post right stent placement on 02/06/2024 who reported back to the ER due to concern for stent infection. Post urinary stent placement symptoms - Urinary Stent (placed 02/05) infection ruled out - Normal WBC, kidney function. KUB confirmed good stent placement. -pain, dysuria, frequency, flank pain, fever/chills - all resolved with supportive care. -ceftriaxone d/mirta once cultures negative. -prn flomax rx sent. -seen by urology - presenting symptoms as expected post stent symptoms.
== END 2024-02-20 18:13 | disposition home or self-care (01) | DRG 699 ==
LOC: ED 17:22 → SUATTDRO 20:57 → 3W 20:57

== ENCOUNTER 2024-07-07 17:57 | Inpatient (IN) ==
[2024-07-07] MEDS: SODIUM CHLORIDE 0.9% 1,000 ML IV ONE ×2 (18:28→20:15)
[2024-07-07] MEDS: ONDANSETRON INJ 2 MG/ML 2 ML VIAL IV STA (18:35)
--- NOTE | 2024-07-07 18:45 | XRay Report ---
EXAM: Radiograph of the Chest 1 View INDICATION: Chest pain. TECHNIQUE: Frontal view of the chest. COMPARISON: 03/05/2024 FINDINGS: Lungs and pleural spaces: No consolidation or pulmonary edema. No pleural effusion or pneumothorax. Heart: Stable cardiac shadow. Left coronary stent unchanged. Mediastinum: Normal contour. Bones/joints: Mild calcific tendinitis right shoulder. No acute osseous abnormality. Soft tissues: No abnormality noted. No radiopaque foreign body noted. Tubes, lines and devices: Proximal aspect of a right ureteral stent is unchanged. Upper abdomen: No abnormality noted. IMPRESSION: No acute cardiopulmonary disease. ACT 112: Negative or not required by law. Electronically signed by Tracy Walker 07-07-2024 6:44 PM
[2024-07-07 19:03] LABS: Albumin Globulin Ratio 0.8 (0.9-2); Albumin Level 3.5 gm/dl (3.4-5.0); BUN Creatinine Ratio 13.9 (10-20); Bilirubin,Total 0.7 mg/dl (0.2-1.0); Calcium 8.4 mg/dl (8.6-10.3); Creatinine Clr Calc Pharmacy 10.1 ml/min; Globulin 4.3 gm/dl (2.5-4.0); Potassium 4.3 mmol/L (3.5-5.1); Total Protein 7.8 gm/dl (6.0-8.3)
[2024-07-07 19:06] LABS: Basophils # (auto) 0.01 K/uL (0.00-0.20); Dohle Bodies 1+; Hematocrit (blood only) 28.1 % (37.0-47.0); Hemoglobin 9.9 g/dl (12.0-16.0); Immature Granulocytes # (auto) 0.95 K/uL (0.01-0.20); Immature Granulocytes % (auto) 2.9 %; Lymphocytes # (auto) 1.34 K/uL (1.20-3.40); Mean Corpuscular Hemoglobin 31.3 pg (25.0-34.0); Mean Corpuscular Hgb Conc 35.2 g/dL (32.0-36.0); Mean Corpuscular Volume 88.9 fL (80.0-100.0); Mean Platelet Volume 10.3 fL (9.4-12.4); Monocytes # (auto) 1.23 K/uL (0.11-0.59); Monocytes % (auto) 3.7 %; Neutrophils # (auto) 29.65 K/uL (1.40-6.50); Neutrophils % (auto) 89.4 %; Platelet Count 139 K/uL (130-400); Polychromasia 1+; RDW Coefficient of Variation 17.7 % (11.5-14.5); RDW Standard Deviation 54.1 fL (36.4-46.3); Red Blood Count 3.16 M/uL (4.20-5.40); Toxic Granulation 1+; White Blood Count 33.18 K/ul (4.8-10.8)
[2024-07-07 19:09] LABS: Troponin I High Sensitivity 40.2 pg/ml (0-14)
[2024-07-07] MEDS ORDERED: VANCOMYCIN HCL 750 MG in SODIUM CHLORIDE 0.9% 500 ML IV ONE (19:14)
[2024-07-07] MEDS ORDERED: VANCOMYCIN CONSULT ACTIVE PRN (19:14)
[2024-07-07] MEDS: PIPERACILLIN/TAZOBACTAM 4.5 GM/100 ML BAG IV ONE (19:41)
--- NOTE | 2024-07-07 20:03 | Emergency Department Note ---
Impression & Plan Sepsis, Acute UTI, CAYETANO (acute kidney injury) ED Provider Note Diagnosis: Sepsis, acute kidney injury, blurred vision Disposition: Admission CHIEF COMPLAINT: Vomiting HPI: Patient is a 69-year-old female presenting with complaint of complaint of vomiting. Patient states generalized weakness. Patient states an episode between 4 and 5:00 where she had transient vision loss from the right eye and it returned and now she just has blurred vision from the right eye. Patient denies any trouble with moving her arms and legs. Patient denies any numbness or tingling. Patient denies change change in speech. PAST MEDICAL HISTORY: See Below PAST SURGICAL HISTORY: See Below SOCIAL HISTORY: See Below HOME MEDICATIONS: See Below ALLERGIES: See Below VITALS: See Below PHYSICAL EXAMINATION: GENERAL: Well appearing, well nourished, NAD, non-toxic. EYE EXAM: Normal conjunctiva. OROPHARYNX: Moist mucus membranes. Grossly normal dentition. NECK: Supple, LUNGS: Clear to auscultation. Normal chest wall mechanics. HEART: NSR ABDOMEN: Abdomen soft, diffuse pain BACK: No CVA TTP. SKIN: No rashes and no bruising. UPPER EXTREMITIES: Upper extremities are grossly normal LOWER EXTREMITIES: Grossly normal, no edema. NEURO EXAM: A&O x3,, normal speech, 5 out of 5 muscle strength upper and lower extremities bilaterally, Intact sensation upper and lower extremities bilaterally PSYCH: Cooperative MEDICAL DECISION MAKING: History obtained from: Patient, significant other ER Course: Patient is a 69-year-old female presenting with complaint of generalized weakness nausea vomiting and blurred vision. Patient states this afternoon she had brief episode of vision loss and then vision became blurred. Patient on arrival in the emergency room denies any current vision loss. Patient has bilateral blurred vision. Patient found on blood work to have leukocytosis of 33. Patient has elevated lactate. Patient given multiple boluses of normal saline with improvement of blood pressure as well as broad-spectrum antibiotics of Zosyn and vancomycin. Patient had some mild abdominal pain CT abdomen pelvis was performed. Patient also had CT scan of the head negative for acute intracranial hemorrhage. Patient found to have acute renal failure with a creatinine of 3. Patient admitted to hospital service further treatment and evaluation. Labs (independently interpreted) are significant for: Leukocytosis, elevated lactate Imaging results (independently interpreted): Chest x-ray clear EKG interpretation (independently interpreted): Normal sinus rhythm no ST segment elevation or depression Medications given: Zosyn, vancomycin, normal saline bolus x 2 Consultants: Hospitalist Triage Nursing notes reviewed and agree them. Vital Signs: reviewed and remarkable for: no significant abnormalities Critical care time 40 minutes this does not include time for procedures Past Med/Surg History Problem List (Updated 07/08/24 @ 02:46 by Sohail Delgado DO) CAYETANO (acute kidney injury) (Acute) Acute UTI (Acute) Sepsis (Acute) Uterine cancer Hypothyroidism Metastatic cancer Infection and inflammatory reaction due to indwelling ureteral stent, sequela (Acute) Elevated LFTs Pulmonary nodule Retroperitoneal lymphadenopathy 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 Xerosis cutis (Acute) Hyperlipidemia Medical History Pulmonary nodule Retroperitoneal lymphadenopathy Ovarian cancer per pt, "I have cancer in my ovaries and then they need to check to see if it spread anywhere." States she is to have a D&C at [facility] on 03/21 to "clean out all the scar tissue.". Surgery is planned as an OP and pt. cannot recall who the surgeon is. LBBB (left bundle branch block) Chronic Hyperlipidemia Multiple pulmonary nodules determined by computed tomography of lung CAD (coronary artery disease) Stents x2 (2019) Depression with anxiety Seizure disorder Most recent seizure No issues since DM type 2 (diabetes mellitus, type 2) Hypertension Stroke ~, no residual issues Taking Plavix Abnormal CT scan, gastrointestinal tract No further Intervention, seen by General Surgery Non-ST elevation (NSTEMI) myocardial infarction 07/2019 > 2 stents Follows with [facility] Primary hypercoagulable state Fatty liver History of cerebral artery occlusion CVA ~ 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 Diverticular disease Chronic headache GERD (gastroesophageal reflux disease) Surgical History S/P cystoscopy with ureteral stent placement (01/2024) Presence of stent in LAD coronary artery 2019 > stents x2 Hx of right cataract extraction 01/21/19: was given 3mg of IV versed History of esophagogastroduodenoscopy (EGD) History of colonoscopy History of cholecystectomy History of x3 Family History Mother Family history of diabetes mellitus Acute myocardial infarction Heart disease Daughter Family history of diabetes mellitus Son Family history of diabetes mellitus Brother Cirrhosis of liver Father Acute myocardial infarction Prostate cancer Aunt Breast cancer Ovarian carcinoma Social History Smoking Status: Never smoker Tobacco Type: Cigarettes Age Started Using Tobacco: 14; Age Quit Using Tobacco: 33; packs per day: 2; Second Hand Exposure: Yes (as a child); Do You Dip or Chew Tobacco: No; Hx Alcohol Use: No Hx Substance Use: No Preferred Language: Kyrgyz Communication Ability: Effective [employer] Required: No Beliefs That Will Affect Care: None Current Living Situation: Family Current Living Situation Comment: Lives with 2 sons Feels Safe at Home: Yes caffeine: Yes Dental Care, Regularly: No Physical Activity Frequency: Does not Exercise Seatbelt Use: always Sunscreen Use: No Assistive Devices: None Allergies Allergies Allergy/AdvReac Type Severity Reaction Status Date / Time levofloxacin Allergy Intermediate Chest Verified 06/19/24 08:49 tightness, rash Bactrim AdvReac Intermediate GI Verified 03/15/18 11:06 UPSET,HEADACHE clarithromycin AdvReac Intermediate GI upset Verified 06/19/24 08:49 famotidine AdvReac Intermediate Chest Pain Verified 06/19/24 08:49 levothyroxine sodium AdvReac Intermediate Dizziness, Verified 06/19/24 08:49 headache, nausea and vomiting lisinopril AdvReac Intermediate Cough Verified 06/19/24 08:49 sulfamethoxazole AdvReac Intermediate GI upset, Verified 06/19/24 08:49 headache trimethoprim AdvReac Intermediate GI upset, Verified 06/19/24 08:49 headache Home Meds Home Medications Medication Instructions Recorded Confirmed folic acid 1 mg tablet 1 mg PO QAM 12/31/18 06/21/24 pyridoxine (vitamin B6) 250 mg 250 mg PO QAM 12/31/18 06/21/24 tablet (Vitamin B-6) aspirin 81 mg tablet,delayed 81 mg PO QAM 06/17/19 06/21/24 release (Adult Low Dose Aspirin) cholecalciferol (vitamin D3) 50 50 mcg PO QAM 03/10/21 06/21/24 mcg (2,000 unit) capsule ezetimibe 10 mg tablet (Zetia) 10 mg PO QAM 06/08/23 06/21/24 carvedilol 6.25 mg tablet 6.25 mg PO BID 02/06/24 06/21/24 clopidogrel 75 mg tablet (Plavix) 75 mg PO QAM 02/06/24 06/21/24 isosorbide mononitrate 30 mg 30 mg PO BID 02/06/24 06/21/24 tablet,extended release 24 hr pantoprazole 40 mg tablet,delayed 40 mg PO QAM 02/06/24 06/21/24 release (Protonix) amlodipine 5 mg tablet (Norvasc) 5 mg PO BID 03/11/24 06/21/24 tamsulosin 0.4 mg capsule (Flomax) 0.4 mg PO HS 03/11/24 06/21/24 escitalopram oxalate 10 mg tablet 10 mg PO QAM PRN anxiety 03/18/24 06/21/24 (Lexapro) phenytoin sodium extended 100 mg 100 mg PO TID 03/18/24 06/21/24 capsule (Dilantin Extended) dexamethasone 4 mg tablet 20 mg PO DIRECTED 05/20/24 06/21/24 olanzapine 2.5 mg tablet 2.5 mg PO DAILY PRN n/v 05/20/24 06/21/24 prochlorperazine maleate 10 mg 10 mg PO DAILY PRN n/v 05/20/24 06/21/24 tablet Previous Rx's Medication Instructions Recorded nitroglycerin 0.4 mg sublingual 0.4 mg sublingual Q5M PRN chest 04/07/20 tablet pain #30 tabs miscellaneous medical supply #1 ea 10/27/21 (Blood Pressure Cuff) metformin 500 mg tablet 500 mg PO BID #90 tabs 02/28/24 losartan 100 mg tablet 100 mg PO QAM #90 tabs 03/03/24 atorvastatin 80 mg tablet 80 mg PO QAM #90 tabs 03/10/24 levothyroxine 50 mcg tablet 50 mcg PO QAM #90 tabs 04/08/24 (Synthroid) Carboplatin #1 ea 05/20/24 Fosaprepitant #1 ea 05/20/24 Paclitaxel #1 ea 05/20/24 Palonsetron #1 ea 05/20/24 Pembrolizumab #1 ea 05/20/24 Results & Data (ED) Vital Signs Vital Signs - 24 hr 07/07/24 18:06 07/07/24 18:35 07/07/24 18:36 Temperature 36.8 C Temperature Source Temporal Artery Scan Pulse Rate 126 H 117 H Pulse Rate [Apical] 110 H Pulse Rate from SpO2 Sensor Pulse Rhythm [Apical] Pulse Strength [Apical] Respiratory Rate 20 23 Respiratory Effort / Characteristics Non-Labored Spontaneous Respiratory Depth Normal Respiratory Pattern Regular Blood Pressure 88/60 L Blood Pressure [Left Arm] 100/63 Blood Pressure Mean 69 Blood Pressure Mean [Left Arm] 75 Blood Pressure Position Sitting Blood Pressure Position [Left Arm] Pulse Oximetry 95 97 Oxygen Delivery Method Room Air Sepsis Recent Fever Within 48 Hours No Sepsis New/Unexplained Change in Mental Status No Sepsis Action Taken by Nursing No Action Required 07/07/24 18:36 07/07/24 18:37 07/07/24 18:38 Temperature Temperature Source Pulse Rate 112 H 110 H Pulse Rate [Apical] Pulse Rate from SpO2 Sensor Pulse Rhythm [Apical] Pulse Strength [Apical] Respiratory Rate 23 22 Respiratory Effort / Characteristics Respiratory Depth Respiratory Pattern Blood Pressure 100/63 Blood Pressure [Left Arm] Blood Pressure Mean 74 Blood Pressure Mean [Left Arm] Blood Pressure Position Blood Pressure Position [Left Arm] Pulse Oximetry 98 Oxygen Delivery Method Room Air Sepsis Recent Fever Within 48 Hours Sepsis New/Unexplained Change in Mental Status Sepsis Action Taken by Nursing 07/07/24 18:42 07/07/24 19:18 07/07/24 19:21 Temperature Temperature Source Pulse Rate 106 H 95 H 93 H Pulse Rate [Apical] Pulse Rate from SpO2 Sensor 106 H 95 H 93 H Pulse Rhythm [Apical] Pulse Strength [Apical] Respiratory Rate 20 16 16 Respiratory Effort / Characteristics Respiratory Depth Respiratory Pattern Blood Pressure Blood Pressure [Left Arm] Blood Pressure Mean Blood Pressure Mean [Left Arm] Blood Pressure Position Blood Pressure Position [Left Arm] Pulse Oximetry 99 97 98 Oxygen Delivery Method Sepsis Recent Fever Within 48 Hours Sepsis New/Unexplained Change in Mental Status Sepsis Action Taken by Nursing 07/07/24 19:42 07/07/24 20:00 07/07/24 20:06 Temperature Temperature Source Pulse Rate 115 H 98 H Pulse Rate [Apical] 100 H Pulse Rate from SpO2 Sensor 99 H Pulse Rhythm [Apical] Pulse Strength [Apical] Respiratory Rate 21 24 33 H Respiratory Effort / Characteristics Respiratory Depth Respiratory Pattern Blood Pressure Blood Pressure [Left Arm] 88/52 L Blood Pressure Mean Blood Pressure Mean [Left Arm] 64 Blood Pressure Position Blood Pressure Position [Left Arm] Pulse Oximetry 98 96 Oxygen Delivery Method Sepsis Recent Fever Within 48 Hours Sepsis New/Unexplained Change in Mental Status Sepsis Action Taken by Nursing 07/07/24 20:09 07/07/24 20:12 07/07/24 20:15 Temperature Temperature Source Pulse Rate 101 H Pulse Rate [Apical] Pulse Rate from SpO2 Sensor 100 H Pulse Rhythm [Apical] Pulse Strength [Apical] Respiratory Rate 28 H Respiratory Effort / Characteristics Respiratory Depth Respiratory Pattern Blood Pressure 88/52 L 89/58 L Blood Pressure [Left Arm] Blood Pressure Mean 62 74 Blood Pressure Mean [Left Arm] Blood Pressure Position Blood Pressure Position [Left Arm] Pulse Oximetry 98 Oxygen Delivery Method Sepsis Recent Fever Within 48 Hours Sepsis New/Unexplained Change in Mental Status Sepsis Action Taken by Nursing 07/07/24 20:21 07/07/24 20:30 07/07/24 20:36 Temperature Temperature Source Pulse Rate 100 H 95 H Pulse Rate [Apical] Pulse Rate from SpO2 Sensor 100 H 95 H Pulse Rhythm [Apical] Pulse Strength [Apical] Respiratory Rate 21 18 Respiratory Effort / Characteristics Respiratory Depth Respiratory Pattern Blood Pressure 92/52 L Blood Pressure [Left Arm] Blood Pressure Mean 62 Blood Pressure Mean [Left Arm] Blood Pressure Position Blood Pressure Position [Left Arm] Pulse Oximetry 97 97 Oxygen Delivery Method Sepsis Recent Fever Within 48 Hours Sepsis New/Unexplained Change in Mental Status Sepsis Action Taken by Nursing 07/07/24 20:45 07/07/24 20:48 07/07/24 20:51 Temperature Temperature Source Pulse Rate 89 88 Pulse Rate [Apical] Pulse Rate from SpO2 Sensor 89 88 Pulse Rhythm [Apical] Pulse Strength [Apical] Respiratory Rate 18 19 Respiratory Effort / Characteristics Respiratory Depth Respiratory Pattern Blood Pressure 98/52 L Blood Pressure [Left Arm] Blood Pressure Mean 76 Blood Pressure Mean [Left Arm] Blood Pressure Position Blood Pressure Position [Left Arm] Pulse Oximetry 96 96 Oxygen Delivery Method Sepsis Recent Fever Within 48 Hours Sepsis New/Unexplained Change in Mental Status Sepsis Action Taken by Nursing 07/07/24 20:57 07/07/24 21:00 07/07/24 21:03 Temperature Temperature Source Pulse Rate 86 84 Pulse Rate [Apical] Pulse Rate from SpO2 Sensor 86 84 Pulse Rhythm [Apical] Pulse Strength [Apical] Respiratory Rate 15 15 Respiratory Effort / Characteristics Respiratory Depth Respiratory Pattern Blood Pressure 89/51 L Blood Pressure [Left Arm] Blood Pressure Mean 67 Blood Pressure Mean [Left Arm] Blood Pressure Position Blood Pressure Position [Left Arm] Pulse Oximetry 96 97 Oxygen Delivery Method Sepsis Recent Fever Within 48 Hours Sepsis New/Unexplained Change in Mental Status Sepsis Action Taken by Nursing 07/07/24 21:15 07/07/24 21:15 07/07/24 21:30 Temperature Temperature Source Pulse Rate 88 Pulse Rate [Apical] Pulse Rate from SpO2 Sensor 89 Pulse Rhythm [Apical] Pulse Strength [Apical] Respiratory Rate 28 H Respiratory Effort / Characteristics Respiratory Depth Respiratory Pattern Blood Pressure 94/53 L 82/44 L Blood Pressure [Left Arm] Blood Pressure Mean 78 61 Blood Pressure Mean [Left Arm] Blood Pressure Position Blood Pressure Position [Left Arm] Pulse Oximetry 96 Oxygen Delivery Method Sepsis Recent Fever Within 48 Hours Sepsis New/Unexplained Change in Mental Status Sepsis Action Taken by Nursing 07/07/24 21:30 07/07/24 21:42 07/07/24 21:45 Temperature Temperature Source Pulse Rate 81 82 Pulse Rate [Apical] Pulse Rate from SpO2 Sensor 81 82 Pulse Rhythm [Apical] Pulse Strength [Apical] Respiratory Rate 16 19 Respiratory Effort / Characteristics Respiratory Depth Respiratory Pattern Blood Pressure 99/61 L Blood Pressure [Left Arm] Blood Pressure Mean 79 Blood Pressure Mean [Left Arm] Blood Pressure Position Blood Pressure Position [Left Arm] Pulse Oximetry 96 96 Oxygen Delivery Method Sepsis Recent Fever Within 48 Hours Sepsis New/Unexplained Change in Mental Status Sepsis Action Taken by Nursing 07/07/24 21:45 07/07/24 22:00 07/07/24 22:00 Temperature Temperature Source Pulse Rate 88 88 Pulse Rate [Apical] 91 H Pulse Rate from SpO2 Sensor 89 88 Pulse Rhythm [Apical] Pulse Strength [Apical] Respiratory Rate 14 18 24 Respiratory Effort / Characteristics Respiratory Depth Respiratory Pattern Blood Pressure Blood Pressure [Left Arm] 97/55 L Blood Pressure Mean Blood Pressure Mean [Left Arm] 69 Blood Pressure Position Blood Pressure Position [Left Arm] Pulse Oximetry 98 95 96 Oxygen Delivery Method Sepsis Recent Fever Within 48 Hours Sepsis New/Unexplained Change in Mental Status Sepsis Action Taken by Nursing 07/07/24 22:00 07/07/24 22:12 07/07/24 22:15 Temperature Temperature Source Pulse Rate 90 Pulse Rate [Apical] Pulse Rate from SpO2 Sensor Pulse Rhythm [Apical] Pulse Strength [Apical] Respiratory Rate 17 Respiratory Effort / Characteristics Respiratory Depth Respiratory Pattern Blood Pressure 97/55 L 105/72 Blood Pressure [Left Arm] Blood Pressure Mean 63 82 Blood Pressure Mean [Left Arm] Blood Pressure Position Blood Pressure Position [Left Arm] Pulse Oximetry Oxygen Delivery Method Sepsis Recent Fever Within 48 Hours Sepsis New/Unexplained Change in Mental Status Sepsis Action Taken by Nursing 07/07/24 22:21 07/07/24 22:24 07/07/24 23:00 Temperature Temperature Source Pulse Rate 93 H 87 Pulse Rate [Apical] 85 Pulse Rate from SpO2 Sensor 93 H Pulse Rhythm [Apical] Regular Pulse Strength [Apical] Normal Respiratory Rate 19 19 Respiratory Effort / Characteristics Non-Labored Spontaneous Respiratory Depth Normal Respiratory Pattern Regular Blood Pressure Blood Pressure [Left Arm] 92/54 L Blood Pressure Mean Blood Pressure Mean [Left Arm] 66 Blood Pressure Position Blood Pressure Position [Left Arm] Lying Pulse Oximetry 96 98 Oxygen Delivery Method Room Air Sepsis Recent Fever Within 48 Hours Sepsis New/Unexplained Change in Mental Status Sepsis Action Taken by Nursing Laboratory Data 07/07/24 18:30 07/07/24 18:30 Lab Results 07/07/24 07/07/24 07/07/24 Range/Units 18:30 18:33 20:26 WBC 33.18 H* (4.8-10.8) K/ul RBC 3.16 L (4.20-5.40) M/uL Hgb 9.9 L (12.0-16.0) g/dl Hct 28.1 L (37.0-47.0) % MCV 88.9 (80.0-100.0) fL MCH 31.3 (25.0-34.0) pg MCHC 35.2 (32.0-36.0) g/dL RDW Std Deviation 54.1 H (36.4-46.3) fL RDW Coeff of Celina 17.7 H (11.5-14.5) % Plt Count 139 (130-400) K/uL MPV 10.3 (9.4-12.4) fL Immature Gran % (Auto) 2.9 % Neut % (Auto) 89.4 % Lymph % (Auto) 4.0 % Arthur % (Auto) 3.7 % Eos % (Auto) 0.0 % Baso % (Auto) 0.0 % Neut # (Auto) 29.65 H (1.40-6.50) K/uL Lymph # (Auto) 1.34 (1.20-3.40) K/uL Arthur # (Auto) 1.23 H (0.11-0.59) K/uL Eos # (Auto) 0.00 (0.00-0.50) K/uL Baso # (Auto) 0.01 (0.00-0.20) K/uL Immature Gran # (Auto) 0.95 H (0.01-0.20) K/uL Toxic Granulation 1+ Dohle Bodies 1+ Polychromasia 1+ Sodium 131 L (136-145) mmol/L Potassium 4.3 (3.5-5.1) mmol/L Chloride 98 (98-107) mmol/L Carbon Dioxide 19 L (21-32) mmol/L Anion Gap 14 H (3-11) BUN 46 H (6-23) mg/dl Creatinine 3.30 H (0.6-1.2) mg/dl Est Cr Clr Drug Dosing 10.1 ml/min eGFR 14.65 BUN/Creatinine Ratio 13.9 (10-20) Glucose 214 H (70-99(Fasting)) mg/dl Lactate 2.1 H* 1.4 (0.4-2.0) mmol/L Calcium 8.4 L (8.6-10.3) mg/dl Total Bilirubin 0.7 (0.2-1.0) mg/dl AST 23 (13-39) U/L ALT 15 (7-52) U/L Alkaline Phosphatase 162 H (34-104) U/L Troponin I High Sens 40.2 H 17.7 H D (0-14) pg/ml Total Protein 7.8 (6.0-8.3) gm/dl Albumin 3.5 (3.4-5.0) gm/dl Globulin 4.3 H (2.5-4.0) gm/dl Albumin/Globulin Ratio 0.8 L (0.9-2) Lipase 18 (11-82) U/L Urine Color Urine Appearance (Clear) Urine pH (4.5-7.5) Ur Specific [place] (1.000-1.030) Urine Protein (Negative) Urine Glucose (UA) (Negative) Urine Ketones (Negative) Urine Blood (Negative) Urine Nitrite (Negative) Urine Bilirubin (Negative) Urine Urobilinogen (Negative) Ur Leukocyte Esterase (Negative) Urine RBC (0-2) /hpf Urine WBC (0-5) /hpf Ur Epithelial Cells (0-2) /hpf Urine Bacteria (None Seen) 07/07/24 Range/Units 22:16 WBC (4.8-10.8) K/ul RBC (4.20-5.40) M/uL Hgb (12.0-16.0) g/dl Hct (37.0-47.0) % MCV (80.0-100.0) fL MCH (25.0-34.0) pg MCHC (32.0-36.0) g/dL RDW Std Deviation (36.4-46.3) fL RDW Coeff of Celina (11.5-14.5) % Plt Count (130-400) K/uL MPV (9.4-12.4) fL Immature Gran % (Auto) % Neut % (Auto) % Lymph % (Auto) % Arthur % (Auto) % Eos % (Auto) % Baso % (Auto) % Neut # (Auto) (1.40-6.50) K/uL Lymph # (Auto) (1.20-3.40) K/uL Arthur # (Auto) (0.11-0.59) K/uL Eos # (Auto) (0.00-0.50) K/uL Baso # (Auto) (0.00-0.20) K/uL Immature Gran # (Auto) (0.01-0.20) K/uL Toxic Granulation Dohle Bodies Polychromasia Sodium (136-145) mmol/L Potassium (3.5-5.1) mmol/L Chloride (98-107) mmol/L Carbon Dioxide (21-32) mmol/L Anion Gap (3-11) BUN (6-23) mg/dl Creatinine (0.6-1.2) mg/dl Est Cr Clr Drug Dosing ml/min eGFR BUN/Creatinine Ratio (10-20) Glucose (70-99(Fasting)) mg/dl Lactate (0.4-2.0) mmol/L Calcium (8.6-10.3) mg/dl Total Bilirubin (0.2-1.0) mg/dl AST (13-39) U/L ALT (7-52) U/L Alkaline Phosphatase (34-104) U/L Troponin I High Sens (0-14) pg/ml Total Protein (6.0-8.3) gm/dl Albumin (3.4-5.0) gm/dl Globulin (2.5-4.0) gm/dl Albumin/Globulin Ratio (0.9-2) Lipase (11-82) U/L Urine Color Yellow Urine Appearance Cloudy A (Clear) Urine pH 5.5 (4.5-7.5) Ur Specific [place] 1.025 (1.000-1.030) Urine Protein 3+ H (Negative) Urine Glucose (UA) Negative (Negative) Urine Ketones Negative (Negative) Urine Blood 3+ H (Negative) Urine Nitrite Negative (Negative) Urine Bilirubin Negative (Negative) Urine Urobilinogen Negative (Negative) Ur Leukocyte Esterase 2+ H (Negative) Urine RBC >20 H (0-2) /hpf Urine WBC >50 H (0-5) /hpf Ur Epithelial Cells 0-2 (0-2) /hpf Urine Bacteria 3+ H (None Seen) Administered Medications Sodium Chloride (Nss) 1,000 mls @ 150 mls/hr IV .Q6H40M REJI Stop: 07/08/24 12:34 Last Admin: 07/07/24 23:51 Dose: 150 mls/hr Documented By: AKANKSHA Discontinued Medications Hydrocortisone Sodium Succinate (Hydrocortisone Sod Succinate 100 Mg/2 Ml Vial) 100 mg IV NOW STA Stop: 07/07/24 23:23 Last Admin: 07/07/24 23:50 Dose: 100 mg Documented By: AKANKSHA Sodium Chloride (Nss) 1,000 mls @ 999 mls/hr IV .Q1H1M ONE Stop: 07/07/24 19:21 Last Infusion: 07/07/24 19:42 Dose: Infused Documented By: Admin: 07/07/24 18:28 Dose: 999 mls/hr Documented By: Piperacillin Sod/Tazobactam Sod (Zosyn) 4.5 gm in 100 mls @ 200 mls/hr IV NOW ONE; Protocol Stop: 07/07/24 19:43 Last Infusion: 07/07/24 21:26 Dose: Infused Documented By: Admin: 07/07/24 19:41 Dose: 200 mls/hr Documented By: JONI Vancomycin HCl 750 mg/ Sodium (Chloride) 265 mls @ 200 mls/hr IV NOW STA Stop: 07/07/24 21:10 Last Infusion: 07/07/24 21:47 Dose: Infused Documented By: Admin: 07/07/24 20:15 Dose: 200 mls/hr Documented By: JONI Sodium Chloride (Nss) 1,000 mls @ 999 mls/hr IV .Q1H1M ONE Stop: 07/07/24 21:11 Last Infusion: 07/07/24 21:08 Dose: Infused Documented By: Admin: 07/07/24 20:15 Dose: 999 mls/hr Documented By: JONI Ondansetron HCl (Ondansetron Inj 2 Mg/Ml 2 Ml Vial) 4 mg IV NOW STA Stop: 07/07/24 18:22 Last Admin: 07/07/24 18:35 Dose: 4 mg Documented By: JONI Phenytoin Sodium (Phenytoin Sodium Er 100 Mg Cap) 100 mg PO NOW STA Stop: 07/07/24 23:39 Last Admin: 07/07/24 23:50 Dose: 100 mg Documented By: AKANKSHA Imaging Data Radiologist's Impression: Head CT 07/07/24 18:21 Exam(s): CT HEAD Without Contrast EXAM: CT Head Without Intravenous Contrast CLINICAL HISTORY: Reason for exam: right blurred vision, transient loss of vision. TECHNIQUE: Axial computed tomography images of the head/brain without intravenous contrast. CTDI is 37.61 mGy and DLP is 546.36 mGy-cm. Automated exposure control was utilized for the study. A dose lowering technique was utilized adhering to the principles of ALARA. COMPARISON: No relevant prior studies available. FINDINGS: Brain: No intracranial hemorrhage. Chronic infarcts involving the left parieto-occipital lobes. Global parenchymal atrophy. Scattered chronic white matter changes and lacunar infarcts. Ventricles: Unremarkable. Bones/joints: Unremarkable. No fracture. Soft tissues: Unremarkable. Sinuses: No acute sinusitis. Mastoid air cells: Unremarkable as visualized. IMPRESSION: No acute abnormality. Electronically signed by: Pascual Oshea MD 07/07/24 21:37 PM Chest X-Ray 07/07/24 18:22 EXAM: Radiograph of the Chest 1 View INDICATION: Chest pain. TECHNIQUE: Frontal view of the chest. COMPARISON: 03/05/2024 FINDINGS: Lungs and pleural spaces: No consolidation or pulmonary edema. No pleural effusion or pneumothorax. Heart: Stable cardiac shadow. Left coronary stent unchanged. Mediastinum: Normal contour. Bones/joints: Mild calcific tendinitis right shoulder. No acute osseous abnormality. Soft tissues: No abnormality noted. No radiopaque foreign body noted. Tubes, lines and devices: Proximal aspect of a right ureteral stent is unchanged. Upper abdomen: No abnormality noted. IMPRESSION: No acute cardiopulmonary disease. ACT 112: Negative or not required by law. Electronically signed by Tracy Walker 07-07-2024 6:44 PM Abdomen/Pelvis CT 07/07/24 19:14 Exam(s): CT ABDOMEN + PELVIS Without Contrast EXAM: CT Abdomen and Pelvis Without Intravenous Contrast CLINICAL HISTORY: Reason for exam: vomiting, CAYETANO. TECHNIQUE: Axial computed tomography images of the abdomen and pelvis without intravenous contrast. CTDI is 11.74 mGy and DLP is 531.72 mGy-cm. Automated exposure control was utilized for the study. A dose lowering technique was utilized adhering to the principles of ALARA. COMPARISON: No relevant prior studies available. FINDINGS: Pleural space: Trace left pleural effusion. ABDOMEN: Liver: Unremarkable. Gallbladder and bile ducts: Cholecystectomy. Pancreas: Unremarkable. Spleen: Unremarkable. Adrenals: Unremarkable. Kidneys and ureters: Mild bilateral hydronephrosis. Right sided nephroureteral stent in place. No obstructing stone. Stomach and bowel: Unremarkable. PELVIS: Appendix: No findings to suggest acute appendicitis. Bladder: Unremarkable. Reproductive: Unremarkable as visualized. ABDOMEN and PELVIS: Intraperitoneal space: Unremarkable. No free air. No significant fluid collection. Bones/joints: No acute fracture. Soft tissues: Fat-containing umbilical hernia. Vasculature: Unremarkable. Lymph nodes: Unremarkable. IMPRESSION: Mild bilateral hydronephrosis. Right sided nephroureteral stent in place. No obstructing stone. Electronically signed by: Pascual Oshea MD 07/07/24 21:40 PM Discharge Plan Visit Data Chief Complaint: Back Injury/Pain Stated Complaint: BACK AND NECK PAIN, CANT SEE, CANCER ED Provider: Sohail Delgado Discharge Problem: Sepsis, Acute UTI, CAYETANO (acute kidney injury) Patient Disposition: Admitted As Inpatient Discharge Instructions Interventions: ED Discharge Assessment Last Done: 07/08/24 01:41
[2024-07-07] MEDS: VANCOMYCIN 750 MG in SODIUM CHLORIDE 0.9% 250 ML IV STA (20:15)
--- NOTE | 2024-07-07 21:37 | CT Scan Report ---
Exam(s): CT HEAD Without Contrast EXAM: CT Head Without Intravenous Contrast CLINICAL HISTORY: Reason for exam: right blurred vision, transient loss of vision. TECHNIQUE: Axial computed tomography images of the head/brain without intravenous contrast. CTDI is 37.61 mGy and DLP is 546.36 mGy-cm. Automated exposure control was utilized for the study. A dose lowering technique was utilized adhering to the principles of ALARA. COMPARISON: No relevant prior studies available. FINDINGS: Brain: No intracranial hemorrhage. Chronic infarcts involving the left parieto-occipital lobes. Global parenchymal atrophy. Scattered chronic white matter changes and lacunar infarcts. Ventricles: Unremarkable. Bones/joints: Unremarkable. No fracture. Soft tissues: Unremarkable. Sinuses: No acute sinusitis. Mastoid air cells: Unremarkable as visualized. IMPRESSION: No acute abnormality. Electronically signed by: Pascual Oshea MD 07/07/24 21:37 PM
--- NOTE | 2024-07-07 21:41 | CT Scan Report ---
Exam(s): CT ABDOMEN + PELVIS Without Contrast EXAM: CT Abdomen and Pelvis Without Intravenous Contrast CLINICAL HISTORY: Reason for exam: vomiting, CAYETANO. TECHNIQUE: Axial computed tomography images of the abdomen and pelvis without intravenous contrast. CTDI is 11.74 mGy and DLP is 531.72 mGy-cm. Automated exposure control was utilized for the study. A dose lowering technique was utilized adhering to the principles of ALARA. COMPARISON: No relevant prior studies available. FINDINGS: Pleural space: Trace left pleural effusion. ABDOMEN: Liver: Unremarkable. Gallbladder and bile ducts: Cholecystectomy. Pancreas: Unremarkable. Spleen: Unremarkable. Adrenals: Unremarkable. Kidneys and ureters: Mild bilateral hydronephrosis. Right sided nephroureteral stent in place. No obstructing stone. Stomach and bowel: Unremarkable. PELVIS: Appendix: No findings to suggest acute appendicitis. Bladder: Unremarkable. Reproductive: Unremarkable as visualized. ABDOMEN and PELVIS: Intraperitoneal space: Unremarkable. No free air. No significant fluid collection. Bones/joints: No acute fracture. Soft tissues: Fat-containing umbilical hernia. Vasculature: Unremarkable. Lymph nodes: Unremarkable. IMPRESSION: Mild bilateral hydronephrosis. Right sided nephroureteral stent in place. No obstructing stone. Electronically signed by: Pascual Oshea MD 07/07/24 21:40 PM
[2024-07-07 22:23] LABS: Appearance Urine Cloudy (Clear); Bilirubin Urine Negative (Negative); Blood Urine 3+ (Negative); Color Urine Yellow; Glucose Urine UA Negative (Negative); Ketones Urine Negative (Negative); Leukocyte Esterase Urine 2+ (Negative); Nitrite Urine Negative (Negative); Protein Urine 3+ (Negative); Specific Gravity Urine 1.025 (1.000-1.030); Urobilinogen Urine Negative (Negative); pH Urine 5.5 (4.5-7.5)
[2024-07-07 22:31] LABS: Bacteria Urine 3+ (None Seen)
[2024-07-07 22:32] LABS: WBC Urine >50 /hpf (0-5)
[2024-07-07 22:34] LABS: Epithelial Cell Urine 0-2 /hpf (0-2); RBC Urine >20 /hpf (0-2)
--- NOTE | 2024-07-07 23:26 | History & Physical Report ---
Date of Service July 07, 2024 Assessment & Plan (1) Sepsis due to urinary tract infection: (2) Acute kidney injury superimposed on CKD: (3) Metastatic cancer: (4) Uterine cancer: (5) Infection and inflammatory reaction due to indwelling ureteral stent, sequela: Plan Sepsis due to urinary tract infection/mild bilateral hydro/right sided nephroureteral stent- Hold all antihypertensives Follow urine culture and sensitivity Received vancomycin IV and Zosyn IV from the ED Admit on daptomycin IV and Zosyn IV Lowest reported blood pressure 82/44 Status post 2 L normal saline bolus from the ED NSS at 100 mL/h x 2 L Placed Pastor catheter N.p.o. after midnight Zofran 4 mg IV every 6 hours as needed Consult urology Acute kidney injury superimposed on CKD- Creatinine 3.30, with base 1.50 IV fluids as noted above Recheck laboratories in the [facility] Stage IV uterine cancer with metastases- Consult hematology oncology Stress dose hydrocortisone 100 mg IV every 8 hours Elevated troponin- Initial troponin 40.2, with follow-up 17.7, likely supply/demand mismatch History of Present Illness Chief Complaint: The patient presents to the emergency department with complaint of nausea and vomiting, generalized weakness and with a reported episode of transient blurred vision in the right eye, but denies no visual loss at this time. Primary Care Provider: Eliazar Peck DO The patient is a 69-year-old female with a past medical history including stage IV uterine cancer, hypothyroidism, metastatic cancer, hyperlipidemia, diabetes mellitus, CAD, and hypertension. She presents to the emergency department with symptoms of nausea and vomiting earlier this afternoon after a small meal. As noted above, there was a question about blurred vision in the right eye, which she denies at this time. Nausea and vomiting has since resolved as well, and may have been due to eating a grilled cheese sandwich which she would try to settle her stomach, followed by pie. Allergies Allergy/AdvReac Type Severity Reaction Status Date / Time levofloxacin Allergy Intermediate Chest Verified 06/19/24 08:49 tightness, rash Bactrim AdvReac Intermediate GI Verified 03/15/18 11:06 UPSET,HEADACHE clarithromycin AdvReac Intermediate GI upset Verified 06/19/24 08:49 famotidine AdvReac Intermediate Chest Pain Verified 06/19/24 08:49 levothyroxine sodium AdvReac Intermediate Dizziness, Verified 06/19/24 08:49 headache, nausea and vomiting lisinopril AdvReac Intermediate Cough Verified 06/19/24 08:49 sulfamethoxazole AdvReac Intermediate GI upset, Verified 06/19/24 08:49 headache trimethoprim AdvReac Intermediate GI upset, Verified 06/19/24 08:49 headache Home Medications Medication Instructions Recorded Confirmed Type folic acid 1 mg tablet 1 mg PO QAM 12/31/18 06/21/24 History pyridoxine (vitamin B6) 250 mg 250 mg PO QAM 12/31/18 06/21/24 History tablet (Vitamin B-6) aspirin 81 mg tablet,delayed 81 mg PO QAM 06/17/19 06/21/24 History release (Adult Low Dose Aspirin) nitroglycerin 0.4 mg sublingual 0.4 mg sublingual Q5M PRN chest 04/07/20 06/21/24 Rx tablet pain #30 tabs cholecalciferol (vitamin D3) 50 50 mcg PO QAM 03/10/21 06/21/24 History mcg (2,000 unit) capsule miscellaneous medical supply #1 ea 10/27/21 06/19/24 Rx (Blood Pressure Cuff) ezetimibe 10 mg tablet (Zetia) 10 mg PO QAM 06/08/23 06/21/24 History carvedilol 6.25 mg tablet 6.25 mg PO BID 02/06/24 06/21/24 History clopidogrel 75 mg tablet (Plavix) 75 mg PO QAM 02/06/24 06/21/24 History isosorbide mononitrate 30 mg 30 mg PO BID 02/06/24 06/21/24 History tablet,extended release 24 hr pantoprazole 40 mg tablet,delayed 40 mg PO QAM 02/06/24 06/21/24 History release (Protonix) metformin 500 mg tablet 500 mg PO BID #90 tabs 02/28/24 06/21/24 Rx losartan 100 mg tablet 100 mg PO QAM #90 tabs 03/03/24 06/21/24 Rx atorvastatin 80 mg tablet 80 mg PO QAM #90 tabs 03/10/24 06/21/24 Rx amlodipine 5 mg tablet (Norvasc) 5 mg PO BID 03/11/24 06/21/24 History tamsulosin 0.4 mg capsule (Flomax) 0.4 mg PO HS 03/11/24 06/21/24 History escitalopram oxalate 10 mg tablet 10 mg PO QAM PRN anxiety 03/18/24 06/21/24 History (Lexapro) phenytoin sodium extended 100 mg 100 mg PO TID 03/18/24 06/21/24 History capsule (Dilantin Extended) levothyroxine 50 mcg tablet 50 mcg PO QAM #90 tabs 04/08/24 06/21/24 Rx (Synthroid) Carboplatin #1 ea 05/20/24 06/19/24 Rx Fosaprepitant #1 ea 05/20/24 06/19/24 Rx Paclitaxel #1 ea 05/20/24 06/19/24 Rx Palonsetron #1 ea 05/20/24 06/19/24 Rx Pembrolizumab #1 ea 05/20/24 06/19/24 Rx dexamethasone 4 mg tablet 20 mg PO DIRECTED 05/20/24 06/21/24 History olanzapine 2.5 mg tablet 2.5 mg PO DAILY PRN n/v 05/20/24 06/21/24 History prochlorperazine maleate 10 mg 10 mg PO DAILY PRN n/v 05/20/24 06/21/24 History tablet Past Med/Surg History Problem List (Updated 07/08/24 @ 03:40 by Nawaf Caraballo MD) Sepsis due to urinary tract infection Acute kidney injury superimposed on CKD CAYETANO (acute kidney injury) (Acute) Acute UTI (Acute) Sepsis (Acute) Uterine cancer Hypothyroidism Metastatic cancer Infection and inflammatory reaction due to indwelling ureteral stent, sequela (Acute) Elevated LFTs Pulmonary nodule Retroperitoneal lymphadenopathy 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 Xerosis cutis (Acute) Hyperlipidemia Medical History Pulmonary nodule Retroperitoneal lymphadenopathy Ovarian cancer per pt, "I have cancer in my ovaries and then they need to check to see if it spread anywhere." States she is to have a D&C at [facility] on 03/21 to "clean out all the scar tissue.". Surgery is planned as an OP and pt. cannot recall who the surgeon is. LBBB (left bundle branch block) Chronic Hyperlipidemia Multiple pulmonary nodules determined by computed tomography of lung CAD (coronary artery disease) Stents x2 (2019) Depression with anxiety Seizure disorder Most recent seizure No issues since DM type 2 (diabetes mellitus, type 2) Hypertension Stroke ~, no residual issues Taking Plavix Abnormal CT scan, gastrointestinal tract No further Intervention, seen by General Surgery Non-ST elevation (NSTEMI) myocardial infarction 07/2019 > 2 stents Follows with [facility] Primary hypercoagulable state Fatty liver History of cerebral artery occlusion CVA ~ 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 Diverticular disease Chronic headache GERD (gastroesophageal reflux disease) Surgical History S/P cystoscopy with ureteral stent placement (01/2024) Presence of stent in LAD coronary artery 2019 > stents x2 Hx of right cataract extraction 01/21/19: was given 3mg of IV versed History of esophagogastroduodenoscopy (EGD) History of colonoscopy History of cholecystectomy History of x3 Family History Mother Family history of diabetes mellitus Acute myocardial infarction Heart disease Daughter Family history of diabetes mellitus Son Family history of diabetes mellitus Brother Cirrhosis of liver Father Acute myocardial infarction Prostate cancer Aunt Breast cancer Ovarian carcinoma Social History Smoking Status: Never smoker Tobacco Type: Cigarettes Age Started Using Tobacco: 14; Age Quit Using Tobacco: 33; packs per day: 2; Second Hand Exposure: Yes (as a child); Do You Dip or Chew Tobacco: No; Hx Alcohol Use: No Hx Substance Use: No Preferred Language: Portuguese Communication Ability: Effective Paste Maker Required: No Beliefs That Will Affect Care: None Current Living Situation: Family Current Living Situation Comment: Lives with 2 sons Feels Safe at Home: Yes caffeine: Yes Dental Care, Regularly: No Physical Activity Frequency: Does not Exercise Seatbelt Use: always Sunscreen Use: No Assistive Devices: None Review of Systems Review of Systems: The patient denies chest pain, palpitations, shortness of breath, dyspnea on exertion, cough, lower extremity swelling, sore throat, fevers, chills, sweats, blood in urine or stool, dysuria, urinary frequency or urgency, loss of consciousness, rash, abnormal bruising or bleeding, focal weakness, numbness or tingling in arms or legs, generalized arthralgias or myalgias, back or neck pain, or night sweats. The review of systems is otherwise negative other than for that already noted above, and at least 10 systems have been reviewed. Physical Exam Physical Exam: The patient is awake, alert and oriented 3, normocephalic and atraumatic, lying in bed and in no acute distress. HEENT--PERRL, EOMI, mucous membranes and oropharynx dry. Neck--supple. No JVD. No bruits. Thyroid normal, trachea midline, no adenopa thy. Heart--normal S1 and S2. No murmurs, rubs or gallops. Lungs--clear bilaterally, no respiratory distress, no accessory muscle use. Abdomen--normal bowel sounds and soft. Nontender. Nondistended Extremities--no cyanosis or clubbing. No edema. Dermatologic--normal skin turgor, normal color, no abnormal lymph nodes, no rash. Neurologic--cranial nerves II through XII grossly intact. Rheumatologic--normal range of motion. Psychiatric--normal affect. Results & Data Results & Data Vital Signs (Past 12 Hours) Vital Signs Temp Pulse Pulse Resp BP BP Pulse Ox 07/07/24 22:24 87 07/07/24 22:21 93 H 19 96 07/07/24 22:15 105/72 07/07/24 22:12 90 17 07/07/24 22:00 97/55 L 07/07/24 22:00 88 24 96 07/07/24 22:00 91 H 18 97/55 L 95 07/07/24 21:45 88 14 98 07/07/24 21:45 99/61 L 07/07/24 21:42 82 19 96 07/07/24 21:30 81 16 96 07/07/24 21:30 82/44 L 07/07/24 21:15 94/53 L 07/07/24 21:15 88 28 H 96 07/07/24 21:03 84 15 97 07/07/24 21:00 89/51 L 07/07/24 20:57 86 15 96 07/07/24 20:51 88 19 96 07/07/24 20:48 89 18 96 07/07/24 20:45 98/52 L 07/07/24 20:36 95 H 18 97 07/07/24 20:30 92/52 L 07/07/24 20:21 100 H 21 97 07/07/24 20:15 89/58 L 07/07/24 20:12 101 H 28 H 98 07/07/24 20:09 88/52 L 07/07/24 20:06 98 H 33 H 96 07/07/24 20:00 100 H 24 88/52 L 98 07/07/24 19:42 115 H 21 07/07/24 19:21 93 H 16 98 07/07/24 19:18 95 H 16 97 07/07/24 18:42 106 H 20 99 07/07/24 18:38 110 H 22 98 07/07/24 18:37 100/63 07/07/24 18:36 112 H 23 07/07/24 18:36 110 H 23 100/63 97 07/07/24 18:35 117 H 07/07/24 18:06 36.8 C 126 H 20 88/60 L 95 O2 Del Method 07/07/24 22:24 07/07/24 22:21 07/07/24 22:15 07/07/24 22:12 07/07/24 22:00 07/07/24 22:00 07/07/24 22:00 07/07/24 21:45 07/07/24 21:45 07/07/24 21:42 07/07/24 21:30 07/07/24 21:30 07/07/24 21:15 07/07/24 21:15 07/07/24 21:03 07/07/24 21:00 07/07/24 20:57 07/07/24 20:51 07/07/24 20:48 07/07/24 20:45 07/07/24 20:36 07/07/24 20:30 07/07/24 20:21 07/07/24 20:15 07/07/24 20:12 07/07/24 20:09 07/07/24 20:06 07/07/24 20:00 07/07/24 19:42 07/07/24 19:21 07/07/24 19:18 07/07/24 18:42 07/07/24 18:38 Room Air 07/07/24 18:37 07/07/24 18:36 07/07/24 18:36 07/07/24 18:35 07/07/24 18:06 Room Air Laboratory Results Laboratory Results WBC 33.18 K/ul (4.8-10.8) H* 07/07/24 18:30 RBC 3.16 M/uL (4.20-5.40) L 07/07/24 18:30 Hgb 9.9 g/dl (12.0-16.0) L 07/07/24 18:30 Hct 28.1 % (37.0-47.0) L 07/07/24 18:30 MCV 88.9 fL (80.0-100.0) 07/07/24 18:30 MCH 31.3 pg (25.0-34.0) 07/07/24 18:30 MCHC 35.2 g/dL (32.0-36.0) 07/07/24 18:30 RDW Std Deviation 54.1 fL (36.4-46.3) H 07/07/24 18:30 RDW Coeff of Celina 17.7 % (11.5-14.5) H 07/07/24 18:30 Plt Count 139 K/uL (130-400) 07/07/24 18:30 MPV 10.3 fL (9.4-12.4) 07/07/24 18:30 Immature Gran % (Auto) 2.9 % 07/07/24 18:30 Neut % (Auto) 89.4 % 07/07/24 18:30 Lymph % (Auto) 4.0 % 07/07/24 18:30 Grainger % (Auto) 3.7 % 07/07/24 18:30 Eos % (Auto) 0.0 % 07/07/24 18:30 Baso % (Auto) 0.0 % 07/07/24 18:30 Neut # (Auto) 29.65 K/uL (1.40-6.50) H 07/07/24 18:30 Lymph # (Auto) 1.34 K/uL (1.20-3.40) 07/07/24 18:30 Grainger # (Auto) 1.23 K/uL (0.11-0.59) H 07/07/24 18:30 Eos # (Auto) 0.00 K/uL (0.00-0.50) 07/07/24 18:30 Baso # (Auto) 0.01 K/uL (0.00-0.20) 07/07/24 18:30 Immature Gran # (Auto) 0.95 K/uL (0.01-0.20) H 07/07/24 18:30 Toxic Granulation 1+ 07/07/24 18:30 Dohle Bodies 1+ 07/07/24 18:30 Polychromasia 1+ 07/07/24 18:30 Sodium 131 mmol/L (136-145) L 07/07/24 18:30 Potassium 4.3 mmol/L (3.5-5.1) 07/07/24 18:30 Chloride 98 mmol/L (98-107) 07/07/24 18:30 Carbon Dioxide 19 mmol/L (21-32) L 07/07/24 18:30 Anion Gap 14 (3-11) H 07/07/24 18:30 BUN 46 mg/dl (6-23) H 07/07/24 18:30 Creatinine 3.30 mg/dl (0.6-1.2) H 07/07/24 18:30 Est Cr Clr Drug Dosing 10.1 ml/min 07/07/24 18:30 eGFR 14.65 07/07/24 18:30 BUN/Creatinine Ratio 13.9 (10-20) 07/07/24 18:30 Glucose 214 mg/dl (70-99(Fasting)) H 07/07/24 18:30 Lactate 1.4 mmol/L (0.4-2.0) 07/07/24 20:26 Calcium 8.4 mg/dl (8.6-10.3) L 07/07/24 18:30 Total Bilirubin 0.7 mg/dl (0.2-1.0) 07/07/24 18:30 AST 23 U/L (13-39) 07/07/24 18:30 ALT 15 U/L (7-52) 07/07/24 18:30 Alkaline Phosphatase 162 U/L (34-104) H 07/07/24 18:30 Troponin I High Sens 17.7 pg/ml (0-14) H D 07/07/24 20:26 Total Protein 7.8 gm/dl (6.0-8.3) 07/07/24 18:30 Albumin 3.5 gm/dl (3.4-5.0) 07/07/24 18:30 Globulin 4.3 gm/dl (2.5-4.0) H 07/07/24 18:30 Albumin/Globulin Ratio 0.8 (0.9-2) L 07/07/24 18:30 Lipase 18 U/L (11-82) 07/07/24 18:30 Urine Color Yellow 07/07/24 22:16 Urine Appearance Cloudy (Clear) A 07/07/24 22:16 Urine pH 5.5 (4.5-7.5) 07/07/24 22:16 Ur Specific Flora 1.025 (1.000-1.030) 07/07/24 22:16 Urine Protein 3+ (Negative) H 07/07/24 22:16 Urine Glucose (UA) Negative (Negative) 07/07/24 22:16 Urine Ketones Negative (Negative) 07/07/24 22:16 Urine Blood 3+ (Negative) H 07/07/24 22:16 Urine Nitrite Negative (Negative) 07/07/24 22:16 Urine Bilirubin Negative (Negative) 07/07/24 22:16 Urine Urobilinogen Negative (Negative) 07/07/24 22:16 Ur Leukocyte Esterase 2+ (Negative) H 07/07/24 22:16 Urine RBC >20 /hpf (0-2) H 07/07/24 22:16 Urine WBC >50 /hpf (0-5) H 07/07/24 22:16 Ur Epithelial Cells 0-2 /hpf (0-2) 07/07/24 22:16 Urine Bacteria 3+ (None Seen) H 07/07/24 22:[address] 07/07/24 18:21 Exam(s): CT HEAD Without Contrast EXAM: CT Head Without Intravenous Contrast CLINICAL HISTORY: Reason for exam: right blurred vision, transient loss of vision. TECHNIQUE: Axial computed tomography images of the head/brain without intravenous contrast. CTDI is 37.61 mGy and DLP is 546.36 mGy-cm. Automated exposure control was utilized for the study. A dose lowering technique was utilized adhering to the principles of ALARA. COMPARISON: No relevant prior studies available. FINDINGS: Brain: No intracranial hemorrhage. Chronic infarcts involving the left parieto-occipital lobes. Global parenchymal atrophy. Scattered chronic white matter changes and lacunar infarcts. Ventricles: Unremarkable. Bones/joints: Unremarkable. No fracture. Soft tissues: Unremarkable. Sinuses: No acute sinusitis. Mastoid air cells: Unremarkable as visualized. IMPRESSION: No acute abnormality. Electronically signed by: Pascual Oshea MD 07/07/24 21:37 PM Chest X-Ray 07/07/24 18:22 EXAM: Radiograph of the Chest 1 View INDICATION: Chest pain. TECHNIQUE: Frontal view of the chest. COMPARISON: 03/05/2024 FINDINGS: Lungs and pleural spaces: No consolidation or pulmonary edema. No pleural effusion or pneumothorax. Heart: Stable cardiac shadow. Left coronary stent unchanged. Mediastinum: Normal contour. Bones/joints: Mild calcific tendinitis right shoulder. No acute osseous abnormality. Soft tissues: No abnormality noted. No radiopaque foreign body noted. Tubes, lines and devices: Proximal aspect of a right ureteral stent is unchanged. Upper abdomen: No abnormality noted. IMPRESSION: No acute cardiopulmonary disease. ACT 112: Negative or not required by law. Electronically signed by Tracy Walker 07-07-2024 6:44 PM Abdomen/Pelvis CT 07/07/24 19:14 Exam(s): CT ABDOMEN + PELVIS Without Contrast EXAM: CT Abdomen and Pelvis Without Intravenous Contrast CLINICAL HISTORY: Reason for exam: vomiting, CAYETANO. TECHNIQUE: Axial computed tomography images of the abdomen and pelvis without intravenous contrast. CTDI is 11.74 mGy and DLP is 531.72 mGy-cm. Automated exposure control was utilized for the study. A dose lowering technique was utilized adhering to the principles of ALARA. COMPARISON: No relevant prior studies available. FINDINGS: Pleural space: Trace left pleural effusion. ABDOMEN: Liver: Unremarkable. Gallbladder and bile ducts: Cholecystectomy. Pancreas: Unremarkable. Spleen: Unremarkable. Adrenals: Unremarkable. Kidneys and ureters: Mild bilateral hydronephrosis. Right sided nephroureteral stent in place. No obstructing stone. Stomach and bowel: Unremarkable. PELVIS: Appendix: No findings to suggest acute appendicitis. Bladder: Unremarkable. Reproductive: Unremarkable as visualized. ABDOMEN and PELVIS: Intraperitoneal space: Unremarkable. No free air. No significant fluid collection. Bones/joints: No acute fracture. Soft tissues: Fat-containing umbilical hernia. Vasculature: Unremarkable. Lymph nodes: Unremarkable. IMPRESSION: Mild bilateral hydronephrosis. Right sided nephroureteral stent in place. No obstructing stone. Electronically signed by: Pascual Oshea MD 07/07/24 21:40 PM Code Status & VTE Plan Code Status Full code VTE Prophylaxis Plan VTE Prophylaxis will be ordered: Yes PG Care Time/CCT Total # of Minutes Spent Total Time Spent with Patient: Total time spent is greater than 50% in coordination of care (as documented) at patient's floor/unit and/or counseling patient: Coding Level of Care Code 78103 INT INP/OBS CARE 375MIN Diagnoses Sepsis due to urinary tract infection A41.9; N39.0 Acute kidney injury superimposed on CKD N17.9; N18.9 Metastatic cancer C79.9 Uterine cancer C55 Infection and inflammatory reaction due to indwelling ureteral stent, sequela T83.594U
--- NOTE | 2024-07-07 23:47 | Urology Consultation ---
Date of Consultation July 07, 2024 Assessment & Plan (1) Infection and inflammatory reaction due to indwelling ureteral stent, sequela: Patient is being admitted on hospital service. From a urologic perspective we recommend the following: Broad-spectrum antibiotics have been initiated in the form of vancomycin and Zosyn. I discussed with the hospitalist service and they have indicated they are changing the vancomycin to daptomycin. Appropriate cultures have been sent and antibiotics be tailored based on her clinical response as well as culture data as becomes available Patient is noted to have acute kidney injury likely in the basis of poor oral intake/dehydration and therefore hydration measures should be employed and nephrotoxins should be avoided Serial labs should be followed Patient will likely require stent exchange at some point during this hospitalization. I did discuss with my attending physician, Dr. Sands, and he indicates he would prefer to have the patient treated initially with antibiotics and hydration measures as outlined above with a stent exchange to be for once the patient has been further stabilized There is also recommended the patient have a Pastor catheter placed for maximal urinary drainage If the patient were to decompensate stent exchange can be moved to an earlier time Additional recommendations with forthcoming based on her clinical course as unfolds I discussed the above recommendations with the primary/hospitalist service. History of Present Illness Reason for Consultation: Hydronephrosis History of Present Illness This is a 69-year-old female with a known history of stage IV uterine cancer. Patient presented to the emergency department secondary to generalized weakness over the past 24 to 48 hours. The patient says that she has not been able to have much in the way of meaningful oral intake over the past 3 to 4 days. She denies any diarrhea or abdominal pain. She denies any back or flank pain. She denies any fevers, shakes, or chills. She denies any dysuria or urinary frequency. The patient does note concerning her uterine cancer she received chemotherapy approximately 3 weeks ago and her next session is due on July 16. She says that she is not undergoing any radiation therapy. Since arrival to the hospital the patient has had labs and imaging which independent reviewed. CT scan of the head showed no acute abnormalities. Chest x-ray showed no evidence of pneumonia. A CT scan of the abdomen pelvis showed mild bilateral hydronephrosis. No obstructing kidney stones were noted. The patient was noted to have a right-sided ureteral stent which appeared to be in good position. Labs included a CBC were white blood cell count was elevated at 33.1. Hemoglobin hematocrit were 9.9 and 28.1. Platelet count was normal. Chemistry profile showed sodium was 131 with a normal potassium. BUN and creatinine were 46 and 3.3. Her lactic acid level was initially elevated at 2.1 but was repeated approximately 2 hours later and normalized to 1.4. Urinalysis did show cloudy urine which was negative for nitrites. She had 2+ leukocyte Estrace and pyuria with greater than 50 white blood cells per high-power field and 3+ bacteria on the study. It is noteworthy to mention that the patient did have a right ureteral stent placed in January of this year on 02/06/[address] Ceballos of [facility] urology. This was placed secondary to right-sided hydronephrosis. Patient's previous imaging was reviewed and in January of this year she did have a CT scan of the abdomen pelvis which showed the patient had moderate right-sided hydronephrosis for which the right ureteral stent was placed. At the time of my interview she was resting comfortably in bed and she was no distress. Allergies Allergy/AdvReac Type Severity Reaction Status Date / Time levofloxacin Allergy Intermediate Chest Verified 06/19/24 08:49 tightness, rash Bactrim AdvReac Intermediate GI Verified 03/15/18 11:06 UPSET,HEADACHE clarithromycin AdvReac Intermediate GI upset Verified 06/19/24 08:49 famotidine AdvReac Intermediate Chest Pain Verified 06/19/24 08:49 levothyroxine sodium AdvReac Intermediate Dizziness, Verified 06/19/24 08:49 headache, nausea and vomiting lisinopril AdvReac Intermediate Cough Verified 06/19/24 08:49 sulfamethoxazole AdvReac Intermediate GI upset, Verified 06/19/24 08:49 headache trimethoprim AdvReac Intermediate GI upset, Verified 06/19/24 08:49 headache Home Medications Medication Instructions Recorded Confirmed Type folic acid 1 mg tablet 1 mg PO QAM 12/31/18 06/21/24 History pyridoxine (vitamin B6) 250 mg 250 mg PO QAM 12/31/18 06/21/24 History tablet (Vitamin B-6) aspirin 81 mg tablet,delayed 81 mg PO QAM 06/17/19 06/21/24 History release (Adult Low Dose Aspirin) nitroglycerin 0.4 mg sublingual 0.4 mg sublingual Q5M PRN chest 04/07/20 06/21/24 Rx tablet pain #30 tabs cholecalciferol (vitamin D3) 50 50 mcg PO QAM 03/10/21 06/21/24 History mcg (2,000 unit) capsule miscellaneous medical supply #1 ea 10/27/21 06/19/24 Rx (Blood Pressure Cuff) ezetimibe 10 mg tablet (Zetia) 10 mg PO QAM 06/08/23 06/21/24 History carvedilol 6.25 mg tablet 6.25 mg PO BID 02/06/24 06/21/24 History clopidogrel 75 mg tablet (Plavix) 75 mg PO QAM 02/06/24 06/21/24 History isosorbide mononitrate 30 mg 30 mg PO BID 02/06/24 06/21/24 History tablet,extended release 24 hr pantoprazole 40 mg tablet,delayed 40 mg PO QAM 02/06/24 06/21/24 History release (Protonix) metformin 500 mg tablet 500 mg PO BID #90 tabs 02/28/24 06/21/24 Rx losartan 100 mg tablet 100 mg PO QAM #90 tabs 03/03/24 06/21/24 Rx atorvastatin 80 mg tablet 80 mg PO QAM #90 tabs 03/10/24 06/21/24 Rx amlodipine 5 mg tablet (Norvasc) 5 mg PO BID 03/11/24 06/21/24 History tamsulosin 0.4 mg capsule (Flomax) 0.4 mg PO HS 03/11/24 06/21/24 History escitalopram oxalate 10 mg tablet 10 mg PO QAM PRN anxiety 03/18/24 06/21/24 History (Lexapro) phenytoin sodium extended 100 mg 100 mg PO TID 03/18/24 06/21/24 History capsule (Dilantin Extended) levothyroxine 50 mcg tablet 50 mcg PO QAM #90 tabs 04/08/24 06/21/24 Rx (Synthroid) Carboplatin #1 ea 05/20/24 06/19/24 Rx Fosaprepitant #1 ea 05/20/24 06/19/24 Rx Paclitaxel #1 ea 05/20/24 06/19/24 Rx Palonsetron #1 ea 05/20/24 06/19/24 Rx Pembrolizumab #1 ea 05/20/24 06/19/24 Rx dexamethasone 4 mg tablet 20 mg PO DIRECTED 05/20/24 06/21/24 History olanzapine 2.5 mg tablet 2.5 mg PO DAILY PRN n/v 05/20/24 06/21/24 History prochlorperazine maleate 10 mg 10 mg PO DAILY PRN n/v 05/20/24 06/21/24 History tablet Patient History Medical History Pulmonary nodule Retroperitoneal lymphadenopathy Ovarian cancer per pt, "I have cancer in my ovaries and then they need to check to see if it spread anywhere." States she is to have a D&C at [facility] on 03/21 to "clean out all the scar tissue.". Surgery is planned as an OP and pt. cannot recall who the surgeon is. LBBB (left bundle branch block) Chronic Hyperlipidemia Multiple pulmonary nodules determined by computed tomography of lung CAD (coronary artery disease) Stents x2 (2019) Depression with anxiety Seizure disorder Most recent seizure No issues since DM type 2 (diabetes mellitus, type 2) Hypertension Stroke ~, no residual issues Taking Plavix Abnormal CT scan, gastrointestinal tract No further Intervention, seen by General Surgery Non-ST elevation (NSTEMI) myocardial infarction 07/2019 > 2 stents Follows with [facility] cardio Primary hypercoagulable state Fatty liver History of cerebral artery occlusion CVA ~ 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 Diverticular disease Chronic headache GERD (gastroesophageal reflux disease) Surgical History S/P cystoscopy with ureteral stent placement (01/2024) Presence of stent in LAD coronary artery 2019 > stents x2 Hx of right cataract extraction 01/21/19: was given 3mg of IV versed History of esophagogastroduodenoscopy (EGD) History of colonoscopy History of cholecystectomy History of x3 Family History Mother Family history of diabetes mellitus Acute myocardial infarction Heart disease Daughter Family history of diabetes mellitus Son Family history of diabetes mellitus Brother Cirrhosis of liver Father Acute myocardial infarction Prostate cancer Aunt Breast cancer Ovarian carcinoma Social History Smoking Status: Former smoker Tobacco Type: Cigarettes Age Started Using Tobacco: 14; Age Quit Using Tobacco: 33; packs per day: 2; Second Hand Exposure: Yes (as a child); Do You Dip or Chew Tobacco: No; Hx Alcohol Use: Yes (quit years ago) Alcohol type: beer Hx Substance Use: No Preferred Language: Panamanian Communication Ability: Effective Stove Refinisher Required: No Beliefs That Will Affect Care: None Current Living Situation: Family Current Living Situation Comment: son and brother Feels Safe at Home: Yes caffeine: Yes Dental Care, Regularly: No Physical Activity Frequency: Does not Exercise Seatbelt Use: always Sunscreen Use: No Assistive Devices: None Review of Systems Review of Systems: All systems reviewed & are unremarkable except as noted in HPI & below Physical Exam Constitutional: WD/WN, vitals as above Eyes: no conjunctival abnormality ENMT: Ears: no hearing impairment and no external ear abnormality Mouth: no oropharynx abnormality Neck: trachea midline Respiratory: normal respiratory effort; no respiratory distress and no labored breathing Cardiovascular: Rate/Rhythm: regular rate and regular rhythm Gastrointestinal (Abdomen): Soft and nontender to palpation Musculoskeletal: No calf tenderness Skin: + pallor Neurologic: moves all extremities Psychiatric: A+Ox3, euthymic affect Genitourinary: No CVA tenderness with percussion bilaterally Results & Data Vital Signs (Past 12 Hours) Vital Signs Temp Pulse Pulse Resp BP BP Pulse Ox 07/07/24 22:24 87 07/07/24 22:21 93 H 19 96 07/07/24 22:15 105/72 07/07/24 22:12 90 17 07/07/24 22:00 97/55 L 07/07/24 22:00 88 24 96 07/07/24 22:00 91 H 18 97/55 L 95 07/07/24 21:45 88 14 98 07/07/24 21:45 99/61 L 07/07/24 21:42 82 19 96 07/07/24 21:30 81 16 96 07/07/24 21:30 82/44 L 07/07/24 21:15 94/53 L 07/07/24 21:15 88 28 H 96 07/07/24 21:03 84 15 97 07/07/24 21:00 89/51 L 07/07/24 20:57 86 15 96 07/07/24 20:51 88 19 96 07/07/24 20:48 89 18 96 07/07/24 20:45 98/52 L 07/07/24 20:36 95 H 18 97 07/07/24 20:30 92/52 L 07/07/24 20:21 100 H 21 97 07/07/24 20:15 89/58 L 07/07/24 20:12 101 H 28 H 98 07/07/24 20:09 88/52 L 07/07/24 20:06 98 H 33 H 96 07/07/24 20:00 100 H 24 88/52 L 98 07/07/24 19:42 115 H 21 07/07/24 19:21 93 H 16 98 07/07/24 19:18 95 H 16 97 07/07/24 18:42 106 H 20 99 07/07/24 18:38 110 H 22 98 07/07/24 18:37 100/63 07/07/24 18:36 112 H 23 07/07/24 18:36 110 H 23 100/63 97 07/07/24 18:35 117 H 07/07/24 18:06 36.8 C 126 H 20 88/60 L 95 O2 Del Method 07/07/24 22:24 07/07/24 22:21 07/07/24 22:15 07/07/24 22:12 07/07/24 22:00 07/07/24 22:00 07/07/24 22:00 07/07/24 21:45 07/07/24 21:45 07/07/24 21:42 07/07/24 21:30 07/07/24 21:30 07/07/24 21:15 07/07/24 21:15 07/07/24 21:03 07/07/24 21:00 07/07/24 20:57 07/07/24 20:51 07/07/24 20:48 07/07/24 20:45 07/07/24 20:36 07/07/24 20:30 07/07/24 20:21 07/07/24 20:15 07/07/24 20:12 07/07/24 20:09 07/07/24 20:06 07/07/24 20:00 07/07/24 19:42 07/07/24 19:21 07/07/24 19:18 07/07/24 18:42 07/07/24 18:38 Room Air 07/07/24 18:37 07/07/24 18:36 07/07/24 18:36 07/07/24 18:35 07/07/24 18:06 Room Air PG Care Time/CCT Total # of Minutes Spent Total Time Spent with Patient: Total time spent is greater than 50% in coordination of care (as documented) at patient's floor/unit and/or counseling patient: Coding Level of Care Code 59250 INT INP/OBS CARE 3/75MIN Diagnoses Infection and inflammatory reaction due to indwelling ureteral stent, sequela T83.592S
[2024-07-07] MEDS: PHENYTOIN SODIUM ER 100 MG CAP PO STA (23:50)
[2024-07-07] MEDS: HYDROCORTISONE SOD SUCCINATE 100 MG/2 ML VIAL IV STA (23:50)
[2024-07-07] MEDS: SODIUM CHLORIDE 0.9% 1,000 ML IV SCH (23:51)
[2024-07-08] MEDS ORDERED: GLUCOSE 40% GEL 15 GM TUBE PO PRN (02:05)
[2024-07-08] MEDS ORDERED: GLUCOSE 10 TAB/TUBE PO PRN (02:05)
[2024-07-08] MEDS ORDERED: CARBOHYDRATES FOR HYPOGLYCEMIA PO PRN (02:05)
[2024-07-08] MEDS ORDERED: ACETAMINOPHEN 325 MG TAB PO PRN (02:05)
[2024-07-08] MEDS ORDERED: GLUCAGON FOR INJ 1 MG VIAL SQ PRN (02:05)
[2024-07-08] MEDS ORDERED: DEXTROSE 50% 50 ML SYRINGE IV PRN (02:05)
[2024-07-08] MEDS: PIPERACILLIN/TAZOBACTAM 4.5 GM/100 ML BAG IV SCH (04:14)
[2024-07-08 07:32] LABS: Estimated Average Glucose 171 mg/dl; Hemoglobin A1C 7.6 % (4.5-5.6)
[2024-07-08] MEDS ORDERED: HYDROCORTISONE SOD 100 MG in SYRINGE 0 ML IV SCH (08:00)
--- NOTE | 2024-07-08 08:04 | Electrocardiogram Report ---
Test Reason : Blood Pressure : */* mmHG Vent. Rate : 124 BPM Atrial Rate : 124 BPM P-R Int : 144 ms QRS Dur : 126 ms QT Int : 340 ms P-R-T Axes : 56 -54 87 degrees QTcB Int : 488 ms Probable Sinus tachycardia Left axis deviation Left bundle branch block Abnormal ECG When compared with ECG of 06-Feb-2024 12:17, Left bundle branch block is now Present HR has increased by 50 bpm Confirmed by Sushant Velazco ([id number]) on 07/08/2024 8:03:31 AM Referred By: REFERRED SELF Confirmed By: Sushant Velazco
[2024-07-08] MEDS: PANTOprazole 40 MG/10 ML SYR IV SCH (08:17)
[2024-07-08] MEDS: PHENYTOIN SODIUM ER 100 MG CAP PO SCH (08:17)
[2024-07-08] MEDS: HYDROCORTISONE SOD 50 MG in SYRINGE 0 ML IV SCH (08:18)
[2024-07-08] MEDS: DAPTOmycin 250 MG in SYRINGE 0 ML IV SCH (08:18)
[2024-07-08] MEDS: INSULIN ASPART PER UNIT CHARGE SC SCH (08:18)
[2024-07-08 11:28] LABS: Hematocrit (blood only) 20.6 % (37.0-47.0); Mean Corpuscular Hemoglobin 31.5 pg (25.0-34.0); Mean Corpuscular Volume 92.8 fL (80.0-100.0); Mean Platelet Volume 10.4 fL (9.4-12.4); Platelet Count 71 K/uL (130-400); RDW Coefficient of Variation 18.2 % (11.5-14.5); RDW Standard Deviation 59.1 fL (36.4-46.3); Red Blood Count 2.22 M/uL (4.20-5.40); White Blood Count 19.66 K/ul (4.8-10.8)
[2024-07-08 11:31] LABS: Acanthocytes 1+; Basophils # (auto) 0.11 K/uL (0.00-0.20); Basophils % (auto) 0.6 %; Immature Granulocytes # (auto) 0.37 K/uL (0.01-0.20); Immature Granulocytes % (auto) 1.9 %; Lymphocytes # (auto) 0.41 K/uL (1.20-3.40); Lymphocytes % (auto) 2.1 %; Monocytes % (auto) 1.5 %; Neutrophils # (auto) 18.47 K/uL (1.40-6.50); Neutrophils % (auto) 93.9 %; Platelet Estimate Decreased (Normal); Toxic Granulation 3+
--- NOTE | 2024-07-08 12:16 | Hospitalist Progress Note ---
Date of Service July 08, 2024 Assessment & Plan (1) Sepsis due to urinary tract infection: Plan: Currently on intravenous Zosyn and vancomycin, day 2. Await urine culture results and blood culture results. Urology consultation and recommendations appreciated. She has a stent in place in the right ureter which will be exchanged probably this July 11. (2) Acute kidney injury superimposed on CKD: Plan: Improving. Creatinine down to 2.5 from 3.3 on admission. Baseline appears to be around 1.4-1.5. Continue IV fluids. Monitor intake and output. Serial labs (3) Uterine cancer: Plan: Stage IV. Supportive care (4) Infection and inflammatory reaction due to indwelling ureteral stent, sequela: Plan: Await urine and blood culture results. Continue intravenous Zosyn and vancomycin for now. Appreciate urology consultation and recommendations. Probable right ureter stent exchange this July 11 Plan Hopeful eventual discharge back home this weekend on an oral antibiotic if blood cultures are negative Admission and Anticipated Discharge Date Admission Date: July 07, 2024 Subjective Alert and oriented. No distress. She remains on intravenous vancomycin and Zosyn, day 2. Blood and urine culture results are pending. Urology consultation appreciated. Anticipate right ureter stent change on July 11. She is prednisone dependent and currently on intravenous hydrocortisone. Renal function has improved with IV fluids which continue. I spoke to her daughter, Arabella Ramirez, by phone today. Review of Systems 2 Review of Systems: Constitutionalno fever or chills ENTno blurred vision, no double vision, no epistaxis, no sore throat Respiratoryno cough, no wheezing, no shortness of breath Cardiacno palpitations, no chest pain, no syncope GIrecent loss of appetite but no nausea or vomiting. She denies diarrhea, melena, hematochezia GUno urinary retention, no urinary incontinence, no dysuria, no hematuria Musculoskeletalno joint pain, no muscle tenderness Skinno bruising, no rashes, no pruritus Neurono isolated weakness, no paresthesia, no weakness Psychno depression, no anxiety Physical Exam 2 Physical Exam: General-alert and oriented x3, no fever, no chills HEENT-head atraumatic and normocephalic, pupils equal and reactive to light, extraocular muscles intact Neck-no lymphadenopathy or thyromegaly, trachea midline Chest-clear to auscultation. No rales, wheezing or rhonchi Cardiac-regular rate and rhythm, normal S1 and S2 Abdomen-normal bowel sounds, no hepatosplenomegaly Extremities-no cyanosis, clubbing, or edema Neuro-cranial nerves II through XII intact, motor and sensory function within normal limits, strength symmetrical, no focal deficits Psych-normal affect, normal mood Results & Data Results & Data Vital Signs (Past 12 Hours) Vital Signs Temp Pulse Pulse Resp BP BP Pulse Ox 07/08/24 11:30 36.3 C L 75 18 99/68 L 95 07/08/24 08:13 36.2 C L 74 18 97/62 L 98 07/08/24 02:33 36.6 C 85 18 100/62 96 07/08/24 01:55 84 07/08/24 01:41 36.8 C 78 19 87/52 L 97 07/08/24 01:36 19 97/52 L 97 O2 Del Method O2 Flow Rate 07/08/24 11:30 Room Air 07/08/24 08:13 Room Air 07/08/24 02:33 Room Air 0 07/08/24 01:55 07/08/24 01:41 Room Air 07/08/24 01:36 Room Air Laboratory Results 07/08/24 05:59 07/08/24 06:03 PG Care Time/CCT Total # of Minutes Spent Total Time Spent with Patient: Total time spent is greater than 50% in coordination of care (as documented) at patient's floor/unit and/or counseling patient: Coding Level of Care Code 54409 SUB INP/OBS CARE 3/50MIN Diagnoses Sepsis due to urinary tract infection A41.9; N39.0 Acute kidney injury superimposed on CKD N17.9; N18.9 Uterine cancer C55 Infection and inflammatory reaction due to indwelling ureteral stent, sequela T83.597O
--- NOTE | 2024-07-08 13:15 | Urology Progress Note ---
Date of Service July 08, 2024 Assessment & Plan (1) Acute UTI: (2) CAYETANO (acute kidney injury): (3) Ureteral stent present: Plan 69yo female with a right ureteral stent placed 02/06/24 secondary to right-sided hydronephrosis and hx of uterine cancer who is admitted with UTI and CAYETANO. - Afebrile, mildly hypotensive with otherwise stable vitals - Improving with antibiotics and hydration measures - leukocytosis downtrending from 33k-19k today; Creatinine improved from 3.3-2.5 today (baseline 1.4-1.5) - Urine and blood culture pending. On Zosyn and Dapto. - Pastor intact and draining clear yellow urine - CT reviewed - Mild bilateral hydronephrosis, right sided nephroureteral stent in place, no obstructing stone. - No plan for intervention today - Pt will require stent exchange but ideally will be treated initially with antibiotics and hydration measures with a stent exchange to be for once the patient has been further stabilized - Will tentatively plan for right stent exchange in the OR on Wednesday 07/[address] Hooper - Maintain Pastor catheter - Continue supportive - Continue antibiotic therapy and tailor as culture data becomes available - Updated patient's daughter, Arabella Ramirez, by phone today - Urology will follow along. Please call with any questions, concerns, or changes in patient status. Admission and Anticipated Discharge Date Admission Date: July 07, 2024 Subjective Pt seen at bedside today Awake and resting in bed on arrival No acute distress No fevers Pastor draining yellow urine Review of Systems Constitutional: as per Subjective / HPI Genitourinary: as per Subjective / HPI Physical Exam Constitutional: no acute distress Respiratory: no respiratory distress and no labored breathing Neurologic: awake Psychiatric: Orientation: alert and cooperative Genitourinary: Pastor intact Results & Data Vital Signs (Past 12 Hours) Vital Signs Temp Pulse Pulse Resp BP BP Pulse Ox 07/08/24 08:13 36.2 C L 74 18 97/62 L 98 07/08/24 02:33 36.6 C 85 18 100/62 96 07/08/24 01:55 84 07/08/24 01:41 36.8 C 78 19 87/52 L 97 07/08/24 01:36 19 97/52 L 97 07/07/24 23:00 85 19 92/54 L 98 O2 Del Method O2 Flow Rate 07/08/24 08:13 Room Air 07/08/24 02:33 Room Air 0 07/08/24 01:55 07/08/24 01:41 Room Air 07/08/24 01:36 Room Air 07/07/24 23:00 Room Air PG Care Time/CCT Total # of Minutes Spent Total Time Spent with Patient: Total time spent is greater than 50% in coordination of care (as documented) at patient's floor/unit and/or counseling patient: Coding Level of Care Code 75193 SUB INP/OBS CARE 2/35MIN Diagnoses Acute UTI N39.0 CAYETANO (acute kidney injury) N17.9 Ureteral stent present Z96.0
[2024-07-08] MEDS: SODIUM CHLORIDE 0.9% 1,000 ML IV SCH (17:49)
[2024-07-08 18:14] LABS: Reticulocyte % 1.49 % (0.50-2.00); Reticulocytes # 0.04 10^6/uL (0.020-0.100)
[2024-07-08 18:54] LABS: Folate (Folic Acid),Ser orPlas > 22.30 ng/ml (>5.38)
[2024-07-08 18:55] LABS: Vitamin B12 758 pg/ml (180-914)
--- OUTSIDE RECORDS SUMMARY | 2024-07-08 19:17 | External Medical Summary | Continuity of Care Document ---
Author Name Unknown Organization [facility] Address [address] [id number] Care Team Providers Care Lease Out Worker Name Role Phone Eliazar Peck Primary Care Physician [phone] Encounter [facility] [id number] Date(s): 07/02/24 - 07/02/24 [facility] [id number], [place] [address]- [phone] Encounter Diagnosis Uterine cancer(Discharge Diagnosis) - 07/03/24 Epilepsy(Discharge Diagnosis) - 07/03/24 Coronary artery disease(Discharge Diagnosis) - 07/03/24 Discharge Disposition: Home or Self Care Attending Physician: MD Rivera Shaina Feldman Allergies, Adverse Reactions, Alerts Substance Criticality Severity Reaction Reaction Severity Status clarithromycin 1 Unknown Act lena sulfamethoxazole 2 Unknown A ctive levoFLOXacin 3 Unknown Activ e trimethoprim 4 Unknown Activ e sulfamethoxazole-trimethopri m 5 Unknown Active famotidine 6 Unknown Active levothyroxine 7 Unknown Acti ve lisinopril 8 Unknown Active 1Outside Source Comment: Other Reaction(s): GI UPSET 2Outside Source Comment: Other Reaction(s): GI UPSET,HEADACHE 3Outside Source Comment: Other Reaction(s): CHEST TIGHTNESS, RASH 4Outside Source Comment: Other Reaction(s): GI UPSET,HEADACHE 5Outside Source Comment: Other Reaction(s): GI UPSET,HEADACHE 6Outside Source Comment: Other Reaction(s): Chest Pain 7Outside Source Comment: Other Reaction(s): dizziness, headache, nausea and vomitting 8Outside Source Comment: Other Reaction(s): cough Assessment and Plan Extracted from: Title:Latin American Studies Director Onc TeleHealth Visit Note Author:MD Miguel, Laura Nicolas Date:07/02/24 69yo w/ [facility] uterine serous carcinoma (ER pos, 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 CT CAP to be done in 2 weeks (message sent to Dr. Vick). Will f/u images and decide whether to proceed with interval cytoreduction. - ca 125 downtrending. #coronary artery disease - s/p sent placement, on plavix andASA. - follows with cardiology - Will need pre op clearance if debulking #epilepsy - cont Dilantin #T2DM - unsure of last A1C and does not check blood sugars. Laura Rivera MD Gynecologic Oncology Medications amLODIPine 5 mg oral tablet Start: 03/21/24 11:39:00 AM EDT, 1 tab, PO, bid Start Date: 03/21/24 Status: Ordered aspirin 81 mg oral delayed release tablet Start: 03/21/24 11:37:00 AM EDT, 1 tab, PO, Daily Start Date: 03/21/24 Status: Ordered atorvastatin 80 mg oral tablet Start: 03/21/24 11:42:00 AM EDT, 1 tab, PO, Daily Start Date: 03/21/24 Status: Ordered carvedilol 6.25 mg oral tablet Start: 03/21/24 11:42:00 AM EDT, 1 tab, PO, bid Start Date: 03/21/24 Status: Ordered Cozaar 100 mg oral tablet Start: 03/21/24 11:38:00 AM EDT, 1 tab, PO, Daily Start Date: 03/21/24 Status: Ordered Dilantin 100 mg oral capsule, extended release Start: 03/21/24 11:36:00 AM EDT, 1 cap, PO, tid Start Date: 03/21/24 Status: Ordered folic acid 0.8 mg oral tablet Start: 03/21/24 11:43:00 AM EDT, 1 tab, PO, Daily Start Date: 03/21/24 Status: Ordered Imdur 30 mg oral tablet, extended release Start: 03/21/24 11:40:00 AM EDT, 1 tab, PO, qAM Start Date: 03/21/24 Status: Ordered levothyroxine 50 mcg (0.05 mg) oral tablet Start: 03/21/24 11:38:00 AM EDT, Start Date: 03/21/24 Status: Ordered Lexapro 10 mg oral tablet Start: 03/21/24 11:38:00 AM EDT, 1 tab, PO, Daily Start Date: 03/21/24 Status: Ordered metFORMIN 500 mg oral tablet Start: 03/21/24 11:40:00 AM EDT, 1 tab, PO, Daily Start Date: 03/21/24 Status: Ordered pantoprazole 40 mg oral delayed release tablet Start: 03/21/24 11:41:00 AM EDT, 1 tab, PO, Daily Start Date: 03/21/24 Status: Ordered Plavix 75 mg oral tablet Start: 03/21/24 11:37:00 AM EDT, 1 tab, PO, Daily Start Date: 03/21/24 Status: Ordered pyridoxine Start: 03/21/24 11:43:00 AM EDT, See Instructions, 250 mg po QD Start Date: 03/21/24 Status: Ordered Problem List Diagnosis Diagnosis Type Effective Dates Health Status Cl inical Service Informant Uterine cancer Discharge Diagnosis 07/03/24 Non-Specified Epilepsy Discharge Diagnosis 07/03/24 Non-Specified Coronary artery disease Discharge Diagnosis 07/03/24 Non-Specified Social History Social History Type Response Smoking Status Former Smoker, quit > 1 yr Sex Female Sex Representation Female (finding) Outpatient Note * MD Miguel, Laura Nicolas: PERFORM Event Display: .Outpt Note Authored Date: TeleHealth Visit Note I have confirmed the patients name and date of . The patient has consented to this service,and I have advised the patient that this is a billable visit for which they may be subject to a copay. The patient initiated this visit after they were informed of the availability of TeleHealth for this medically necessary visit. I am located at my office. The patient is located at home. This visit was conducted via telephone, and was not related to a visit or procedure that occurred within the past 7 days, due to patient preference. 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 Vick at [facility]. Jade tolerated chemo well. Minimal N/V. Some fatigue. No significant neuropathy. + alopecia. Oncologic history: -She was admitted in January to [facility] for urosepsis. 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 Imaging workup is below. -CT CAP: 02/07/24 1. There are pathologically enlarged retroperitoneal and iliac chain lymph nodes. Neoplasm is the diagnosis of exclusion. 2. There is moderate right hydroureteronephrosis. There is abrupt caliber changein the retroperitoneum, with no obstructing stone identified. This could be related to retroperitoneal scarring/fibrosis or possibly lymphadenopathy. Followup with urology is recommended. 3. There is an indeterminant 2.0 cm pulmonary lesion at the left lung mass. Although this could potentially be on an infectious/inflammatory basis, a neoplastic process is not excluded. A follow-up chest CT in 1 months time is recommended for reassessment and full evaluation of the thorax. 4. There is a 4 mm right middle lobe pulmonary nodule. This can also be resistive follow-up. 5. Coronary artery atherosclerosis. 6. Colonic diverticulosis without CT evidence of acute diverticulitis. 7. Right-sided nephrolithiasis. 8. The bladder is decompressed and appears thick walled. -PET CT 03/05/2024: Thorax: 2.3 CM dominant nodule L lung base SUV 8.1. Numerous additional subcentimeter pulm nodules. FDG avid mediatinal and bilateral hilar LN. Abdomen/pelvis: pathologically enlarged and FDG avid retroperitoneal LN (periaortic, subdiaphragm, retrocrural, L iliac chain). Uterus is enlarged and heterogeneous, marked FDG uptake. Contiguous R adnexal mass, measuring 4.2cm (SUV 8.5). Enlarged bilateral pelvic sidewall nodes. - D&C hysteroscopy on03/21 - pathology [facility] -biopsy of lung nodule at [facility] which was also c/w [facility]. - Ca 089931, Ca 19-9 49.4, CEA 2.0 (pre treatment) PMH: CAD ([address], on plavix and baby ASA, Aquatic Ecologist is Dr. Karma Joseph), T2DM on metformin, epilepsy on dilantin (last seizure more than 10 years ago), HTN on amlodipine and losartan, stroke 7 years ago, hypothyroidism on Synthroid PSH: laparoscopic appendectomy, x 3 Health maintenance: never had a mammogram, colonoscopy 6-7 years ago normal FH: maternal aunt uterine cancer or ovarian cancer (pt unsure which) and breast cancer,father prostatecancer, no genetic testing done to pts knowledge. Review of Systems negative other then as in HPI Physical Exam telehealth Assessment/Plan 69yo w/ [facility] uterine serous carcinoma (ER pos, [place] neg, p53 mutated, HER2 2+, fish negative, MMRi) s/p 3 cycles neoadjuvant carbo/taxol/pembrolizumab (C3 on 06/30) # [facility] - s/p 3 cycles neoadjuvant C/T/P. CT CAP to be done in 2 weeks (message sent to Dr. Vick). Will f/uimages and decide whether to proceed with interval cytoreduction. - ca 125 downtrending. #coronary artery disease - s/p sent placement, on plavix andASA. - follows with cardiology - Will need pre op clearance if debulking #epilepsy - cont Dilantin #T2DM - unsure of last A1C and does not check blood sugars. Laura Rivera MD Gynecologic Oncology Medications amLODIPine(amLODIPine 5 mg oral tablet), 5 mg= 1 tab, PO, bid aspirin(aspirin 81 mg oral delayed release tablet), 81 mg= 1 tab, PO, Daily atorvastatin(atorvastatin 80 mg oral tablet), 80 mg= 1 tab, PO, Daily carvedilol(carvedilol 6.25 mg oral tablet), 6.25 mg= 1 tab, PO, bid clopidogrel(Plavix 75 mg oral tablet), 75 mg= 1 tab, PO, Daily escitalopram(Lexapro 10 mg oral tablet), 10 mg= 1 tab, PO, Daily folic acid(folic acid 0.8 mg oral tablet), 0.8 mg= 1 tab, PO, Daily isosorbide mononitrate(Imdur 30 mg oral tablet, extended release), 30 mg= 1 tab, PO, qAM levothyroxine(levothyroxine 50 mcg (0.05 mg) oral tablet) losartan(Cozaar 100 mg oral tablet), 100 mg= 1 tab, PO, Daily metFORMIN(metFORMIN 500 mg oral tablet), 500 mg= 1 tab, PO, Daily pantoprazole(pantoprazole 40 mg oral delayed release tablet), 40 mg= 1 tab, PO, Daily phenytoin(Dilantin 100 mg oral capsule, extended release), 100 mg= 1 cap, PO, tid pyridoxine, See Instructions Allergies clarithromycinUnknown famotidineUnknown levoFLOXacinUnknown levothyroxineUnknown lisinoprilUnknown sulfamethoxazoleUnknown sulfamethoxazole-trimethoprimUnknown trimethoprimUnknown Social History Smoking Status Former Smoker, quit > 1 yr Recommendations Health Maintenance Pending(in the next year) OverDue Adult Influenza Vaccine due01/27/24and every 1year Due Adult COVID-19 Vaccination due07/03/24Unknown Frequency Adult Social Determinants of Health Screening due07/03/24Unknown Frequency Adult Tdap/Td Vaccine due07/03/24Unknown Frequency Breast Cancer Screening due07/03/24Unknown Frequency Colorectal Cancer Screening due07/03/24Unknown Frequency Hepatitis C Screening due07/03/24One-time only Medicare Annual Wellness Visit due07/03/24and every 1year Osteoporosis Screening due07/03/24One-time only Pneumococcal Vaccine Older Adults due07/03/24One-time only Shingles Vaccine due07/03/24One-time only Due In Future Body Mass Index not due until03/13/25and every 366day Satisfied(in the past 1 year) Satisfied Body Mass Index on03/21/24.Satisfied by EVERT Medina Joyce Cervical Cancer Screening on03/12/24. Electronic Signature on File Electronically Reviewed/Signed by: Laura Rivera MD Author Signature Dt/Tm:07/03/2024 09:40PM Division of Gynecology Oncology [facility] Patient Care team information Care Team Personnel Name: DO Peck Brian R Position: Referring Member Role: Primary Care Provider Address: [facility] [address] Care Team Related Persons Name: ED JIMENEZ Name: ANA MARÍA JIM
--- NOTE | 2024-07-08 22:25 | Oncology Consultation ---
Date of Consultation July 08, 2024 Assessment & Plan (1) Uterine cancer: All things considered, oncologically speaking the patient has responded very well to chemotherapy as the latest CT of the abdomen pelvis does not show the changes which were seen in the CT of the abdomen pelvis back in January. The ut erine mass has shrunk in size, was not commented upon by the reading radiologist. We will resume outpatient treatment once the patient is discharged with neoadjuvant chemotherapy. I will send her back to my gynecological oncology colleagues at [place] for possible surgical staging on discharge. In the bigger scheme of things the ongoing UTI/urosepsis could be because of the cancer and cancer treatment however the patient already had hardware in the urinary tract which may have contributed to the ongoing UTI. Treatment for the UTI would be as directed by my hospital internal medicine colleagues as well as urology colleagues. I will resume that the patient will need outpatient antibiotics on discharge. She is scheduled for her next chemotherapy on 07/16/2024 and she will be evaluated by one of my JULIAN colleagues in the clinic to resume treatment Plan . Thank you for this interesting oncological consult. A total of 60 minutes were spent counseling, coordination of care, review of prior records. Medical oncology will continue to follow the patient make appropriate recommendations. No further oncological intervention is warranted while the patient is in the hospital. History of Present Illness Reason for Consultation: stage IV uterine cancer Attending Physician: Jonah Tate MD History of Present Illness Diagnosis: Stage IVb uterine cancer, serous, ER positive, [place] negative, T p53 mutated, HER2/coleman 2+, FISH testing, negative, no ER BB amplification on Caris, mismatch repair stable. CT of the chest abdomen pelvis, 02/07/2024: IMPRESSION: 1. There are numerous new mostly subcentimeter solid pulmonary nodules of the lungs as above, most of which measure 4-6 mm. 2. 2.2 cm lobular nodular consolidation within the basal left lower lobe with 8 mm solid nodule in the lingula. Follow-up with pulmonology is needed. 3. 1.3 x 0.8 cm lymph node adjacent to the descending thoracic aorta. Attention on follow-up recommended. 4. No pleural effusion. messaging frequency plan continue Nexium continue COMMERCIALLY if better IMPRESSION: 1. There are pathologically enlarged retroperitoneal and iliac chain lymph nodes. Neoplasm is the diagnosis of exclusion. 2. There is moderate right hydroureteronephrosis. There is abrupt caliber change in the retroperitoneum, with no obstructing stone identified. This could be related to retroperitoneal scarring/fibrosis or possibly lymphadenopathy. Follow up with urology is recommended. 3. There is an indeterminant 2.0 cm pulmonary lesion at the left lung mass. Although this could potentially be on an infectious/inflammatory basis, a neoplastic process is not excluded. A follow-up chest CT in 1 months time is recommended for reassessment and full evaluation of the thorax. 4. There is a 4 mm right middle lobe pulmonary nodule. This can also be resistive follow-up. 5. Coronary artery atherosclerosis. 6. Colonic diverticulosis without CT evidence of acute diverticulitis. 7. Right-sided nephrolithiasis. 8. The bladder is decompressed and appears thick walled. Correlate with clinical findings and urinalysis. 9. Additional findings as above. PET CT scan, 03/05/2024: IMPRESSION: 1. The uterus is enlarged, heterogeneous, and shows markedly abnormal FDG uptake. There is a contiguous right adnexal mass lesion which is also markedly FDG avid. A primary uterine or possibly ovarian neoplasm is favored. Metastatic disease or a lymphoproliferative process could potentially appear similar. Tissue sampling will likely be required for definitive characterization. 2. There is evidence of metastatic lymphadenopathy throughout the bilateral pelvis, iliac chain, retroperitoneum, mediastinum, and lakia. 3. There is evidence of multifocal pulmonary metastatic disease with a dominant 2.3 cm nodule at the left lung base. Metastatic disease is favored. A primary pulmonary neoplasm could potentially appear similar. 4. There is no airspace consolidation or pleural effusion. 5. A right ureteral stent is in place. There is no hydronephrosis. 6. Right-sided nephrolithiasis. 7. Additional findings as above. Pathology, left lower lung biopsy, 03/25/2024: Lung, left lower lobe (biopsy): - Metastatic carcinoma of gynecologic origin is seen. - See comment. Comment: This tissue was initially evaluated as three touch preps, two of which revealed malignant cells. H and E stained tissue reveals benign pulmonary parenchyma and malignant cells arranged in tight aggregates. Fibrovascular cores are not seen. Mucinous differentiation is not seen. The malignant cells reveal nucleomegaly, markedly increased nuclear to cytoplasmic ratios, and only very rare enlarged nucleoli. In fact, the chromatin is relatively evenly distributed. Review of the electronic medical record reveals a PET scan which showed multifocal pulmonary nodules, an enlarged uterus and a right adnexal mass along with metastatic lymphadenopathy. Multiple immunohistochemical stains were obtained in this case to address site of origin. Internal and external control cells are appropriately positive. The malignant cells are positive for CK7, PAX8, WT1, ER, and P16. These same cells are negative for CK20, CDX2, chromogranin and synaptophysin. The positive stain for PAX8 favors a gynecologic origin and the negative stain for TTF-1 militates against an adenocarcinoma of the lung. In terms of metastatic endometrial carcinoma versus an extrauterine gynecologic carcinoma, I favor the latter over the former due to the presence of strong and diffuse staining for WT1 and P16, despite the strong and diffuse positive staining for the estrogen receptor. Please note that the immunohistochemical stain for P53 highlights none of the malignant cells strongly suggesting the null mutation. Finally, please note that the immunohistochemical stain for P40, a marker of squamous cell carcinoma of the lung, is negative as well Lymph node, station 7, 03/25/2024: Lymph node, ST 7 (fine needle aspiration): - Metastatic carcinoma is seen. - Please see concurrent case [id number] for a complete discussion as to site of origin. - Please see microscopic description Lung, left lower lobe (biopsy): - Metastatic carcinoma is seen. - Please see concurrent case [id number] for discussion as to site of origin. - Please see microscopic description. carboplatin, paclitaxel, pembrolizumab, cycle 1 day 1: 05/14/2024 carboplatin paclitaxel pembrolizumab, cycle 2-day 2 06/04/2024 carboplatin paclitaxel pembrolizumab, cycle 3-day 1:06/25/24 CT abdomen pelvis, 07/07/2024: IMPRESSION: Mild bilateral hydronephrosis. Right sided nephroureteral stent in place. No obstructing stone. the patient is a very pleasant 69-year-old female patient of mine who is currently undergoing neoadjuvant chemotherapy for metastatic uterine cancer, has been admitted to [facility] with sepsis secondary to urinary tract infection, mild bilateral hydronephrosis/right sided nephroureteral stent. She has sepsis, currently on broad-spectrum antibiotics. She is not neutropenic. Medical oncology has been consulted to assist in management of this patient with metastatic uterine cancer. On my examination the patient Was doing well, in good spirits. Allergies Allergy/AdvReac Type Severity Reaction Status Date / Time levofloxacin Allergy Intermediate Chest Verified 06/19/24 08:49 tightness, rash Bactrim AdvReac Intermediate GI Verified 03/15/18 11:06 UPSET,HEADACHE clarithromycin AdvReac Intermediate GI upset Verified 06/19/24 08:49 famotidine AdvReac Intermediate Chest Pain Verified 06/19/24 08:49 levothyroxine sodium AdvReac Intermediate Dizziness, Verified 06/19/24 08:49 headache, nausea and vomiting lisinopril AdvReac Intermediate Cough Verified 06/19/24 08:49 sulfamethoxazole AdvReac Intermediate GI upset, Verified 06/19/24 08:49 headache trimethoprim AdvReac Intermediate GI upset, Verified 06/19/24 08:49 headache Home Medications Medication Instructions Recorded Confirmed Type folic acid 1 mg tablet 1 mg PO QAM 12/31/18 06/21/24 History pyridoxine (vitamin B6) 250 mg 250 mg PO QAM 12/31/18 06/21/24 History tablet (Vitamin B-6) aspirin 81 mg tablet,delayed 81 mg PO QAM 06/17/19 06/21/24 History release (Adult Low Dose Aspirin) nitroglycerin 0.4 mg sublingual 0.4 mg sublingual Q5M PRN chest 04/07/20 06/21/24 Rx tablet pain #30 tabs cholecalciferol (vitamin D3) 50 50 mcg PO QAM 03/10/21 06/21/24 History mcg (2,000 unit) capsule miscellaneous medical supply #1 ea 10/27/21 06/19/24 Rx (Blood Pressure Cuff) ezetimibe 10 mg tablet (Zetia) 10 mg PO QAM 06/08/23 06/21/24 History carvedilol 6.25 mg tablet 6.25 mg PO BID 02/06/24 06/21/24 History clopidogrel 75 mg tablet (Plavix) 75 mg PO QAM 02/06/24 06/21/24 History isosorbide mononitrate 30 mg 30 mg PO BID 02/06/24 06/21/24 History tablet,extended release 24 hr pantoprazole 40 mg tablet,delayed 40 mg PO QAM 02/06/24 06/21/24 History release (Protonix) metformin 500 mg tablet 500 mg PO BID #90 tabs 02/28/24 06/21/24 Rx losartan 100 mg tablet 100 mg PO QAM #90 tabs 03/03/24 06/21/24 Rx atorvastatin 80 mg tablet 80 mg PO QAM #90 tabs 03/10/24 06/21/24 Rx amlodipine 5 mg tablet (Norvasc) 5 mg PO BID 03/11/24 06/21/24 History tamsulosin 0.4 mg capsule (Flomax) 0.4 mg PO HS 03/11/24 06/21/24 History escitalopram oxalate 10 mg tablet 10 mg PO QAM PRN anxiety 03/18/24 06/21/24 History (Lexapro) phenytoin sodium extended 100 mg 100 mg PO TID 03/18/24 06/21/24 History capsule (Dilantin Extended) levothyroxine 50 mcg tablet 50 mcg PO QAM #90 tabs 04/08/24 06/21/24 Rx (Synthroid) Carboplatin #1 ea 05/20/24 06/19/24 Rx Fosaprepitant #1 ea 05/20/24 06/19/24 Rx Paclitaxel #1 ea 05/20/24 06/19/24 Rx Palonsetron #1 ea 05/20/24 06/19/24 Rx Pembrolizumab #1 ea 05/20/24 06/19/24 Rx dexamethasone 4 mg tablet 20 mg PO DIRECTED 05/20/24 06/21/24 History olanzapine 2.5 mg tablet 2.5 mg PO DAILY PRN n/v 05/20/24 06/21/24 History prochlorperazine maleate 10 mg 10 mg PO DAILY PRN n/v 05/20/24 06/21/24 History tablet Patient History Medical History Pulmonary nodule Retroperitoneal lymphadenopathy Ovarian cancer per pt, "I have cancer in my ovaries and then they need to check to see if it spread anywhere." States she is to have a D&C at [facility] on 03/21 to "clean out all the scar tissue.". Surgery is planned as an OP and pt. cannot recall who the surgeon is. LBBB (left bundle branch block) Chronic Hyperlipidemia Multiple pulmonary nodules determined by computed tomography of lung CAD (coronary artery disease) Stents x2 (2019) Depression with anxiety Seizure disorder Most recent seizure No issues since DM type 2 (diabetes mellitus, type 2) Hypertension Stroke ~, no residual issues Taking Plavix Abnormal CT scan, gastrointestinal tract No further Intervention, seen by General Surgery Non-ST elevation (NSTEMI) myocardial infarction 07/2019 > 2 stents Follows with [facility] Primary hypercoagulable state Fatty liver History of cerebral artery occlusion CVA ~ 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 Diverticular disease Chronic headache GERD (gastroesophageal reflux disease) Surgical History S/P cystoscopy with ureteral stent placement (01/2024) Presence of stent in LAD coronary artery 2019 > stents x2 Hx of right cataract extraction 01/21/19: was given 3mg of IV versed History of esophagogastroduodenoscopy (EGD) History of colonoscopy History of cholecystectomy History of x3 Family History Mother Family history of diabetes mellitus Acute myocardial infarction Heart disease Daughter Family history of diabetes mellitus Son Family history of diabetes mellitus Brother Cirrhosis of liver Father Acute myocardial infarction Prostate cancer Aunt Breast cancer Ovarian carcinoma Social History Smoking Status: Never smoker Tobacco Type: Cigarettes Age Started Using Tobacco: 14; Age Quit Using Tobacco: 33; packs per day: 2; Second Hand Exposure: Yes (as a child); Do You Dip or Chew Tobacco: No; Hx Alcohol Use: No Hx Substance Use: No Preferred Language: Emirati Communication Ability: Effective Websphere Developer Required: No Beliefs That Will Affect Care: None Current Living Situation: Family Current Living Situation Comment: Lives with 2 sons Feels Safe at Home: Yes caffeine: Yes Dental Care, Regularly: No Physical Activity Frequency: Does not Exercise Seatbelt Use: always Sunscreen Use: No Assistive Devices: None Review of Systems Review of Systems: All systems reviewed & are unremarkable except as noted in HPI & below Constitutional: as per Subjective / HPI Eyes: as per Subjective / HPI Ear, Nose, Mouth, Throat: as per Subjective / HPI Respiratory: as per Subjective / HPI Cardiovascular: as per Subjective / HPI Gastrointestinal: as per Subjective / HPI Genitourinary: as per Subjective / HPI Musculoskeletal: as per Subjective / HPI Integumentary: as per Subjective / HPI Neurologic: as per Subjective / HPI Physical Exam Constitutional: WD/WN, vitals as above Eyes: PERRL, conjunctivae normal, anicteric sclerae ENMT: external ear and nose normal, oropharynx normal Neck: trachea midline, no thyromegaly Respiratory: normal respiratory effort, lungs clear to auscultation Cardiovascular: RRR, no murmur, no edema Gastrointestinal (Abdomen): normal bowel sounds, soft, nontender, no hepatosplenomegaly Musculoskeletal: no cyanosis or clubbing, extremities motor strength 5/5 Skin: no rashes, warm and dry Neurologic: patellar DTR's 2+ bilat, sensation intact Psychiatric: A+Ox3, euthymic affect Results & Data Vital Signs (Past 12 Hours) Vital Signs Temp Pulse Pulse Resp BP Pulse Ox O2 Del Method 07/08/24 20:10 36.4 C 79 18 102/65 96 Room Air 07/08/24 16:09 36.3 C L 63 14 105/74 100 Room Air 07/08/24 15:14 36.3 C L 79 16 107/68 97 Room Air 07/08/24 11:30 36.3 C L 75 18 99/68 L 95 Room Air
[2024-07-09] MEDS: ONDANSETRON INJ 2 MG/ML 2 ML VIAL IV PRN (00:12)
[2024-07-09 08:07] LABS: Hemoglobin 7.9 g/dl (12.0-16.0); Mean Corpuscular Hemoglobin 30.9 pg (25.0-34.0); Mean Corpuscular Hgb Conc 32.9 g/dL (32.0-36.0); Mean Corpuscular Volume 93.8 fL (80.0-100.0); Mean Platelet Volume 11.2 fL (9.4-12.4); Platelet Count 59 K/uL (130-400); RDW Coefficient of Variation 18.8 % (11.5-14.5); RDW Standard Deviation 60.9 fL (36.4-46.3); Red Blood Count 2.56 M/uL (4.20-5.40); White Blood Count 27.66 K/ul (4.8-10.8)
[2024-07-09 08:29] LABS: BUN Creatinine Ratio 21.3 (10-20); Calcium 7.7 mg/dl (8.6-10.3); Potassium 3.2 mmol/L (3.5-5.1)
[2024-07-09 08:55] LABS: Acanthocytes 2+; Anisocytosis Present; Basophils # (auto) 0.11 K/uL (0.00-0.20); Basophils % (auto) 0.4 %; Immature Granulocytes # (auto) 1.24 K/uL (0.01-0.20); Immature Granulocytes % (auto) 4.5 %; Lymphocytes # (auto) 0.55 K/uL (1.20-3.40); Monocytes # (auto) 0.22 K/uL (0.11-0.59); Monocytes % (auto) 0.8 %; Neutrophils # (auto) 25.54 K/uL (1.40-6.50); Neutrophils % (auto) 92.3 %; Polychromasia 1+; Toxic Granulation 2+; Toxic Vacuolation 1+
[2024-07-09] MEDS: NSS + 20MEQ KCL 20 MEQ/1,000 ML BAG IV SCH (09:52)
[2024-07-09] MEDS: POTASSIUM CHLORIDE CRTAB 20 MEQ TABCR PO STA (09:52)
--- NOTE | 2024-07-09 12:10 | Urology Progress Note ---
Date of Service July 09, 2024 Assessment & Plan (1) Acute UTI: (2) CAYETANO (acute kidney injury): (3) Ureteral stent present: Plan 69yo female with a right ureteral stent placed 02/06/24 secondary to right-sided hydronephrosis and hx of uterine cancer who is admitted with UTI and CAYETANO. - Pt subjectively feeling better today - Afebrile, mildly hypotensive with otherwise stable vitals - Leukocytosis 27K today (was 19K yesterday); Creatinine improved from 3.3-2.5- 2.11 today (baseline 1.4-1.5) - Urine culture grew E.coli; Blood cultures prelim no growth x 24 hours - Continues on Zosyn - Pastor intact and draining clear yellow urine - CT reviewed - Mild bilateral hydronephrosis, right sided nephroureteral stent in place, no obstructing stone. - Pt will require stent exchange but ideally will be treated initially with antibiotics and hydration measures with a stent exchange to be for once the patient has been further stabilized - Will tentatively plan for right stent exchange in the OR on Wednesday 07/[address] Hooper - Maintain Pastor catheter - Continue supportive care - Continue antibiotic therapy and tailor as culture data becomes available - Urology will follow along. Please call with any questions, concerns, or changes in patient status. Admission and Anticipated Discharge Date Admission Date: July 07, 2024 Subjective Pt seen at bedside today Awake and resting in bed on arrival No acute distress Reports she is feeing better Denied f/c/n/v No reported pain Pastor draining yellow urine Review of Systems Constitutional: as per Subjective / HPI Genitourinary: as per Subjective / HPI Physical Exam Constitutional: no acute distress Respiratory: no respiratory distress and no labored breathing Neurologic: awake Psychiatric: Orientation: alert and cooperative Genitourinary: Pastor intact Results & Data Vital Signs (Past 12 Hours) Vital Signs Temp Pulse Resp BP Pulse Ox O2 Del Method 07/09/24 07:31 36.3 C L 67 18 105/59 L 98 Room Air PG Care Time/CCT Total # of Minutes Spent Total Time Spent with Patient: Total time spent is greater than 50% in coordination of care (as documented) at patient's floor/unit and/or counseling patient: Coding Level of Care Code 91794 SUB INP/OBS CARE 2/35MIN Diagnoses Acute UTI N39.0 CAYETANO (acute kidney injury) N17.9 Ureteral stent present Z96.0
--- NOTE | 2024-07-09 12:21 | Hospitalist Progress Note ---
Date of Service July 09, 2024 Assessment & Plan (1) Sepsis due to urinary tract infection: Plan: Currently on intravenous Zosyn, day 3. E. coli isolated in the urine. Vancomycin has been discontinued. Blood cultures remain negative. Urology consultation and recommendations appreciated. She has a stent in place in the right ureter which will be exchanged probably this July 11. (2) Acute kidney injury superimposed on CKD: Plan: Improving. Creatinine down to 2.1 from 3.3 on admission. Baseline appears to be around 1.4-1.5. IV fluids have been further tapered down. Monitor intake and output. Serial labs (3) Uterine cancer: Plan: Stage IV. Supportive care (4) Infection and inflammatory reaction due to indwelling ureteral stent, sequela: Plan: E. coli isolated in the urine. She remains on intravenous Zosyn. Vancomycin has been discontinued. Appreciate urology consultation and recommendations. Probable right ureter stent exchange this July 11 (5) Steroid dependence: Plan: Currently on parenteral hydrocortisone which has been tapered down further today, July 09. Eventual switch back to oral prednisone therapy. (6) Hypokalemia: Plan: Potassium added to IV fluids. Oral potassium also ordered. Serial labs (7) Essential hypertension: Plan: Amlodipine, carvedilol, losartan held on admission. Coreg restarted today, July 09 Plan Hopeful eventual discharge back home this weekend on an oral antibiotic if blood cultures remain negative Admission and Anticipated Discharge Date Admission Date: July 07, 2024 Subjective Alert and oriented. No acute problems. Creatinine continues to decrease down to 2.1. IV fluids have been tapered down further. Intravenous hydrocortisone also further tapered down today, July 09. Potassium replacement ordered intravenously and orally. Coreg has been restarted. Platelet count remains low at 59,000 but no active bleeding. E. coli isolated in the urine. She remains on intravenous Zosyn, day 3. Review of Systems 2 Review of Systems: Constitutionalno fever or chills ENTno blurred vision, no double vision, no epistaxis, no sore throat Respiratoryno cough, no wheezing, no shortness of breath Cardiacno palpitations, no chest pain, no syncope GIrecent loss of appetite but no nausea or vomiting. She denies diarrhea, melena, hematochezia GUno urinary retention, no urinary incontinence, no dysuria, no hematuria Musculoskeletalno joint pain, no muscle tenderness Skinno bruising, no rashes, no pruritus Neurono isolated weakness, no paresthesia, no weakness Psychno depression, no anxiety Physical Exam 2 Physical Exam: General-alert and oriented x3, no fever, no chills HEENT-head atraumatic and normocephalic, pupils equal and reactive to light, extraocular muscles intact Neck-no lymphadenopathy or thyromegaly, trachea midline Chest-clear to auscultation. No rales, wheezing or rhonchi Cardiac-regular rate and rhythm, normal S1 and S2 Abdomen-normal bowel sounds, no hepatosplenomegaly Extremities-no cyanosis, clubbing, or edema Neuro-cranial nerves II through XII intact, motor and sensory function within normal limits, strength symmetrical, no focal deficits Psych-normal affect, normal mood Results & Data Results & Data Vital Signs (Past 12 Hours) Vital Signs Temp Pulse Resp BP Pulse Ox O2 Del Method 07/09/24 07:31 36.3 C L 67 18 105/59 L 98 Room Air Laboratory Results 07/09/24 06:39 07/09/24 06:39 PG Care Time/CCT Total # of Minutes Spent Total Time Spent with Patient: Total time spent is greater than 50% in coordination of care (as documented) at patient's floor/unit and/or counseling patient: Coding Level of Care Code 28889 SUB INP/OBS CARE 3/50MIN Diagnoses Sepsis due to urinary tract infection A41.9; N39.0 Acute kidney injury superimposed on CKD N17.9; N18.9 Uterine cancer C55 Infection and inflammatory reaction due to indwelling ureteral stent, sequela T83.592S Steroid dependence F19.20 Hypokalemia E87.6 Essential hypertension I10
[2024-07-09] MEDS: HYDROCORTISONE SOD 25 MG in SYRINGE 0 ML IV SCH (16:33)
[2024-07-09] MEDS: carvediloL 6.25 MG TAB PO SCH (16:34)
[2024-07-10 04:42] LABS: Hematocrit (blood only) 19.3 % (37.0-47.0); Hemoglobin 6.4 g/dl (12.0-16.0); Mean Corpuscular Hemoglobin 31.2 pg (25.0-34.0); Mean Corpuscular Hgb Conc 33.2 g/dL (32.0-36.0); Mean Corpuscular Volume 94.1 fL (80.0-100.0); Mean Platelet Volume 10.8 fL (9.4-12.4); Platelet Count 49 K/uL (130-400); RDW Standard Deviation 62.1 fL (36.4-46.3); Red Blood Count 2.05 M/uL (4.20-5.40); White Blood Count 27.12 K/ul (4.8-10.8)
[2024-07-10 04:55] LABS: BUN Creatinine Ratio 19.5 (10-20); Calcium 7.4 mg/dl (8.6-10.3); Creatinine Clr Calc Pharmacy 15.2 ml/min; Potassium 3.4 mmol/L (3.5-5.1)
[2024-07-10 04:57] LABS: Acanthocytes 1+; Basophils # (auto) 0.04 K/uL (0.00-0.20); Basophils % (auto) 0.1 %; Immature Granulocytes # (auto) 0.73 K/uL (0.01-0.20); Immature Granulocytes % (auto) 2.7 %; Lymphocytes % (auto) 2.6 %; Monocytes % (auto) 1.5 %; Neutrophils # (auto) 25.25 K/uL (1.40-6.50); Neutrophils % (auto) 93.1 %; Polychromasia 1+; Toxic Granulation 1+
[2024-07-10] MEDS ORDERED: SODIUM CHLORIDE 0.9% 50 ML IV PRN ×2 (05:08→08:58)
[2024-07-10] MEDS ORDERED: SODIUM CHLORIDE 0.9% 100 ML IV PRN ×2 (05:08→08:58)
--- NOTE | 2024-07-10 05:35 | Communication Note ---
Date of Service: July 10, 2024 Morning labs showing a hemoglobin of 6.4 with hematocrit of 19.3. Saw patient bedside. Blood transfusion consent filled out and returned to nursing. Type and cross ordered as well as 1 unit of PRBC's.
--- NOTE | 2024-07-10 09:42 | Urology Progress Note ---
Date of Service July 10, 2024 Assessment & Plan (1) Sepsis due to urinary tract infection: (2) Acute kidney injury superimposed on CKD: (3) Uterine cancer: (4) Sepsis: (5) Acute UTI: (6) CAYETANO (acute kidney injury): (7) Ureteral stent present: Plan 69yo female with a right ureteral stent placed 02/06/24 secondary to right-sided hydronephrosis with uterine cancer (on chemo) who is admitted with UTI and CAYETANO. - Pt in no acute distress - Afebrile, normotensive - Leukocytosis 27K, Creatinine improved from 3.3-2.5- 2.21 today (baseline 1.4- 1.5), Hgb 6.4 (was 7.9 yesterday) transfusion was in process - Urine culture grew E.coli; Blood cultures prelim no growth x 24 hours -still on Zosyn - Pastor intact and draining clear yellow urine - CT reviewed - Mild bilateral hydronephrosis, right sided nephroureteral stent in place, no obstructing stone. - Will tentatively plan for right stent exchange in the OR on Wednesday 07/[address] Hooper - patient aware and in agreement - Maintain Pastor catheter - Continue supportive and other comfort care per primary - Continue antibiotic therapy and tailor as culture data becomes available - Urology will follow along. Please call with any questions, concerns, or changes in patient status. Admission and Anticipated Discharge Date Admission Date: July 07, 2024 Subjective Pt seen at bedside today Awake and resting comfortably in bed No acute distress Overall feeling well Denied f/c/n/v No reported pain Pastor draining clear yellow urine Patient currently receiving blood transfusion Review of Systems Constitutional: as per Subjective / HPI Genitourinary: as per Subjective / HPI Physical Exam Constitutional: well developed and well nourished; no acute distress Respiratory: normal respiratory effort and able to speak in complete sentences Musculoskeletal: Extremities: extremities normal to inspection Psychiatric: Orientation: alert and oriented x 3 Results & Data Vital Signs (Past 12 Hours) Vital Signs Temp Pulse Pulse Resp BP BP Pulse Ox 07/10/24 08:45 36.6 C 78 18 123/79 99 07/10/24 08:43 36.3 C L 76 16 106/70 97 07/10/24 08:23 36.4 C L 80 16 120/72 97 07/10/24 07:55 36.4 C L 80 16 120/72 97 O2 Del Method O2 Flow Rate 07/10/24 08:45 07/10/24 08:43 07/10/24 08:23 0 07/10/24 07:55 Room Air PG Care Time/CCT Total # of Minutes Spent Total Time Spent with Patient: Total time spent is greater than 50% in coordination of care (as documented) at patient's floor/unit and/or counseling patient: Coding Level of Care Code 45200 SUB INP/OBS CARE 2/35MIN Diagnoses Sepsis due to urinary tract infection A41.9; N39.0 Acute kidney injury superimposed on CKD N17.9; N18.9 Uterine cancer C55 Sepsis A41.9 Acute UTI N39.0 CAYETANO (acute kidney injury) N17.9 Ureteral stent present Z96.0
--- NOTE | 2024-07-10 11:40 | Hospitalist Progress Note ---
Date of Service July 10, 2024 Assessment & Plan (1) Sepsis due to urinary tract infection: Plan: Currently on intravenous Zosyn, day 4. E. coli isolated in the urine. Vancomycin has been discontinued. Blood cultures remain negative. Urology consultation and recommendations appreciated. She has a stent in place in the right ureter which will be exchanged by urology tomorrow, July 11. (2) Acute kidney injury superimposed on CKD: Plan: Improved from admission. Creatinine today is 2.2, little change from yesterday when creatinine was 2.1. Baseline appears to be around 1.4-1.5. Continue IV fluids for now. Monitor intake and output. Serial labs (3) Uterine cancer: Plan: Stage IV. Supportive care. Oncology consultation requested and pending (4) Infection and inflammatory reaction due to indwelling ureteral stent, sequela: Plan: E. coli isolated in the urine. She remains on intravenous Zosyn. Vancomycin has been discontinued. Appreciate urology consultation and recommendations. Probable right ureter stent exchange tomorrow, July 11 (5) Steroid dependence: Plan: Her daughter states that she is not prednisone dependent. Parenteral steroid therapy discontinued. (6) Hypokalemia: Plan: Improving. Potassium added to IV fluids. Oral potassium also ordered. Serial labs (7) Essential hypertension: Plan: Amlodipine, carvedilol, losartan held on admission. Coreg restarted on July 09 Plan Hopeful eventual discharge back home when stable and appropriate. Admission and Anticipated Discharge Date Admission Date: July 07, 2024 Subjective Alert and oriented. No new symptoms. Hemoglobin has dropped to 6.4 without evidence of overt GI bleeding. 1 unit packed red blood cells ordered. Hematology oncology consultation requested. Platelet count has drifted down to 49,000 without overt signs of bleeding. Fecal occult blood is ordered and pending. Will recheck hemoglobin level this afternoon. Her daughter has stated that she is not prednisone dependent and intravenous hydrocortisone therapy has been discontinued. Urine culture is growing E. coli. She is currently on Zosyn therapy, day 4. Urology is planning on changing the right ureter stent tomorrow, July 11. Creatinine did not change much from yesterday. Now 2.2 today, July 10. Coreg was restarted yesterday, July 09, and has been well-tolerated. Amlodipine and losartan remain on hold. She remains on IV fluids. Review of Systems 2 Review of Systems: Constitutionalno fever or chills ENTno blurred vision, no double vision, no epistaxis, no sore throat Respiratoryno cough, no wheezing, no shortness of breath Cardiacno palpitations, no chest pain, no syncope GIrecent loss of appetite but no nausea or vomiting. She denies diarrhea, melena, hematochezia GUno urinary retention, no urinary incontinence, no dysuria, no hematuria Musculoskeletalno joint pain, no muscle tenderness Skinno bruising, no rashes, no pruritus Neurono isolated weakness, no paresthesia, no weakness Psychno depression, no anxiety Physical Exam 2 Physical Exam: General-alert and oriented x3, no fever, no chills HEENT-head atraumatic and normocephalic, pupils equal and reactive to light, extraocular muscles intact Neck-no lymphadenopathy or thyromegaly, trachea midline Chest-clear to auscultation. No rales, wheezing or rhonchi Cardiac-regular rate and rhythm, normal S1 and S2 Abdomen-normal bowel sounds, no hepatosplenomegaly Extremities-no cyanosis, clubbing, or edema Neuro-cranial nerves II through XII intact, motor and sensory function within normal limits, strength symmetrical, no focal deficits Psych-normal affect, normal mood Results & Data Results & Data Vital Signs (Past 12 Hours) Vital Signs Temp Pulse Pulse Resp BP BP Pulse Ox 07/10/24 11:30 36.4 C L 74 18 118/73 97 07/10/24 10:45 36.5 C 75 14 120/70 98 07/10/24 08:45 36.6 C 78 18 123/79 99 07/10/24 08:43 36.3 C L 76 16 106/70 97 07/10/24 08:23 36.4 C L 80 16 120/72 97 07/10/24 07:55 36.4 C L 80 16 120/72 97 O2 Del Method O2 Flow Rate 07/10/24 11:30 07/10/24 10:45 Room Air 07/10/24 08:45 07/10/24 08:43 07/10/24 08:23 0 07/10/24 07:55 Room Air Laboratory Results 07/10/24 04:12 07/10/24 04:12 PG Care Time/CCT Total # of Minutes Spent Total Time Spent with Patient: Total time spent is greater than 50% in coordination of care (as documented) at patient's floor/unit and/or counseling patient: Coding Level of Care Code 95148 SUB INP/OBS CARE 3/50MIN Diagnoses Sepsis due to urinary tract infection A41.9; N39.0 Acute kidney injury superimposed on CKD N17.9; N18.9 Uterine cancer C55 Infection and inflammatory reaction due to indwelling ureteral stent, sequela T83.592S Steroid dependence F19.20 Hypokalemia E87.6 Essential hypertension I10
[2024-07-10] MEDS: cefTRIAXone SODIUM 2,000 MG/50 ML BAG IV SCH (14:55)
[2024-07-10 15:50] LABS: Hematocrit (blood only) 27.7 % (37.0-47.0); Hemoglobin 9.3 g/dl (12.0-16.0)
[2024-07-11] MEDS ORDERED: Nursing to Pharmacy Communication SCH (02:15)
[2024-07-11] MEDS: INSULIN ASPART PER UNIT CHARGE SC SCH ×2 (06:12→12:27)
[2024-07-11] MEDS ORDERED: PROPOFOL IV EMULSION 10 MG/ML 20 ML VIAL IV ONE (06:41)
[2024-07-11] MEDS ORDERED: fentaNYL citrate PF 100 MCG/2 ML VIAL ONE (06:48)
[2024-07-11] MEDS ORDERED: ePHEDrine sulfate 50 MG/ML AMP IV PRN (06:51)
[2024-07-11] MEDS ORDERED: ATROPINE SULFATE 0.1 MG/ML 10ML SYR IV PRN (06:51)
[2024-07-11] MEDS ORDERED: fentaNYL citrate PF 100 MCG/2 ML VIAL IV PRN (06:51)
[2024-07-11] MEDS ORDERED: PROMETHAZINE HCL 6.25 MG in SODIUM CHLORIDE 0.9% 50 ML IV PRN (06:51)
--- NOTE | 2024-07-11 07:03 | History & Physical Bridge Note ---
Date of Service July 11, 2024 History & Physical Bridge Note I have examined the patient, reviewed the History & Physical and in the interval since the performance of the History & Physical I have noted the following changes of clinical significance: no changes noted
[2024-07-11] MEDS ORDERED: LIDOCAINE 2% 2 ML VIAL/AMP(20MG/ML) INFIL ONE (07:30)
[2024-07-11] MEDS: DIATRIZOATE MEGLUMINE 30% 100ML VIAL INSTIL ONE (07:39)
--- NOTE | 2024-07-11 07:59 | Operative Report ---
PG Post Operative Report Pre & Post Diagnosis Operation Date: 07/11/24 07:00 Pre-Op Diagnosis: Sepsis due to urinary tract infection Post-Op Diagnosis: Sepsis due to urinary tract infection I identified the patient and participated in the time-out.: Yes Procedure Operation Date: 07/11/24 07:00 Actual Procedures p Cystoscopy, Right:Retrograde Pyelogram, Stent Exchange(Right) - Gio Hooper MD Surgeon Gio Hooper MD Ham Marker none Estimated Blood Loss 0 Findings Consistent with Post-Op Diagnosis Specimens none Description of Procedure The patient was identified in the preoperative holding area, appropriate informed consents were reviewed and completed and the patient was transferred to the operative suite. Upon arrival, appropriate antibiotics and anesthesia were administered and the patient was placed in dorsal lithotomy position and prepped and draped in sterile fashion. To begin the case I passed a 21 Filipino cystoscope with 30 degree lens and visual curling machine operator. Inspection revealed a healthy appearing bladder with mild irritation and a right ureteral stent identified protruding from the orifice. The distal aspect of the stent was grasped and withdrawn to the meatus. I was able to intubate it with a sensor wire. There was no encrustation. The proximal portion of the stent appeared to be very well position. After removing the stent I began replacement of a 7 Filipino by 26 cm stent. Seem to be a bit longer in the upper aspectthis was the same length stent that was used previously. In turn, I elected to exchange this for 7 Filipino by 24 cm stent. I did opacify the collecting system first to confirm that it was placed in the renal pelvis. In prior placement was in the upper pole which worked very well but it was a bit harder to have a wire advanced to the upper pole during this exchange. At the conclusion of the case there was Curl in the renal pelvis as well as the bladder. She was reversed of anesthesia and taken to the recovery room in stable condition. There were no complications. I attest to the content of the Intraoperative Record and any orders documented therein. Any exceptions are noted below.
--- NOTE | 2024-07-11 08:17 | Fluoroscopy Report ---
FL retrograde includes kub CLINICAL HISTORY: RIGHT STENT EXCHANGEright-sided cystourethrogram with stent exchange COMPARISON STUDY: CT 07/07/2024 FLUOROSCOPY TIME: 13.8 seconds FLUOROSCOPY IMAGES: 2 EXPOSURE DOSE: 1.87 mGy FINDINGS: Proximal portion of a right ureteral stent is in satisfactory positioning, distal portion i s not imaged. Right-sided hydronephrosis with calyceal blunting. Cholecystectomy clips. IMPRESSION: Fluoroscopic assistance as above. ACT 112: Negative or not required by law. Electronically signed by: Wilver Sheldon M.D. 07/11/2024 8:15 AM
--- NOTE | 2024-07-11 10:05 | Gastrointestinal Consultation ---
Date of Consultation July 11, 2024 Assessment & Plan (1) Anemia: (2) Heme positive stool: Plan Patient was admitted with sepsis secondary to UTI. During her stay she had a drop in her hgb and stools tested heme positive. She is not seeing any overt GI bleeding and she is not interested in having a colonoscopy done at this time. She tells me that she may consider this as an outpatient. - follow hgb/hct. transfuse as needed. - patient tells me that she is not interested in any endoscopic evaluation at this time. she tells me she will consider as an outpatient. Supervising Physician Co-Signing Physician Notes I examined the patient and reviewed patient's chart , laboratory data and imaging studies. I agree with with assessment and plan of care as suggested by advanced practice provider. Worsening of anemia, heme positive stools. Gastrointestinal blood loss. The patient refuses endoscopic evaluation. History of Present Illness Reason for Consultation: FOB +, anemia Requesting Physician: Jonah Tate MD Attending Physician: Jonah Tate MD History of Present Illness Patient is a 69 year old female with a past medical history including stage IV uterine cancer, hypothyroidism, metastatic cancer, hyperlipidemia, diabetes mellitus, CAD, and hypertension who presented to the ED on 07/07 with complaints of nausea and vomiting. She was admitted with sepsis secondary to UTI. She had a drop in her hgb on 07/10 which was 6.4. she was ordered 1 unit of PRBC and hgb improved to 9.3. stools tested hemoccult positive. GI was consulted for an opinion on this. Patient tells me that she is not seeing any overt GI bleeding. no brbpr or melena noted. she denies any current issue with nausea, vomiting, abdominal pain, heartburn. she tells me she had a colonoscopy done last in 2010 with diverticulosis. she tells me that she is not interested in any endoscopic evaluation at this time. Allergies Allergy/AdvReac Type Severity Reaction Status Date / Time levofloxacin Allergy Intermediate Chest Verified 06/19/24 08:49 tightness, rash Bactrim AdvReac Intermediate GI Verified 03/15/18 11:06 UPSET,HEADACHE clarithromycin AdvReac Intermediate GI upset Verified 06/19/24 08:49 famotidine AdvReac Intermediate Chest Pain Verified 06/19/24 08:49 levothyroxine sodium AdvReac Intermediate Dizziness, Verified 06/19/24 08:49 headache, nausea and vomiting lisinopril AdvReac Intermediate Cough Verified 06/19/24 08:49 sulfamethoxazole AdvReac Intermediate GI upset, Verified 06/19/24 08:49 headache trimethoprim AdvReac Intermediate GI upset, Verified 06/19/24 08:49 headache Home Medications Medication Instructions Recorded Confirmed Type folic acid 1 mg tablet 1 mg PO QAM 12/31/18 06/21/24 History pyridoxine (vitamin B6) 250 mg 250 mg PO QAM 12/31/18 06/21/24 History tablet (Vitamin B-6) aspirin 81 mg tablet,delayed 81 mg PO QAM 06/17/19 06/21/24 History release (Adult Low Dose Aspirin) nitroglycerin 0.4 mg sublingual 0.4 mg sublingual Q5M PRN chest 04/07/20 06/21/24 Rx tablet pain #30 tabs cholecalciferol (vitamin D3) 50 50 mcg PO QAM 03/10/21 06/21/24 History mcg (2,000 unit) capsule miscellaneous medical supply #1 ea 10/27/21 06/19/24 Rx (Blood Pressure Cuff) ezetimibe 10 mg tablet (Zetia) 10 mg PO QAM 06/08/23 06/21/24 History carvedilol 6.25 mg tablet 6.25 mg PO BID 02/06/24 06/21/24 History clopidogrel 75 mg tablet (Plavix) 75 mg PO QAM 02/06/24 06/21/24 History isosorbide mononitrate 30 mg 30 mg PO BID 02/06/24 06/21/24 History tablet,extended release 24 hr pantoprazole 40 mg tablet,delayed 40 mg PO QAM 02/06/24 06/21/24 History release (Protonix) metformin 500 mg tablet 500 mg PO BID #90 tabs 02/28/24 06/21/24 Rx losartan 100 mg tablet 100 mg PO QAM #90 tabs 03/03/24 06/21/24 Rx atorvastatin 80 mg tablet 80 mg PO QAM #90 tabs 03/10/24 06/21/24 Rx amlodipine 5 mg tablet (Norvasc) 5 mg PO BID 03/11/24 06/21/24 History tamsulosin 0.4 mg capsule (Flomax) 0.4 mg PO HS 03/11/24 06/21/24 History escitalopram oxalate 10 mg tablet 10 mg PO QAM PRN anxiety 03/18/24 06/21/24 History (Lexapro) phenytoin sodium extended 100 mg 100 mg PO TID 03/18/24 06/21/24 History capsule (Dilantin Extended) levothyroxine 50 mcg tablet 50 mcg PO QAM #90 tabs 04/08/24 06/21/24 Rx (Synthroid) Carboplatin #1 ea 05/20/24 06/19/24 Rx Fosaprepitant #1 ea 05/20/24 06/19/24 Rx Paclitaxel #1 ea 05/20/24 06/19/24 Rx Palonsetron #1 ea 05/20/24 06/19/24 Rx Pembrolizumab #1 ea 05/20/24 06/19/24 Rx dexamethasone 4 mg tablet 20 mg PO DIRECTED 05/20/24 06/21/24 History olanzapine 2.5 mg tablet 2.5 mg PO DAILY PRN n/v 05/20/24 06/21/24 History prochlorperazine maleate 10 mg 10 mg PO DAILY PRN n/v 05/20/24 06/21/24 History tablet Patient History Medical History Pulmonary nodule Retroperitoneal lymphadenopathy Ovarian cancer per pt, "I have cancer in my ovaries and then they need to check to see if it spread anywhere." States she is to have a D&C at [facility] on 03/21 to "clean out all the scar tissue.". Surgery is planned as an OP and pt. cannot recall who the surgeon is. LBBB (left bundle branch block) Chronic Hyperlipidemia Multiple pulmonary nodules determined by computed tomography of lung CAD (coronary artery disease) Stents x2 (2019) Depression with anxiety Seizure disorder Most recent seizure No issues since DM type 2 (diabetes mellitus, type 2) Hypertension Stroke ~, no residual issues Taking Plavix Abnormal CT scan, gastrointestinal tract No further Intervention, seen by General Surgery Non-ST elevation (NSTEMI) myocardial infarction 07/2019 > 2 stents Follows with [facility] Primary hypercoagulable state Fatty liver History of cerebral artery occlusion CVA ~ 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 Diverticular disease Chronic headache GERD (gastroesophageal reflux disease) Surgical History S/P cystoscopy with ureteral stent placement (01/2024) Presence of stent in LAD coronary artery 2020 > stents x2 Hx of right cataract extraction 01/21/19: was given 3mg of IV versed History of esophagogastroduodenoscopy (EGD) History of colonoscopy History of cholecystectomy History of x3 Family History Mother Family history of diabetes mellitus Acute myocardial infarction Heart disease Daughter Family history of diabetes mellitus Son Family history of diabetes mellitus Brother Cirrhosis of liver Father Acute myocardial infarction Prostate cancer Aunt Breast cancer Ovarian carcinoma Social History Smoking Status: Never smoker Tobacco Type: Cigarettes Age Started Using Tobacco: 14; Age Quit Using Tobacco: 33; packs per day: 2; Second Hand Exposure: Yes (as a child); Do You Dip or Chew Tobacco: No; Hx Alcohol Use: No Hx Substance Use: No Preferred Language: Greek Communication Ability: Effective Women'S Soccer Coach Required: No Beliefs That Will Affect Care: None Current Living Situation: Family Current Living Situation Comment: Lives with 2 sons Feels Safe at Home: Yes caffeine: Yes Dental Care, Regularly: No Physical Activity Frequency: Does not Exercise Seatbelt Use: always Sunscreen Use: No Assistive Devices: None Review of Systems Review of Systems: All systems reviewed & are unremarkable except as noted in HPI & below Physical Exam Constitutional: WD/WN, vitals as above Respiratory: normal respiratory effort, lungs clear to auscultation Cardiovascular: Rate/Rhythm: regular rate and regular rhythm Gastrointestinal (Abdomen): normal bowel sounds, soft, nontender, no hepatosplenomegaly Psychiatric: Orientation: alert and oriented x 3 Results & Data Vital Signs (Past 12 Hours) Vital Signs Temp Pulse Pulse Pulse Resp BP BP 07/11/24 09:20 97.9 F 79 16 124/76 07/11/24 08:52 97.3 F L 81 16 100/58 L 07/11/24 08:20 97.5 F L 81 14 138/79 07/11/24 08:05 97.7 F 80 16 140/74 07/11/24 07:55 79 16 136/80 07/11/24 07:46 98.6 F 85 13 125/75 07/11/24 05:51 97.5 F L 89 16 151/79 H Pulse Ox O2 Del Method O2 Flow Rate 07/11/24 09:20 97 Room Air 07/11/24 08:52 97 Room Air 07/11/24 08:20 95 Room Air 07/11/24 08:05 97 Room Air 07/11/24 07:55 100 Oxymask 6 07/11/24 07:46 100 Oxymask 10 07/11/24 05:51 95 Room Air Coding Level of Care Code 93632 INT INP/OBS CARE MIN Diagnoses Anemia D64.89 Anemia type: other cause Other causes of anemia: other cause, not classified Heme positive stool R19.5 (1) Anemia Anemia type: other cause Other causes of anemia: other cause, not classified Qualified Code(s): D64.89 - Other specified anemias
[2024-07-11 10:21] LABS: Hematocrit (blood only) 27.7 % (37.0-47.0); Hemoglobin 8.9 g/dl (12.0-16.0); Mean Corpuscular Hemoglobin 31.1 pg (25.0-34.0); Mean Corpuscular Hgb Conc 32.1 g/dL (32.0-36.0); Mean Corpuscular Volume 96.9 fL (80.0-100.0); Mean Platelet Volume 10.2 fL (9.4-12.4); Platelet Count 45 K/uL (130-400); RDW Coefficient of Variation 19.1 % (11.5-14.5); RDW Standard Deviation 66.2 fL (36.4-46.3); Red Blood Count 2.86 M/uL (4.20-5.40); White Blood Count 11.72 K/ul (4.8-10.8)
[2024-07-11 10:39] LABS: Basophils # (auto) 0.02 K/uL (0.00-0.20); Basophils % (auto) 0.2 %; Immature Granulocytes # (auto) 0.12 K/uL (0.01-0.20); Lymphocytes # (auto) 0.86 K/uL (1.20-3.40); Lymphocytes % (auto) 7.3 %; Monocytes # (auto) 0.26 K/uL (0.11-0.59); Monocytes % (auto) 2.2 %; Neutrophils # (auto) 10.46 K/uL (1.40-6.50); Neutrophils % (auto) 89.3 %; Platelet Estimate Decreased (Normal); Polychromasia 1+; Toxic Granulation 1+
[2024-07-11 10:40] LABS: BUN Creatinine Ratio 17.9 (10-20); Calcium 7.9 mg/dl (8.6-10.3); Creatinine Clr Calc Pharmacy 17.7 ml/min; Potassium 3.3 mmol/L (3.5-5.1)
[2024-07-11] MEDS ORDERED: GLUCOSE 10 TAB/TUBE PO PRN (10:59)
[2024-07-11] MEDS ORDERED: DEXTROSE 50% 50 ML SYRINGE IV PRN (10:59)
[2024-07-11] MEDS ORDERED: GLUCOSE 40% GEL 15 GM TUBE PO PRN (10:59)
[2024-07-11] MEDS ORDERED: CARBOHYDRATES FOR HYPOGLYCEMIA PO PRN (10:59)
--- NOTE | 2024-07-11 12:05 | Hospitalist Progress Note ---
Date of Service July 11, 2024 Assessment & Plan (1) Sepsis due to urinary tract infection: Plan: Zosyn has been switched to Rocephin, day 5 of antibiotic therapy. E. coli isolated in the urine. Vancomycin has been discontinued. Blood cultures remain negative. Urology consultation and recommendations appreciated. She underwent right ureter stent exchange today, July 11. (2) Acute kidney injury superimposed on CKD: Plan: Improved from admission. Creatinine has improved to 1.9 now. Baseline appears to be around 1.4-1.5. Monitor intake and output. Serial labs (3) Uterine cancer: Plan: Stage IV. Supportive care. Oncology consultation requested and pending (4) Infection and inflammatory reaction due to indwelling ureteral stent, sequela: Plan: E. coli isolated in the urine. Zosyn has been switched to intravenous Rocephin. Antibiotic day 5. Vancomycin has been discontinued. Appreciate urology consultation and recommendations. Right ureter stent was exchanged today, July 11 (5) Steroid dependence: Plan: Her daughter states that she is not prednisone dependent. Parenteral steroid therapy discontinued. (6) Hypokalemia: Plan: Potassium is still somewhat low. Schedule oral replacement ordered. Serial labs (7) Essential hypertension: Plan: Amlodipine, carvedilol, losartan held on admission. Coreg restarted on July 09 (8) Occult blood in stools: Plan: She has been seen by gastroenterology. She will consider outpatient evaluation. No overt melena or hematochezia. (9) Acute blood loss anemia: Plan: She was transfused for hemoglobin of 6.4. Hemoglobin then improved to 9.3 maximum and is now 8.9. Will follow. She received 1 unit packed red blood cells to date. Iron level earlier this admission was normal. (10) Thrombocytopenia: Plan: Platelet count is down to 45,000. She is not on any anticoagulants or antiplatelet agents. Will follow. No overt melena or hematochezia. Plan Hopeful discharge to home tomorrow, July 12. She will need frequent lab follow-up Admission and Anticipated Discharge Date Admission Date: July 07, 2024 Subjective Alert and oriented. She already underwent exchange of the right ureter stent earlier this morning, July 11. She remains on intravenous Rocephin for the E. coli previously isolated. Hemoglobin has improved to 9.3 after blood transfusion. Fecal occult blood is positive but no overt melena or hematochezia. She has been seen by gastroenterology and will consider outpatient evaluation. Iron level earlier this admission was normal. Platelet count has decreased further to 45,000. She is not on any antiplatelet agents. Will follow. Review of Systems 2 Review of Systems: Constitutionalno fever or chills ENTno blurred vision, no double vision, no epistaxis, no sore throat Respiratoryno cough, no wheezing, no shortness of breath Cardiacno palpitations, no chest pain, no syncope GIrecent loss of appetite but no nausea or vomiting. She denies diarrhea, melena, hematochezia GUno urinary retention, no urinary incontinence, no dysuria, no hematuria Musculoskeletalno joint pain, no muscle tenderness Skinno bruising, no rashes, no pruritus Neurono isolated weakness, no paresthesia, no weakness Psychno depression, no anxiety Physical Exam 2 Physical Exam: General-alert and oriented x3, no fever, no chills HEENT-head atraumatic and normocephalic, pupils equal and reactive to light, extraocular muscles intact Neck-no lymphadenopathy or thyromegaly, trachea midline Chest-clear to auscultation. No rales, wheezing or rhonchi Cardiac-regular rate and rhythm, normal S1 and S2 Abdomen-normal bowel sounds, no hepatosplenomegaly Extremities-no cyanosis, clubbing, or edema Neuro-cranial nerves II through XII intact, motor and sensory function within normal limits, strength symmetrical, no focal deficits Psych-normal affect, normal mood Results & Data Results & Data Vital Signs (Past 12 Hours) Vital Signs Temp Pulse Pulse Pulse Resp BP BP 07/11/24 11:24 36.4 C L 74 16 131/83 07/11/24 10:22 36.7 C 80 17 121/77 07/11/24 09:20 36.6 C 79 16 124/76 07/11/24 08:52 36.3 C L 81 16 100/58 L 07/11/24 08:20 36.4 C L 81 14 138/79 07/11/24 08:05 36.5 C 80 16 140/74 07/11/24 07:55 79 16 136/80 07/11/24 07:46 37.0 C 85 13 125/75 07/11/24 05:51 36.4 C L 89 16 151/79 H Pulse Ox O2 Del Method O2 Flow Rate 07/11/24 11:24 96 Room Air 07/11/24 10:22 97 Room Air 07/11/24 09:20 97 Room Air 07/11/24 08:52 97 Room Air 07/11/24 08:20 95 Room Air 07/11/24 08:05 97 Room Air 07/11/24 07:55 100 Oxymask 6 07/11/24 07:46 100 Oxymask 10 07/11/24 05:51 95 Room Air Laboratory Results 07/11/24 10:01 07/11/24 10:01 PG Care Time/CCT Total # of Minutes Spent Total Time Spent with Patient: Total time spent is greater than 50% in coordination of care (as documented) at patient's floor/unit and/or counseling patient: Coding Level of Care Code 66919 SUB INP/OBS CARE 3/50MIN Diagnoses Sepsis due to urinary tract infection A41.9; N39.0 Acute kidney injury superimposed on CKD N17.9; N18.9 Uterine cancer C55 Infection and inflammatory reaction due to indwelling ureteral stent, sequela T83.592S Steroid dependence F19.20 Hypokalemia E87.6 Essential hypertension I10 Occult blood in stools R19.5 Acute blood loss anemia D62 Thrombocytopenia D69.6
[2024-07-11] MEDS: POTASSIUM CHLORIDE CRTAB 20 MEQ TABCR PO SCH (12:34)
--- NOTE | 2024-07-11 12:45 | Anesthesiology Progress Note ---
Date of Service July 11, 2024 Anesthesia Post Procedure Vital Signs Vital Signs: Temp Pulse Pulse Pulse Resp BP BP 07/11/24 11:24 36.4 C L 74 16 131/83 07/11/24 10:22 36.7 C 80 17 121/77 07/11/24 09:20 36.6 C 79 16 124/76 07/11/24 08:52 36.3 C L 81 16 100/58 L 07/11/24 08:20 36.4 C L 81 14 138/79 07/11/24 08:05 36.5 C 80 16 140/74 07/11/24 07:55 79 16 136/80 07/11/24 07:46 37.0 C 85 13 125/75 07/11/24 05:51 36.4 C L 89 16 151/79 H 07/10/24 20:10 07/10/24 19:32 36.4 C 81 18 106/64 07/10/24 17:25 85 16 119/71 07/10/24 13:54 36.8 C 83 18 116/78 Pulse Ox O2 Del Method O2 Flow Rate 07/11/24 11:24 96 Room Air 07/11/24 10:22 97 Room Air 07/11/24 09:20 97 Room Air 07/11/24 08:52 97 Room Air 07/11/24 08:20 95 Room Air 07/11/24 08:05 97 Room Air 07/11/24 07:55 100 Oxymask 6 07/11/24 07:46 100 Oxymask 10 07/11/24 05:51 95 Room Air 07/10/24 20:10 Room Air 07/10/24 19:32 97 Room Air 07/10/24 17:25 96 Room Air 07/10/24 13:54 96 Room Air Transfer of Care Handoff Completed per policy Notes Mental Status: alert / awake / arousable and participated in evaluation Nausea / Vomiting: adequately controlled Pain: adequately controlled Airway Patency, RR, SpO2: stable & adequate BP & HR: stable & adequate Hydration State: stable & adequate Anesthetic Complications: no major complications apparent and Pt Satisfied with anesthetic care
[2024-07-12 07:27] LABS: Basophils # (auto) 0.01 K/uL (0.00-0.20); Basophils % (auto) 0.1 %; Eosinophils # (auto) 0.02 K/uL (0.00-0.50); Eosinophils % (auto) 0.2 %; Hematocrit (blood only) 24.6 % (37.0-47.0); Hemoglobin 8.3 g/dl (12.0-16.0); Immature Granulocytes # (auto) 0.07 K/uL (0.01-0.20); Immature Granulocytes % (auto) 0.9 %; Lymphocytes # (auto) 0.89 K/uL (1.20-3.40); Lymphocytes % (auto) 10.8 %; Mean Corpuscular Hemoglobin 31.9 pg (25.0-34.0); Mean Corpuscular Hgb Conc 33.7 g/dL (32.0-36.0); Mean Corpuscular Volume 94.6 fL (80.0-100.0); Mean Platelet Volume 10.6 fL (9.4-12.4); Monocytes # (auto) 0.32 K/uL (0.11-0.59); Monocytes % (auto) 3.9 %; Neutrophils # (auto) 6.92 K/uL (1.40-6.50); Neutrophils % (auto) 84.1 %; Platelet Count 31 K/uL (130-400); RDW Coefficient of Variation 18.9 % (11.5-14.5); RDW Standard Deviation 63.5 fL (36.4-46.3); White Blood Count 8.23 K/ul (4.8-10.8)
[2024-07-12 07:57] LABS: BUN Creatinine Ratio 16.9 (10-20); Calcium 8.2 mg/dl (8.6-10.3); Creatinine Clr Calc Pharmacy 22.8 ml/min; Potassium 3.8 mmol/L (3.5-5.1)
[2024-07-12] MEDS: amLODIPine BESYLATE 5 MG TAB PO SCH (11:25)
--- NOTE | 2024-07-12 12:10 | Hospitalist Progress Note ---
Date of Service July 12, 2024 Assessment & Plan (1) Sepsis due to urinary tract infection: Plan: Zosyn has been switched to Rocephin, day 6 of antibiotic therapy. E. coli isolated in the urine. Vancomycin has been discontinued. Blood cultures remain negative. Urology consultation and recommendations appreciated. She underwent right ureter stent exchange on July 11. (2) Acute kidney injury superimposed on CKD: Plan: Present on admission. Now resolved with fluid resuscitation. Creatinine is down to 1.4 which is her baseline. Monitor intake and output. Serial labs (3) Uterine cancer: Plan: Stage IV. Supportive care. (4) Infection and inflammatory reaction due to indwelling ureteral stent, sequela: Plan: E. coli isolated in the urine. Zosyn has been switched to intravenous Rocephin. Antibiotic day 6. Vancomycin has been discontinued. Appreciate urology consultation and recommendations. Right ureter stent was exchanged on July 11 (5) Steroid dependence: Plan: Her daughter states that she is not prednisone dependent. Parenteral steroid therapy discontinued. (6) Hypokalemia: Plan: Corrected with intravenous and oral replacement. Serial labs (7) Essential hypertension: Plan: Amlodipine, carvedilol, losartan held on admission. Coreg restarted on July 09. Amlodipine restarted today, July 12 (8) Occult blood in stools: Plan: She has been seen by gastroenterology. She will consider outpatient evaluation. No overt melena or hematochezia. (9) Acute blood loss anemia: Plan: She was transfused for hemoglobin of 6.4. Hemoglobin then improved to 9.3 maximum and is drifting down again, now 8.3. No overt melena or hematochezia. Will follow. She received 1 unit packed red blood cells to date. Iron level earlier this admission was normal. (10) Thrombocytopenia: Plan: Platelet count has fallen further. Now 31,000. She is not on any anticoagulants or antiplatelet agents. Will follow. No overt melena or hematochezia. Plan Hopeful discharge to home when platelet count stabilizes. She will need frequent lab follow-up Admission and Anticipated Discharge Date Admission Date: July 07, 2024 Subjective Alert and oriented. No distress. She becomes tearful however when told she will not be discharged today because her platelet count has fallen to 31,000. Amlodipine 5 mg once a day started since her blood pressure is rising. Losartan remains on hold. Hemoglobin improved to 9.3 after 1 unit of packed red blood cells given and is now trending downward to 8.3. No overt GI bleeding. No melena or hematochezia seen although known fecal occult blood positive. GI consultation appreciated. The patient will pursue outpatient evaluation if desired. Platelet count is down to 31,000. Potassium corrected to 3.8. Creatinine corrected to 1.4. Right ureter stent change completed yesterday, July 11. Review of Systems 2 Review of Systems: Constitutionalno fever or chills ENTno blurred vision, no double vision, no epistaxis, no sore throat Respiratoryno cough, no wheezing, no shortness of breath Cardiacno palpitations, no chest pain, no syncope GIrecent loss of appetite but no nausea or vomiting. She denies diarrhea, melena, hematochezia GUno urinary retention, no urinary incontinence, no dysuria, no hematuria Musculoskeletalno joint pain, no muscle tenderness Skinno bruising, no rashes, no pruritus Neurono isolated weakness, no paresthesia, no weakness Psychno depression, no anxiety Physical Exam 2 Physical Exam: General-alert and oriented x3, no fever, no chills HEENT-head atraumatic and normocephalic, pupils equal and reactive to light, extraocular muscles intact Neck-no lymphadenopathy or thyromegaly, trachea midline Chest-clear to auscultation. No rales, wheezing or rhonchi Cardiac-regular rate and rhythm, normal S1 and S2 Abdomen-normal bowel sounds, no hepatosplenomegaly Extremities-no cyanosis, clubbing, or edema Neuro-cranial nerves II through XII intact, motor and sensory function within normal limits, strength symmetrical, no focal deficits Psych-normal affect, normal mood Results & Data Results & Data Vital Signs (Past 12 Hours) Vital Signs Temp Pulse Resp BP Pulse Ox O2 Del Method 07/12/24 11:20 78 137/79 07/12/24 09:00 Room Air 07/12/24 07:11 36.4 C L 74 16 144/81 H 95 Room Air 07/12/24 03:05 36.3 C L 82 14 133/76 96 Room Air Laboratory Results 07/12/24 07:13 07/12/24 07:13 PG Care Time/CCT Total # of Minutes Spent Total Time Spent with Patient: Total time spent is greater than 50% in coordination of care (as documented) at patient's floor/unit and/or counseling patient: Coding Level of Care Code 49582 SUB INP/OBS CARE 3/50MIN Diagnoses Sepsis due to urinary tract infection A41.9; N39.0 Acute kidney injury superimposed on CKD N17.9; N18.9 Uterine cancer C55 Infection and inflammatory reaction due to indwelling ureteral stent, sequela T83.592S Steroid dependence F19.20 Hypokalemia E87.6 Essential hypertension I10 Occult blood in stools R19.5 Acute blood loss anemia D62 Thrombocytopenia D69.6
[2024-07-13 08:05] LABS: Basophils # (auto) 0.01 K/uL (0.00-0.20); Basophils % (auto) 0.2 %; Eosinophils # (auto) 0.03 K/uL (0.00-0.50); Eosinophils % (auto) 0.5 %; Hematocrit (blood only) 26.4 % (37.0-47.0); Immature Granulocytes # (auto) 0.05 K/uL (0.01-0.20); Immature Granulocytes % (auto) 0.8 %; Lymphocytes # (auto) 0.89 K/uL (1.20-3.40); Lymphocytes % (auto) 13.6 %; Mean Corpuscular Hemoglobin 32.5 pg (25.0-34.0); Mean Corpuscular Hgb Conc 34.1 g/dL (32.0-36.0); Mean Corpuscular Volume 95.3 fL (80.0-100.0); Mean Platelet Volume 11.5 fL (9.4-12.4); Monocytes # (auto) 0.38 K/uL (0.11-0.59); Monocytes % (auto) 5.8 %; Neutrophils # (auto) 5.19 K/uL (1.40-6.50); Neutrophils % (auto) 79.1 %; Platelet Count 32 K/uL (130-400); RDW Coefficient of Variation 18.7 % (11.5-14.5); RDW Standard Deviation 63.8 fL (36.4-46.3); Red Blood Count 2.77 M/uL (4.20-5.40); White Blood Count 6.55 K/ul (4.8-10.8)
[2024-07-13 08:20] LABS: BUN Creatinine Ratio 16.9 (10-20); Calcium 8.6 mg/dl (8.6-10.3); Creatinine Clr Calc Pharmacy 27.2 ml/min; Potassium 4.2 mmol/L (3.5-5.1)
--- NOTE | 2024-07-13 15:07 | Hospitalist Progress Note ---
Date of Service July 13, 2024 Assessment & Plan (1) Sepsis due to urinary tract infection: Plan: Zosyn has been switched to Rocephin, day 7 of antibiotic therapy. E. coli isolated in the urine. Vancomycin has been discontinued. Blood cultures remain negative. Urology consultation and recommendations appreciated. She underwent right ureter stent exchange on July 11. (2) Acute kidney injury superimposed on CKD: Plan: Present on admission. Now resolved with fluid resuscitation. Creatinine is down to 1.2 which is her baseline. Monitor intake and output. Serial labs (3) Uterine cancer: Plan: Stage IV. Supportive care. (4) Infection and inflammatory reaction due to indwelling ureteral stent, sequela: Plan: E. coli isolated in the urine. Zosyn has been switched to intravenous Rocephin. Antibiotic day 7. Vancomycin has been discontinued. Appreciate urology consultation and recommendations. Right ureter stent was exchanged on July 11 (5) Steroid dependence: Plan: Her daughter states that she is not prednisone dependent. Parenteral steroid therapy has been discontinued. (6) Hypokalemia: Plan: Corrected with intravenous and oral replacement. Serial labs (7) Essential hypertension: Plan: Amlodipine, carvedilol, losartan held on admission. Coreg restarted on July 09. Amlodipine restarted on July 12. She might not need losartan at all (8) Occult blood in stools: Plan: She has been seen by gastroenterology. She will consider outpatient evaluation. No overt melena or hematochezia. (9) Acute blood loss anemia: Plan: She was transfused for hemoglobin of 6.4. Hemoglobin then improved to 9.3 maximum and then drifted down to 8.3 but hemoglobin 9.0 todayJuly 13 No overt melena or hematochezia. Will follow. She received 1 unit packed red blood cells to date. Iron level earlier this admission was normal. (10) Thrombocytopenia: Plan: Platelet count has fallen to 31,000 and its low point yesterday, July 12. Platelet count 32,000 todayJuly 13. No overt bleeding. Serial labs daily. She is not on any anticoagulants or antiplatelet agents. Plan Hopeful discharge to home tomorrow, July 14, if labs are stable. She will need frequent lab follow-up. She was given a prescription for outpatient lab studies to be done twice weekly until further notice Admission and Anticipated Discharge Date Admission Date: July 07, 2024 Subjective Alert and oriented. No new problems. Platelet count essentially unchanged from yesterday at 32,000. Potassium now normal at 4.2. Creatinine normalized at 1.2. Hemoglobin increased to 9.3 after 1 unit packed red blood cells. Hemoglobin 8.3 yesterday then 9.0 again today. She is on intravenous Rocephin for the E. coli isolated in the urine, antibiotic day #7 Urology exchanged the right ureter stent on July 11. Blood pressure is better since amlodipine restarted yesterday, July 12. Review of Systems 2 Review of Systems: Constitutionalno fever or chills ENTno blurred vision, no double vision, no epistaxis, no sore throat Respiratoryno cough, no wheezing, no shortness of breath Cardiacno palpitations, no chest pain, no syncope GIrecent loss of appetite but no nausea or vomiting. She denies diarrhea, melena, hematochezia GUno urinary retention, no urinary incontinence, no dysuria, no hematuria Musculoskeletalno joint pain, no muscle tenderness Skinno bruising, no rashes, no pruritus Neurono isolated weakness, no paresthesia, no weakness Psychno depression, no anxiety Physical Exam 2 Physical Exam: General-alert and oriented x3, no fever, no chills HEENT-head atraumatic and normocephalic, pupils equal and reactive to light, extraocular muscles intact Neck-no lymphadenopathy or thyromegaly, trachea midline Chest-clear to auscultation. No rales, wheezing or rhonchi Cardiac-regular rate and rhythm, normal S1 and S2 Abdomen-normal bowel sounds, no hepatosplenomegaly Extremities-no cyanosis, clubbing, or edema Neuro-cranial nerves II through XII intact, motor and sensory function within normal limits, strength symmetrical, no focal deficits Psych-normal affect, normal mood Results & Data Results & Data Vital Signs (Past 12 Hours) Vital Signs Temp Pulse Resp BP Pulse Ox O2 Del Method 07/13/24 14:11 36.8 C 79 17 139/77 98 Room Air 07/13/24 08:05 Room Air Laboratory Results 07/13/24 07:27 07/13/24 07:27 PG Care Time/CCT Total # of Minutes Spent Total Time Spent with Patient: Total time spent is greater than 50% in coordination of care (as documented) at patient's floor/unit and/or counseling patient: Coding Level of Care Code 19125 SUB INP/OBS CARE MIN Diagnoses Sepsis due to urinary tract infection A41.9; N39.0 Acute kidney injury superimposed on CKD N17.9; N18.9 Uterine cancer C55 Infection and inflammatory reaction due to indwelling ureteral stent, sequela T83.592S Steroid dependence F19.20 Hypokalemia E87.6 Essential hypertension I10 Occult blood in stools R19.5 Acute blood loss anemia D62 Thrombocytopenia D69.6
[2024-07-14 07:46] LABS: Hematocrit (blood only) 28.2 % (37.0-47.0); Hemoglobin 9.5 g/dl (12.0-16.0); Mean Corpuscular Hemoglobin 31.8 pg (25.0-34.0); Mean Corpuscular Hgb Conc 33.7 g/dL (32.0-36.0); Mean Corpuscular Volume 94.3 fL (80.0-100.0); Mean Platelet Volume 11.2 fL (9.4-12.4); Platelet Count 24 K/uL (130-400); RDW Coefficient of Variation 18.4 % (11.5-14.5); RDW Standard Deviation 62.4 fL (36.4-46.3); Red Blood Count 2.99 M/uL (4.20-5.40); White Blood Count 6.21 K/ul (4.8-10.8)
[2024-07-14] MEDS ORDERED: SODIUM CHLORIDE 0.9% 100 ML IV PRN (07:55)
[2024-07-14] MEDS ORDERED: SODIUM CHLORIDE 0.9% 50 ML IV PRN (07:55)
[2024-07-14 07:58] LABS: BUN Creatinine Ratio 17.1 (10-20); Calcium 8.6 mg/dl (8.6-10.3); Creatinine Clr Calc Pharmacy 28.8 ml/min; Potassium 4.4 mmol/L (3.5-5.1)
[2024-07-14 08:05] LABS: Basophils # (auto) 0.02 K/uL (0.00-0.20); Basophils % (auto) 0.3 %; Eosinophils # (auto) 0.05 K/uL (0.00-0.50); Eosinophils % (auto) 0.8 %; Immature Granulocytes # (auto) 0.03 K/uL (0.01-0.20); Immature Granulocytes % (auto) 0.5 %; Lymphocytes # (auto) 1.09 K/uL (1.20-3.40); Lymphocytes % (auto) 17.6 %; Monocytes # (auto) 0.49 K/uL (0.11-0.59); Monocytes % (auto) 7.9 %; Neutrophils # (auto) 4.53 K/uL (1.40-6.50); Neutrophils % (auto) 72.9 %; Polychromasia 1+
[2024-07-14 08:54] VITALS: RESP 16; TEMP 97.9
[2024-07-14 10:53] VITALS: BP 122/73; PULSE 94; O2SAT 94
--- NOTE | 2024-07-14 11:03 | Urology Progress Note ---
Date of Service July 14, 2024 Assessment & Plan (1) Ureteral stent present: (2) Sepsis due to urinary tract infection: Plan: - Pt POD#3 s/p cystoscopy and right ureteral stent exchange - Afebrile, lab work reviewed - creatinine 1.17, WBC 6.21, Hgb 9.5, Plt 24 - Urine culture with E. coli, pansensitive - Blood cultures no growth to date - Recommend complete appropriate course of antibiotics for complicated UTI - Tolerating right ureteral stent with minimal bother - Okay to d/c from perspective when medically stable - Expected clinical course reviewed, all questions answered - We discussed need to exchange ureteral stent at regular intervals - Will arrange outpatient follow-up with our service to set up next exchange - will sign off, recall as needed Admission and Anticipated Discharge Date Admission Date: July 07, 2024 Subjective Patient seen and examined at bedside this morning. She is awake and sitting up in bed. She denies flank discomfort. No fever, chills, nausea or vomiting. Voiding spontaneously without difficulty. She is currently receiving platelets. Review of Systems Constitutional: as per Subjective / HPI Genitourinary: as per Subjective / HPI Physical Exam Constitutional: no acute distress Respiratory: normal respiratory effort; no respiratory distress and no labored breathing Gastrointestinal (Abdomen): Inspection/Auscultation: abdomen normal to inspection Musculoskeletal: Head/Neck/Chest: normocephalic Neurologic: moves all extremities and awake Psychiatric: Orientation: alert and oriented x 3 Results & Data Vital Signs (Past 12 Hours) Vital Signs Temp Pulse Pulse Resp BP BP Pulse Ox 07/14/24 10:52 36.6 C 94 H 16 122/73 94 07/14/24 09:54 36.6 C 92 H 16 129/77 96 07/14/24 09:24 36.6 C 90 16 132/79 96 07/14/24 09:09 36.6 C 90 16 144/81 H 97 07/14/24 08:50 36.6 C 92 H 16 124/78 96 07/14/24 05:55 88 18 147/82 H 95 O2 Del Method 07/14/24 10:52 07/14/24 09:54 07/14/24 09:24 07/14/24 09:09 07/14/24 08:50 07/14/24 05:55 Room Air PG Care Time/CCT Total # of Minutes Spent Total Time Spent with Patient: Total time spent is greater than 50% in coordination of care (as documented) at patient's floor/unit and/or counseling patient: Coding Level of Care Code 40674 SUB INP/OBS CARE 08/23MIN Diagnoses Ureteral stent present Z96.0 Sepsis due to urinary tract infection A41.9; N39.0
--- NOTE | 2024-07-14 12:07 | Discharge Summary ---
Date of Service July 14, 2024 Admission HPI Per Admitting Provider The patient is a 69-year-old female with a past medical history including stage IV uterine cancer, hypothyroidism, metastatic cancer, hyperlipidemia, diabetes mellitus, CAD, and hypertension. She presents to the emergency department with symptoms of nausea and vomiting earlier this afternoon after a small meal. As noted above, there was a question about blurred vision in the right eye, which she denies at this time. Nausea and vomiting has since resolved as well, and may have been due to eating a grilled cheese sandwich which she would try to settle her stomach, followed by isabela. Admission Exam (Per Admitting) Constitutional The patient is awake, alert and oriented 3, chronically ill looking, normocephalic and atraumatic, lying in bed and in no acute distress. HEENT--PERRL, EOMI, mucous membranes and oropharynx mildly dry Neck--supple. No JVD. No bruits. Thyroid normal, trachea midline, no adenopathy. Heart--normal S1 and S2. No murmurs, rubs or gallops. Lungs--clear bilaterally, no respiratory distress, no accessory muscle use. Abdomen--normal bowel sounds and soft. Extremities--no cyanosis or clubbing. No edema. Dermatologic--normal skin turgor, normal color, no abnormal lymph nodes, no rash. Neurologic--cranial nerves II through XII grossly intact. Rheumatologic--normal range of motion. Psychiatric--normal affect. Discharge Data Consultations 07/07/24 23:06 Consult Urology Routine 07/07/24 23:27 Consult Hematology Routine 07/07/24 23:28 ED Decision to Admit Stat 07/10/24 11:34 Consult Hematology Routine 07/11/24 09:17 Consult Gastroenterology Routine Procedures Performed Operation Date: 07/11/24 07:00 Actual Procedures p Cystoscopy, Right:Retrograde Pyelogram, Stent Exchange(Right) - Gio Hooper MD Hospital Course (1) Sepsis due to urinary tract infection: Zosyn has been switched to Rocephin, day 8 of antibiotic therapy. E. coli isolated in the urine, pansensitive. Vancomycin has been discontinued. Blood cultures remain negative. Urology consultation and recommendations appreciated. She underwent right ureter stent exchange on July 11. Discharge home on PO Cipro for 5 more days (2) Acute kidney injury superimposed on CKD: Present on admission. Now resolved with fluid resuscitation. Creatinine is d own to 1.2 which is her baseline. Monitor intake and output. Serial labs (3) Uterine cancer: Stage IV. Supportive care. (4) Infection and inflammatory reaction due to indwelling ureteral stent, sequela: E. coli isolated in the urine. Zosyn has been switched to intravenous Rocephin. Antibiotic day 7. Vancomycin has been discontinued. Appreciate urology consultation and recommendations. Right ureter stent was exchanged on July 11 (5) Steroid dependence: Her daughter states that she is not prednisone dependent. Parenteral steroid therapy has been discontinued. (6) Hypokalemia: Corrected with intravenous and oral replacement. Serial labs (7) Essential hypertension: Amlodipine, carvedilol, losartan held on admission. Coreg restarted on July 09. Amlodipine restarted on July 12. She might not need losartan at all (8) Occult blood in stools: She has been seen by gastroenterology. She will consider outpatient evaluation. No overt melena or hematochezia. (9) Acute blood loss anemia: She was transfused for hemoglobin of 6.4. Hemoglobin then improved to 9.3 maximum and then drifted down to 8.3 but hemoglobin 9.0 today, July 13 No overt melena or hematochezia. Will follow. She received 1 unit packed red blood cells to date. Iron level earlier this admission was normal. (10) Thrombocytopenia: Platelet count has fallen to 24,000 likely from cancver and sepsis will transfuse 1 unit of platelets Plan d/c home with home health after platelets transfusion Coding Level of Care Code 31676 INP/OBS DISCH >30 MIN Diagnoses Sepsis due to urinary tract infection A41.9; N39.0 Acute kidney injury superimposed on CKD N17.9; N18.9 Uterine cancer C55 Infection and inflammatory reaction due to indwelling ureteral stent, sequela T83.592S Steroid dependence F19.20 Hypokalemia E87.6 Essential hypertension I10 Occult blood in stools R19.5 Acute blood loss anemia D62 Thrombocytopenia D69.6 Time Spent (min) 35
[2024-07-14 13:24] LABS: Hematocrit (blood only) 28.1 % (37.0-47.0); Hemoglobin 9.5 g/dl (12.0-16.0); Mean Corpuscular Hemoglobin 32.2 pg (25.0-34.0); Mean Corpuscular Hgb Conc 33.8 g/dL (32.0-36.0); Mean Corpuscular Volume 95.3 fL (80.0-100.0); Mean Platelet Volume 11.6 fL (9.4-12.4); Platelet Count 28 K/uL (130-400); RDW Coefficient of Variation 18.6 % (11.5-14.5); RDW Standard Deviation 63.1 fL (36.4-46.3); Red Blood Count 2.95 M/uL (4.20-5.40); White Blood Count 8.47 K/ul (4.8-10.8)
== END 2024-07-14 13:25 | disposition home health service (06) | DRG 659 ==
LOC: ED 17:57 → SUATTDRO 23:25 → 2E 23:25 → 3W 07-08 15:58

== ENCOUNTER 2024-10-16 10:18 | Inpatient (IN) ==
--- NOTE | 2024-10-16 10:51 | XRay Report ---
XR chest 1V portable CLINICAL HISTORY: eval left pneumothorax COMPARISON STUDY: 10/13/2024 FINDINGS: There is an interval large left pneumothorax. No pneumothorax on the right. There are trace pleural effusions. Stable chest port. Stable mild cardiomegaly without pulmonary vascular congestion . IMPRESSION: Large left pneumothorax. ACT 112: Negative or not required by law. Electronically signed by: Sunil Gomez M.D. 10/16/2024 10:50 AM
--- NOTE | 2024-10-16 12:07 | History & Physical Report ---
<Statement entered by Ajit Rowe, DO - 10/17/24 07:33> I discussed this case including the plan with the PA and [employer] SUPERVISOR after speaking with the patient multiple times over the phone prior to her hospital presentation and made the arrangements for her to be scheduled with IR for chest tube placement same day. I developed and agree with this plan. Date of Service October 16, 2024 Assessment & Plan (1) Pneumothorax, left: Plan: Patient is a 69-year-old female with a history of uterine cancer undergoing treatment and is s/p left IJ access port with fluoroscopy placement on 10/13/[address] Rowe. The patient post-operatively had a CXR performed which did not reveal any evidence of PTX and she was sent home. The patient had her PET scan done yesterday and at that time was found to have a large left PTX. The patient was instructed to come to the emergency department for further evaluation and treatment. The patient denies increased SOB or CP and she is not in any acute respiratory distress. -The patient will be admitted to the surgical service to med/surg floor. -A consult was placed for IR who will perform CT guided chest tube placement this afternoon. -Will keep patient NPO for now, IV hydration, and pain control -Supplemental O2 to maintain saturations >92% and encourage IS while awake. -Repeat CXR to be obtained tomorrow morning History of Present Illness Chief Complaint: pneumothorax Patient is a 69-year-old female with history of uterine cancer who requires chemotherapy. The patient recently underwent insertion of access port with fluoroscopy in the left IJ on 10/13/2024. The patient post-operatively had a CXR and there were no signs of PTX and patient was sent home. The patient states she has felt fine since the procedure and has no complaints. She underwent PET scan yesterday and was found to have a large left pneumothorax and was instructed to come to the emergency department for further evaluation. The patient was seen and evaluated in the emergency department this morning. She is resting comfortably in bed and is not tachycardic or hypotensive. She is saturating 92-94% on room air and is in no acute respiratory distress.The patient denies any increased shortness or breath or chest pain. Her surgical sites are c/d/i with steri-strips still in place and there are no signs of surrounding infection. Allergies Allergy/AdvReac Type Severity Reaction Status Date / Time levofloxacin Allergy Intermediate Chest Verified 10/13/24 11:02 tightness, rash Bactrim AdvReac Intermediate GI Verified 03/15/18 11:06 UPSET,HEADACHE clarithromycin AdvReac Intermediate GI upset Verified 10/13/24 11:02 famotidine AdvReac Intermediate Chest Pain Verified 10/13/24 11:02 levothyroxine sodium AdvReac Intermediate Dizziness, Verified 10/13/24 11:02 headache, nausea and vomiting lisinopril AdvReac Intermediate Cough Verified 10/13/24 11:02 sulfamethoxazole AdvReac Intermediate GI upset, Verified 10/13/24 11:02 headache trimethoprim AdvReac Intermediate GI upset, Verified 10/13/24 11:02 headache Home Medications Medication Instructions Recorded Confirmed Type folic acid 1 mg tablet 1 mg PO QAM 12/31/18 10/13/24 History pyridoxine (vitamin B6) 250 mg 250 mg PO QAM 12/31/18 10/13/24 History tablet (Vitamin B-6) aspirin 81 mg tablet,delayed 81 mg PO QAM 06/17/19 10/13/24 History release (Adult Low Dose Aspirin) nitroglycerin 0.4 mg sublingual 0.4 mg sublingual Q5M PRN chest 04/07/20 10/13/24 Rx tablet pain #30 tabs cholecalciferol (vitamin D3) 50 50 mcg PO QAM 03/10/21 10/13/24 History mcg (2,000 unit) capsule miscellaneous medical supply #1 ea 10/27/21 10/02/24 Rx (Blood Pressure Cuff) ezetimibe 10 mg tablet (Zetia) 10 mg PO QAM 06/08/23 10/13/24 History carvedilol 6.25 mg tablet 6.25 mg PO BID 02/06/24 10/13/24 History clopidogrel 75 mg tablet (Plavix) 75 mg PO QAM 02/06/24 10/13/24 History isosorbide mononitrate 30 mg 30 mg PO BID 02/06/24 10/13/24 History tablet,extended release 24 hr pantoprazole 40 mg tablet,delayed 40 mg PO QAM 02/06/24 10/13/24 History release (Protonix) metformin 500 mg tablet 500 mg PO BID #90 tabs 02/28/24 10/13/24 Rx losartan 100 mg tablet 100 mg PO QAM #90 tabs 03/03/24 10/13/24 Rx atorvastatin 80 mg tablet 80 mg PO QAM #90 tabs 03/10/24 10/13/24 Rx amlodipine 5 mg tablet (Norvasc) 5 mg PO BID 03/11/24 10/13/24 History tamsulosin 0.4 mg capsule (Flomax) 0.4 mg PO HS 03/11/24 10/13/24 History escitalopram oxalate 10 mg tablet 10 mg PO QAM PRN anxiety 03/18/24 10/13/24 History (Lexapro) phenytoin sodium extended 100 mg 100 mg PO TID 03/18/24 10/13/24 History capsule (Dilantin Extended) levothyroxine 50 mcg tablet 50 mcg PO QAM #90 tabs 04/08/24 10/13/24 Rx (Synthroid) Carboplatin #1 ea 05/20/24 10/02/24 Rx Fosaprepitant #1 ea 05/20/24 10/02/24 Rx Paclitaxel #1 ea 05/20/24 10/02/24 Rx Palonsetron #1 ea 05/20/24 10/02/24 Rx Pembrolizumab #1 ea 05/20/24 10/02/24 Rx dexamethasone 4 mg tablet 20 mg PO UD PRN chemotherapy 05/20/24 10/13/24 History olanzapine 2.5 mg tablet (Zyprexa) 2.5 mg PO DAILY PRN n/v 05/20/24 10/13/24 History prochlorperazine maleate 10 mg 10 mg PO DAILY PRN n/v 05/20/24 10/13/24 History tablet Past Med/Surg History Problem List (Updated 10/16/24 @ 11:59 by Drake Hernandez PA-C) Pneumothorax, left Hyperkalemia Encounter for pre-operative examination Occult blood in stools Essential hypertension Steroid dependence Ureteral stent present Uterine cancer Metastatic cancer Elevated LFTs Pulmonary nodule Retroperitoneal lymphadenopathy 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 no current issues. Anemia treated inpatient 06/2024 with blood transfusions at [facility] History of seizure Most recent seizure No issues since - no current neurologist History of stroke ~, no residual issues Taking Plavix Metastatic cancer to lung Uterine cancer - metastatic - currently undergoing chemotherapy, last treatment end August/beginning September 2024 (poor IV access) - awaiting further surgical intervention with [facility] LBBB (left bundle branch block) Chronic Hyperlipidemia Multiple pulmonary nodules determined by computed tomography of lung CAD (coronary artery disease) Stents x2 (07/2019) (LEANDER x 2 to LAD) Depression with anxiety DM type 2 (diabetes mellitus, type 2) NIDDM Hypertension Non-ST elevation (NSTEMI) myocardial infarction 07/2019 > 2 stents Follows with [facility] cardio Fatty liver History of cerebral artery occlusion 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 Diverticular disease Chronic headache GERD (gastroesophageal reflux disease) Surgical History (Updated 10/13/24 @ 16:24 by Carolina Newell RN) H/O insertion of central venous access port (10/13/24) Insertion Access Port with Fluoroscopy(Left) - Ajit Rowe, DO Hx of left cataract extraction History of bronchoscopy robotic navigational bronchoscopy S/P cystoscopy with ureteral stent placement (01/2024) ureteral stent exchange 06/2024 at [facility] Presence of stent in LAD coronary artery 2019 > stents x2 Hx of right cataract extraction 01/21/19: was given 3mg of IV versed History of esophagogastroduodenoscopy (EGD) History of colonoscopy History of cholecystectomy History of x3 Family History Mother Family history of diabetes mellitus Acute myocardial infarction Heart disease Daughter Family history of diabetes mellitus Son Family history of diabetes mellitus Brother Cirrhosis of liver Father Prostate cancer Acute myocardial infarction Aunt Ovarian carcinoma Breast cancer Other No family history of adverse response to anesthesia Social History Smoking Status: Former smoker Tobacco Type: Cigarettes Age Started Using Tobacco: 14; Age Quit Using Tobacco: 33; packs per day: 2; Second Hand Exposure: Yes (as a child); Do You Dip or Chew Tobacco: No; Hx Alcohol Use: No Hx Substance Use: No Preferred Language: Setswana Communication Ability: Effective Front Desk Worker Required: No Beliefs That Will Affect Care: None marital status: Single Current Living Situation: Family Current Living Situation Comment: Lives with 2 sons current occupational status: retired How many Children do You have: 3 Feels Safe at Home: Yes caffeine: Yes during the past year weight has: decreased > 10 lbs Dental Care, Regularly: No Physical Activity Frequency: Does not Exercise Seatbelt Use: always Sunscreen Use: No Assistive Devices: None Review of Systems Constitutional: as per Subjective / HPI Respiratory: no cough, no dyspnea and no wheezing Cardiovascular: no chest pain, no palpitations and no syncope Gastrointestinal: no abdominal pain, no nausea and no vomiting Physical Exam Constitutional: + thin and comfortable; no acute distres s and not diaphoretic Neck: Port site incision with steri-strips in place. Sites are c/d/i without any overlying signs of infection Respiratory: normal respiratory effort; no respiratory distress, no labored breathing and no retractions Auscultation: + diminished lung sounds (throughout entire left chest ) Cardiovascular: RRR, no murmur, no edema Gastrointestinal (Abdomen): normal bowel sounds, soft, nontender, no hepatosplenomegaly Skin: no rashes, warm and dry Psychiatric: A+Ox3, euthymic affect Results & Data Results & Data Vital Signs (Past 12 Hours) Vital Signs Temp Pulse Resp BP Pulse Ox O2 Del Method 10/16/24 11:36 102 H 22 90 10/16/24 11:21 93 H 20 92 10/16/24 11:01 100 H 10/16/24 10:54 100 H 19 156/93 H 94 10/16/24 10:23 36.9 C 109 H 18 151/84 H 94 Room Air Diagnostic Findings PET/CT CLINICAL HISTORY: C54.8 . Uterine cancer. TECHNIQUE: A PET/CT was performed from the skull base through the upper thighs following intravenous injection of 15.4 mCi of F 18 FDG IV. The injection was performed at 1256 and imaging began at 1402. Patient's blood sugar at time of injection was 114 mg/dl. Unenhanced CT was performed for attenuation correction purposes and anatomic localization. COMPARISON STUDY: 03/05/2024 FINDINGS: There is physiologic activity. Head and neck: No enlarged adenopathy or abnormal uptake seen. Chest: There is a large left pneumothorax. There are trace pleural effusions. No pneumothorax on the right. There are mildly enlarged right paratracheal, left AP window, and subcarinal lymph nodes, largest in the subcarinal lymph node measuring 2.2 cm, increased in size. Maximum SUV is 11, increased. No other abnormal uptake seen in the chest. Abdomen and Pelvis: There are multiple small periaortic lymph nodes with maximum SUV of 5, grossly stable. Activity at the left iliac lymph nodes is also decreased. There is a right pelvic mass measuring approximately 4 cm, stable. Maximum SUV is 11, increased. The prior far right pelvic sidewall mass is decreased in size with decreased uptake. Liver, spleen, pancreas, and adrenal glands have an unremarkable non-IV contrasted appearance. There is a well positioned right ureteral stent with no right hydronephrosis. Stable cortical scarring at the right kidney and small cyst. There is interval moderate hydronephrosis at the left kidney. No bowel obstruction. No free fluid or free air. Musculoskeletal: No abnormal uptake seen. IMPRESSION: 1. Large left pneumothorax. The patient is being called to be instructed to go to the emergency room and the patient's clinician is also being called. 2. Interval moderate left hydronephrosis. 3. Increased mediastinal adenopathy and uptake. 4. Prior far right pelvic sidewall mass has improved. Otherwise the hypermetabolic right pelvic mass persists with increased uptake and abdominal adenopathy with uptake persists. XR chest 1V portable CLINICAL HISTORY: eval left pneumothorax COMPARISON STUDY: 10/13/2024 FINDINGS: There is an interval large left pneumothorax. No pneumothorax on the right. There are trace pleural effusions. Stable chest port. Stable mild cardiomegaly without pulmonary vascular congestion. IMPRESSION: Large left pneumothorax. Code Status & VTE Plan VTE Prophylaxis Plan VTE Prophylaxis will be ordered: Yes PG Care Time/CCT Total # of Minutes Spent Total Time Spent with Patient: Total time spent is greater than 50% in coordination of care (as documented) at patient's floor/unit and/or counseling patient: Coding [place] [address] INT INP/OBS CARE 1/40MIN Patient Type Established History Problem Focused Exam Problem Focused Medical Decision Making Straight Forward Diagnoses Pneumothorax, left J93.9
[2024-10-16] MEDS ORDERED: MoRPHine SULFATE 2 MG/ML CARP IV PRN ×2 (12:10)
[2024-10-16] MEDS ORDERED: ONDANSETRON INJ 2 MG/ML 2 ML VIAL IV PRN ×2 (12:10→15:07)
[2024-10-16 12:29] LABS: Basophils # (auto) 0.03 K/uL (0.00-0.20); Basophils % (auto) 0.4 %; Eosinophils # (auto) 0.05 K/uL (0.00-0.50); Eosinophils % (auto) 0.7 %; Hematocrit (blood only) 34.3 % (37.0-47.0); Hemoglobin 11.2 g/dl (12.0-16.0); Immature Granulocytes # (auto) 0.01 K/uL (0.01-0.20); Immature Granulocytes % (auto) 0.1 %; Lymphocytes # (auto) 1.36 K/uL (1.20-3.40); Lymphocytes % (auto) 19.9 %; Mean Corpuscular Hemoglobin 30.4 pg (25.0-34.0); Mean Corpuscular Hgb Conc 32.7 g/dL (32.0-36.0); Mean Corpuscular Volume 93.2 fL (80.0-100.0); Mean Platelet Volume 9.1 fL (9.4-12.4); Monocytes # (auto) 0.36 K/uL (0.11-0.59); Monocytes % (auto) 5.3 %; Neutrophils # (auto) 5.01 K/uL (1.40-6.50); Neutrophils % (auto) 73.6 %; Platelet Count 196 K/uL (130-400); RDW Coefficient of Variation 13.9 % (11.5-14.5); RDW Standard Deviation 47.6 fL (36.4-46.3); Red Blood Count 3.68 M/uL (4.20-5.40); White Blood Count 6.82 K/ul (4.8-10.8)
[2024-10-16 12:55] LABS: Calcium 9.4 mg/dl (8.6-10.3); Potassium 4.8 mmol/L (3.5-5.1)
[2024-10-16 13:01] LABS: BUN Creatinine Ratio 13.5 (10-20); Creatinine Clr Calc Pharmacy 21.9 ml/min
[2024-10-16] MEDS ORDERED: OLANZAPINE 2.5 MG TAB PO PRN (15:07)
[2024-10-16] MEDS ORDERED: ESCITALOPRAM OXALATE 10 MG TAB PO PRN (15:07)
[2024-10-16] MEDS: ACETAMINOPHEN 325 MG TAB PO PRN (15:14)
--- NOTE | 2024-10-16 15:19 | CT Scan Report ---
CT-guided left pleural pigtail catheter placement INDICATION: Left pneumothorax PROCEDURE: Procedure and risks were explained. Informed consent was obtained. A final timeout was com pleted. The patient was placed in a right lateral decubitus position on the CT exam table. The left l ateral thorax was prepped and draped in sterile fashion. 1% lidocaine was utilized for skin anesthesi a. Utilizing CT guidance, an 18-gauge Chiba needle was advanced into the left pleural space. A 0.035 Amp latz wire was introduced through the entry needle and exchanged for an [address] [place] [address] The catheter was placed to 20 cm H2O wall suction and sutured to the skin with 2-0 silk. The pat ient tolerated the procedure well. Post CT imaging demonstrated adequate catheter position with almos t complete resolution of the left pneumothorax. Vital signs will be monitored postprocedure. IMPRESSION: Left pleural pigtail catheter placement as above. Performed, dictated, and signed by Shubham Snads PA-C; to be co-signed by Dr. Sunil Gomez. Electronically signed by: Sunil Gomez M.D. 10/16/2024 4:05 PM
--- NOTE | 2024-10-16 15:51 | XRay Report ---
XR chest 1V portable CLINICAL HISTORY: s/p pigtail placement COMPARISON STUDY: 10/16/2024 FINDINGS: Stable left chest port. There is interval small bore left pleural catheter with the pigtail lateral left mid pleural space. There is a trace residual left pneumothorax, significantly improved. There is stable mild opacity at the right lung base with blunting of the right costophrenic angle. T here is faint patchy opacity at the left midlung. IMPRESSION: 1. Trace left pneumothorax, significantly improved. 2. Faint patchy opacity left midlung, likely reexpansion pulmonary edema. 3. Stable trace right pleural effusion and mild consolidation at the right base. ACT 112: Negative or not required by law. Electronically signed by: Sunil Gomez M.D. 10/16/2024 3:50 PM
[2024-10-16 16:48] LABS: Partial Thromboplastin Ratio 0.8; Partial Thromboplastin Time 21 Seconds (21-31); Prothrombin Time 10.7 Seconds (9.0-12.0)
[2024-10-16] MEDS: PHENYTOIN SODIUM ER 100 MG CAP PO SCH (17:45)
--- NOTE | 2024-10-16 17:50 | Electrocardiogram Report ---
Test Reason : Blood Pressure : */* mmHG Vent. Rate : 94 BPM Atrial Rate : 94 BPM P-R Int : 174 ms QRS Dur : 128 ms QT Int : 378 ms P-R-T Axes : 58 -79 74 degrees QTcB Int : 472 ms Normal sinus rhythm Left axis deviation Non-specific intra-ventricular conduction block Possible Lateral infarct , age undetermined Abnormal ECG When compared with ECG of 13-Oct-2024 10:53, No significant change was found Confirmed by Gio Vallejo ([id number]) on 10/16/2024 5:50:17 PM Referred By: REFERRED SELF Confirmed By: Gio Vallejo
[2024-10-16] MEDS: carvediloL 6.25 MG TAB PO SCH (19:56)
[2024-10-16] MEDS: amLODIPine BESYLATE 5 MG TAB PO SCH (19:57)
[2024-10-16] MEDS ORDERED: TAMSULOSIN HCL 0.4 MG CAP PO SCH (21:00)
[2024-10-17] MEDS: oxyCODONE HCL IR 5 MG TAB (IMMEDIATE RELEASE) PO PRN ×2 (01:48→10:22)
[2024-10-17] MEDS: LEVOTHYROXINE SODIUM 50 MCG TABLET PO SCH (06:10)
--- NOTE | 2024-10-17 07:49 | Surgery Progress Note ---
<Statement entered by Ajit Rowe, DO - 10/17/24 10:32> I have seen and examined this patient this am. There is no air leak appreciated this am. Awaiting confirmatory radiology read on cxr obtained this am. If ok, will place to water seal. Date of Service October 17, 2024 Assessment & Plan (1) Pneumothorax, left: Plan: Patient is a 69-year-old female with a history of uterine cancer undergoing treatment and is s/p left IJ access port with fluoroscopy placement on 10/13/[address] Rowe. Patient is now here for large left PTX and underwent left pigtail chest tube placement by IR. -Post pigtail placement, patient was still noted to have a trace left PTX. AM CXR pending at this time. For now keep chest tube to suction. If PTX has resolved, will place chest tube to waterseal and repeat CXR later today. -Continue pain control as needed -Diet as tolerated -Continue to monitor respiratory status, may use supplemental O2 if needed to maintain oxygen saturations >92%, and encourage ambulation and IS while awake. Admission and Anticipated Discharge Date Admission Date: October 16, 2024 Subjective -Patient doing well this morning, no acute complaints -Left pigtail chest tube in place, no air leak appreciated. She denies increased SOB or CP. She has not required any supplemental O2 -VSS and afebrile -Denies abdominal pain, N/V, tolerating diet without issue Physical Exam Constitutional: comfortable; no acute distress and not diaphoretic Respiratory: normal respiratory effort; no respiratory distress, no labored breathing and no retractions Auscultation: lungs clear to auscultation bilaterally Left pigtail chest tube in place, no air leak appreciated, dressing C/D/I Cardiovascular: RRR, no murmur, no edema Gastrointestinal (Abdomen): normal bowel sounds, soft, nontender, no hepatosplenomegaly Skin: no rashes, warm and dry Psychiatric: A+Ox3, euthymic affect Results & Data Vital Signs (Past 12 Hours) Vital Signs Temp Pulse Resp BP Pulse Ox O2 Del Method 10/17/24 07:36 36.7 C 85 16 104/66 91 Room Air 10/17/24 03:21 36.4 C L 73 16 102/60 93 Room Air 10/16/24 22:55 36.6 C 77 16 93/58 L 93 Room Air PG Care Time/CCT Total # of Minutes Spent Total Time Spent with Patient: Total time spent is greater than 50% in coordination of care (as documented) at patient's floor/unit and/or counseling patient: Coding [place] [address] Post Operative Follow-Up Patient Type Established Medical Decision Making Straight Forward Diagnoses Pneumothorax, left J93.9
--- NOTE | 2024-10-17 07:58 | XRay Report ---
EXAM: XR chest 1V portable CLINICAL HISTORY: CT palcement , eval for PTX TECHNIQUE: An X-ray image of the chest is obtained in AP projection. COMPARISON: 10/13/2024 FINDINGS: Pulmonary Parenchyma: Obliterated right costophrenic angle by mild the pleural effusion with faint opacities of the right mid and lower lung zone. Newly developed the left mid and lower lung zone parenchymal opacities Clear right costophrenic angle. Port a cath was tip seen in the SVC Heart and Mediastinum: Heart size and shape are normal. No mediastinal widening or masses. No hilar or mediastinal lymphadenopathy. Bony Thorax: Bony thorax appears intact without fractures or deformities. Soft Tissues: Soft tissues overlying the chest wall are unremarkable. IMPRESSION: 1. Obliterated right costophrenic angle by mild pleural effusion with faint opacities of the right mid and lower lung zone, progressive since the last study. 2. Newly developed left mid and lower lung zone parenchymal opacities 3. Ongoing inflammatory/infecious process is likely and clinical correlation is needed. Electronically signed by Abdulaziz James 10-17-2024 07:57 AM
[2024-10-17] MEDS: EZETIMIBE 10 MG TAB PO SCH (09:05)
[2024-10-17] MEDS: ATORVASTATIN 40 MG TAB PO SCH (09:06)
[2024-10-17] MEDS: ASPIRIN 81 MG ECTAB PO SCH (09:06)
[2024-10-17] MEDS: LOSARTAN POTASSIUM 50 MG TAB PO SCH (09:06)
[2024-10-17] MEDS: PANTOprazole 40 MG TAB PO SCH (09:06)
--- NOTE | 2024-10-18 04:36 | Surgery Progress Note ---
Date of Service October 18, 2024 Assessment & Plan (1) Pneumothorax, left: Plan: Patient is status post pigtail catheter placement on the left side on 10/16/2024 Continue pigtail catheter to suction Chest x-ray for this morning is ordered and is pending; decision about whether or not to place pigtail to waterseal be based on chest x-ray results There is concern the patient may have opacity of left lungthis this may represent pulmonary edema. Clinically patient does not seem to have pneumonia she is afebrile and does not exhibit cough. She is also saturating greater than 90% on room air. Determination about whether or not patient needs antibiotics with based on this morning's chest x-ray findings Additional recommendations with forthcoming based on her clinical course as it unfolds Admission and Anticipated Discharge Date Admission Date: October 16, 2024 Supervising Physician Co-Signing Physician Notes Patient seen and examined, imaging reviewed, agree with above. Status post port placement with delayed pneumothorax status post pigtail placement. Residual apical pneumothorax on today's x-ray, approximately 10%. Catheter appears like it may need to be advanced. Under sterile conditions I attempted to advance the catheter, though I think it may be outside of the pleura. At this point I will leave it in place and will repeat chest x-ray tomorrow. If for pneumothorax is improved we will attempt waterseal and possibly remove it. If her pneumothorax is worsening significantly, then we may need to take her to the OR for chest tube or apical pigtail placement. If it is stable, then we may see how she does and see if IR can place a new pigtail on Sunday. Continue chest tube to suction for now. Subjective Patient is resting comfortably in bed. She denies any chest pain. She denies any shortness of breath. Physical Exam Respiratory: No wheezing noted. The patient is breathing normally without use of accessory muscles. Breath sounds are present bilaterally Results & Data Vital Signs (Past 12 Hours) Vital Signs Temp Pulse Resp BP Pulse Ox O2 Del Method 10/17/24 21:04 36.8 C 91 H 16 99/62 L 93 Room Air PG Care Time/CCT Total # of Minutes Spent Total Time Spent with Patient: Total time spent is greater than 50% in coordination of care (as documented) at patient's floor/unit and/or counseling patient: Coding Level of Care Code 43658 SUB INP/OBS CARE 1/25MIN Diagnoses Pneumothorax, left J93.9
--- NOTE | 2024-10-18 07:40 | XRay Report ---
EXAM: XR chest 1V portable CLINICAL HISTORY: Eval L lung, S/P; pigtail placement. TECHNIQUE: An X-ray image of the chest is obtained in AP projection. COMPARISON: Compared to the prior study dated 10/17/2024 FINDINGS: Pulmonary Parenchyma: Significant regression/ resolution of the left mid and lower lung zones parenchymal opacities. Obliterated right costophrenic angle by mild pleural effusion with faint opacities of the right mid and lower lung zone. Clear right costophrenic angle. Port a cath with tip seen in the SVC Left side inserted drain tube. Heart and Mediastinum: Heart size and shape are normal. No mediastinal widening or masses. No hilar or mediastinal lymphadenopathy. Bony Thorax: Bony thorax appears intact without fractures or deformities. Soft Tissues: Soft tissues overlying the chest wall are unremarkable. IMPRESSION: 1. Significant regression/ resolution of the left mid and lower lung zones parenchymal opacities. 2. Obliterated right costophrenic angle by mild pleural effusion with faint opacities of the right mid and lower lung zones. (Stable). 3. Port a cath with tip seen in the SVC. (Stable) 4. Left side inserted drain tube. (Stable) Electronically signed by Abdulaziz James 10-18-2024 07:40 AM
--- NOTE | 2024-10-19 07:45 | XRay Report ---
EXAM: XR chest 1V portable CLINICAL HISTORY: Evaluate the left apical pneumothorax TECHNIQUE: An X-ray image of the chest is obtained in AP projection. COMPARISON: 10/18/2024 FINDINGS: Pulmonary Parenchyma: No detected residual pneumothorax. The left-sided chest tube is noted with its tip projecting over the left lower lung zone. No evidence of left pleural effusion or pleural thickening. Homogenous opacity noted at the right mid and lower lung zone with blunting of the right costophrenic angle suggesting mild pleural effusion with underlying consolidation collapse. Heart and Mediastinum: Left Port-A-Cath is noted with tip estimated in superior vena cava. Heart size and shape are normal. No mediastinal widening or masses. No hilar or mediastinal lymphadenopathy. Bony Thorax: Cortical irregularities noted at the right third and fourth ribs suggesting sequelae of old fracture. Soft Tissues: Soft tissues overlying the chest wall are unremarkable. IMPRESSION: 1. No detected residual pneumothorax, however, if clinically indicated CT is advised for better assessment (improved). 2. Right mild pleural effusion with underlying consolidation collapse (unchanged). 3. A left-sided chest tube is noted with its tip projecting over the left lower lung zone (unchanged). Electronically signed by Abdulaziz James 10-19-2024 07:45 AM
--- NOTE | 2024-10-19 08:38 | Surgery Progress Note ---
Date of Service October 19, 2024 Assessment & Plan (1) Pneumothorax, left: Plan: Patient is status post pigtail catheter placement on the left side on 10/16/2024 VSS Chest x-ray for this morning is showing No detected residual pneumothorax Continue pigtail catheter to suction today , will consider water seal tomorrow OOB as tolerated, IS Repeat cxr tomorrow am pt seen and examined with Dr Thao Admission and Anticipated Discharge Date Admission Date: October 16, 2024 Supervising Physician Co-Signing Physician Notes Patient seen and examined, labs and image reviewed, agree with above. Admitted with delayed pneumothorax status post port placement, treated with pigtail drain. No pain, no breathing issues. No airleak on chest tube. Today's x-ray personally viewed and interpreted and agree with the assessment that there is no residual pneumothorax and the pigtail appears to be in place. Will keep her on wall suction for another 24 hours, if doing well, can convert to waterseal tomorrow. Repeat chest x-ray in the morning. Subjective denies sob, cough Review of Systems Respiratory: no cough and no dyspnea Physical Exam Constitutional: cooperative and comfortable; no acute distress Respiratory: normal respiratory effort and able to speak in complete sentences; no respiratory distress Cardiovascular: Rate/Rhythm: regular rate Psychiatric: A+Ox3, euthymic affect Results & Data Vital Signs (Past 12 Hours) Vital Signs Temp Pulse Resp BP Pulse Ox O2 Del Method 10/19/24 07:30 98.4 F 78 18 93/58 L 91 Room Air 10/18/24 21:00 Room Air Diagnostic Findings [place], [place] [phone] XRay Report Patient: ED QUIROZ Admit Date: 10/16/24 MR#: [id number] Address1: [facility] [place] Acct ID:[id number] Address2: Date: 1955 [facility] Zip: [place] [address] Age: 69 Location: 3W Sex: F Room/Bed: [facility] Att Phy: Ajit Rowe, Diagnosis: PNEUMOTHORAX Deysi Phy: Eliazar Peck DO Service Date: 10/19/24 Fam Phy: Interpreting Phy: Abdulaziz James MDAdmit Phy: Ajit Rowe DO Ordering Phy: Sunil Thao DO cc: ~ EXAM: XR chest 1V portable CLINICAL HISTORY: Evaluate the left apical pneumothorax TECHNIQUE: An X-ray image of the chest is obtained in AP projection. COMPARISON: 10/18/2024 FINDINGS: Pulmonary Parenchyma: No detected residual pneumothorax. The left-sided chest tube is noted with its tip projecting over the left lower lung zone. No evidence of left pleural effusion or pleural thickening. Homogenous opacity noted at the right mid and lower lung zone with blunting of the right costophrenic angle suggesting mild pleural effusion with underlying consolidation collapse. Heart and Mediastinum: Left Port-A-Cath is noted with tip estimated in superior vena cava. Heart size and shape are normal. No mediastinal widening or masses. No hilar or mediastinal lymphadenopathy. Bony Thorax: Cortical irregularities noted at the right third and fourth ribs suggesting sequelae of old fracture. Soft Tissues: Soft tissues overlying the chest wall are unremarkable. IMPRESSION: 1. No detected residual pneumothorax, however, if clinically indicated CT is advised for better assessment (improved). 2. Right mild pleural effusion with underlying consolidation collapse (unchanged). 3. A left-sided chest tube is noted with its tip projecting over the left lower lung zone (unchanged). Electronically signed by Abdulaziz James 10-19-2024 07:45 AM Dictated: 10/19/24 0652 Transcribed: PG Care Time/CCT Total # of Minutes Spent Total Time Spent with Patient: Total time spent is greater than 50% in coordination of care (as documented) at patient's floor/unit and/or counseling patient: Coding Level of Care Code 51721 SUB INP/OBS CARE 08/23MIN Diagnoses Pneumothorax, left J93.9
[2024-10-19 09:20] LABS: Basophils # (auto) 0.04 K/uL (0.00-0.20); Basophils % (auto) 0.7 %; Eosinophils # (auto) 0.15 K/uL (0.00-0.50); Eosinophils % (auto) 2.5 %; Hematocrit (blood only) 31.4 % (37.0-47.0); Hemoglobin 10.2 g/dl (12.0-16.0); Immature Granulocytes # (auto) 0.02 K/uL (0.01-0.20); Immature Granulocytes % (auto) 0.3 %; Lymphocytes # (auto) 1.14 K/uL (1.20-3.40); Mean Corpuscular Hemoglobin 30.4 pg (25.0-34.0); Mean Corpuscular Hgb Conc 32.5 g/dL (32.0-36.0); Mean Corpuscular Volume 93.5 fL (80.0-100.0); Mean Platelet Volume 8.7 fL (9.4-12.4); Monocytes # (auto) 0.31 K/uL (0.11-0.59); Monocytes % (auto) 5.2 %; Neutrophils # (auto) 4.34 K/uL (1.40-6.50); Neutrophils % (auto) 72.3 %; Platelet Count 205 K/uL (130-400); RDW Coefficient of Variation 14.1 % (11.5-14.5); RDW Standard Deviation 47.9 fL (36.4-46.3); Red Blood Count 3.36 M/uL (4.20-5.40)
--- NOTE | 2024-10-20 06:28 | Ultrasound Report ---
EXAM: US venous doppler LE RT CLINICAL HISTORY: LE pain TECHNIQUE: Ultrasound examination of the right lower extremity veins was performed in real-time and duplex. One or more of the following were performed- spectral analysis, resistive index, waveform analysis, and pulsed Doppler. COMPARISON: None. FINDINGS: Heterogenous mainly isoechoic endoluminal thrombus is noted in the proximal popliteal vein, which is mildly relatively expanded measured 7.8 mm in diameter, the popliteal vein appears noncompressible at the proximal part and partially compressible at its midportion. A small area of preserved flow was noted in the thrombosed part of the popliteal vein, could represent partial recanalization versus incomplete obstruction at the most superior part. Normal spontaneous flow is noted in the right common femoral, superficial femoral veins. The examined common femoral, superficial femoral, distal popliteal, peroneal, posterior and anterior tibial veins appear compressible with no definite endoluminal thrombosis. IMPRESSION: Radiological evidence of proximal popliteal venous thrombosis. Need clinical correlation. Disclaimer: DVT could be missed early in the disease when clot burden is minimal. For patients with moderate and high pretest probability of DVT and negative ultrasound, the [employer] clinical guidelines recommend testing with a D-dimer assay or repeat ultrasound in 5-7 days. If symptoms worsen, the Society of radiologists in ultrasound recommends repeating ultrasound even earlier. Electronically signed by Abdulaziz James 10-20-2024 06:27 AM
--- NOTE | 2024-10-20 06:55 | Communication Note ---
Date of Service: October 20, 2024 I was called by nursing staff the patient complained of a cramp behind her right knee. Because of this I ordered a lower extremity venous ultrasound. The results of this showed the patient had a popliteal DVT. I discussed with my attending physician, Dr. Morales. In the interim we have made the patient at bedrest. Dr. Morales will review patient's chart and determine the best medicine to treat her DVT. Nursing staff has been updated.
--- NOTE | 2024-10-20 07:21 | XRay Report ---
EXAM: XR chest 1V portable CLINICAL HISTORY: eval pneumothorax TECHNIQUE: An X-ray image of the chest is obtained in 1 AP projection. COMPARISON: prior 10/19/2024. FINDINGS: Pulmonary Parenchyma: Stable right lung middle and lower opacification with obliterated costophrenic angle suggesting pleural effusion. Blunted left costophrenic angle, The left lung is clear, with no evidence of consolidation, collapse, or focal opacities. No pulmonary nodules are identified. No evidence of pneumothorax. Heart and Mediastinum: Heart size and shape are normal. No mediastinal widening or masses. No hilar or mediastinal lymphadenopathy. Bony Thorax: Cortical irregularities noted at the right third and fourth ribs suggesting sequelae of old fracture. Soft Tissues: Soft tissues overlying the chest wall are unremarkable. Evidence of left side inserted drain tube. Left side inserted Port-A-Cath in place with its tip estimated in the superior vena cava. IMPRESSION: 1. Stable right lung middle and lower pacification with obliterated costophrenic angle suggesting pleural effusion and slight blunting of left costophrenic angle by likely mild reaction/thickening. 2. Left side inserted drain tube and Port-A-Cath in place (stable). 3. No evidence of pneumothorax. 4. No time interval significant radiological changes. Electronically signed by Abdulaziz James 10-20-2024 07:21 AM
--- NOTE | 2024-10-20 08:45 | Surgery Progress Note ---
<Statement entered by Ajit Rowe DO - 10/20/24 08:59> I have seen and examined this patient this am. The chest tube has been removed this am after the CXR continued to reveal resolution of the PTX and the chest tube has been to water seal since CT. I agree with this plan. Date of Service October 20, 2024 Assessment & Plan (1) Pneumothorax, left: Plan: s/p mediport post operative pneumothorax, and chest tube placement left lung Chest tube placed to water seal at CT , no leaking , bubbling , denies sob, respiratory complaints. AM CXR shows resolution of pneumothorax, Chest tube removed by Dr Rowe at bedside repeat cxr at 1600 and tomorrow AM consulted hospitalist for DVT intervention , appreciated assist Pt seen and examined with Dr Rowe Admission and Anticipated Discharge Date Admission Date: October 16, 2024 Subjective denies respiratory complaints c/o cramp behind right knee over night Review of Systems Constitutional: no fever and no chills Respiratory: no dyspnea Cardiovascular: no chest pain Gastrointestinal: no abdominal pain Physical Exam Constitutional: cooperative and comfortable; no acute distress Respiratory: normal respiratory effort and able to speak in complete sent ences; no respiratory distress Cardiovascular: Rate/Rhythm: regular rate Psychiatric: A+Ox3, euthymic affect Results & Data Vital Signs (Past 12 Hours) Vital Signs Temp Pulse Resp BP Pulse Ox O2 Del Method 10/20/24 07:57 98.8 F 82 16 108/68 93 Room Air Diagnostic Findings [place], [place] [phone] XRay Report Patient: ED QUIROZ Admit Date: 10/16/24 MR#: [id number] Address1: [address] [place] [address] Acct ID:[id number] Address2: Date: 1955 [facility] Zip: [place] [address] Age: 69 Location: 3W Sex: F Room/Bed: [facility] Att Phy: Ajit Rowe DO Diagnosis: PNEUMOTHORAX Deysi Phy: Eliazar Peck DO Service Date: 10/20/24 Fam Phy: Interpreting Phy: Abdulaziz James MDAdmit Phy: Ajit Rowe DO Ordering Phy: Kimberlee Seals cc: ~ EXAM: XR chest 1V portable CLINICAL HISTORY: eval pneumothorax TECHNIQUE: An X-ray image of the chest is obtained in 1 AP projection. COMPARISON: prior 10/19/2024. FINDINGS: Pulmonary Parenchyma: Stable right lung middle and lower opacification with obliterated costophrenic angle suggesting pleural effusion. Blunted left costophrenic angle, The left lung is clear, with no evidence of consolidation, collapse, or focal opacities. No pulmonary nodules are identified. No evidence of pneumothorax. Heart and Mediastinum: Heart size and shape are normal. No mediastinal widening or masses. No hilar or mediastinal lymphadenopathy. Bony Thorax: Cortical irregularities noted at the right third and fourth ribs suggesting sequelae of old fracture. Soft Tissues: Soft tissues overlying the chest wall are unremarkable. Evidence of left side inserted drain tube. Left side inserted Port-A-Cath in place with its tip estimated in the superior vena cava. IMPRESSION: 1. Stable right lung middle and lower pacification with obliterated costophrenic angle suggesting pleural effusion and slight blunting of left costophrenic angle by likely mild reaction/thickening. 2. Left side inserted drain tube and Port-A-Cath in place (stable). 3. No evidence of pneumothorax. 4. No time interval significant radiological changes. Electronically signed by Abdulaziz James 10-20-2024 07:21 AM Dictated: 10/20/24 0644 Transcribed: PG Care Time/CCT Total # of Minutes Spent Total Time Spent with Patient: Total time spent is greater than 50% in coordination of care (as documented) at patient's floor/unit and/or counseling patient: Coding Level of Care Code 33527 Post Operative Follow-Up Diagnoses Pneumothorax, left J93.9
[2024-10-20] MEDS: APIXABAN 5 MG TABLET PO SCH (09:50)
[2024-10-20] MEDS: POLYETHYLENE (MIRALAX) 17 GM PACK PO PRN (13:43)
[2024-10-20 15:40] VITALS: TEMP 98.1; O2SAT 92
--- NOTE | 2024-10-20 16:39 | XRay Report ---
INDICATION: Chest tube removal. TECHNIQUE: Frontal radiograph of the chest. COMPARISON: Radiograph from earlier the same day. FINDINGS/IMPRESSION: Cardiomegaly. Right pleural effusion with atelectasis/airspace disease, unchanged. Interval removal of left-sided chest tube. No appreciable pneumothorax. Cardiomegaly. Left-sided chest port in similar position. Electronically signed by Srinivasa Muhammad 10-20-2024 4:39 PM
--- NOTE | 2024-10-20 20:39 | Hospitalist Consultation ---
Date of Consultation October 20, 2024 Assessment & Plan (1) DVT (deep venous thrombosis): 69-year-old woman with metastatic uterine cancer who was admitted for postprocedural pneumothorax now resolved, found to have right popliteal vein DVT given her renal function and frailty, apixaban is probably the best choice for anticoagulation - ordered apixaban 10 mg p.o. twice daily for 7 days then continue 5 mg p.o. twice daily. In the setting of venous thrombosis with metastatic cancer treatment may need to be long-term, will defer to her oncologist - phenytoin has a significant drug interaction with all of the DOAC's as well as warfarin. Warfarin is inferior to DOAC's and enoxaparin in the setting of active cancer - I think it is very low risk to stop her phenytoin at this time, see below - she has currently been taking both aspirin and Plavix, 1 of these will need to be stopped plan to discuss with Dr. Travis her flash ranging crewmember tomorrow I discussed the risks and benefits of anticoagulation specifically with DOAC with her today including risk of gastrointestinal bleeding ( she denies any melena or bloody stools), and the risk of intracranial hemorrhage which is rare but can be disabling or life-threatening. This is balanced by the risk of extension of the clot, with slow buttock syndrome, pulmonary embolism, recurrent VTE (2) Uterine cancer: with pulmonary metastases, lymph node metastases above and below the diaphragm currently undergoing radiation and chemotherapy, medical oncologist is Dr. Vick I updated him today by Sumeet (3) Pneumothorax, left: treated by the surgical team with a left-sided pigtail chest tube and has resolved, plan is for repeat chest x-ray in the morning then she would probably be suitable for discharge (4) History of stroke: stroke is remote, back in 2012 also has CAD with two LAD stents placed 07/2019 hypertension has been on DAPT with aspirin and Plavix -discuss with her flash ranging crewmember which one to continue and which one to stop. aspirin held currently, continuing plavix -continue atorvastatin, losartan, amlodipine, imdur (5) History of seizure: remote, occurred in 2012 at the time of her stroke. She only ever had 1 seizure and have has had no seizures since then. she has been on phenytoin since then at a low dose of 300 mg total daily phenytoin has significant drug interactions with all oral anticoagulants, the only safe option would be long-term enoxaparin which is unappealing and uncomfortable given her 10-year plus history of being seizure-free and the fact that she only had 1 seizure ever, I think it is very low risk to stop her phenytoin I discussed this with her in detail, there is some degree of risk that she could have a seizure however that is very unlikely Plan IT was a pleasure seeing Mrs. Jordan in the hospital I will see her tomorrow From the standpoint of DVT she may discharge tomorrow History of Present Illness Reason for Consultation: acute DVT Requesting Physician: Dr. Rowe Attending Physician: Ajit Rowe, DO History of Present Illness Arabella is a 69-year-old woman with metastatic uterine cancer undergoing chemotherapy and radiation. She had port placement October [address] Ashish Zuniga. Postop chest x-ray was normal. Later she developed left-sided pneumothorax and was admitted, pigtail catheter was placed, she improved and the chest tube was actually removed today. Overnight she complained of cramping behind her right knee. Lower extremity duplex was obtained and showed a proximal popliteal DVT. She is not having any calf or thigh pain or swelling. No chest pain or shortness of breath, now that the pneumothorax has resolved and the chest tube is out. Not hypoxic or tach ycardic. She is not a very clear historian but I do not think she has prior history of VTE. She says she had a blood clot but I think she is referring to her stroke which was back in 2012. She has been on phenytoin 100 mg 3 times daily since 2012. She had a seizure at the time of her stroke. She describes only 1 seizure and no seizures since that time. She does not follow with a neurologist currently. Allergies Allergy/AdvReac Type Severity Reaction Status Date / Time levofloxacin Allergy Intermediate Chest Verified 10/16/24 12:09 tightness, rash Bactrim AdvReac Intermediate GI Verified 03/15/18 11:06 UPSET,HEADACHE clarithromycin AdvReac Intermediate GI upset Verified 10/16/24 12:09 famotidine AdvReac Intermediate Chest Pain Verified 10/16/24 12:09 levothyroxine sodium AdvReac Intermediate Dizziness, Verified 10/16/24 12:09 headache, nausea and vomiting lisinopril AdvReac Intermediate Cough Verified 10/16/24 12:09 sulfamethoxazole AdvReac Intermediate GI upset, Verified 10/16/24 12:09 headache trimethoprim AdvReac Intermediate GI upset, Verified 10/16/24 12:09 headache Home Medications Medication Instructions Recorded Confirmed Type pyridoxine (vitamin B6) 250 mg 250 mg PO QAM 12/31/18 10/16/24 History tablet (Vitamin B-6) aspirin 81 mg tablet,delayed 81 mg PO QAM 06/17/19 10/16/24 History release (Adult Low Dose Aspirin) nitroglycerin 0.4 mg sublingual 0.4 mg sublingual Q5M PRN chest 04/07/20 10/16/24 Rx tablet pain #30 tabs cholecalciferol (vitamin D3) 50 50 mcg PO QAM 03/10/21 10/16/24 History mcg (2,000 unit) capsule miscellaneous medical supply #1 ea 10/27/21 10/02/24 Rx (Blood Pressure Cuff) ezetimibe 10 mg tablet (Zetia) 10 mg PO QAM 06/08/23 10/16/24 History carvedilol 6.25 mg tablet 6.25 mg PO BID 02/06/24 10/16/24 History clopidogrel 75 mg tablet (Plavix) 75 mg PO QAM 02/06/24 10/16/24 History isosorbide mononitrate 30 mg 30 mg PO BID 02/06/24 10/16/24 History tablet,extended release 24 hr pantoprazole 40 mg tablet,delayed 40 mg PO QAM 02/06/24 10/16/24 History release (Protonix) metformin 500 mg tablet 500 mg PO BID #90 tabs 02/28/24 10/16/24 Rx losartan 100 mg tablet 100 mg PO QAM #90 tabs 03/03/24 10/16/24 Rx atorvastatin 80 mg tablet 80 mg PO QAM #90 tabs 03/10/24 10/16/24 Rx amlodipine 5 mg tablet (Norvasc) 5 mg PO BID 03/11/24 10/16/24 History escitalopram oxalate 10 mg tablet 10 mg PO QAM 03/18/24 10/16/24 History (Lexapro) phenytoin sodium extended 100 mg 100 mg PO TID 03/18/24 10/16/24 History capsule (Dilantin Extended) Carboplatin #1 ea 05/20/24 10/02/24 Rx Fosaprepitant #1 ea 05/20/24 10/02/24 Rx Paclitaxel #1 ea 05/20/24 10/02/24 Rx Palonsetron #1 ea 05/20/24 10/02/24 Rx Pembrolizumab #1 ea 05/20/24 10/02/24 Rx levothyroxine 50 mcg tablet 50 mcg PO DAILYBB 10/16/24 10/16/24 History (Synthroid) Patient History Medical History Hypothyroidism Hx of sepsis 06/2024 treated inpatient at [facility] - UTI/sepsis. no current issues. Anemia treated inpatient 06/2024 with blood transfusions at [facility] History of seizure Most recent seizure No issues since - no current neurologist History of stroke ~, no residual issues Taking Plavix Metastatic cancer to lung Uterine cancer - metastatic - currently undergoing chemotherapy, last treatment end August/beginning September 2024 (poor IV access) - awaiting further surgical intervention with C LBBB (left bundle branch block) Chronic Hyperlipidemia Multiple pulmonary nodules determined by computed tomography of lung CAD (coronary artery disease) Stents x2 (07/2019) (LEANDER x 2 to LAD) Depression with anxiety DM type 2 (diabetes mellitus, type 2) NIDDM Hypertension Non-ST elevation (NSTEMI) myocardial infarction 07/2019 > 2 stents Follows with [facility] cardio Fatty liver History of cerebral artery occlusion 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 Diverticular disease Chronic headache GERD (gastroesophageal reflux disease) Surgical History H/O insertion of central venous access port (10/13/24) Insertion Access Port with Fluoroscopy(Left) - Ajit Rowe, Hx of left cataract extraction History of bronchoscopy robotic navigational bronchoscopy S/P cystoscopy with ureteral stent placement (01/2024) ureteral stent exchange 06/2024 at [facility] Presence of stent in LAD coronary artery 2019 > stents x2 Hx of right cataract extraction 01/21/19: was given 3mg of IV versed History of esophagogastroduodenoscopy (EGD) History of colonoscopy History of cholecystectomy History of x3 Family History Mother Family history of diabetes mellitus Acute myocardial infarction Heart disease Daughter Family history of diabetes mellitus Son Family history of diabetes mellitus Brother Cirrhosis of liver Father Prostate cancer Acute myocardial infarction Aunt Ovarian carcinoma Breast cancer Other No family history of adverse response to anesthesia Social History Smoking Status: Former smoker Tobacco Type: Cigarettes Age Started Using Tobacco: 14; Age Quit Using Tobacco: 33; packs per day: 2; Cigarettes Per Day: 2 packs or more per day; Second Hand Exposure: No; Do You Dip or Chew Tobacco: No; Tobacco Cessation Education Requested by Patient: No Hx Alcohol Use: No Hx Substance Use: No Preferred Language: Amharic Communication Ability: Effective Hair Stylist Required: No Beliefs That Will Affect Care: None marital status: Single Current Living Situation: Family Current Living Situation Comment: Lives with 2 sons current occupational status: retired How many Children do You have: 3 Other Information That Helps Us Care for You: No Feels Safe at Home: Yes Safety Concerns: Feels Safe At This Time caffeine: Yes during the past year weight has: decreased > 10 lbs Dental Care, Regularly: No Physical Activity Frequency: Does not Exercise Seatbelt Use: always Sunscreen Use: No Assistive Devices: None Review of Systems Review of Systems: All systems reviewed & are unremarkable except as noted in HPI & below Physical Exam Physical Exam: PHYSICAL EXAMINATION Last 24h vital signs reviewed, see documentation in flowsheet General: comfortable appearing, no distress, sitting in bed HEENT: Normocephalic, atraumatic, pupils round and equal, sclerae anicteric, no conjunctival injection, moist mucus membranes Lungs: Normal respiratory effort. Clear to auscultation bilaterally. No RRW Heart: Regular rate and rhythm, no murmurs. No JVD Abdomen: Soft, nontender, nondistended. Bowel sounds present. left upper chest Port-A-Cath site is dressed, no erythema or drainage Extremities: Warm, dry, well-perfused. No extremity edema. tender to palpation behind the right knee, I cannot palpate a cord. Calf and thigh are nontender and not swollen, warm with normal color Neuro: Alert and oriented x 4, face symmetric, moves 4 extremities well Psych: Normal affect and behavior Results & Data Results & Data Vital Signs (Past 12 Hours) Vital Signs Temp Pulse Resp BP BP Pulse Ox O2 Del Method 10/20/24 19:41 36.7 C 84 16 101/61 92 Room Air 10/20/24 15:39 36.7 C 82 16 99/59 L 92 Room Air 10/20/24 11:50 36.8 C 73 15 102/64 93 Room Air Laboratory Results creatinine was initially 1.9 this admission but improved to 1.41 which is her baseline GFR around 40 CBC this admission remarkable for some chronic anemia with hemoglobin of 10, normal white blood count and platelet count PG Care Time/CCT Total # of Minutes Spent Total Time Spent with Patient: Total time spent is greater than 50% in coordination of care (as documented) at patient's floor/unit and/or counseling patient: Coding Level of Care Code 28894 IN/OBS CONSULT LVL 4,60M Diagnoses DVT (deep venous thrombosis) I82.409 Uterine cancer C55 Malignant neoplasm of body of uterus location: unspecified location Pneumothorax, left J93.9 History of stroke Z86.73 History of seizure Z87.898 (2) Uterine cancer Malignant neoplasm of body of uterus location: unspecified location
--- NOTE | 2024-10-20 21:15 | Communication Note ---
Date of Service: October 20, 2024 Day shift notified me that patient's chest tube was pulled earlier today and repeat chest x-ray was planned for 4:00 PM today. This study was performed and showed that since removal of the chest tube there is no pneumothorax noted. Plans are noted for repeat chest x-ray in the morning.
[2024-10-21 08:03] VITALS: BP 115/69; PULSE 85; RESP 17
--- NOTE | 2024-10-21 08:08 | XRay Report ---
EXAM: XR chest 1V portable CLINICAL HISTORY: eval pneumothorax TECHNIQUE: An X-ray image of the chest is obtained in 1 AP projection. COMPARISON: compared to prior study 10/20/2024. FINDINGS: Left side Port-A-Cath is seen inserted in place with its tip estimated in the superior vena cava. Pulmonary Parenchyma: Stable right lung middle and lower opacification with obliterated costophrenic angle, suggesting pleural effusion. The left lung is clear, with no evidence of consolidation, collapse, or focal opacities. Blunted left costophrenic angle. No pulmonary nodules are identified. No evidence of pneumothorax. Heart and Mediastinum: Mild cardiomegaly. No hilar or mediastinal lymphadenopathy. Bony Thorax: Cortical irregularities noted at the right third and fourth ribs, suggesting sequelae of old fracture. Soft Tissues: Soft tissues overlying the chest wall are unremarkable. IMPRESSION: 1. Stable right lung middle and lower opacification with obliterated costophrenic angle, suggesting pleural effusion. 2. Left side Port-A-Cath inserted in place (stable). 3. Mild cardiomegaly. (stable) Electronically signed by Abdulaziz James 10-21-2024 08:07 AM
--- NOTE | 2024-10-21 08:20 | Surgery Progress Note ---
Date of Service October 21, 2024 Assessment & Plan (1) Pneumothorax, left: Plan: Pt here w/ L ptx s/p port placement on 10/13, complicated by DVT chest tube pulled yesterday. CXR this AM reveals no residual left sided pneumothorax she denies any chest pain or SOB hospitalist assisting us with blood thinners after DVT founded yesterday We anticipate discharge to home today once her blood thinner regimen is finalized by medicine, appreciate their helping us will need f/u in the office with dr. clark in 1-2 weeks Admission and Anticipated Discharge Date Admission Date: October 16, 2024 Subjective patient feeling well. no chest pain/SOB. no leg pain Physical Exam Physical Exam: awake, no distress Chest (Breasts): Additional Comments: dressing c/d/i to left chest s/p chest tube removal Results & Data Vital Signs (Past 12 Hours) Vital Signs Temp Pulse Resp BP Pulse Ox O2 Del Method 10/21/24 08:02 98.1 F 85 17 115/69 92 Room Air PG Care Time/CCT Total # of Minutes Spent Total Time Spent with Patient: Total time spent is greater than 50% in coordination of care (as documented) at patient's floor/unit and/or counseling patient: Coding Level of Care Code 12301 Post Operative Follow-Up Diagnoses Pneumothorax, left J93.9
[2024-10-21 08:54] LABS: Basophils # (auto) 0.03 K/uL (0.00-0.20); Basophils % (auto) 0.6 %; Eosinophils # (auto) 0.17 K/uL (0.00-0.50); Eosinophils % (auto) 3.2 %; Hematocrit (blood only) 31.5 % (37.0-47.0); Hemoglobin 10.3 g/dl (12.0-16.0); Lymphocytes # (auto) 1.24 K/uL (1.20-3.40); Lymphocytes % (auto) 23.6 %; Mean Corpuscular Hemoglobin 30.9 pg (25.0-34.0); Mean Corpuscular Hgb Conc 32.7 g/dL (32.0-36.0); Mean Corpuscular Volume 94.6 fL (80.0-100.0); Mean Platelet Volume 8.8 fL (9.4-12.4); Monocytes # (auto) 0.32 K/uL (0.11-0.59); Monocytes % (auto) 6.1 %; Neutrophils # (auto) 3.49 K/uL (1.40-6.50); Neutrophils % (auto) 66.5 %; Platelet Count 254 K/uL (130-400); RDW Coefficient of Variation 14.5 % (11.5-14.5); Red Blood Count 3.33 M/uL (4.20-5.40); White Blood Count 5.25 K/ul (4.8-10.8)
[2024-10-21 09:27] LABS: Calcium 9.2 mg/dl (8.6-10.3); Potassium 4.6 mmol/L (3.5-5.1)
[2024-10-21 09:33] LABS: BUN Creatinine Ratio 19.9 (10-20); Creatinine Clr Calc Pharmacy 18.6 ml/min
--- NOTE | 2024-10-21 17:34 | Hospitalist Progress Note ---
Date of Service October 21, 2024 Assessment & Plan (1) DVT (deep venous thrombosis): Plan: 69-year-old woman with metastatic uterine cancer who was admitted for postprocedural pneumothorax now resolved, found to have right popliteal vein DVT given her renal function and frailty, apixaban is probably the best choice for anticoagulation - continue apixaban, I sent prescription. Treatment may need to be long-term because of her metastatic cancer, will defer total duration to her oncologist - I sent message to update Dr. Vick on 10/20 - phenytoin has a significant drug interaction with all of the DOAC's as well as warfarin. stopped phenytoin, see below - she has been on DAPT with aspirin and Plavix, however her stroke and LAD stents are remote. 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 Travis he said to stop the aspirin continue Plavix and apixaban (2) Uterine cancer: Plan: with pulmonary metastases, lymph node metastases above and below the diaphragm currently undergoing radiation and chemotherapy, medical oncologist is Dr. Vick (3) Pneumothorax, left: Plan: treated by the surgical team with a left-sided pigtail chest tube and has resolved chest x-ray today no pneumothorax (4) History of stroke: Plan: stroke is remote, back in 2012 also has CAD with two LAD stents placed 07/2019 hypertension has been on DAPT with aspirin and Plavix. stopped aspirin as discussed above -continue atorvastatin, losartan, amlodipine, imdur (5) History of seizure: Plan: remote, occurred in 2012 at the time of her stroke. She only ever had 1 seizure and have has had no seizures since then. she has been on phenytoin since then at a low dose of 300 mg total daily phenytoin has significant drug interactions with all oral anticoagulants, the only safe option would be long-term enoxaparin which is unappealing and uncomfortable given her 10-year plus history of being seizure-free and the fact that she only had 1 seizure ever, I think it is very low risk to stop her phenytoin I discussed this with her in detail, there is some degree of risk that she could have a seizure however that is very unlikely Plan discharging today, discussed plan of care with surgery team Admission and Anticipated Discharge Date Admission Date: October 16, 2024 Subjective Continues to have some pain behind right knee, no leg swelling chest tube has been removed since yesterday, no shortness of breath or chest pain Physical Exam 2 Physical Exam: PHYSICAL EXAMINATION Last 24h vital signs reviewed, see documentation in flowsheet General: comfortable appearing, no distress, sitting in bed HEENT: Normocephalic, atraumatic, pupils round and equal, sclerae anicteric, no conjunctival injection, moist mucus membranes Lungs: Normal respiratory effort. Clear to auscultation bilaterally. No RRW Heart: Regular rate and rhythm, no murmurs. No JVD Abdomen: Soft, nontender, nondistended. Bowel sounds present. left upper chest Port-A-Cath site is dressed, no erythema or drainage Extremities: Warm, dry, well-perfused. No extremity edema. tender posterior to right knee. Calf and thigh are nontender and not swollen Neuro: Alert and oriented x 4, face symmetric, moves 4 extremities well Psych: Normal affect and behavior Results & Data Results & Data Vital Signs (Past 12 Hours) Vital Signs Temp Pulse Resp BP Pulse Ox O2 Del Method 10/21/24 08:02 36.7 C 85 17 115/69 92 Room Air 10/21/24 07:30 Room Air Diagnostic Findings 10/21/24 08:10 10/21/24 08:10 PG Care Time/CCT Total # of Minutes Spent Total Time Spent with Patient: Total time spent is greater than 50% in coordination of care (as documented) at patient's floor/unit and/or counseling patient: Coding Level of Care Code 33770 SUB INP/OBS CARE 2/35MIN Diagnoses DVT (deep venous thrombosis) I82.409 Uterine cancer C55 Malignant neoplasm of body of uterus location: unspecified location Pneumothorax, left J93.9 History of stroke Z86.73 History of seizure Z87.898 (2) Uterine cancer Malignant neoplasm of body of uterus location: unspecified location
--- NOTE | 2024-10-23 12:39 | Discharge Summary ---
Date of Service October 21, 2024 Admission HPI Per Admitting Provider Patient is a 69-year-old female with history of uterine cancer who requires chemotherapy. The patient recently underwent insertion of access port with fluoroscopy in the left IJ on 10/13/2024. The patient post-operatively had a CXR and there were no signs of PTX and patient was sent home. The patient states she has felt fine since the procedure and has no complaints. She underwent PET scan yesterday and was found to have a large left pneumothorax and was instructed to come to the emergency department for further evaluation. The patient was seen and evaluated in the emergency department this morning. She is resting comfortably in bed and is not tachycardic or hypotensive. She is saturating 92-94% on room air and is in no acute respiratory distress.The patient denies any increased shortness or breath or chest pain. Her surgical sites are c/d/i with steri-strips still in place and there are no signs of surrounding infection. Principal Diagnosis left pneumothorax Discharge Exam awake/alert, no distress Respiratory normal respiratory effort left sided chest tube dressing c/d/i Discharge Data Allergies Allergy/AdvReac Type Severity Reaction Status Date / Time levofloxacin Allergy Intermediate Chest Verified 10/16/24 12:09 tightness, rash Bactrim AdvReac Intermediate GI Verified 03/15/18 11:06 UPSET,HEADACHE clarithromycin AdvReac Intermediate GI upset Verified 10/16/24 12:09 famotidine AdvReac Intermediate Chest Pain Verified 10/16/24 12:09 levothyroxine sodium AdvReac Intermediate Dizziness, Verified 10/16/24 12:09 headache, nausea and vomiting lisinopril AdvReac Intermediate Cough Verified 10/16/24 12:09 sulfamethoxazole AdvReac Intermediate GI upset, Verified 10/16/24 12:09 headache trimethoprim AdvReac Intermediate GI upset, Verified 10/16/24 12:09 headache Consultations 10/20/24 07:09 Consult Hospitalist Routine Ordered Studies 10/16/24 10:39 IR thoracentesis w/tube CT Stat 10/20/24 04:51 US venous doppler LE RT Urgent Hospital Course (1) Pneumothorax, left: This is a 69y F who is s/p port placement on 10/13 without event, post op CXR revealed no pneumothorax with adequate port placement. Then on 10/15 the patient underwent a PET scan for part of her oncological workup that revealed an incidental large left pneumothorax. When the report resulted she was asked to come into the hospital for admission which occurred on 10/16. The patient was asymptomatic without any respiratory or chest complaints. CXR confirmed L sided pneumothorax. Interventional Radiology was able to successfully place a pig tail catheter with improvement in the ptx overall. The chest tube remained to suction through 10/19 until the small residual pneumothorax was resolved. On the AM of 10/20 patient had a cramp behind her R leg and venous doppler US did show a popliteal DVT. The hospitalist service was consulted and assisted us with recommended the patient start eliquis for treatment. On 10/20 chest tube was placed to water seal and repeat CXR showed no residual ptx. It was then removed without issues and followup imaging confirmed no pneumothorax. On 10/21 the patient was feeling well, denied any chest pain/SOB. R leg pain improved and she was tolerating the blood thinner. She was deemed stable for discharge to home. Total Time Total Time Spent Total Time Spent (In Minutes): 20 Discharge Plan Discharge Items Patient Disposition: Home - Self-Care Reason For Visit: PNEUMOTHORAX Discharge Diagnosis: pneumothorax DVT Activity: Per Instructions section Lifting: No more than 10 pounds Bathing Comment: may shower; no soaking in tubs/pools x 2 weeks Exercise/Sports: Wait until after follow-up appointment Driving/Machine Use: Resume 1 day after discharge Non-emergency contact: Primary Care Provider and Surgeon Call non-emergency contact if: you have any medication questions, your symptoms worsen, your pain is worsening, you have a fever, your temperature is above 101.5, your wound has increased redness, your wound has increased drainage and your wound pain has increased Follow-up/Referrals: Eliazar Peck DO [Primary Care Provider] - Ashish-Ajit Zuniga DO [Emergency Provider] - (please call to schedule follow up in the office within 1-2 weeks) Diet: Regular Addtl Attending Provider Instructions: SPECIAL CARE INSTRUCTIONS: * You may shower . NO soaking in pools or baths for 2 weeks * No lifting greater than 10lbs. No strenuous exercise until cleared by surgeon. Light walking is accepted * Keep chest tube dressing in place on your left chest through 10/22/24. then you may remove and change it daily and as needed with dry gauze/tape until well healed * May use Tylenol over the counter for pain as tolerated. Do not exceed 3grams of Tylenol per 24 hours * Expect some swelling and bruising. * Diet- you may resume your regular diet Call your doctor if: * Temperature above 101 degrees, nausea/vomiting, fever/chills * Pain not relieved by pain medicine ordered * There is increased drainage or redness from any incision * You have any unanswered questions or concerns [phone]. FOLLOW UP VISIT: If not already scheduled, please call the office for a follow-up visit. Office Addtl Real Estate Professor Provider Instructions: Instructions from Internal Medicine: You have DVT (blood clot in vein behind your right knee). This needs to be treated with blood thinner (Eliquis AKA apixaban) to keep the clot from getting worse and/or breaking off and going to your lungs, which can be serious or life- threatening. Follow up with Dr. Vick for the blood clot - he will need to refill the Eliquis. He will decide on how long you need to take the Eliquis. 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 STOP taking dilantin (phenytoin) - its unlikely you will have a seizure after going 10 years seizure-free. The dilantin causes serious drug interactions with oral blood thinners and many other medications. We discussed the risks and benefits of anticoagulation, including the risks of stomach or intestinal bleeding - seek medical attention if you have black/tarry or bloody stool There is also a very small but real risk of intracranial hemorrhage - related to head trauma or bleeding-type stroke, that can be life threatening. Call 911 if you have altered mental status or symptoms of stroke (weakness or numbness of face/arm/leg, trouble speaking or understanding, trouble with walking/balance It was a pleasure taking care of you in the hospital, Lori Scott MD Pending Studies at Discharge: No Stand-Alone Forms: My [facility] [place] [facility], Smoking Cessation Medications and DC Order Prescriptions: New Eliquis 5 mg Tablet See Taper PO BID Qty: 72 0RF Taper: Taper, Blank 10 mg TWICE A DAY for 6 Days 5 mg TWICE A DAY for 24 Days Rx Instructions: for acute DVT Continued nitroglycerin 0.4 mg tablet, sublingual 0.4 mg sublingual Q5M PRN (Reason: chest pain) Qty: 30 0RF Rx Instructions: do not exceed 3 doses per episode cholecalciferol (vitamin D3) 50 mcg (2,000 unit) capsule 50 mcg PO QAM (DME) Blood Pressure Cuff Misc See Rx Instructions .Route Qty: 1 0RF Rx Instructions: BLOOD PRESSURE CUFF CHECK 2-3 TIMES DAILY DX: I10 metformin 500 mg tablet 500 mg PO BID Qty: 90 3RF losartan 100 mg tablet 100 mg PO QAM Qty: 90 3RF atorvastatin 80 mg tablet 80 mg PO QAM Qty: 90 3RF (DME) Pembrolizumab See Rx Instructions .Route .MEDSUPPLY Qty: 1 0RF Rx Instructions: 200 mg intravenously; (DME) Paclitaxel See Rx Instructions .Route .MEDSUPPLY Qty: 1 0RF Rx Instructions: 234 mg intravenously; (DME) Carboplatin See Rx Instructions .Route .MEDSUPPLY Qty: 1 0RF Rx Instructions: 310 mg intravenously; (DME) Fosaprepitant See Rx Instructions .Route .MEDSUPPLY Qty: 1 0RF Rx Instructions: IV; (DME) Palonsetron See Rx Instructions .Route .MEDSUPPLY Qty: 1 0RF Rx Instructions: IV; pyridoxine (vitamin B6) [Vitamin B-6] 250 mg Tablet 250 mg PO QAM ezetimibe [Zetia] 10 mg tablet 10 mg PO QAM carvedilol 6.25 mg tablet 6.25 mg PO BID isosorbide mononitrate 30 mg tablet extended release 24 hr 30 mg PO BID clopidogrel [Plavix] 75 mg tablet 75 mg PO QAM Hold Instructions: Resume on 10/16/24. pantoprazole [Protonix] 40 mg tablet,delayed release (DR/EC) 40 mg PO QAM amlodipine [Norvasc] 5 mg tablet 5 mg PO BID escitalopram oxalate [Lexapro] 10 mg tablet 10 mg PO QAM levothyroxine [Synthroid] 50 mcg tablet 50 mcg PO DAILYBB Discontinued aspirin [Adult Low Dose Aspirin] 81 mg tablet,delayed release (DR/EC) 81 mg PO QAM Hold Instructions: Resume on 10/16/24. May resume on 10/16/2024 phenytoin sodium extended [Dilantin Extended] 100 mg capsule 100 mg PO TID Discharge Orders: Discharge Order (Routine); Ordered 10/21/24 Ordered By: Belén Turcios/Other Patient Handouts: Understanding Deep Vein Thrombosis, DVT Dc Admission Data Admit Date/Time: 10/16/24 10:39 Attending Provider: Ajit Rowe Admit Provider: Ajit Rowe Primary Care Provider: Eliazar Peck Other Providers: Lori Scott; Sunil Thao; Hilario Bhakta Other Interventions: Discharge Summary Assessment (RN) Last Done: 10/21/24 10:53 Coding Level of Care Code 61960 IN/OBS DISCH 30 MIN/LESS Diagnoses Pneumothorax, left J93.9
[2024-10-27] MEDS ORDERED: APIXABAN 5 MG TABLET PO SCH (09:00)
== END 2024-10-21 12:39 | disposition home or self-care (01) | DRG 200 ==
LOC: ED 10:18 → 3W 10:39

== ENCOUNTER 2025-02-11 17:56 | Inpatient (IN) ==
--- NOTE | 2025-02-11 18:32 | Emergency Department Note ---
Impression & Plan CVA (cerebral vascular accident), Headache ED Provider Note NAME: ED QUIROZ AGE: 70 SEX: F : 1955 ARRIVES VIA: Walk-In INFORMANT: Patient, ED PROVIDER(S): Mayo Gonsales DO CHIEF COMPLAINT: Headache HPI: The patient is a 70-year-old female who presented to the emergency department for an evaluation of headache. The patient has noticed a frontal headache that is been ongoing for the last several days. She went to see her family doctor today. She was sent to the emergency department for CT of the head. The patient has a history of thrombocytopenia. She has a history of venous thromboembolic disease. She also has a history of metastatic cancer. She was told by her family doctor that they were concerned she may have bleeding in her brain. The patient denies having any trauma or neck pain. She denies having any nausea or vomiting. She denies have any weakness. ROS: See above HPI for pertinent positives & negatives. A total of 10 systems reviewed and were otherwise negative. PAST MEDICAL HISTORY: See Below PAST SURGICAL HISTORY: See Below FAMILY HISTORY: See Below SOCIAL HISTORY: See Below HOME MEDICATIONS: See Below ALLERGIES: See Below VITALS: See Below PHYSICAL EXAMINATION: GENERAL: Patient is awake alert in no acute distress patient is resting comfortably and showing no signs of anxiety EYES: The conjunctivae are clear. The pupils are round and reactive. EARS, NOSE, MOUTH AND THROAT: The nose is without any evidence of any deformity. NECK: The neck is nontender and supple. RESPIRATORY: Normal respiratory effort is noted there is no evidence of wheezing rhonchi or rales CARDIOVASCULAR: Regular rate and rhythm noted there no murmurs rubs or gallops normal S1 normal S2. GASTROINTESTINAL: The abdomen is soft. Abdomen is nontender. MUSCULOSKELETAL/EXTREMITIES: There is no evidence of gross deformity full range of motion is noted in the hips and shoulders. SKIN: There is no obvious evidence of any rash. There are no petechiae, pallor or cyanosis noted. NEUROLOGIC: Patient is awake alert and oriented x3 strength is symmetric patellar reflexes are 2+ bilaterally MEDICAL DECISION MAKING: The patient is a 70-year-old female who presented to the emergency department for an evaluation of a headache. The patient was known to have a history of thrombocytopenia and takes oral anticoagulants. She had headache and vision loss which began several days ago. She saw her family doctor today and was referred to the emergency department for a CAT scan. Initially the patient did not wish to have any other testing other than the CAT scan. Once her CAT scan was returned and revealed a subacute occipital infarct she agreed to further testing. I discussed the patient's laboratory and radiographic studies with her. I discussed her condition with the on-call [facility] hospitalist. They have agreed to evaluate the patient in the emergency department for further management and disposition. Triage Nursing notes reviewed. Prior medical records reviewed Vital Signs: reviewed and remarkable for no significant abnormalities Differential diagnosis: Migraine headache, meningitis, sinusitis, CO exposure, ICH, SAH, infection, tumor, headache, sinus thrombosis, arterial dissection, as well as other pathologies. ER treatment provided: See below Diagnostics interpreted by me: ECG: EKG was obtained in the emergency department. My interpretation is normal sinus rhythm at 82 bpm. There is no ectopy. Left bundle branch block pattern was noted. This was compared to a tracing from October 16, 2024. No changes were noted. Cardiac Monitoring: An order was placed for continuous cardiac monitoring. The monitor shows a rate of 82 bpm with sinus rhythm. Laboratory studies: As stated above and show below. Imaging studies: See below. Radiographic imaging was reviewed by myself Consultation(s): I discussed this case with Dr. Kelly who is on-call for the [facility]. 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 Xerosis cutis (Acute) Hyperlipidemia Medical History (Updated 02/11/25 @ 22:22 by Mayo Gonsales DO) CAD (coronary artery disease) Stents x2 (07/2019) (LEANDER x 2 to LAD) - [facility] History of blood transfusion Port-A-Cath in place Hydronephrosis denies History of myocardial infarction (07/2019) x2 stents - [facility] History of pneumothorax - 10/16/24- left side- collapsed lung from port placement 10/13/24 per pt - s/p pig tail catheter during [facility] admission - chest tube removed 10/19/24 History of DVT (deep vein thrombosis) (09/2024) popliteal DVT 10/20/24 noted during [facility] admission for pneumothorax- has not started eliquis or restarted plavix d/t procedures Hypothyroidism Hx of sepsis 06/2024 treated inpatient at [facility] - UTI/sepsis. no current issues. Anemia treated inpatient 06/2024 with blood transfusions at [facility] [place] History of seizure Most recent seizure No issues since - no current neurologist History of stroke ~, no residual issues Taking Plavix Metastatic cancer to lung [facility] - most recent chemo 11/27/24 Uterine cancer "A few years ago" Dr Rivera [facility] [place] - metastatic to lung - currently undergoing chemotherapy, last treatment 11/27/24 (poor IV access) - next treatment in 3 weeks - awaiting further surgical intervention with C port in place current per pt LBBB (left bundle branch block) Chronic - [facility] Hyperlipidemia Multiple pulmonary nodules determined by computed tomography of lung Depression with anxiety DM type 2 (diabetes mellitus, type 2) NIDDM Hypertension Fatty liver History of cerebral artery occlusion CVA ~ 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 Also 10/16/24 H/O insertion of central venous access port (10/13/24) Insertion Access Port with Fluoroscopy(Left) - Ajit Rowe DO Hx of left cataract extraction History of bronchoscopy robotic navigational bronchoscopy S/P cystoscopy with ureteral stent placement ureteral stent exchange most recent 06/2024 at [facility] Presence of stent in LAD coronary artery 2020 > stents x2 - [facility] Hx of right cataract extraction 01/21/19: was given 3mg of IV versed History of esophagogastroduodenoscopy (EGD) History of colonoscopy History of cholecystectomy History of x3 Family History Mother Family history of diabetes mellitus Acute myocardial infarction Heart disease Daughter Family history of diabetes mellitus Son Family history of diabetes mellitus Brother Cirrhosis of liver Father Prostate cancer Acute myocardial infarction Aunt Ovarian carcinoma Breast cancer Other No family history of adverse response to anesthesia Social History Smoking Status: Former smoker Tobacco Type: Cigarettes Age Started Using Tobacco: 14; Age Quit Using Tobacco: 33; packs per day: 2; Cigarettes Per Day: 2 packs or more per day; Second Hand Exposure: No; Do You Dip or Chew Tobacco: No; Hx Alcohol Use: No Hx Substance Use: No Preferred Language: Congolese Communication Ability: Effective Communication Ability Comment: Patient states [facility]/vision not good Shear Operator Required: No Beliefs That Will Affect Care: None marital status: Single Current Living Situation: Family Current Living Situation Comment: [address] current occupational status: retired How many Children do You have: 3 Feels Safe at Home: Yes caffeine: Yes during the past year weight has: decreased > 10 lbs Dental Care, Regularly: No Physical Activity Frequency: Does not Exercise Seatbelt Use: always Sunscreen Use: No Assistive Devices: None Allergies Allergies Allergy/AdvReac Type Severity Reaction Status Date / Time levofloxacin Allergy Intermediate Chest Verified 02/11/25 21:04 tightness, rash - pt is not sure rxn details Bactrim AdvReac Intermediate GI Verified 03/15/18 11:06 UPSET,HEADACHE clarithromycin AdvReac Unknown GI upset Verified 02/11/25 21:04 famotidine AdvReac Unknown Chest Pain Verified 02/11/25 21:04 -"not that I know of " levothyroxine sodium AdvReac Unknown Dizziness, Verified 02/11/25 21:05 headache, nausea and vomiting- see notes lisinopril AdvReac Unknown Cough - pt Verified 02/11/25 21:04 denies cough sulfamethoxazole AdvReac Unknown GI upset, Verified 02/11/25 21:04 headache trimethoprim AdvReac Unknown GI upset, Verified 02/11/25 21:04 headache Home Meds Home Medications Medication Instructions Recorded Confirmed pyridoxine (vitamin B6) 250 mg 250 mg PO QAM 12/31/18 02/11/25 tablet (Vitamin B-6) cholecalciferol (vitamin D3) 50 50 mcg PO QAM 03/10/21 02/11/25 mcg (2,000 unit) capsule ezetimibe 10 mg tablet (Zetia) 10 mg PO QAM 06/08/23 02/11/25 carvedilol 6.25 mg tablet (Coreg) 6.25 mg PO BID 02/06/24 02/11/25 clopidogrel 75 mg tablet (Plavix) 75 mg PO QAM 02/06/24 02/11/25 isosorbide mononitrate 30 mg 30 mg PO BID 02/06/24 02/11/25 tablet,extended release 24 hr pantoprazole 40 mg tablet,delayed 40 mg PO QAM 02/06/24 02/11/25 release (Protonix) amlodipine 5 mg tablet (Norvasc) 5 mg PO BID 03/11/24 02/11/25 apixaban 5 mg tablet (Eliquis) See Taper PO UD 11/24/24 02/11/25 levothyroxine 50 mcg tablet 50 mcg PO QAM 11/24/24 02/11/25 (Synthroid) nitroglycerin 0.4 mg sublingual 0.4 mg sublingual UD PRN chest pain 11/24/24 02/11/25 tablet atorvastatin 80 mg tablet (Lipitor) 80 mg PO QAM 11/26/24 02/11/25 dexamethasone 4 mg tablet 20 mg PO .BID/UD 02/11/25 02/11/25 Previous Rx's Medication Instructions Recorded miscellaneous medical supply #1 ea 10/27/21 (Blood Pressure Cuff) metformin 500 mg tablet 500 mg PO BID #90 tabs 02/28/24 losartan 100 mg tablet 100 mg PO QAM #90 tabs 03/03/24 Carboplatin #1 ea 05/20/24 Fosaprepitant #1 ea 05/20/24 Paclitaxel #1 ea 05/20/24 Palonsetron #1 ea 05/20/24 Pembrolizumab #1 ea 05/20/24 escitalopram oxalate 10 mg tablet 10 mg PO QAM #90 tabs 11/20/24 (Lexapro) Results & Data (ED) Vital Signs Vital Signs - 24 hr 02/11/25 17:56 02/11/25 18:35 02/11/25 18:36 Temperature 36.8 C Temperature Source Skin Pulse Rate 94 H 80 85 Pulse Rate from SpO2 Sensor 84 Respiratory Rate 16 19 Respiratory Effort / Characteristics Non-Labored Spontaneous Respiratory Depth Normal Respiratory Pattern Regular Blood Pressure 181/88 H Blood Pressure Mean 119 Pulse Oximetry 98 98 Oxygen Delivery Method Room Air Sepsis Recent Fever Within 48 Hours No Sepsis New/Unexplained Change in Mental Status N/A Sepsis Action Taken by Nursing No Action Required 02/11/25 18:51 02/11/25 19:15 02/11/25 19:30 Temperature Temperature Source Pulse Rate 107 H 85 Pulse Rate from SpO2 Sensor 102 H 86 93 H Respiratory Rate 16 18 Respiratory Effort / Characteristics Respiratory Depth Respiratory Pattern Blood Pressure Blood Pressure Mean Pulse Oximetry 99 98 95 Oxygen Delivery Method Sepsis Recent Fever Within 48 Hours Sepsis New/Unexplained Change in Mental Status Sepsis Action Taken by Nursing 02/11/25 19:54 02/11/25 20:00 02/11/25 20:03 Temperature Temperature Source Pulse Rate 90 85 86 Pulse Rate from SpO2 Sensor 87 87 87 Respiratory Rate 23 19 19 Respiratory Effort / Characteristics Respiratory Depth Respiratory Pattern Blood Pressure 150/71 H Blood Pressure Mean 97 Pulse Oximetry 98 98 98 Oxygen Delivery Method Sepsis Recent Fever Within 48 Hours Sepsis New/Unexplained Change in Mental Status Sepsis Action Taken by Nursing 02/11/25 20:21 Temperature Temperature Source Pulse Rate 82 Pulse Rate from SpO2 Sensor 82 Respiratory Rate 14 Respiratory Effort / Characteristics Respiratory Depth Respiratory Pattern Blood Pressure 155/94 H Blood Pressure Mean 114 Pulse Oximetry 97 Oxygen Delivery Method Sepsis Recent Fever Within 48 Hours Sepsis New/Unexplained Change in Mental Status Sepsis Action Taken by Snf Medications Current Medication List: was personally reviewed by me Laboratory Data Attestation: I reviewed the patient's lab results. 02/11/25 19:17 02/11/25 19:17 Lab Results 02/11/25 Range/Units 19:17 WBC 4.79 L (4.8-10.8) K/ul RBC 2.71 L (4.20-5.40) M/uL Hgb 9.1 L (12.0-16.0) g/dl Hct 28.3 L (37.0-47.0) % MCV 104.4 H (80.0-100.0) fL MCH 33.6 (25.0-34.0) pg MCHC 32.2 (32.0-36.0) g/dL RDW Std Deviation 87.3 H (36.4-46.3) fL RDW Coeff of Celina 23.5 H (11.5-14.5) % Plt Count 185 (130-400) K/uL MPV 9.1 L (9.4-12.4) fL Immature Gran % (Auto) 0.8 % Neut % (Auto) 59.1 % Lymph % (Auto) 30.1 % [place] % (Auto) 8.6 % Eos % (Auto) 1.0 % Baso % (Auto) 0.4 % Neut # (Auto) 2.83 (1.40-6.50) K/uL Lymph # (Auto) 1.44 (1.20-3.40) K/uL [place] # (Auto) 0.41 (0.11-0.59) K/uL Eos # (Auto) 0.05 (0.00-0.50) K/uL Baso # (Auto) 0.02 (0.00-0.20) K/uL Immature Gran # (Auto) 0.04 (0.01-0.20) K/uL Absolute Nucleated RBC 0.03 (0.00-0.12) K/uL Nucleated RBC % (auto) 0.6 % Anisocytosis Present PT 10.5 (9.0-12.0) Seconds INR 1.0 (0.9-1.1) APTT 26 (21-31) Seconds PTT Ratio 1.0 Sodium 139 (136-145) mmol/L Potassium 4.2 (3.5-5.1) mmol/L Chloride 107 (98-107) mmol/L Carbon Dioxide 26 (21-32) mmol/L Anion Gap 6 (3-11) BUN 19 (6-23) mg/dl Creatinine 1.33 H (0.6-1.2) mg/dl Est Cr Clr Drug Dosing 22.9 ml/min eGFR 43.31 BUN/Creatinine Ratio 14.3 (10-20) Glucose 102 H (70-99(Fasting)) mg/dl Calcium 8.5 L (8.6-10.3) mg/dl Magnesium 1.7 (1.7-2.4) mg/dl Total Bilirubin 0.3 (0.2-1.0) mg/dl AST 25 (13-39) U/L ALT 14 (7-52) U/L Alkaline Phosphatase 170 H (34-104) U/L Troponin I High Sens 4.9 (0-14) pg/ml Total Protein 7.5 (6.0-8.3) gm/dl Albumin 3.5 (3.4-5.0) gm/dl Globulin 4.0 (2.5-4.0) gm/dl Albumin/Globulin Ratio 0.9 (0.9-2) Administered Medications Discontinued Medications Lorazepam (Lorazepam 2 Mg/1 Ml Vial) 1 mg IV NOW STA Stop: 02/11/25 20:55 Last Admin: 02/11/25 21:00 Dose: 1 mg Documented By: CHAPITO Imaging Data Attestation: I personally reviewed and interpreted this imaging study as follows: My Impression: CT of the brain was obtained in the emergency department. An old stroke was noted in the left occipital lobe, there was also encephalomalacia noted in the right occipital lobe, final report below. Radiologist's Impression: Head CT 02/11/25 18:07 Technique: Axial computed tomography images were obtained of the brain without intravenous contrast. Comparison is made to the prior CT dated 07/07/2024 Findings: There is low attenuation in the right occipital lobe that could be due to a subacute infarct. There is unchanged cerebral atrophy, within expected limits for the patient's age. Areas of decreased attenuation are seen within the periventricular white matter, likely representing chronic small vessel ischemic disease. There is an unchanged old left parietal lobe infarct. There is an infarct of the right parietal lobe that appears old as well but has evolved since the prior study. There is a small old infarct of the left internal capsule There is no definite sign of acute infarction. No intracranial hemorrhage is evident. No definite mass lesion is seen on this noncontrast examination. There is no midline shift or other form of herniation. No hydrocephalus is seen. No fracture is identified. The orbits and the visualized paranasal sinuses appear unremarkable. The mastoid air cells appear clear. Impression: 1. Right occipital lobe infarct that may be subacute. MRI with diffusion-weighted images could be considered for further evaluation 2. Cerebral atrophy and chronic small vessel ischemic disease 3. Several old infarcts ACT 112: Positive. There are findings on this exam that require communication between the performing entity and the patient following Patient Test Result Information Act ([place] ACT 112) guidelines. Electronically signed by Chris Summers 02-11-2025 6:38 PM Chest X-Ray 02/11/25 18:45 Exam: X-ray chest one view portable Reason for exam: Suspected stroke Previous study: 12/03/2024 FINDINGS: Left MediPort catheter again noted. Heart mildly enlarged but stable. Previous right pleural effusion has decreased markedly in size with only minimal residual blunting of the right costophrenic sulcus. Left hemithorax clear. IMPRESSION: 1. Stable mild cardiomegaly. 2. Small right pleural effusion, markedly decreased in size as compared to the study of 12/03/2024. Electronically signed by Sunil Engel 02-11-2025 8:58 PM Discharge Plan Visit Data Chief Complaint: Head Pain Stated Complaint: HEAD PAIN ED Provider: Mayo Gonsales Discharge Problem: CVA (cerebral vascular accident), Headache Patient Disposition: Admitted As Inpatient Condition: Fair Discharge Instructions Interventions: ED Discharge Assessment Last Done: 02/11/25 21:35
--- NOTE | 2025-02-11 18:39 | CT Scan Report ---
Technique: Axial computed tomography images were obtained of the brain without intravenous contrast. Comparison is made to the prior CT dated 07/07/2024 Findings: There is low attenuation in the right occipital lobe that could be due to a subacute infarct. There is unchanged cerebral atrophy, within expected limits for the patient's age. Areas of decreased attenuation are seen within the periventricular white matter, likely representing chronic small vessel ischemic disease. There is an unchanged old left parietal lobe infarct. There is an infarct of the right parietal lobe that appears old as well but has evolved since the prior study. There is a small old infarct of the left internal capsule There is no definite sign of acute infarction. No intracranial hemorrhage is evident. No definite mass lesion is seen on this noncontrast examination. There is no midline shift or other form of herniation. No hydrocephalus is seen. No fracture is identified. The orbits and the visualized paranasal sinuses appear unremarkable. The mastoid air cells appear clear. Impression: 1. Right occipital lobe infarct that may be subacute. MRI with diffusion-weighted images could be considered for further evaluation 2. Cerebral atrophy and chronic small vessel ischemic disease 3. Several old infarcts ACT 112: Positive. There are findings on this exam that require communication between the performing entity and the patient following Patient Test Result Information Act ([place] ACT 112) guidelines. Electronically signed by Chris Summers 02-11-2025 6:38 PM
[2025-02-11 19:29] LABS: Hematocrit (blood only) 28.3 % (37.0-47.0); Hemoglobin 9.1 g/dl (12.0-16.0); Immature Granulocytes # (auto) 0.04 K/uL (0.01-0.20); Immature Granulocytes % (auto) 0.8 %; Mean Corpuscular Hemoglobin 33.6 pg (25.0-34.0); Mean Corpuscular Volume 104.4 fL (80.0-100.0); Platelet Count 185 K/uL (130-400); RDW Standard Deviation 87.3 fL (36.4-46.3); Red Blood Count 2.71 M/uL (4.20-5.40); White Blood Count 4.79 K/ul (4.8-10.8)
--- NOTE | 2025-02-11 19:44 | History & Physical Report ---
Date of Service February 11, 2025 Assessment & Plan (1) CVA (cerebral vascular accident): (2) Thrombocytopenia: (3) Vision loss: (4) Uterine cancer: (5) Metastatic cancer: (6) CAD (coronary artery disease): Plan The patient is a 70-year-old female with past medical history including thrombocytopenia, bilateral hydronephrosis, DVT, left pneumothorax, ureteral stent, uterine cancer, metastatic cancer, hyperlipidemia, and retroperitoneal lymphadenopathy. She is referred to the emergency department by her PCP due to concerns regarding frontal headache over the past several days, and she also complains of blurred vision in her left eye, and blood in urine that she associates with her history of uterine cancer. She reports that she is scheduled to undergo chemotherapy tomorrow morning at 8:00. Subacute CVA involving right occipital lobe- Patient's primary symptom is blurry vision in left eye CT head shows right occipital lobe infarct that is subacute, with several old infarcts MRA head and neck ordered and pending Uterine cancer/metastatic cancer- Patient is due for her next chemotherapy at 8 AM tomorrow Will consult oncology Dr. Vick History of DVT- Continue Eliquis CAD/hypertension- Continue amlodipine, carvedilol, clopidogrel, isosorbide mononitrate, losartan Diabetes mellitus- Hold metformin Placed on Accu-Cheks with NovoLog SSI Hyperlipidemia- Continue Zetia and atorvastatin History of Present Illness Chief Complaint: The patient was referred to the emergency department by her outpatient PCP due to concerns regarding frontal headache for the last several days, and blurred vi qing in the left eye over the past few days. She was initially sent for evaluation of headache for a CT scan of the head, but CT head shows a new subacute right occipital lobe infarct, along with several old infarcts otherwise, and patient has thus been referred for evaluation for admission. Primary Care Provider: Eliazar Peck DO The patient is a 70-year-old female with past medical history including thrombocytopenia, bilateral hydronephrosis, DVT, left pneumothorax, ureteral stent, uterine cancer, metastatic cancer, hyperlipidemia, and retroperitoneal lymphadenopathy. She is referred to the emergency department by her PCP due to concerns regarding frontal headache over the past several days, and she also complains of blurred vision in her left eye, and blood in urine that she associates with her history of uterine cancer. She reports that she is scheduled to undergo chemotherapy tomorrow morning at 8:00. Allergies Allergy/AdvReac Type Severity Reaction Status Date / Time levofloxacin Allergy Intermediate Chest Verified 02/11/25 21:04 tightness, rash - pt is not sure rxn details Bactrim AdvReac Intermediate GI Verified 03/15/18 11:06 UPSET,HEADACHE clarithromycin AdvReac Unknown GI upset Verified 02/11/25 21:04 famotidine AdvReac Unknown Chest Pain Verified 02/11/25 21:04 -"not that I know of " levothyroxine sodium AdvReac Unknown Dizziness, Verified 02/11/25 21:05 headache, nausea and vomiting- see notes lisinopril AdvReac Unknown Cough - pt Verified 02/11/25 21:04 denies cough sulfamethoxazole AdvReac Unknown GI upset, Verified 02/11/25 21:04 headache trimethoprim AdvReac Unknown GI upset, Verified 02/11/25 21:04 headache Home Medications Medication Instructions Recorded Confirmed Type pyridoxine (vitamin B6) 250 mg 250 mg PO QAM 12/31/18 02/11/25 History tablet (Vitamin B-6) cholecalciferol (vitamin D3) 50 50 mcg PO QAM 03/10/21 02/11/25 History mcg (2,000 unit) capsule miscellaneous medical supply #1 ea 10/27/21 02/11/25 Rx (Blood Pressure Cuff) ezetimibe 10 mg tablet (Zetia) 10 mg PO QAM 06/08/23 02/11/25 History carvedilol 6.25 mg tablet (Coreg) 6.25 mg PO BID 02/06/24 02/11/25 History clopidogrel 75 mg tablet (Plavix) 75 mg PO QAM 02/06/24 02/11/25 History isosorbide mononitrate 30 mg 30 mg PO BID 02/06/24 02/11/25 History tablet,extended release 24 hr pantoprazole 40 mg tablet,delayed 40 mg PO QAM 02/06/24 02/11/25 History release (Protonix) metformin 500 mg tablet 500 mg PO BID #90 tabs 02/28/24 02/11/25 Rx losartan 100 mg tablet 100 mg PO QAM #90 tabs 03/03/24 02/11/25 Rx amlodipine 5 mg tablet (Norvasc) 5 mg PO BID 03/11/24 02/11/25 History Carboplatin #1 ea 05/20/24 02/11/25 Rx Fosaprepitant #1 ea 05/20/24 02/11/25 Rx Paclitaxel #1 ea 05/20/24 02/11/25 Rx Palonsetron #1 ea 05/20/24 02/11/25 Rx Pembrolizumab #1 ea 05/20/24 02/11/25 Rx escitalopram oxalate 10 mg tablet 10 mg PO QAM #90 tabs 11/20/24 02/11/25 Rx (Lexapro) apixaban 5 mg tablet (Eliquis) See Taper PO UD 11/24/24 02/11/25 History levothyroxine 50 mcg tablet 50 mcg PO QAM 11/24/24 02/11/25 History (Synthroid) nitroglycerin 0.4 mg sublingual 0.4 mg sublingual UD PRN chest pain 11/24/24 02/11/25 History tablet atorvastatin 80 mg tablet (Lipitor) 80 mg PO QAM 11/26/24 02/11/25 History dexamethasone 4 mg tablet 20 mg PO .BID/UD 02/11/25 02/11/25 History 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 Xerosis cutis (Acute) Hyperlipidemia Medical History (Updated 02/11/25 @ 22:22 by Mayo Gonsales DO) CAD (coronary artery disease) Stents x2 (07/2019) (LEANDER x 2 to LAD) - [facility] History of blood transfusion Port-A-Cath in place Hydronephrosis denies History of myocardial infarction (07/2019) x2 stents - [facility] History of pneumothorax - 10/16/24- left side- collapsed lung from port placement 10/13/24 per pt - s/p pig tail catheter during [facility] admission - chest tube removed 10/19/24 History of DVT (deep vein thrombosis) (09/2024) popliteal DVT 10/20/24 noted during [facility] admission for pneumothorax- has not started eliquis or restarted plavix d/t procedures Hypothyroidism Hx of sepsis 06/2024 treated inpatient at [facility] - UTI/sepsis. no current issues. Anemia treated inpatient 06/2024 with blood transfusions at [facility] History of seizure Most recent seizure No issues since - no current neurologist History of stroke ~, no residual issues Taking Plavix Metastatic cancer to lung CCP/[facility] - most recent chemo 11/27/24 Uterine cancer "A few years ago" Dr Rivera [facility] - metastatic to lung - currently undergoing chemotherapy, last treatment 11/27/24 (poor IV access) - next treatment in 3 weeks - awaiting further surgical intervention with [facility] port in place current per pt LBBB (left bundle branch block) Chronic - [facility] Hyperlipidemia Multiple pulmonary nodules determined by computed tomography of lung Depression with anxiety DM type 2 (diabetes mellitus, type 2) NIDDM Hypertension Fatty liver History of cerebral artery occlusion 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 Also 10/16/24 H/O insertion of central venous access port (10/13/24) Insertion Access Port with Fluoroscopy(Left) - Ajit Rowe DO Hx of left cataract extraction History of bronchoscopy robotic navigational bronchoscopy S/P cystoscopy with ureteral stent placement ureteral stent exchange most recent 06/2024 at [facility] Presence of stent in LAD coronary artery 2020 > stents x2 - [facility] Hx of right cataract extraction 01/21/19: was given 3mg of IV versed History of esophagogastroduodenoscopy (EGD) History of colonoscopy History of cholecystectomy History of x3 Family History Mother Family history of diabetes mellitus Acute myocardial infarction Heart disease Daughter Family history of diabetes mellitus Son Family history of diabetes mellitus Brother Cirrhosis of liver Father Prostate cancer Acute myocardial infarction Aunt Ovarian carcinoma Breast cancer Other No family history of adverse response to anesthesia Social History Smoking Status: Former smoker Tobacco Type: Cigarettes Age Started Using Tobacco: 14; Age Quit Using Tobacco: 33; packs per day: 2; Cigarettes Per Day: 2 packs or more per day; Second Hand Exposure: No; Do You Dip or Chew Tobacco: No; Hx Alcohol Use: No Hx Substance Use: No Preferred Language: [place] Communication Ability: Effective Communication Ability Comment: Patient states [place]/vision not good Pump Technician Required: No Beliefs That Will Affect Care: None marital status: Single Current Living Situation: Family Current Living Situation Comment: [place] with her sonEmil current occupational status: retired How many Children do You have: 3 Feels Safe at Home: Yes caffeine: Yes during the past year weight has: decreased > 10 lbs Dental Care, Regularly: No Physical Activity Frequency: Does not Exercise Seatbelt Use: always Sunscreen Use: No Assistive Devices: None Review of Systems Review of Systems: The patient denies chest pain, palpitations, shortness of breath, dyspnea on exertion, cough, lower extremity swelling, sore throat, fevers, chills, sweats, nausea, vomiting, diarrhea , constipation, abdominal pain, blood in stool, lightheadedness, dizziness, headache, memory loss, loss of consciousness, rash, abnormal bruising or bleeding, imbalance, focal or generalized weakness, numbness or tingling in arms or legs, generalized arthralgias or myalgias, back or neck pain, or night sweats. The review of systems is otherwise negative other than for that already noted above, and at least 10 systems have been reviewed. Physical Exam Physical Exam: The patient is awake, alert and oriented 3, well developed and well nourished, normocephalic and atraumatic, lying in bed and in no acute distress. HEENT--PERRL, EOMI, mucous membranes and oropharynx mildly dry. Neck--supple. No JVD. No bruits. Thyroid normal, trachea midline, no adenopathy. Heart--normal S1 and S2. No murmurs, rubs or gallops. Lungs--clear bilaterally, no respiratory distress, no accessory muscle use. Abdomen--normal bowel sounds and soft. Nontender. Nondistended Extremities--No edema. Dermatologic--normal skin turgor, normal color, no abnormal lymph nodes, no rash. Neurologic--cranial nerves II through XII grossly intact. Rheumatologic--normal range of motion. Psychiatric--normal affect. Results & Data Results & Data Vital Signs (Past 12 Hours) Vital Signs Temp Pulse Resp BP Pulse Ox O2 Del Method 02/11/25 19:30 18 95 02/11/25 19:15 85 16 98 02/11/25 18:51 107 H 99 02/11/25 18:36 85 19 98 02/11/25 18:35 80 02/11/25 17:56 36.8 C 94 H 16 181/88 H 98 Room Air Laboratory Results Laboratory Results WBC 4.79 K/ul (4.8-10.8) L 02/11/25 19:17 RBC 2.71 M/uL (4.20-5.40) L 02/11/25 19:17 Hgb 9.1 g/dl (12.0-16.0) L 02/11/25 19:17 Hct 28.3 % (37.0-47.0) L 02/11/25 19:17 MCV 104.4 fL (80.0-100.0) H 02/11/25 19:17 MCH 33.6 pg (25.0-34.0) 02/11/25 19:17 MCHC 32.2 g/dL (32.0-36.0) 02/11/25 19:17 RDW Std Deviation 87.3 fL (36.4-46.3) H 02/11/25 19:17 RDW Coeff of [place] 23.5 % (11.5-14.5) H 02/11/25 19:17 Plt Count 185 K/uL (130-400) 02/11/25 19:17 MPV 9.1 fL (9.4-12.4) L 02/11/25 19:17 Immature Gran % (Auto) 0.8 % 02/11/25 19:17 Neut % (Auto) 59.1 % 02/11/25 19:17 Lymph % (Auto) 30.1 % 02/11/25 19:17 [place] % (Auto) 8.6 % 02/11/25 19:17 Eos % (Auto) 1.0 % 02/11/25 19:17 Baso % (Auto) 0.4 % 02/11/25 19:17 Neut # (Auto) 2.83 K/uL (1.40-6.50) 02/11/25 19:17 Lymph # (Auto) 1.44 K/uL (1.20-3.40) 02/11/25 19:17 [place] # (Auto) 0.41 K/uL (0.11-0.59) 02/11/25 19:17 Eos # (Auto) 0.05 K/uL (0.00-0.50) 02/11/25 19:17 Baso # (Auto) 0.02 K/uL (0.00-0.20) 02/11/25 19:17 Immature Gran # (Auto) 0.04 K/uL (0.01-0.20) 02/11/25 19:17 Absolute Nucleated RBC 0.03 K/uL (0.00-0.12) 02/11/25 19:17 Nucleated RBC % (auto) 0.6 % 02/11/25 19:[address] 02/11/25 18:07 Technique: Axial computed tomography images were obtained of the brain without intravenous contrast. Comparison is made to the prior CT dated 07/07/2024 Findings: There is low attenuation in the right occipital lobe that could be due to a subacute infarct. There is unchanged cerebral atrophy, within expected limits for the patient's age. Areas of decreased attenuation are seen within the periventricular white matter, likely representing chronic small vessel ischemic disease. There is an unchanged old left parietal lobe infarct. There is an infarct of the right parietal lobe that appears old as well but has evolved since the prior study. There is a small old infarct of the left internal capsule There is no definite sign of acute infarction. No intracranial hemorrhage is evident. No definite mass lesion is seen on this noncontrast examination. There is no midline shift or other form of herniation. No hydrocephalus is seen. No fracture is identified. The orbits and the visualized paranasal sinuses appear unremarkable. The mastoid air cells appear clear. Impression: 1. Right occipital lobe infarct that may be subacute. MRI with diffusion-weighted images could be considered for further evaluation 2. Cerebral atrophy and chronic small vessel ischemic disease 3. Several old infarcts ACT 112: Positive. There are findings on this exam that require communication between the performing entity and the patient following Patient Test Result Information Act ([place] ACT 112) guidelines. Electronically signed by Chris Summers 02-11-2025 6:38 PM Code Status & VTE Plan Code Status full code PG Care Time/CCT Total # of Minutes Spent Total Time Spent with Patient: Total time spent is greater than 50% in coordination of care (as documented) at patient's floor/unit and/or counseling patient: Coding Level of Care Code 48464 INT INP/OBS CARE 3/75MIN Diagnoses CVA (cerebral vascular accident) I63.9 Thrombocytopenia D69.6 Vision loss H54.7 Uterine cancer C55 Malignant neoplasm of body of uterus location: unspecified location Metastatic cancer C79.9 CAD (coronary artery disease) I25.10 (4) Uterine cancer Malignant neoplasm of body of uterus location: unspecified location
[2025-02-11 19:47] LABS: Anisocytosis Present
[2025-02-11 19:55] LABS: Alanine Aminotransferase 14.0 U/L (7-52); Albumin Globulin Ratio 0.9 (0.9-2); Alkaline Phosphatase 170.0 U/L (34-104); Anion Gap 6.0 (3-11); Bilirubin,Total 0.3 mg/dl (0.2-1.0); Blood Urea Nitrogen 19.0 mg/dl (6-23); Calcium 8.5 mg/dl (8.6-10.3); Carbon Dioxide 26.0 mmol/L (21-32); Chloride 107.0 mmol/L (98-107); Creatinine Clr Calc Pharmacy 22.9 ml/min; Globulin 4.0 gm/dl (2.5-4.0); Glucose 102.0 mg/dl (70-99(Fasting)); Magnesium 1.7 mg/dl (1.7-2.4); Potassium 4.2 mmol/L (3.5-5.1); Sodium 139.0 mmol/L (136-145); Total Protein 7.5 gm/dl (6.0-8.3)
[2025-02-11 20:00] LABS: INR 1.0 (0.9-1.1); Partial Thromboplastin Time 26 Seconds (21-31); Prothrombin Time 10.5 Seconds (9.0-12.0)
--- NOTE | 2025-02-11 20:58 | XRay Report ---
Exam: X-ray chest one view portable Reason for exam: Suspected stroke Previous study: 12/03/2024 FINDINGS: Left MediPort catheter again noted. Heart mildly enlarged but stable. Previous right pleural effusion has decreased markedly in size with only minimal residual blunting of the right costophrenic sulcus. Left hemithorax clear. IMPRESSION: 1. Stable mild cardiomegaly. 2. Small right pleural effusion, markedly decreased in size as compared to the study of 12/03/2024. Electronically signed by Sunil Engel 02-11-2025 8:58 PM
[2025-02-11] MEDS ORDERED: GLUCOSE 40% GEL 15 GM TUBE PO PRN (22:01)
[2025-02-11] MEDS ORDERED: GLUCAGON FOR INJ 1 MG VIAL SQ PRN (22:01)
[2025-02-11] MEDS ORDERED: CARBOHYDRATES FOR HYPOGLYCEMIA PO PRN (22:01)
[2025-02-11] MEDS ORDERED: DEXTROSE 50% 50 ML SYRINGE IV PRN (22:01)
[2025-02-11] MEDS ORDERED: NITROGLYCERIN SL 0.4 MG/TAB TAB SL PRN (22:01)
[2025-02-11] MEDS ORDERED: GLUCOSE 10 TAB/TUBE PO PRN (22:01)
[2025-02-11] MEDS ORDERED: PHARMACIST DISCHARGE MED REC CONSULT PRN (22:01)
[2025-02-11] MEDS ORDERED: ACETAMINOPHEN 325 MG TAB PO PRN (22:01)
--- NOTE | 2025-02-11 23:11 | Magnetic Resonance Report ---
Exam(s): MRA HEAD Without Contrast EXAM: MR Angiography Head Without Intravenous Contrast CLINICAL HISTORY: stroke. TECHNIQUE: Magnetic resonance angiography images of the head without intravenous contrast. COMPARISON: No relevant prior studies available. FINDINGS: Right internal carotid artery: Asymmetric diminished signal involving the proximal supraclinoid right internal carotid artery with the distal supraclinoid segment small in caliber. The petrous segment is patent. Intracranial segment is patent with no significant stenosis. No aneurysm. Right anterior cerebral artery: The right A1 segment is absent with the right anterior cerebral artery perfused by the anterior communicating branch. The right anterior cerebral artery is patent. Right middle cerebral artery: The right M1 segment is patent, as are the proximal M2/M3 branches. No occlusion or significant stenosis. No aneurysm. Right posterior cerebral artery: Unremarkable. No occlusion or significant stenosis. No aneurysm. Right vertebral artery: Unremarkable as visualized. Left internal carotid artery: No acute findings. Intracranial segment is patent with no significant stenosis. No aneurysm. Left anterior cerebral artery: Unremarkable. No occlusion or significant stenosis. No aneurysm. Left middle cerebral artery: Unremarkable. No occlusion or significant stenosis. No aneurysm. Left posterior cerebral artery: Unremarkable. No occlusion or significant stenosis. No aneurysm. Left vertebral artery: Unremarkable as visualized. Basilar artery: Unremarkable. No occlusion or significant stenosis. No aneurysm. IMPRESSION: 1. Asymmetric diminished signal involving the proximal supraclinoid right internal carotid artery with the distal supraclinoid segment small in caliber. At least moderate stenosis suspected. The petrous segment is patent. 2. Otherwise negative intracranial MRA examination. Electronically signed by: Shubham Loaiza MD 02/11/25 23:10 PM
[2025-02-11] MEDS: APIXABAN 5 MG TABLET PO SCH (23:16)
[2025-02-11] MEDS: ISOSORBIDE MONO EXTENDED REL 30 MG TABCR PO SCH (23:16)
[2025-02-11] MEDS: INSULIN ASPART PER UNIT CHARGE SC SCH (23:17)
--- NOTE | 2025-02-11 23:28 | Magnetic Resonance Report ---
Exam(s): MRA NECK Without Contrast EXAM: MR Angiography Neck Without Intravenous Contrast CLINICAL HISTORY: cva. TECHNIQUE: Magnetic resonance angiography images of the neck without intravenous contrast. COMPARISON: No relevant prior studies available. FINDINGS: Right common carotid artery: Unremarkable. No significant stenosis. No dissection or occlusion. Right internal carotid artery: Diffusely diminished signal with small- caliber right internal carotid artery from the bifurcation to the skull base. However no focal stenosis appreciated. Right external carotid artery: Unremarkable. No occlusion. Right vertebral artery: Unremarkable. No significant stenosis. No dissection or occlusion. Left common carotid artery: Unremarkable. No significant stenosis. No dissection or occlusion. Left internal carotid artery: Unremarkable. Extracranial segment is patent with no significant stenosis. No dissection or occlusion. Left external carotid artery: Unremarkable. No occlusion. Left vertebral artery: Unremarkable. No significant stenosis. No dissection or occlusion. Soft tissues: Unremarkable as visualized. CAROTID STENOSIS REFERENCE USING NASCET CRITERIA: % ICA stenosis = (1 - narrowest ICA diameter/diameter of distal cervical ICA) x 100. Mild - <50% stenosis. Moderate - 50-69% stenosis. Severe - 70-94% stenosis. Near occlusion - 95-99% stenosis. Occluded - 100% stenosis. IMPRESSION: 1. Diffusely diminished signal with small-caliber right internal carotid artery from the bifurcation to the skull base. However no focal stenosis appreciated. This may be related to the suspected high-grade stenosis at the supraclinoid segment. Consider duplex evaluation to exclude of bifurcation stenosis. 2. Otherwise negative cervical MRA examination. Electronically signed by: Shubham Loaiza MD 02/11/25 23:27 PM
--- NOTE | 2025-02-11 23:34 | Magnetic Resonance Report ---
Exam(s): MRI HEAD Without Contrast EXAM: MR Head Without Intravenous Contrast CLINICAL HISTORY: cva. TECHNIQUE: Magnetic resonance images of the head/brain without intravenous contrast in multiple planes. COMPARISON: MRI 08/19/2012 FINDINGS: Brain: Scattered subcentimeter punctate areas of diffusion restriction involving the posteromedial right occipital temporal region (series 6; images 12-13). Areas of chronic encephalomalacia and gliosis involving the bilateral parieto-occipital regions. There is some minimal gyriform susceptibility changes on the right suggesting calcification or chronic hemosiderin products. No intracranial hematoma. Abnormal T2 signal in the deep cerebral white matter is consistent with small vessel ischemic/degenerative changes. The cerebral and cerebellar sulci are prominent consistent with brain atrophy. Ventricles: Unremarkable. No ventriculomegaly. Bones/joints: Unremarkable. No acute fracture. Sinuses: Unremarkable as visualized. No acute sinusitis. Mastoid air cells: Unremarkable as visualized. No mastoid effusion. Orbits: Unremarkable as visualized. IMPRESSION: 1. Scattered subcentimeter punctate areas of diffusion restriction involving the posteromedial right occipital temporal region (series 6; images 12-13). Findings are consistent with evolving ischemic changes. 2. Chronic encephalomalacia involving the posterior hemispheres bilaterally. Chronic diffuse cerebral atrophy and small ischemic/degenerative changes. Electronically signed by: Shubham Loazia MD 02/11/25 23:33 PM
[2025-02-12] MEDS ORDERED: HEPARIN 100 UNIT/ML 5ML FLUSH FLUSH PRN (03:38)
[2025-02-12 04:40] LABS: Appearance Urine Clear (Clear); Bacteria Urine Automated None Seen (None Seen); Cast Urine Automated 0-2 /lpf (0-2); Epithelial Cell Urine Auto 0-2 /hpf (0-2); Glucose Urine UA Negative (Negative); RBC Urine Automated 0-2 /hpf (0-2); WBC Urine Automated 0-5 /hpf (0-5)
[2025-02-12 06:16] LABS: Hematocrit (blood only) 25.9 % (37.0-47.0); Hemoglobin 8.6 g/dl (12.0-16.0); Immature Granulocytes # (auto) 0.03 K/uL (0.01-0.20); Immature Granulocytes % (auto) 0.7 %; Mean Corpuscular Hemoglobin 35.2 pg (25.0-34.0); Mean Corpuscular Volume 106.1 fL (80.0-100.0); Platelet Count 189 K/uL (130-400); RDW Standard Deviation 87.9 fL (36.4-46.3); Red Blood Count 2.44 M/uL (4.20-5.40); White Blood Count 4.53 K/ul (4.8-10.8)
[2025-02-12 06:45] LABS: Anisocytosis Present; Polychromasia 1+
[2025-02-12 06:47] LABS: Alanine Aminotransferase 13.0 U/L (7-52); Albumin Globulin Ratio 1.0 (0.9-2); Alkaline Phosphatase 157.0 U/L (34-104); Anion Gap 6.0 (3-11); Bilirubin,Total 0.3 mg/dl (0.2-1.0); Blood Urea Nitrogen 19.0 mg/dl (6-23); Calcium 8.3 mg/dl (8.6-10.3); Carbon Dioxide 26.0 mmol/L (21-32); Chloride 107.0 mmol/L (98-107); Cholesterol 193.0 mg/dl (0-200); Creatinine Clr Calc Pharmacy 23.6 ml/min; Globulin 3.4 gm/dl (2.5-4.0); Glucose 113.0 mg/dl (70-99(Fasting)); HDL Cholesterol 59.0 mg/dl; Magnesium 1.7 mg/dl (1.7-2.4); Potassium 4.4 mmol/L (3.5-5.1); Sodium 139.0 mmol/L (136-145); Total Protein 6.8 gm/dl (6.0-8.3); Triglycerides 69.0 mg/dl (0-150)
[2025-02-12] MEDS: LEVOTHYROXINE SODIUM 50 MCG TABLET PO SCH (07:00)
[2025-02-12 07:11] LABS: Hemoglobin A1C 5.3 % (4.5-5.6)
[2025-02-12] MEDS: CHOLECALCIFEROL 25 MCG (1000 UNITS) TAB PO SCH (07:55)
[2025-02-12] MEDS: PYRIDOXINE HCL 50 MG TAB PO SCH (07:56)
[2025-02-12] MEDS: EZETIMIBE 10 MG TAB PO SCH (07:57)
[2025-02-12] MEDS: ESCITALOPRAM OXALATE 10 MG TAB PO SCH (07:57)
[2025-02-12] MEDS: ATORVASTATIN 40 MG TAB PO SCH (07:57)
[2025-02-12] MEDS: CLOPIDOGREL BISULFATE 75 MG TAB PO SCH (07:58)
--- NOTE | 2025-02-12 08:59 | Oncology Consultation ---
Date of Consultation February 12, 2025 History of Present Illness Attending Physician: Ralph Pop MD Allergies Allergy/AdvReac Type Severity Reaction Status Date / Time levofloxacin Allergy Intermediate Chest Verified 02/11/25 21:04 tightness, rash - pt is not sure rxn details Bactrim AdvReac Intermediate GI Verified 03/15/18 11:06 UPSET,HEADACHE clarithromycin AdvReac Unknown GI upset Verified 02/11/25 21:04 famotidine AdvReac Unknown Chest Pain Verified 02/11/25 21:04 -"not that I know of " levothyroxine sodium AdvReac Unknown Dizziness, Verified 02/11/25 21:05 headache, nausea and vomiting- see notes lisinopril AdvReac Unknown Cough - pt Verified 02/11/25 21:04 denies cough sulfamethoxazole AdvReac Unknown GI upset, Verified 02/11/25 21:04 headache trimethoprim AdvReac Unknown GI upset, Verified 02/11/25 21:04 headache Home Medications Medication Instructions Recorded Confirmed Type pyridoxine (vitamin B6) 250 mg 250 mg PO QAM 12/31/18 02/11/25 History tablet (Vitamin B-6) cholecalciferol (vitamin D3) 50 50 mcg PO QAM 03/10/21 02/11/25 History mcg (2,000 unit) capsule [facility] #1 ea 10/27/21 02/11/25 Rx (Blood Pressure Cuff) ezetimibe 10 mg tablet (Zetia) 10 mg PO QAM 06/08/23 02/11/25 History carvedilol 6.25 mg tablet (Coreg) 6.25 mg PO BID 02/06/24 02/11/25 History clopidogrel 75 mg tablet (Plavix) 75 mg PO QAM 02/06/24 02/11/25 History isosorbide mononitrate 30 mg 30 mg PO BID 02/06/24 02/11/25 History tablet,extended release 24 hr pantoprazole 40 mg tablet,delayed 40 mg PO QAM 02/06/24 02/11/25 History release (Protonix) metformin 500 mg tablet 500 mg PO BID #90 tabs 02/28/24 02/11/25 Rx losartan 100 mg tablet 100 mg PO QAM #90 tabs 03/03/24 02/11/25 Rx amlodipine 5 mg tablet (Norvasc) 5 mg PO BID 03/11/24 02/11/25 History Carboplatin #1 ea 05/20/24 02/11/25 Rx Fosaprepitant #1 ea 05/20/24 02/11/25 Rx Paclitaxel #1 ea 05/20/24 02/11/25 Rx Palonsetron #1 ea 05/20/24 02/11/25 Rx Pembrolizumab #1 ea 05/20/24 02/11/25 Rx escitalopram oxalate 10 mg tablet 10 mg PO QAM #90 tabs 11/20/24 02/11/25 Rx (Lexapro) apixaban 5 mg tablet (Eliquis) See Taper PO UD 11/24/24 02/11/25 History levothyroxine 50 mcg tablet 50 mcg PO QAM 11/24/24 02/11/25 History (Synthroid) nitroglycerin 0.4 mg sublingual 0.4 mg sublingual UD PRN chest pain 11/24/24 02/11/25 History tablet atorvastatin 80 mg tablet (Lipitor) 80 mg PO QAM 11/26/24 02/11/25 History dexamethasone 4 mg tablet 20 mg PO .BID/UD 02/11/25 02/11/25 History Patient History Medical History (Updated 02/11/25 @ 22:22 by Mayo Gonsales DO) CAD (coronary artery disease) Stents x2 (07/2019) (LEANDER x 2 to LAD) [facility] History of blood transfusion Port-A-Cath in place Hydronephrosis denies History of myocardial infarction (07/2019) x2 stents - [facility] History of pneumothorax - 10/16/24- left side- collapsed lung from port placement 10/13/24 per pt - s/p pig tail catheter during [facility] admission - chest tube removed 10/19/24 History of DVT (deep vein thrombosis) (09/2024) popliteal DVT 10/20/24 noted during [place] admission for pneumothorax- has not started eliquis or restarted plavix d/t procedures Hypothyroidism Hx of sepsis 06/2024 treated inpatient at [facility] - UTI/sepsis. no current issues. Anemia treated inpatient 06/2024 with blood transfusions at [facility] History of seizure Most recent seizure No issues since - no current neurologist History of stroke ~, no residual issues Taking Plavix Metastatic cancer to lung [facility] - most recent chemo 11/27/24 Uterine cancer "A few years ago" Dr Miguel REINA - metastatic to lung - currently undergoing chemotherapy, last treatment 11/27/24 (poor IV access) - next treatment in 3 weeks - awaiting further surgical intervention with [facility] port in place current per pt LBBB (left bundle branch block) Chronic - [facility] Hyperlipidemia Multiple pulmonary nodules determined by computed tomography of lung Depression with anxiety DM type 2 (diabetes mellitus, type 2) NIDDM Hypertension Fatty liver History of cerebral artery occlusion CVA ~ 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 Also 10/16/24 H/O insertion of central venous access port (10/13/24) Insertion Access Port with Fluoroscopy(Left) - Ajit Rowe DO Hx of left cataract extraction History of bronchoscopy robotic navigational bronchoscopy S/P cystoscopy with ureteral stent placement ureteral stent exchange most recent 06/2024 at [facility] Presence of stent in LAD coronary artery 2019 > stents x2 - [facility] Hx of right cataract extraction 01/21/19: was given 3mg of IV versed History of esophagogastroduodenoscopy (EGD) History of colonoscopy History of cholecystectomy History of x3 Family History Mother Family history of diabetes mellitus Acute myocardial infarction Heart disease Daughter Family history of diabetes mellitus Son Family history of diabetes mellitus Brother Cirrhosis of liver Father Prostate cancer Acute myocardial infarction Aunt Ovarian carcinoma Breast cancer Other No family history of adverse response to anesthesia Social History Smoking Status: Former smoker Tobacco Type: Cigarettes Age Started Using Tobacco: 14; Age Quit Using Tobacco: 33; packs per day: 2; Cigarettes Per Day: 2 packs or more per day; Smoking End Date: 'many years ago'; Second Hand Exposure: No; Do You Dip or Chew Tobacco: No; Hx Alcohol Use: No Hx Substance Use: No Preferred Language: Serbian Communication Ability: Effective Communication Ability Comment: Patient states [place]/vision not good Program Technician Required: No Beliefs That Will Affect Care: None marital status: Single Current Living Situation: Family Current Living Situation Comment: Pt [place] with her sonEmil current occupational status: retired How many Children do You have: 3 Other Information That Helps Us Care for You: No Feels Safe at Home: Yes Safety Concerns: Feels Safe At This Time caffeine: Yes during the past year weight has: decreased > 10 lbs Dental Care, Regularly: No Physical Activity Frequency: Does not Exercise Seatbelt Use: always Sunscreen Use: No Assistive Devices: None Results & Data Vital Signs (Past 12 Hours) Vital Signs Temp Pulse Pulse Resp BP Pulse Ox O2 Del Method 02/12/25 07:50 36.6 C 84 15 115/69 94 Room Air 02/12/25 07:00 85 02/12/25 02:32 36.5 C 81 18 94/58 L 93 Room Air 02/11/25 22:25 36.4 C L 80 18 159/88 H 95 Room Air
[2025-02-12] MEDS: ONDANSETRON INJ 2 MG/ML 2 ML VIAL IV PRN (09:26)
--- NOTE | 2025-02-12 13:35 | XCELERA ---
[id number] \\[id number]
--- NOTE | 2025-02-12 14:31 | Electrocardiogram Report ---
Test Reason : Blood Pressure : */* mmHG Vent. Rate : 82 BPM Atrial Rate : 82 BPM P-R Int : 176 ms QRS Dur : 136 ms QT Int : 412 ms P-R-T Axes : 40 -52 64 degrees QTcB Int : 481 ms Normal sinus rhythm Left axis deviation Left bundle branch block Abnormal ECG When compared with ECG of 16-Oct-2024 10:38, No significant change was found Confirmed by Mayo Taylor ([id number]) on 02/12/2025 2:31:26 PM Referred By: REFERRED SELF Confirmed By: Mayo Taylor
--- NOTE | 2025-02-12 17:25 | Neurology Consultation ---
Date of Consultation February 12, 2025 Assessment & Plan (1) CVA (cerebral vascular accident): (2) Balint syndrome: (3) Carotid stenosis: Plan 70-year-old female with a history of bilateral chronic parieto-occipital infarcts, now presenting with a subacute right occipital temporal infarct. 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 She did not have gross optic ataxia on examination, however. She has a probable right supraclinoid carotid stenosis and metastatic uterine cancer. She has been following with [facility] oncology and has been receiving carboplatin pacli taxel pembrolizumab. She has also been prescribed Plavix, aspirin, and Eliquis. She has a history of DVT. Although pembrolizumab can be associated with encephalitis, myasthenia gravis, and Guillain-Munoz syndrome, I do not find any evidence of any of these particular complications at this time. Although a supraclinoid internal carotid artery stenosis cannot be addressed surgically, it may be worthwhile to order a follow-up carotid ultrasound to further assess a bifurcation stenosis as suggested by radiology. Could also consider a CT angiogram of the head and neck. I would recommend that she continue with aspirin 81 mg/day, clopidogrel 75 mg/day, and Eliquis. Dual antiplatelet therapy is appropriate in her case given her supraclinoid internal carotid artery stenosis and recurrent strokes. Continue with atorvastatin 80 mg/day. Continue management of blood pressure per stroke protocol. Would recommend outpatient assessment with ophthalmology to formally assess her visual graham. Patient's daughter informs me that she does not drive. I would agree that given her visual field and visual processing deficits, she will be unable to drive a motor vehicle going forward. She may also benefit from ocular rehab, (can be done as an outpatient at [facility]). Patient may follow-up with me in the outpatient clinic in 2 to 3 weeks after discharge. Please call with any questions. History of Present Illness Reason for Consultation: stroke Requesting Physician: Rashmi Attending Physician: Ralph Pop MD History of Present Illness The patient is a 70-year-old female with a history of metastatic uterine cancer, chronic left hemispheric stroke, DVT, who presented to the emergency department yesterday with a complaint of persistent vision difficulty off to the left and headache. Her vision difficulty has been present for several weeks. She denies any ocular pain, vertigo, difficulty swallowing, or focal weakness. She has had some difficulty reading and identifying objects. A CT of the head revealed chronic bilateral parietal lobe infarcts as well as a probable subacute right occipital infarct. A brain MRI revealed an acute to subacute right occipital temporal infarct and chronic bilateral parieto-occipital infarcts. MRA of the head and neck revealed diminished signal of the right supraclinoid right internal carotid artery indicative of a moderate stenosis. MRA of the neck reiterated this finding, without evidence of more proximal stenotic lesion. An echocardiogram revealed normal left ventricular systolic function, no regional wall motion abnormality, no intra-atrial shunt, normal left atrial size. An electrocardiogram revealed a normal sinus rhythm. Allergies Allergy/AdvReac Type Severity Reaction Status Date / Time levofloxacin Allergy Intermediate Chest Verified 02/11/25 21:04 tightness, rash - pt is not sure rxn details Bactrim AdvReac Intermediate GI Verified 03/15/18 11:06 UPSET,HEADACHE clarithromycin AdvReac Unknown GI upset Verified 02/11/25 21:04 famotidine AdvReac Unknown Chest Pain Verified 02/11/25 21:04 -"not that I know of " levothyroxine sodium AdvReac Unknown Dizziness, Verified 02/11/25 21:05 headache, nausea and vomiting- see notes lisinopril AdvReac Unknown Cough - pt Verified 02/11/25 21:04 denies cough sulfamethoxazole AdvReac Unknown GI upset, Verified 02/11/25 21:04 headache trimethoprim AdvReac Unknown GI upset, Verified 02/11/25 21:04 headache Home Medications Medication Instructions Recorded Confirmed Type pyridoxine (vitamin B6) 250 mg 250 mg PO QAM 12/31/18 02/11/25 History tablet (Vitamin B-6) cholecalciferol (vitamin D3) 50 50 mcg PO QAM 03/10/21 02/11/25 History mcg (2,000 unit) capsule [employer] medical supply #1 ea 10/27/21 02/11/25 Rx (Blood Pressure Cuff) ezetimibe 10 mg tablet (Zetia) 10 mg PO QAM 06/08/23 02/11/25 History carvedilol 6.25 mg tablet (Coreg) 6.25 mg PO BID 02/06/24 02/11/25 History clopidogrel 75 mg tablet (Plavix) 75 mg PO QAM 02/06/24 02/11/25 History isosorbide mononitrate 30 mg 30 mg PO BID 02/06/24 02/11/25 History tablet,extended release 24 hr pantoprazole 40 mg tablet,delayed 40 mg PO QAM 02/06/24 02/11/25 History release (Protonix) metformin 500 mg tablet 500 mg PO BID #90 tabs 02/28/24 02/11/25 Rx losartan 100 mg tablet 100 mg PO QAM #90 tabs 03/03/24 02/11/25 Rx amlodipine 5 mg tablet (Norvasc) 5 mg PO BID 03/11/24 02/11/25 History Carboplatin #1 ea 05/20/24 02/11/25 Rx Fosaprepitant #1 ea 05/20/24 02/11/25 Rx Paclitaxel #1 ea 05/20/24 02/11/25 Rx Palonsetron #1 ea 05/20/24 02/11/25 Rx Pembrolizumab #1 ea 05/20/24 02/11/25 Rx escitalopram oxalate 10 mg tablet 10 mg PO QAM #90 tabs 11/20/24 02/11/25 Rx (Lexapro) apixaban 5 mg tablet (Eliquis) See Taper PO UD 11/24/24 02/11/25 History levothyroxine 50 mcg tablet 50 mcg PO QAM 11/24/24 02/11/25 History (Synthroid) nitroglycerin 0.4 mg sublingual 0.4 mg sublingual UD PRN chest pain 11/24/24 02/11/25 History tablet atorvastatin 80 mg tablet (Lipitor) 80 mg PO QAM 11/26/24 02/11/25 History dexamethasone 4 mg tablet 20 mg PO .BID/UD 02/11/25 02/11/25 History Patient History Medical History (Updated 02/12/25 @ 17:38 by Eliazar Nguyen MD) CAD (coronary artery disease) Stents x2 (07/2019) (LEANDER x 2 to LAD) - [facility] History of blood transfusion Port-A-Cath in place Hydronephrosis denies History of myocardial infarction (07/2019) x2 stents - [facility] History of pneumothorax - 10/16/24- left side- collapsed lung from port placement 10/13/24 per pt - s/p pig tail catheter during [facility] admission - chest tube removed 10/19/24 History of DVT (deep vein thrombosis) (09/2024) popliteal DVT 10/20/24 noted during [place] admission for pneumothorax- has not started eliquis or restarted plavix d/t procedures Hypothyroidism Hx of sepsis 06/2024 treated inpatient at [facility] - UTI/sepsis. no current issues. Anemia treated inpatient 06/2024 with blood transfusions at [facility] History of seizure Most recent seizure No issues since - no current neurologist History of stroke ~, no residual issues Taking Plavix Metastatic cancer to lung [facility] - most recent chemo 11/27/24 Uterine cancer "A few years ago" Dr Rivera [facility] - metastatic to lung - currently undergoing chemotherapy, last treatment 11/27/24 (poor IV access) - next treatment in 3 weeks - awaiting further surgical intervention with C port in place current per pt LBBB (left bundle branch block) Chronic - [facility] Hyperlipidemia Multiple pulmonary nodules determined by computed tomography of lung Depression with anxiety DM type 2 (diabetes mellitus, type 2) NIDDM Hypertension Fatty liver History of cerebral artery occlusion CVA ~ Homozygous MTHFR mutation [id number] pt denies Diverticular disease Chronic headache GERD (gastroesophageal reflux disease) Surgical History History of thoracentesis 11/26/24 - [facility] - urological procedure was cx d/t Right Pleural Effusion. Also 10/16/24 H/O insertion of central venous access port (10/13/24) Insertion Access Port with Fluoroscopy(Left) - Ajit Rowe DO Hx of left cataract extraction History of bronchoscopy robotic navigational bronchoscopy S/P cystoscopy with ureteral stent placement ureteral stent exchange most recent 06/2024 at [facility] Presence of stent in LAD coronary artery 2020 [facility] Hx of right cataract extraction 01/21/19: was given 3mg of IV versed History of esophagogastroduodenoscopy (EGD) History of colonoscopy History of cholecystectomy History of x3 Family History Mother Family history of diabetes mellitus Acute myocardial infarction Heart disease Daughter Family history of diabetes mellitus Son Family history of diabetes mellitus Brother Cirrhosis of liver Father Prostate cancer Acute myocardial infarction Aunt Ovarian carcinoma Breast cancer Other No family history of adverse response to anesthesia Social History Smoking Status: Former smoker Tobacco Type: Cigarettes Age Started Using Tobacco: 14; Age Quit Using Tobacco: 33; packs per day: 2; Cigarettes Per Day: 2 packs or more per day; Smoking End Date: 'many years ago'; Second Hand Exposure: No; Do You Dip or Chew Tobacco: No; Hx Alcohol Use: No Hx Substance Use: No Preferred Language: Italian Communication Ability: Effective Communication Ability Comment: Patient states [place]/vision not good [place] Baggage Required: No Beliefs That Will Affect Care: None marital status: Single Current Living Situation: Family Current Living Situation Comment: Pt [place] with her sonEmil current occupational status: retired How many Children do You have: 3 Other Information That Helps Us Care for You: No Feels Safe at Home: Yes Safety Concerns: Feels Safe At This Time caffeine: Yes during the past year weight has: decreased > 10 lbs Dental Care, Regularly: No Physical Activity Frequency: Does not Exercise Seatbelt Use: always Sunscreen Use: No Assistive Devices: Walker Review of Systems Constitutional: no fever and no chills Eyes: as per Subjective / HPI and + blind spots; no diplopia and no eye pain Ear, Nose, Mouth, Throat: no hearing loss Respiratory: no cough and no dyspnea Cardiovascular: no chest pain and no palpitations Gastrointestinal: no nausea and no vomiting Genitourinary: no dysuria Musculoskeletal: no myalgia Integumentary: no rash and no lesions Neurologic: as per Subjective / HPI Psychiatric: no depression and no anxiety Hematologic / Lymphatic: no easy bleeding and no easy bruising Exam (Neuro) Constitutional: well developed, + ill appearing and + frail appearing; no acute distress Eyes: PERRL and EOM intact bilaterally; + abnormal visual field confrontation and no nystagmus Neurologic: Oriented to:: Person, Place and Time Cortical Function: Visual Agnosia and Visual Inattention; negative Right/Left Disorientation Memory: Short Term Intact and Remote Intact Attention: Span Intact and Concentration Intact Speech Fluency: negative Dysarthria or Dysfluency Speech Aphasia: negative Aphasia Fund of Knowledge: Current Events, Past History and Vocabulary Cranial Nerves: Normal III, IV, , V, VII, VIII, IX, X, XI and XII; Abnorm II Motor Strength: Normal Lower Extremities and Normal Upper Extremities Motor Tone: Normal Lower Extremities and Normal Upper Extremities Muscle Bulk/Involuntary Movements: No Involuntary Movements; negative Muscle Atrophy Sensation: Light Touch Intact, Pain/Temperature Intact and Prop rioception Intact Coordination: Normal; negative Finger-Nose Abnormal Deep Tendon Reflexes: Rt Triceps: 2+, Lt Triceps: 2+, Rt Biceps: 2+, Lt Biceps: 2+, Rt Brachioradialis: 2+, Lt Brachioradialis: 2+, Rt Patellar: 2+, Lt Patellar: 2+, Rt Ankle: 1+ and Lt Ankle: 1+ Special Tests: Babinski Present Details: Patient had difficulty with the NIH stroke scale visual seen interpretation. She also has some difficulty naming objects and reading text. She had mild difficulty tracking my finger. Results & Data Vital Signs (Past 12 Hours) Vital Signs Temp Pulse Pulse Resp BP Pulse Ox O2 Del Method 02/12/25 17:06 36.8 C 89 17 151/80 H 96 Room Air 02/12/25 14:13 84 02/12/25 11:59 36.5 C 80 18 108/63 94 Room Air 02/12/25 07:50 36.6 C 84 15 115/69 94 Room Air 02/12/25 07:00 85 Laboratory Results WBC 4.53, hemoglobin 8.6, hematocrit 25.9, MCV 106.1, platelet count 189, sodium 139, potassium 4.4, BUN 19, creatinine 1.29, glucose 113, hemoglobin A1c 5.3, calcium 8.3, magnesium 1.7, AST 20, ALT 13, triglycerides 69, cholesterol 193, LDL 120, HDL 59 Coding Level of Care Code 46478 INT INP/OBS CARE MIN Diagnoses CVA (cerebral vascular accident) 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
--- NOTE | 2025-02-12 17:27 | Hospitalist Progress Note ---
Date of Service February 12, 2025 Assessment & Plan (1) CVA (cerebral vascular accident): (2) Thrombocytopenia: (3) Vision loss: (4) Uterine cancer: (5) Metastatic cancer: (6) CAD (coronary artery disease): Plan The patient is a 70-year-old female with past medical history including thrombocytopenia, bilateral hydronephrosis, DVT, left pneumothorax, ureteral stent, uterine cancer, metastatic cancer, hyperlipidemia, and retroperitoneal lymphadenopathy. She is referred to the emergency department by her PCP due to concerns regarding frontal headache over the past several days, and she also complains of blurred vision in her left eye, and blood in urine that she associates with her history of uterine cancer. She reports that she is scheduled to undergo chemotherapy tomorrow morning at 8:00. Subacute CVA involving right occipital lobe- Patient's primary symptom is blurry vision in left eye CT head shows right occipital lobe infarct that is subacute, with several old infarcts MRI head showed findings consistent with evolving ischemic changes in the right occipital temporal region MRA head and neck showed moderate ICA stenosis TTE reviewed: Showed no interarterial shunt. No significant change since previous Awaiting neurology evaluation Continue home Plavix and Eliquis Continue home Lipitor Uterine cancer/metastatic cancer- Patient is due for her next chemotherapy at 8 AM tomorrow Consulted oncology Dr. Vick, awaiting recommendation History of DVT- Continue Eliquis CAD/hypertension- Continue amlodipine, carvedilol, clopidogrel, isosorbide mononitrate, losartan Diabetes mellitus- Hold metformin Placed on Accu-Cheks with NovoLog SSI Hyperlipidemia- Continue Zetia and atorvastatin Admission and Anticipated Discharge Date Admission Date: February 11, 2025 Subjective Patient feels well. Denies chest pain or shortness of breath. Review of Systems Review of Systems: All systems reviewed & are unremarkable except as noted in Subjective Physical Exam Physical Exam: General: Awake, conversant Heart: S1, S2/regular rate and rhythm, no murmur rubs or gallops Lungs: Clear to auscultation bilaterally. Normal effort Abdomen: Soft/nontender/nondistended. No hepatosplenomegaly Extremities: No clubbing/cyanosis. No edema Behavior: Appropriate, cooperative Results & Data Results & Data Vital Signs (Past 12 Hours) Vital Signs Temp Pulse Pulse Resp BP Pulse Ox O2 Del Method 02/12/25 17:06 36.8 C 89 17 151/80 H 96 Room Air 02/12/25 14:13 84 02/12/25 11:59 36.5 C 80 18 108/63 94 Room Air 02/12/25 07:50 36.6 C 84 15 115/69 94 Room Air 02/12/25 07:00 85 Laboratory Results Abnormal lab results 02/11/25 02/11/25 02/12/25 Range/Units 19:17 22:32 05:35 WBC 4.79 L 4.53 L (4.8-10.8) K/ul RBC 2.71 L 2.44 L (4.20-5.40) M/uL Hgb 9.1 L 8.6 L (12.0-16.0) g/dl Hct 28.3 L 25.9 L (37.0-47.0) % MCV 104.4 H 106.1 H (80.0-100.0) fL MCH 35.2 H (25.0-34.0) pg RDW Std Deviation 87.3 H 87.9 H (36.4-46.3) fL RDW Coeff of Celina 23.5 H 23.2 H (11.5-14.5) % MPV 9.1 L 9.2 L (9.4-12.4) fL Lymph # (Auto) 0.94 L (1.20-3.40) K/uL Creatinine 1.33 H 1.29 H (0.6-1.2) mg/dl Glucose 102 H 113 H (70-99(Fasting)) mg/dl POC Glucose 192 H (70-99) mg/dl Calcium 8.5 L 8.3 L (8.6-10.3) mg/dl Alkaline Phosphatase 170 H 157 H (34-104) U/L Urine Protein (Negative) Ur Leukocyte Esterase (Negative) 02/12/25 02/12/25 Range/Units 08:04 Unknown WBC (4.8-10.8) K/ul RBC (4.20-5.40) M/uL Hgb (12.0-16.0) g/dl Hct (37.0-47.0) % MCV (80.0-100.0) fL MCH (25.0-34.0) pg RDW Std Deviation (36.4-46.3) fL RDW Coeff of Celina (11.5-14.5) % MPV (9.4-12.4) fL Lymph # (Auto) (1.20-3.40) K/uL Creatinine (0.6-1.2) mg/dl Glucose (70-99(Fasting)) mg/dl POC Glucose 128 H (70-99) mg/dl Calcium (8.6-10.3) mg/dl Alkaline Phosphatase (34-104) U/L Urine Protein Trace H (Negative) Ur Leukocyte Esterase Trace H (Negative) Diagnostic Findings Head CT 02/11/25 18:07 Technique: Axial computed tomography images were obtained of the brain without intravenous contrast. Comparison is made to the prior CT dated 07/07/2024 Findings: There is low attenuation in the right occipital lobe that could be due to a subacute infarct. There is unchanged cerebral atrophy, within expected limits for the patient's age. Areas of decreased attenuation are seen within the periventricular white matter, likely representing chronic small vessel ischemic disease. There is an unchanged old left parietal lobe infarct. There is an infarct of the right parietal lobe that appears old as well but has evolved since the prior study. There is a small old infarct of the left internal capsule There is no definite sign of acute infarction. No intracranial hemorrhage is evident. No definite mass lesion is seen on this noncontrast examination. There is no midline shift or other form of herniation. No hydrocephalus is seen. No fracture is identified. The orbits and the visualized paranasal sinuses appear unremarkable. The mastoid air cells appear clear. Impression: 1. Right occipital lobe infarct that may be subacute. MRI with diffusion-weighted images could be considered for further evaluation 2. Cerebral atrophy and chronic small vessel ischemic disease 3. Several old infarcts ACT 112: Positive. There are findings on this exam that require communication between the performing entity and the patient following Patient Test Result Information Act ([place] ACT 112) guidelines. Electronically signed by Chris Summers 02-11-2025 6:38 PM Chest X-Ray 02/11/25 18:45 Exam: X-ray chest one view portable Reason for exam: Suspected stroke Previous study: 12/03/2024 FINDINGS: Left MediPort catheter again noted. Heart mildly enlarged but stable. Previous right pleural effusion has decreased markedly in size with only minimal residual blunting of the right costophrenic sulcus. Left hemithorax clear. IMPRESSION: 1. Stable mild cardiomegaly. 2. Small right pleural effusion, markedly decreased in size as compared to the study of 12/03/2024. Electronically signed by Sunil Engel 02-11-2025 8:58 PM Brain MRI 02/11/25 19:18 Exam(s): MRI HEAD Without Contrast EXAM: MR Head Without Intravenous Contrast CLINICAL HISTORY: cva. TECHNIQUE: Magnetic resonance images of the head/brain without intravenous contrast in multiple planes. COMPARISON: MRI 08/19/2012 FINDINGS: Brain: Scattered subcentimeter punctate areas of diffusion restriction involving the posteromedial right occipital temporal region (series 6; images 12-13). Areas of chronic encephalomalacia and gliosis involving the bilateral parieto-occipital regions. There is some minimal gyriform susceptibility changes on the right suggesting calcification or chronic hemosiderin products. No intracranial hematoma. Abnormal T2 signal in the deep cerebral white matter is consistent with small vessel ischemic/degenerative changes. The cerebral and cerebellar sulci are prominent consistent with brain atrophy. Ventricles: Unremarkable. No ventriculomegaly. Bones/joints: Unremarkable. No acute fracture. Sinuses: Unremarkable as visualized. No acute sinusitis. Mastoid air cells: Unremarkable as visualized. No mastoid effusion. Orbits: Unremarkable as visualized. IMPRESSION: 1. Scattered subcentimeter punctate areas of diffusion restriction involving the posteromedial right occipital temporal region (series 6; images 12-13). Findings are consistent with evolving ischemic changes. 2. Chronic encephalomalacia involving the posterior hemispheres bilaterally. Chronic diffuse cerebral atrophy and small ischemic/degenerative changes. Electronically signed by: Shubham Loaiza MD 02/11/25 23:33 PM Head MRA 02/11/25 19:18 Exam(s): MRA HEAD Without Contrast EXAM: MR Angiography Head Without Intravenous Contrast CLINICAL HISTORY: stroke. TECHNIQUE: Magnetic resonance angiography images of the head without intravenous contrast. COMPARISON: No relevant prior studies available. FINDINGS: Right internal carotid artery: Asymmetric diminished signal involving the proximal supraclinoid right internal carotid artery with the distal supraclinoid segment small in caliber. The petrous segment is patent. Intracranial segment is patent with no significant stenosis. No aneurysm. Right anterior cerebral artery: The right A1 segment is absent with the right anterior cerebral artery perfused by the anterior communicating branch. The right anterior cerebral artery is patent. Right middle cerebral artery: The right M1 segment is patent, as are the proximal M2/M3 branches. No occlusion or significant stenosis. No aneurysm. Right posterior cerebral artery: Unremarkable. No occlusion or significant stenosis. No aneurysm. Right vertebral artery: Unremarkable as visualized. Left internal carotid artery: No acute findings. Intracranial segment is patent with no significant stenosis. No aneurysm. Left anterior cerebral artery: Unremarkable. No occlusion or significant stenosis. No aneurysm. Left middle cerebral artery: Unremarkable. No occlusion or significant stenosis. No aneurysm. Left posterior cerebral artery: Unremarkable. No occlusion or significant stenosis. No aneurysm. Left vertebral artery: Unremarkable as visualized. Basilar artery: Unremarkable. No occlusion or significant stenosis. No aneurysm. IMPRESSION: 1. Asymmetric diminished signal involving the proximal supraclinoid right internal carotid artery with the distal supraclinoid segment small in caliber. At least moderate stenosis suspected. The petrous segment is patent. 2. Otherwise negative intracranial MRA examination. Electronically signed by: Shubham Loaiza MD 02/11/25 23:10 PM Neck MRA 02/11/25 19:18 Exam(s): MRA NECK Without Contrast EXAM: MR Angiography Neck Without Intravenous Contrast CLINICAL HISTORY: cva. TECHNIQUE: Magnetic resonance angiography images of the neck without intravenous contrast. COMPARISON: No relevant prior studies available. FINDINGS: Right common carotid artery: Unremarkable. No significant stenosis. No dissection or occlusion. Right internal carotid artery: Diffusely diminished signal with small- caliber right internal carotid artery from the bifurcation to the skull base. However no focal stenosis appreciated. Right external carotid artery: Unremarkable. No occlusion. Right vertebral artery: Unremarkable. No significant stenosis. No dissection or occlusion. Left common carotid artery: Unremarkable. No significant stenosis. No dissection or occlusion. Left internal carotid artery: Unremarkable. Extracranial segment is patent with no significant stenosis. No dissection or occlusion. Left external carotid artery: Unremarkable. No occlusion. Left vertebral artery: Unremarkable. No significant stenosis. No dissection or occlusion. Soft tissues: Unremarkable as visualized. CAROTID STENOSIS REFERENCE USING NASCET CRITERIA: % ICA stenosis = (1 - narrowest ICA diameter/diameter of distal cervical ICA) x 100. Mild - <50% stenosis. Moderate - 50-69% stenosis. Severe - 70-94% stenosis. Near occlusion - 95-99% stenosis. Occluded - 100% stenosis. IMPRESSION: 1. Diffusely diminished signal with small-caliber right internal carotid artery from the bifurcation to the skull base. However no focal stenosis appreciated. This may be related to the suspected high-grade stenosis at the supraclinoid segment. Consider duplex evaluation to exclude of bifurcation stenosis. 2. Otherwise negative cervical MRA examination. Electronically signed by: Shubham Loaiza MD 02/11/25 23:27 PM PG Care Time/CCT Total # of Minutes Spent Total Time Spent with Patient: Total time spent is greater than 50% in coordination of care (as documented) at patient's floor/unit and/or counseling patient: Coding Level of Care Code 08663 SUB INP/OBS CARE 2/35MIN Diagnoses CVA (cerebral vascular accident) I63.9 Thrombocytopenia D69.6 Vision loss H54.7 Uterine cancer C55 Malignant neoplasm of body of uterus location: unspecified location Metastatic cancer C79.9 CAD (coronary artery disease) I25.10 (4) Uterine cancer Malignant neoplasm of body of uterus location: unspecified location
[2025-02-13 06:10] LABS: Hematocrit (blood only) 25.8 % (37.0-47.0); Hemoglobin 8.4 g/dl (12.0-16.0); Immature Granulocytes # (auto) 0.02 K/uL (0.01-0.20); Immature Granulocytes % (auto) 0.5 %; Mean Corpuscular Hemoglobin 34.4 pg (25.0-34.0); Mean Corpuscular Volume 105.7 fL (80.0-100.0); Platelet Count 210 K/uL (130-400); RDW Standard Deviation 89.0 fL (36.4-46.3); Red Blood Count 2.44 M/uL (4.20-5.40); White Blood Count 4.16 K/ul (4.8-10.8)
[2025-02-13 06:28] LABS: Alanine Aminotransferase 11.0 U/L (7-52); Albumin Globulin Ratio 1.0 (0.9-2); Alkaline Phosphatase 139.0 U/L (34-104); Anion Gap 4.0 (3-11); Bilirubin,Total 0.3 mg/dl (0.2-1.0); Blood Urea Nitrogen 26.0 mg/dl (6-23); Calcium 8.7 mg/dl (8.6-10.3); Carbon Dioxide 28.0 mmol/L (21-32); Chloride 107.0 mmol/L (98-107); Creatinine Clr Calc Pharmacy 22.1 ml/min; Globulin 3.2 gm/dl (2.5-4.0); Glucose 121.0 mg/dl (70-99(Fasting)); Magnesium 1.8 mg/dl (1.7-2.4); Potassium 4.5 mmol/L (3.5-5.1); Sodium 139.0 mmol/L (136-145); Total Protein 6.5 gm/dl (6.0-8.3)
[2025-02-13 06:31] LABS: Anisocytosis Present; Polychromasia 1+
--- NOTE | 2025-02-13 09:25 | Pharmacy Report ---
- Date of Service February 13, 2025 - Pharmacy CVA/TIA Medication Review Medications to Prevent Stroke handout has been added to the patients discharge packet. Antiplatelet(s) * Continue home Plavix and aspirin 81mg daily * DAPT to continue due to supraclinoid internal carotid artery stenosis and recurrent strokes per Neurology Cholesterol * High intensity statin: continue atorvastatin 80 mg daily DVT Prophylaxis * anticoagulated on Eliquis Therapeutic Anticoagulation * No history of Afib/Aflutter noted, but anticoagulated on Eliquis due history of DVT and metastatic cancer Type 2 Diabetes * Patient has T2DM, but per Dr. Pop, a diabetes medication with proven CVD benefit will be deferred to their outpatient provider due to familiarity with risks/benefits of such therapies. "Medications to prevent stroke" handout has already been added to the patient's discharge packet, which instructs the patient to follow up with their outpatient provider to evaluate which diabetes medication with proven CVD benefit is best for them
[2025-02-13] MEDS: ASPIRIN 81 MG ECTAB PO SCH (09:57)
--- NOTE | 2025-02-13 11:51 | Ultrasound Report ---
US carotid doppler uni/ltd CLINICAL HISTORY: eval for R carotid bifurcation stenosis COMPARISON STUDY: 10/19/2011 FINDINGS: There is mild plaque at the right carotid bulb. Arterial velocities at the right common, in ternal, and external carotid arteries are within normal limits. Ratios are within normal limits. Maxi mum velocity at the right common carotid artery is 96 cm/s, 54 cm/s at the internal carotid artery, a nd 71 cm/s at the external carotid artery. ICA to CCA ratio is 0.8. There is antegrade flow in the ri ght vertebral artery. IMPRESSION: No evidence of significant arterial narrowing seen at the right neck. ACT 112: Negative or not required by law. Electronically signed by: Sunil Gomez M.D. 02/13/2025 11:48 AM
--- NOTE | 2025-02-13 14:48 | Hospitalist Progress Note ---
Date of Service February 13, 2025 Assessment & Plan (1) CVA (cerebral vascular accident): (2) Thrombocytopenia: (3) Vision loss: (4) Uterine cancer: (5) Metastatic cancer: (6) CAD (coronary artery disease): Plan The patient is a 70-year-old female with past medical history including thrombocytopenia, bilateral hydronephrosis, DVT, left pneumothorax, ureteral stent, uterine cancer, metastatic cancer, hyperlipidemia, and retroperitoneal lymphadenopathy. She is referred to the emergency department by her PCP due to concerns regarding frontal headache over the past several days, and she also complains of blurred vision in her left eye, and blood in urine that she associates with her history of uterine cancer. She reports that she is scheduled to undergo chemotherapy tomorrow morning at 8:00. Subacute CVA involving right occipital lobe- Patient's primary symptom is blurry vision in left eye CT head shows right occipital lobe infarct that is subacute, with several old infarcts MRI head showed findings consistent with evolving ischemic changes in the right occipital temporal region MRA head and neck showed moderate ICA stenosis Carotid duplex ultrasound was negative TTE reviewed: Showed no interarterial shunt. No significant change since previous Appreciate neurology input Continue home Plavix and Eliquis. Aspirin was added to regimen because of ICA stenosis and recurrent strokes Continue home Lipitor Check CBC in a.m. now that on 3 blood thinning agents namely aspirin, Plavix, Eliquis. No bleeding so far Uterine cancer/metastatic cancer- Patient is due for her next chemotherapy at 8 AM tomorrow Consulted oncology Dr. Vick, note drafted, awaiting official recommendation History of DVT- Continue Eliquis CAD/hypertension- Continue amlodipine, carvedilol, clopidogrel, isosorbide mononitrate, losartan Diabetes mellitus- Hold metformin Placed on Accu-Cheks with NovoLog SSI Recommend GLP-1 agonist or SGLT2 inhibitor for CVD benefit. This can be pursued by PCP outpatient Hyperlipidemia- Continue Zetia and atorvastatin Disposition: Likely discharge tomorrow provided blood counts stable Admission and Anticipated Discharge Date Admission Date: February 11, 2025 Subjective Patient feels well. Denies chest pain or shortness of breath. Denies any new neurological symptoms. Review of Systems Review of Systems: All systems reviewed & are unremarkable except as noted in Subjective Physical Exam Physical Exam: General: Awake, conversant Heart: S1, S2/regular rate and rhythm, no murmur rubs or gallops Lungs: Clear to auscultation bilaterally. Normal effort Abdomen: Soft/nontender/nondistended. No hepatosplenomegaly Extremities: No clubbing/cyanosis. No edema Behavior: Appropriate, cooperative Results & Data Results & Data Vital Signs (Past 12 Hours) Vital Signs Temp Pulse Resp BP Pulse Ox O2 Del Method 02/13/25 12:51 36.4 C L 93 H 18 113/67 95 Room Air 02/13/25 11:34 Room Air 02/13/25 09:18 36.5 C 89 18 99/61 L 95 Room Air 02/13/25 03:20 36.7 C 87 18 112/68 94 Room Air Laboratory Results Abnormal lab results 02/12/25 02/13/25 02/13/25 Range/Units 21:02 05:35 08:26 WBC 4.16 L (4.8-10.8) K/ul RBC 2.44 L (4.20-5.40) M/uL Hgb 8.4 L (12.0-16.0) g/dl Hct 25.8 L (37.0-47.0) % MCV 105.7 H (80.0-100.0) fL MCH 34.4 H (25.0-34.0) pg RDW Std Deviation 89.0 H (36.4-46.3) fL RDW Coeff of Celina 23.4 H (11.5-14.5) % MPV 8.9 L (9.4-12.4) fL BUN 26 H (6-23) mg/dl Creatinine 1.49 H (0.6-1.2) mg/dl Glucose 121 H (70-99(Fasting)) mg/dl POC Glucose 189 H 130 H (70-99) mg/dl Alkaline Phosphatase 139 H (34-104) U/L Albumin 3.3 L (3.4-5.0) gm/dl PG Care Time/CCT Total # of Minutes Spent Total Time Spent with Patient: Total time spent is greater than 50% in coordination of care (as documented) at patient's floor/unit and/or counseling patient: Coding Level of Care Code 89172 SUB INP/OBS CARE 2/35MIN Diagnoses CVA (cerebral vascular accident) I63.9 Thrombocytopenia D69.6 Vision loss H54.7 Uterine cancer C55 Malignant neoplasm of body of uterus location: unspecified location Metastatic cancer C79.9 CAD (coronary artery disease) I25.10 (4) Uterine cancer Malignant neoplasm of body of uterus location: unspecified location
[2025-02-14 04:36] VITALS: RESP 18
[2025-02-14 06:19] LABS: Hematocrit (blood only) 27.3 % (37.0-47.0); Hemoglobin 9.0 g/dl (12.0-16.0); Immature Granulocytes # (auto) 0.03 K/uL (0.01-0.20); Immature Granulocytes % (auto) 0.8 %; Mean Corpuscular Hemoglobin 34.5 pg (25.0-34.0); Mean Corpuscular Volume 104.6 fL (80.0-100.0); Platelet Count 221 K/uL (130-400); RDW Standard Deviation 86.0 fL (36.4-46.3); Red Blood Count 2.61 M/uL (4.20-5.40); White Blood Count 3.73 K/ul (4.8-10.8)
[2025-02-14 06:40] LABS: Alanine Aminotransferase 12.0 U/L (7-52); Albumin Globulin Ratio 1.1 (0.9-2); Alkaline Phosphatase 128.0 U/L (34-104); Anion Gap 6.0 (3-11); Bilirubin,Total 0.3 mg/dl (0.2-1.0); Blood Urea Nitrogen 33.0 mg/dl (6-23); Calcium 8.4 mg/dl (8.6-10.3); Carbon Dioxide 27.0 mmol/L (21-32); Chloride 106.0 mmol/L (98-107); Creatinine Clr Calc Pharmacy 22.6 ml/min; Globulin 3.1 gm/dl (2.5-4.0); Glucose 110.0 mg/dl (70-99(Fasting)); Magnesium 1.8 mg/dl (1.7-2.4); Potassium 4.1 mmol/L (3.5-5.1); Sodium 139.0 mmol/L (136-145); Total Protein 6.5 gm/dl (6.0-8.3)
[2025-02-14 06:45] LABS: Anisocytosis Present; Polychromasia 1+
[2025-02-14 08:06] VITALS: BP 113/66; PULSE 85; TEMP 97.9; O2SAT 96
--- NOTE | 2025-02-14 09:32 | Discharge Summary ---
Date of Service February 14, 2025 Admission HPI Per Admitting Provider The patient is a 70-year-old female with past medical history including thrombocytopenia, bilateral hydronephrosis, DVT, left pneumothorax, ureteral stent, uterine cancer, metastatic cancer, hyperlipidemia, and retroperitoneal lymphadenopathy. She is referred to the emergency department by her PCP due to concerns regarding frontal headache over the past several days, and she also complains of blurred vision in her left eye, and blood in urine that she associates with her history of uterine cancer. She reports that she is scheduled to undergo chemotherapy tomorrow morning at 8:00. Principal Diagnosis Subacute right occipital temporal infarct Discharge Exam General: Awake, conversant Heart: S1, S2/regular rate and rhythm, no murmur rubs or gallops Lungs: Clear to auscultation bilaterally. Normal effort Abdomen: Soft/nontender/nondistended. No hepatosplenomegaly Extremities: No clubbing/cyanosis. No edema Behavior: Appropriate, cooperative Discharge Data Allergies Allergy/AdvReac Type Severity Reaction Status Date / Time levofloxacin Allergy Intermediate Chest Verified 02/11/25 21:04 tightness, rash - pt is not sure rxn details Bactrim AdvReac Intermediate GI Verified 03/15/18 11:06 UPSET,HEADACHE clarithromycin AdvReac Unknown GI upset Verified 02/11/25 21:04 famotidine AdvReac Unknown Chest Pain Verified 02/11/25 21:04 -"not that I know of " levothyroxine sodium AdvReac Unknown Dizziness, Verified 02/11/25 21:05 headache, nausea and vomiting- see notes lisinopril AdvReac Unknown Cough - pt Verified 02/11/25 21:04 denies cough sulfamethoxazole AdvReac Unknown GI upset, Verified 02/11/25 21:04 headache trimethoprim AdvReac Unknown GI upset, Verified 02/11/25 21:04 headache Consultations 02/11/25 19:07 ED Decision to Admit Stat 02/11/25 20:30 Consult Oncology Routine 02/11/25 22:01 Consult Neurology Routine Ordered Studies Head CT 02/11/25 18:07 Technique: Axial computed tomography images were obtained of the brain without intravenous contrast. Comparison is made to the prior CT dated 07/07/2024 Findings: There is low attenuation in the right occipital lobe that could be due to a subacute infarct. There is unchanged cerebral atrophy, within expected limits for the patient's age. Areas of decreased attenuation are seen within the periventricular white matter, likely representing chronic small vessel ischemic disease. There is an unchanged old left parietal lobe infarct. There is an infarct of the right parietal lobe that appears old as well but has evolved since the prior study. There is a small old infarct of the left internal capsule There is no definite sign of acute infarction. No intracranial hemorrhage is evident. No definite mass lesion is seen on this noncontrast examination. There is no midline shift or other form of herniation. No hydrocephalus is seen. No fracture is identified. The orbits and the visualized paranasal sinuses appear unremarkable. The mastoid air cells appear clear. Impression: 1. Right occipital lobe infarct that may be subacute. MRI with diffusion-weighted images could be considered for further evaluation 2. Cerebral atrophy and chronic small vessel ischemic disease 3. Several old infarcts ACT 112: Positive. There are findings on this exam that require communication between the performing entity and the patient following Patient Test Result Information Act ([place] ACT 112) guidelines. Electronically signed by Chrsi Summers 02-11-2025 6:38 PM Chest X-Ray 02/11/25 18:45 Exam: X-ray chest one view portable Reason for exam: Suspected stroke Previous study: 12/03/2024 FINDINGS: Left MediPort catheter again noted. Heart mildly enlarged but stable. Previous right pleural effusion has decreased markedly in size with only minimal residual blunting of the right costophrenic sulcus. Left hemithorax clear. IMPRESSION: 1. Stable mild cardiomegaly. 2. Small right pleural effusion, markedly decreased in size as compared to the study of 12/03/2024. Electronically signed by Sunil Engel 02-11-2025 8:58 PM Brain MRI 02/11/25 19:18 Exam(s): MRI HEAD Without Contrast EXAM: MR Head Without Intravenous Contrast CLINICAL HISTORY: cva. TECHNIQUE: Magnetic resonance images of the head/brain without intravenous contrast in multiple planes. COMPARISON: MRI 08/19/2012 FINDINGS: Brain: Scattered subcentimeter punctate areas of diffusion restriction involving the posteromedial right occipital temporal region (series 6; images 12-13). Areas of chronic encephalomalacia and gliosis involving the bilateral parieto-occipital regions. There is some minimal gyriform susceptibility changes on the right suggesting calcification or chronic hemosiderin products. No intracranial hematoma. Abnormal T2 signal in the deep cerebral white matter is consistent with small vessel ischemic/degenerative changes. The cerebral and cerebellar sulci are prominent consistent with brain atrophy. Ventricles: Unremarkable. No ventriculomegaly. Bones/joints: Unremarkable. No acute fracture. Sinuses: Unremarkable as visualized. No acute sinusitis. Mastoid air cells: Unremarkable as visualized. No mastoid effusion. Orbits: Unremarkable as visualized. IMPRESSION: 1. Scattered subcentimeter punctate areas of diffusion restriction involving the posteromedial right occipital temporal region (series 6; images 12-13). Findings are consistent with evolving ischemic changes. 2. Chronic encephalomalacia involving the posterior hemispheres bilaterally. Chronic diffuse cerebral atrophy and small ischemic/degenerative changes. Electronically signed by: Shubham Loaiza MD 02/11/25 23:33 PM Head MRA 02/11/25 19:18 Exam(s): MRA HEAD Without Contrast EXAM: MR Angiography Head Without Intravenous Contrast CLINICAL HISTORY: stroke. TECHNIQUE: Magnetic resonance angiography images of the head without intravenous contrast. COMPARISON: No relevant prior studies available. FINDINGS: Right internal carotid artery: Asymmetric diminished signal involving the proximal supraclinoid right internal carotid artery with the distal supraclinoid segment small in caliber. The petrous segment is patent. Intracranial segment is patent with no significant stenosis. No aneurysm. Right anterior cerebral artery: The right A1 segment is absent with the right anterior cerebral artery perfused by the anterior communicating branch. The right anterior cerebral artery is patent. Right middle cerebral artery: The right M1 segment is patent, as are the proximal M2/M3 branches. No occlusion or significant stenosis. No aneurysm. Right posterior cerebral artery: Unremarkable. No occlusion or significant stenosis. No aneurysm. Right vertebral artery: Unremarkable as visualized. Left internal carotid artery: No acute findings. Intracranial segment is patent with no significant stenosis. No aneurysm. Left anterior cerebral artery: Unremarkable. No occlusion or significant stenosis. No aneurysm. Left middle cerebral artery: Unremarkable. No occlusion or significant stenosis. No aneurysm. Left posterior cerebral artery: Unremarkable. No occlusion or significant stenosis. No aneurysm. Left vertebral artery: Unremarkable as visualized. Basilar artery: Unremarkable. No occlusion or significant stenosis. No aneurysm. IMPRESSION: 1. Asymmetric diminished signal involving the proximal supraclinoid right internal carotid artery with the distal supraclinoid segment small in caliber. At least moderate stenosis suspected. The petrous segment is patent. 2. Otherwise negative intracranial MRA examination. Electronically signed by: Shubham Loaiza MD 02/11/25 23:10 PM Neck MRA 02/11/25 19:18 Exam(s): MRA NECK Without Contrast EXAM: MR Angiography Neck Without Intravenous Contrast CLINICAL HISTORY: cva. TECHNIQUE: Magnetic resonance angiography images of the neck without intravenous contrast. COMPARISON: No relevant prior studies available. FINDINGS: Right common carotid artery: Unremarkable. No significant stenosis. No dissection or occlusion. Right internal carotid artery: Diffusely diminished signal with small- caliber right internal carotid artery from the bifurcation to the skull base. However no focal stenosis appreciated. Right external carotid artery: Unremarkable. No occlusion. Right vertebral artery: Unremarkable. No significant stenosis. No dissection or occlusion. Left common carotid artery: Unremarkable. No significant stenosis. No dissection or occlusion. Left internal carotid artery: Unremarkable. Extracranial segment is patent with no significant stenosis. No dissection or occlusion. Left external carotid artery: Unremarkable. No occlusion. Left vertebral artery: Unremarkable. No significant stenosis. No dissection or occlusion. Soft tissues: Unremarkable as visualized. CAROTID STENOSIS REFERENCE USING NASCET CRITERIA: % ICA stenosis = (1 - narrowest ICA diameter/diameter of distal cervical ICA) x 100. Mild - <50% stenosis. Moderate - 50-69% stenosis. Severe - 70-94% stenosis. Near occlusion - 95-99% stenosis. Occluded - 100% stenosis. IMPRESSION: 1. Diffusely diminished signal with small-caliber right internal carotid artery from the bifurcation to the skull base. However no focal stenosis appreciated. This may be related to the suspected high-grade stenosis at the supraclinoid segment. Consider duplex evaluation to exclude of bifurcation stenosis. 2. Otherwise negative cervical MRA examination. Electronically signed by: Shubham Loaiza MD 02/11/25 23:27 PM Carotid Doppler Study 02/13/25 08:30 US carotid doppler uni/ltd CLINICAL HISTORY: eval for R carotid bifurcation stenosis COMPARISON STUDY: 10/19/2011 FINDINGS: There is mild plaque at the right carotid bulb. Arterial velocities at the right common, internal, and external carotid arteries are within normal limits. Ratios are within normal limits. Maximum velocity at the right common carotid artery is 96 cm/s, 54 cm/s at the internal carotid artery, and 71 cm/s at the external carotid artery. ICA to CCA ratio is 0.8. There is antegrade flow in the right vertebral artery. IMPRESSION: No evidence of significant arterial narrowing seen at the right neck. ACT 112: Negative or not required by law. Electronically signed by: Sunil Gomez M.D. 02/13/2025 11:48 AM 02/11/25 18:07 CT head/brain wo con Stat 02/11/25 19:18 MR angio head wo con Stat MR angio neck wo con Stat MR brain wo con Stat 02/13/25 08:30 US carotid doppler uni/ltd Routine Hospital Course (1) CVA (cerebral vascular accident): (2) Thrombocytopenia: (3) Vision loss: (4) Uterine cancer: (5) Metastatic cancer: (6) CAD (coronary artery disease): Plan The patient is a 70-year-old female with past medical history including thrombocytopenia, bilateral hydronephrosis, DVT, left pneumothorax, ureteral stent, uterine cancer, metastatic cancer, hyperlipidemia, and retroperitoneal lymphadenopathy. She is referred to the emergency department by her PCP due to concerns regarding frontal headache over the past several days, and she also complains of blurred vision in her left eye, and blood in urine that she associates with her history of uterine cancer. Subacute CVA involving right occipital lobe- Patient's primary symptom is blurry vision in left eye CT head shows right occipital lobe infarct that is subacute, with several old infarcts MRI head showed findings consistent with evolving ischemic changes in the right occipital temporal region MRA head and neck showed moderate ICA stenosis Carotid duplex ultrasound was negative TTE reviewed: Showed no interarterial shunt. No significant change since previous Appreciate neurology input Continue home Plavix and Eliquis. Aspirin was added to regimen because of supraclinoid ICA stenosis and recurrent strokes Continue home Lipitor Hemoglobin remained stable on 3 blood thinning agents namely aspirin, Plavix, Eliquis. No bleeding so far She will benefit from ocular rehab and can be done as an outpatient at [facility]. Nurse navigator will schedule an appointment. PCP could refer as well. Uterine cancer/metastatic cancer- Patient had missed her chemotherapy appointment due to being in the hospital. Consulted oncology Dr. Vick, note drafted, awaiting official recommendation History of DVT- Continue Eliquis CAD/hypertension- Continue amlodipine, carvedilol, clopidogrel, isosorbide mononitrate, losartan Diabetes mellitus- Hold metformin Placed on Accu-Cheks with NovoLog SSI Recommend GLP-1 agonist or SGLT2 inhibitor for CVD benefit. This can be pursued by PCP outpatient Hyperlipidemia- Continue Zetia and atorvastatin Discharge to home today Total Time Total Time Spent Total Time Spent (In Minutes): 35 Discharge Plan Discharge Items Patient Disposition: Home - Self-Care Reason For Visit: RIGHT OCCIPITAL LOBE CVA Discharge Diagnosis: Subacute right occipital temporal infarct Condition on Discharge: Fair Activity: Per Instructions section Activity Comment: No driving Non-emergency contact: Primary Care Provider Call non-emergency contact if: you have any medication questions and your symptoms worsen Follow-up/Referrals: Eliazar Nguyen MD [Physician] - Eliazar Peck DO [Primary Care Provider] - 02/19/25 2:15 pm (Hospital follow up scheduled for February 19, 2025 at 2:[address] Manuel) Diet: Carb Consistent or DM2 and Heart Healthy Addtl Attending Provider Instructions: Advised to follow-up with PCP in 1 week Advised to follow-up in neurology in 2 to 3 weeks Advised to note that you may benefit from ocular rehab. Your PCP may refer you to [facility] eye care. Pending Studies at Discharge: No Stand-Alone Forms: My [facility] Medications and DC Order Prescriptions: New aspirin 81 mg Tablet,Delayed Release (Dr/Ec) 81 mg PO QAM 30 Days Qty: 30 0RF Continued cholecalciferol (vitamin D3) 50 mcg (2,000 unit) capsule 50 mcg PO QAM (DME) Blood Pressure Cuff Misc See Rx Instructions .Route Qty: 1 0RF Rx Instructions: BLOOD PRESSURE CUFF CHECK 2-3 TIMES DAILY DX: I10 metformin 500 mg tablet 500 mg PO BID Qty: 90 3RF losartan 100 mg tablet 100 mg PO QAM Qty: 90 3RF escitalopram oxalate [Lexapro] 10 mg tablet 10 mg PO QAM Qty: 90 3RF (DME) Pembrolizumab See Rx Instructions .Route .MEDSUPPLY Qty: 1 0RF Rx Instructions: 200 mg intravenously; (DME) Paclitaxel See Rx Instructions .Route .MEDSUPPLY Qty: 1 0RF Rx Instructions: 234 mg intravenously; (DME) Carboplatin See Rx Instructions .Route .MEDSUPPLY Qty: 1 0RF Rx Instructions: 310 mg intravenously; (DME) Fosaprepitant See Rx Instructions .Route .MEDSUPPLY Qty: 1 0RF Rx Instructions: IV; (DME) Palonsetron See Rx Instructions .Route .MEDSUPPLY Qty: 1 0RF Rx Instructions: IV; pyridoxine (vitamin B6) [Vitamin B-6] 250 mg Tablet 250 mg PO QAM ezetimibe [Zetia] 10 mg tablet 10 mg PO QAM carvedilol [Coreg] 6.25 mg tablet 6.25 mg PO BID isosorbide mononitrate 30 mg tablet extended release 24 hr 30 mg PO BID clopidogrel [Plavix] 75 mg tablet 75 mg PO QAM Hold Instructions: Resume on 10/16/24. Patient Comments: "I haven't been taking my blood thinners due to these procedures" pantoprazole [Protonix] 40 mg tablet,delayed release (DR/EC) 40 mg PO QAM amlodipine [Norvasc] 5 mg tablet 5 mg PO BID levothyroxine [Synthroid] 50 mcg tablet 50 mcg PO QAM nitroglycerin 0.4 mg tablet, sublingual 0.4 mg sublingual UD PRN (Reason: chest pain) Patient Comments: haven't had to use it for a long time Rx Instructions: do not exceed 3 doses per episode atorvastatin [Lipitor] 80 mg tablet 80 mg PO QAM dexamethasone 4 mg tablet 20 mg PO .BID/UD Rx Instructions: 02/11/25 : ON THE DAY BEFORE GOING TO DOCTOR'S OFFICE FOR IV CHEMO TAKE FIVE 4MG TABLETS IN THE MORNING AND FIVE 4MG TABLETS IN THE EVENING. Changed Eliquis 5 mg tablet 5 mg PO UD 30 Days Qty: 30 0RF Taper: Taper, Blank 10 mg TWICE A DAY for 6 Days 5 mg TWICE A DAY for 24 Days Patient Comments: "I haven't been taking my blood thinners due to these procedures" Rx Instructions: for acute DVT Discharge Orders: Discharge Order (Routine); Ordered 02/14/25 Ordered By: Ralph Pop Admission Data Admit Date/Time: 02/13/25 14:49 Attending Provider: Ralph Pop Admit Provider: Ralph Pop Primary Care Provider: Eliazar Peck Other Providers: Guzman Vick; Nawaf Caraballo; Eliazar Nguyen
== END 2025-02-14 11:12 | disposition home or self-care (01) | DRG 65 ==
LOC: 4W 17:56 → ED 17:56 → SUATTDRO 20:30 → 4W 21:35

== ENCOUNTER 2025-04-09 10:55 | Inpatient (IN) ==
[2025-04-09] MEDS: PLASMA-LYTE A 500 ML IV ONE (11:24)
[2025-04-09 11:45] LABS: Hematocrit (blood only) 28.9 % (37.0-47.0); Hemoglobin 9.9 g/dl (12.0-16.0); Immature Granulocytes # (auto) 0.01 K/uL (0.01-0.20); Immature Granulocytes % (auto) 0.3 %; Mean Corpuscular Hemoglobin 34.0 pg (25.0-34.0); Mean Corpuscular Volume 99.3 fL (80.0-100.0); Platelet Count 142 K/uL (130-400); RDW Standard Deviation 45.1 fL (36.4-46.3); Red Blood Count 2.91 M/uL (4.20-5.40); White Blood Count 3.30 K/ul (4.8-10.8)
--- NOTE | 2025-04-09 11:53 | Emergency Department Note ---
Impression & Plan Hyperkalemia, CAYETANO (acute kidney injury), Dehydration, Hydronephrosis ED Provider Note NAME: ED QUIROZ AGE: 70 SEX: F : 1955 ARRIVES VIA: Walk-In INFORMANT: Patient, , Dr. Vick ED PROVIDER(S): Dyllan Fonseca DO CHIEF COMPLAINT: CAYETANO, hyperkalemia HPI: This is a 70-year-old female with the PMHx of metastatic uterine cancer on active chemotherapy, hyperlipidemia, hypertension, obstructive hydrouteronephrosis with bilateral ureteral stents in place, CVA and peripheral artery disease presenting to [facility] for further evaluation of abnormal outpatient labs. Patient is accompanied by her who provide additional history. I personally discussed the patient with her wood router hand/oncologist. She was at the cancer center today for her seventh treatment of chemotherapy. Labs showed an CAYETANO as well as hyperkalemia. She was given a liter of fluids without significant improvement. There were concern for possible obstructive mechanics. Patient states that she has otherwise been feeling in her normal state of health. They deny fever or chills. No cough or congestion. Denies chest pain or palpitations. No shortness of breath. They deny abdominal pain, nausea and vomiting. No urinary complaints. No recent changes in bowel movements. Patient denies recent changes in medications or OTC supplements. Patient offers no other complaints, today. ADDITIONAL HISTORY OBTAINED: Per HPI Chronic Medical/Social Conditions Affecting Care: Per HPI PAST MEDICAL HISTORY: See Below PAST SURGICAL HISTORY: See Below FAMILY HISTORY: See Below SOCIAL HISTORY: See Below HOME MEDICATIONS: See Below ALLERGIES: See Below VITALS: See Below PHYSICAL EXAMINATION: GENERAL: Sitting up in bed, alert, well appearing, well nourished, no distress, non-toxic EYE EXAM: normal conjunctiva. OROPHARYNX: no exudate, no erythema, lips, buccal mucosa, and tongue normal and mucous membranes are moist NECK: supple, no nuchal rigidity, no adenopathy, non-tender LUNGS: Clear to auscultation. Normal chest wall mechanics HEART: no murmurs, regular rate, regular rhythm ABDOMEN: abdomen soft, non-tender, no masses, no rebound or guarding. BACK: Back is symmetrical on inspection and there is no deformity, no midline tenderness, no CVA tenderness. SKIN: no rashes and no bruising UPPER EXTREMITIES: upper extremities are grossly normal. LOWER EXTREMITIES: No pitting edema. NEURO EXAM: Normal sensorium, GCS 15, normal speech, no gross weakness of arms, no gross weakness of legs. MEDICAL DECISION MAKING: Differential diagnoses includes but not limited to CAYETANO on CKD, obstructive uropathy, electrolyte derangements, dehydration, chemotherapy side effect In summary, this is a 70 year old female who presented with abnormal outpatient labs. Differential as above. Nursing notes and pertinent past medical records reviewed. Vital signs reviewed and the patient is hypertensive but otherwise afebrile and hemodynamically stable. History and presentation revealed undergoing chemotherapy for metastatic uterine cancer. Does have known obstructive uropathy s/p bilateral ureteral stenting. Physical examination revealed as above. As a result of my initial evaluation, we will plan to repeat labs today as well as a renal ultrasound. Will give gentle IV fluid resuscitation. Diagnostics interpreted by me include EKG and cardiac monitoring as listed below: -Cardiac Monitoring: An order was placed for continuous cardiac monitoring. The monitor shows a rate of 70-80s with regular rhythm. -ECG: EKG independently interpreted by me reveals normal sinus rhythm at a ventricular rate of 71 bpm. She does have left axis deviation as well as a left bundle branch block. No significant ST segment changes to suggest STEMI. The left bundle branch block is chronic as compared to prior EKGs Patient completed laboratory studies and imaging. Results independently interpreted by me are mild leukopenia and anemia likely related to chemotherapy and chronic. The patient does have hyperkalemia as well as an CAYETANO. No other significant electrolyte derangements. Urinalysis does not show evidence of UTI. Renal ultrasound showing worsening right-sided hydronephrosis. Given the patient's CAYETANO and likely fluid loss with the need for IV hydration and further evaluation as an inpatient. Patient was discussed with the hospitalist team and subsequently admitted. The patient was managed with crystalloid resuscitation. Ultimately, the decision was made to admit the patient for likely prerenal CAYETANO on CKD with hyperkalemia. I discussed the case with the hospitalist service via telephone/TigerText and they are agreeable to admit the patient to their services. Based on the above, including the patient's age, coexisting illnesses, labs, imaging, and exam findings the decision to treat as an inpatient. I discussed the patient with the hospitalist team who recommended admission to their services. They received the medications, treatments, interventions indicated above and their condition []. I discussed my findings with the patient and their family and they understand and agree with the treatment plan. All patient / family questions were answered to their satisfaction. Consults/Care Managements Discussions: Per MDM ER treatment provided: See above Procedures:none Critical Care: None The chart was completed utilizing [employer] voice recognition software. Grammatical errors, random word insertions, pronoun errors, and incomplete sentences are an occasional consequence of this system due to software limitations, ambient noise, and hardware issues. Any formal questions or concerns about the content, text, or information contained within the body of this dictation should be directly addressed to the physician for clarification. 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 Xerosis cutis (Acute) Hyperlipidemia Medical History CAD (coronary artery disease) Stents x2 (07/2019) (LEANDER x 2 to LAD) - [facility] History of blood transfusion Port-A-Cath in place Hydronephrosis denies History of myocardial infarction (07/2019) x2 stents - [facility] History of pneumothorax - 10/16/24- left side- collapsed lung from port placement 10/13/24 per pt - s/p pig tail catheter during [facility] admission - chest tube removed 10/19/24 History of DVT (deep vein thrombosis) (09/2024) popliteal DVT 10/20/24 noted during [facility] admission for pneumothorax- has not started eliquis or restarted plavix d/t procedures Hypothyroidism Hx of sepsis 06/2024 treated inpatient at [facility] - UTI/sepsis. no current issues. Anemia treated inpatient 06/2024 with blood transfusions at [facility] History of seizure Most recent seizure No issues since - no current neurologist History of stroke ~, no residual issues Taking Plavix Metastatic cancer to lung [facility] - most recent chemo 11/27/24 Uterine cancer "A few years ago" Dr Rivera [facility] - metastatic to lung - currently undergoing chemotherapy, last treatment 11/27/24 (poor IV access) - next treatment in 3 weeks - awaiting further surgical intervention with C port in place current per pt LBBB (left bundle branch block) Chronic - [facility] Hyperlipidemia Multiple pulmonary nodules determined by computed tomography of lung Depression with anxiety DM type 2 (diabetes mellitus, type 2) NIDDM Hypertension Fatty liver History of cerebral artery occlusion CVA ~ 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 Also 10/16/24 H/O insertion of central venous access port (10/13/24) Insertion Access Port with Fluoroscopy(Left) - Ajit Rowe, DO Hx of left cataract extraction History of bronchoscopy robotic navigational bronchoscopy S/P cystoscopy with ureteral stent placement ureteral stent exchange most recent 06/2024 at [facility] Presence of stent in LAD coronary artery 2020 > stents x2 - [facility] Hx of right cataract extraction 01/21/19: was given 3mg of IV versed History of esophagogastroduodenoscopy (EGD) History of colonoscopy History of cholecystectomy History of x3 Family History Mother Family history of diabetes mellitus Acute myocardial infarction Heart disease Daughter Family history of diabetes mellitus Son Family history of diabetes mellitus Brother Cirrhosis of liver Father Prostate cancer Acute myocardial infarction Aunt Ovarian carcinoma Breast cancer Other No family history of adverse response to anesthesia Social History Smoking Status: Unknown if ever smoked Tobacco Type: Cigarettes Age Started Using Tobacco: 14; Age Quit Using Tobacco: 33; packs per day: 2; Cigarettes Per Day: 2 packs or more per day; Second Hand Exposure: No; Do You Dip or Chew Tobacco: No; Hx Alcohol Use: No Hx Substance Use: No Preferred Language: Romansh Communication Ability: Effective Communication Ability Comment: Patient states [place]/vision not good Vice President Payer Required: No Beliefs That Will Affect Care: None marital status: Single Current Living Situation: Family Current Living Situation Comment: Pt rsshila with her sonEmil current occupational status: retired How many Children do You have: 3 Feels Safe at Home: Yes caffeine: Yes during the past year weight has: decreased > 10 lbs Dental Care, Regularly: No Physical Activity Frequency: Does not Exercise Seatbelt Use: always Sunscreen Use: No Assistive Devices: Walker Allergies Allergies Allergy/AdvReac Type Severity Reaction Status Date / Time levofloxacin Allergy Intermediate Chest Verified 02/24/25 08:51 tightness, rash - pt is not sure rxn details Bactrim AdvReac Intermediate GI Verified 03/15/18 11:06 UPSET,HEADACHE clarithromycin AdvReac Unknown GI upset Verified 02/24/25 08:51 famotidine AdvReac Unknown Chest Pain Verified 02/24/25 08:51 -"not that I know of " levothyroxine sodium AdvReac Unknown Dizziness, Verified 02/24/25 08:51 headache, nausea and vomiting- see notes lisinopril AdvReac Unknown Cough - pt Verified 02/24/25 08:51 denies cough sulfamethoxazole AdvReac Unknown GI upset, Verified 02/24/25 08:51 headache trimethoprim AdvReac Unknown GI upset, Verified 02/24/25 08:51 headache Home Meds Home Medications Medication Instructions Recorded Confirmed pyridoxine (vitamin B6) 250 mg 250 mg PO QAM 12/31/18 04/09/25 tablet (Vitamin B-6) cholecalciferol (vitamin D3) 50 50 mcg PO QAM 03/10/21 04/09/25 mcg (2,000 unit) capsule ezetimibe 10 mg tablet (Zetia) 10 mg PO QAM 06/08/23 04/09/25 carvedilol 6.25 mg tablet (Coreg) 6.25 mg PO BID 02/06/24 04/09/25 clopidogrel 75 mg tablet (Plavix) 0 mg PO QAM 02/06/24 04/09/25 isosorbide mononitrate 30 mg 30 mg PO BID 02/06/24 04/09/25 tablet,extended release 24 hr pantoprazole 40 mg tablet,delayed 40 mg PO QAM 02/06/24 04/09/25 release (Protonix) amlodipine 5 mg tablet (Norvasc) 5 mg PO BID 03/11/24 04/09/25 levothyroxine 50 mcg tablet 50 mcg PO QAM 11/24/24 04/09/25 (Synthroid) nitroglycerin 0.4 mg sublingual 0.4 mg sublingual UD PRN chest pain 11/24/24 04/09/25 tablet atorvastatin 80 mg tablet (Lipitor) 80 mg PO QAM 11/26/24 04/09/25 dexamethasone 4 mg tablet 20 mg PO .BID/UD 02/11/25 04/09/25 potassium 0 mg PO DAILY 04/09/25 04/09/25 Previous Rx's Medication Instructions Recorded miscellaneous medical supply #1 ea 10/27/21 (Blood Pressure Cuff) metformin 500 mg tablet 500 mg PO BID #90 tabs 02/28/24 losartan 100 mg tablet 100 mg PO QAM #90 tabs 03/03/24 Carboplatin #1 ea 05/20/24 Fosaprepitant #1 ea 05/20/24 Paclitaxel #1 ea 05/20/24 Palonsetron #1 ea 05/20/24 Pembrolizumab #1 ea 05/20/24 escitalopram oxalate 10 mg tablet 10 mg PO QAM #90 tabs 11/20/24 (Lexapro) apixaban 5 mg tablet (Eliquis) 5 mg PO UD 30 days #30 tabs 02/14/25 Results & Data (ED) Vital Signs Vital Signs - 24 hr 04/09/25 10:58 04/09/25 11:27 04/09/25 11:30 Temperature 36.8 C Temperature Source Oral Pulse Rate 84 67 Pulse Rate [Apical] 73 Pulse Rate from SpO2 Sensor Pulse Rhythm [Apical] Regular Pulse Strength [Apical] Normal Respiratory Rate 18 16 Respiratory Effort / Characteristics Non-Labored Spontaneous Non-Labored Respiratory Depth Normal Normal Respiratory Pattern Regular Blood Pressure 163/72 H Blood Pressure [Right Arm] 176/82 H Blood Pressure Mean 102 Blood Pressure Mean [Right Arm] 113 Blood Pressure Position [Right Arm] Semi-fowlers Pulse Oximetry 98 98 Oxygen Delivery Method Room Air Room Air Sepsis Recent Fever Within 48 Hours No Sepsis New/Unexplained Change in Mental Status N/A Sepsis Action Taken by Nursing No Action Required 04/09/25 12:00 04/09/25 12:03 04/09/25 12:44 Temperature Temperature Source Pulse Rate 69 70 77 Pulse Rate [Apical] Pulse Rate from SpO2 Sensor 67 Pulse Rhythm [Apical] Pulse Strength [Apical] Respiratory Rate 22 22 22 Respiratory Effort / Characteristics Respiratory Depth Respiratory Pattern Blood Pressure 161/83 H 176/97 H Blood Pressure [Right Arm] Blood Pressure Mean 130 137 Blood Pressure Mean [Right Arm] Blood Pressure Position [Right Arm] Pulse Oximetry 96 96 95 Oxygen Delivery Method Room Air Room Air Sepsis Recent Fever Within 48 Hours Sepsis New/Unexplained Change in Mental Status Sepsis Action Taken by Nursing 04/09/25 13:30 04/09/25 13:30 04/09/25 13:30 Temperature Temperature Source Pulse Rate Pulse Rate [Apical] Pulse Rate from SpO2 Sensor Pulse Rhythm [Apical] Pulse Strength [Apical] Respiratory Rate Respiratory Effort / Characteristics Respiratory Depth Respiratory Pattern Blood Pressure 172/98 H 172/98 H 172/98 H Blood Pressure [Right Arm] Blood Pressure Mean 124 124 124 Blood Pressure Mean [Right Arm] Blood Pressure Position [Right Arm] Pulse Oximetry Oxygen Delivery Method Sepsis Recent Fever Within 48 Hours Sepsis New/Unexplained Change in Mental Status Sepsis Action Taken by Nursing 04/09/25 13:33 Temperature Temperature Source Pulse Rate 77 Pulse Rate [Apical] Pulse Rate from SpO2 Sensor 77 Pulse Rhythm [Apical] Pulse Strength [Apical] Respiratory Rate 19 Respiratory Effort / Characteristics Respiratory Depth Respiratory Pattern Blood Pressure Blood Pressure [Right Arm] Blood Pressure Mean Blood Pressure Mean [Right Arm] Blood Pressure Position [Right Arm] Pulse Oximetry 95 Oxygen Delivery Method Sepsis Recent Fever Within 48 Hours Sepsis New/Unexplained Change in Mental Status Sepsis Action Taken by Nursing Laboratory Data 04/10/25 06:10 04/10/25 06:10 Lab Results 04/09/25 04/09/25 Range/Units 11:26 12:35 WBC 3.30 L (4.8-10.8) K/ul RBC 2.91 L (4.20-5.40) M/uL Hgb 9.9 L (12.0-16.0) g/dl Hct 28.9 L (37.0-47.0) % MCV 99.3 (80.0-100.0) fL MCH 34.0 (25.0-34.0) pg MCHC 34.3 (32.0-36.0) g/dL RDW Std Deviation 45.1 (36.4-46.3) fL RDW Coeff of Celina 12.3 (11.5-14.5) % Plt Count 142 (130-400) K/uL MPV 9.4 (9.4-12.4) fL Immature Gran % (Auto) 0.3 % Neut % (Auto) 87.0 % Lymph % (Auto) 11.2 % Imperial % (Auto) 1.2 % Eos % (Auto) 0.0 % Baso % (Auto) 0.3 % Neut # (Auto) 2.87 (1.40-6.50) K/uL Lymph # (Auto) 0.37 L (1.20-3.40) K/uL Imperial # (Auto) 0.04 L (0.11-0.59) K/uL Eos # (Auto) 0.00 (0.00-0.50) K/uL Baso # (Auto) 0.01 (0.00-0.20) K/uL Immature Gran # (Auto) 0.01 (0.01-0.20) K/uL Sodium 138 (136-145) mmol/L Potassium 5.4 H (3.5-5.1) mmol/L Chloride 111 H (98-107) mmol/L Carbon Dioxide 20 L (21-32) mmol/L Anion Gap 7 (3-11) BUN 45 H (6-23) mg/dl Creatinine 2.38 H (0.6-1.2) mg/dl Est Cr Clr Drug Dosing 14.6 ml/min eGFR 21.54 BUN/Creatinine Ratio 18.9 (10-20) Glucose 167 H (70-99(Fasting)) mg/dl Calcium 8.1 L (8.6-10.3) mg/dl Total Bilirubin 0.3 (0.2-1.0) mg/dl AST 18 (13-39) U/L ALT 12 (7-52) U/L Alkaline Phosphatase 141 H (34-104) U/L Total Protein 7.2 (6.0-8.3) gm/dl Albumin 3.5 (3.4-5.0) gm/dl Globulin 3.7 (2.5-4.0) gm/dl Albumin/Globulin Ratio 0.9 (0.9-2) Urine Color Yellow Urine Appearance Clear (Clear) Urine pH 7.0 (4.5-7.5) Ur Specific Cumming 1.010 (1.000-1.030) Urine Protein 1+ H (Negative) Urine Glucose (UA) Trace H (Negative) Urine Ketones Negative (Negative) Urine Blood Negative (Negative) Urine Nitrite Negative (Negative) Urine Bilirubin Negative (Negative) Urine Urobilinogen Negative (Negative) Ur Leukocyte Esterase Trace H (Negative) Urine WBC (Auto) 0-5 (0-5) /hpf Urine RBC (Auto) 0-2 (0-2) /hpf U Hyaline Cast (Auto) 0-2 (0-2) /lpf U Epithel Cells (Auto) 0-2 (0-2) /hpf Urine Bacteria (Auto) None Seen (None Seen) Urine Osmolality 364 L (500-800) mOsm/kg Ur Random Creatinine 28.0 mg/dl Ur Random Sodium 107 mmol/L Ur Random Potassium 26.7 mmol/L Ur Random Chloride 108 mmol/L Ur Random Uric Acid TNP Urine Comment Administered Medications Discontinued Medications Acetaminophen (Acetaminophen 325 Mg Tab) 650 mg PO Q4H PRN PRN Reason: Pain or Fever Stop: 05/09/25 13:02 Last Admin: 04/10/25 12:39 Dose: 650 mg Documented By: Admin: 04/10/25 02:01 Dose: 650 mg Documented By: Admin: 04/09/25 16:12 Dose: 650 mg Documented By: NAIN Amlodipine Besylate (Amlodipine Besylate 5 Mg Tab) 5 mg PO BID [facility] Stop: 05/09/25 20:59 Last Admin: 04/10/25 08:40 Dose: 5 mg Documented By: Admin: 04/09/25 20:00 Dose: 5 mg Documented By: CHITRA Apixaban (Apixaban 5 Mg Tablet) 5 mg PO BID [facility] Stop: 05/09/25 20:59 Last Admin: 04/10/25 08:39 Dose: 5 mg Documented By: Admin: 04/09/25 20:00 Dose: 5 mg Documented By: CHITRA Atorvastatin Calcium (Atorvastatin 40 Mg Tab) 80 mg PO QAM [facility] Stop: 05/10/25 08:59 Last Admin: 04/10/25 08:40 Dose: 80 mg Documented By: DAVID Carvedilol (Carvedilol 6.25 Mg Tab) 6.25 mg PO BID [facility] Stop: 05/09/25 20:59 Last Admin: 04/10/25 08:39 Dose: 6.25 mg Documented By: Admin: 04/09/25 20:00 Dose: 6.25 mg Documented By: CHITRA Clopidogrel Bisulfate (Clopidogrel Bisulfate 75 Mg Tab) [facility] [place] Stop: 05/10/25 08:59 Last Admin: 04/10/25 08:39 Dose: 75 mg Documented By: DAVID Ezetimibe (Ezetimibe 10 Mg Tab) 10 mg PO QAM [facility] Stop: 05/10/25 08:59 Last Admin: 04/10/25 08:39 Dose: 10 mg Documented By: DAVID Escitalopram Oxalate (Escitalopram Oxalate 10 Mg Tab) 10 mg PO QAM [facility] Stop: 05/10/25 08:59 Last Admin: 04/10/25 08:39 Dose: 10 mg Documented By: DAVID Parenteral Electrolytes (Plasma-Lyte A Ph 7.4) 500 mls @ 999 mls/hr IV .Q31M ONE Stop: 04/09/25 11:43 Last Infusion: 04/09/25 12:00 Dose: Infused Documented By: tiffanie Admin: 04/09/25 11:24 Dose: 999 mls/hr Documented By: tiffanie Sodium Chloride (Nss) 1,000 mls @ 100 mls/hr IV .Q10H [facility] Stop: 04/12/25 13:14 Last Infusion: 04/10/25 13:42 Dose: Infused Documented By: Admin: 04/10/25 08:39 Dose: 100 mls/hr Documented By: Infusion: 04/10/25 08:38 Dose: Infused Documented By: Admin: 04/09/25 22:38 Dose: 100 mls/hr Documented By: Infusion: 04/09/25 22:38 Dose: Infused Documented By: Admin: 04/09/25 13:28 Dose: 100 mls/hr Documented By: tiffanie Isosorbide Mononitrate (Isosorbide Imperial Extended Rel 30 Mg Tabcr) 30 mg PO BID [facility] Stop: 05/09/25 20:59 Last Admin: 04/10/25 08:39 Dose: 30 mg Documented By: Admin: 04/09/25 20:00 Dose: 30 mg Documented By: CHITRA Levothyroxine Sodium (Levothyroxine Sodium 50 Mcg Tablet) [facility]: 05/10/25 06:29 Last Admin: 04/10/25 06:12 Dose: 50 mcg Documented By: CHITRA Ondansetron HCl (Ondansetron Inj 2 Mg/Ml 2 Ml Vial) 4 mg IV NOW [facility] Stop: 04/10/25 14:13 Last Admin: 04/10/25 14:23 Dose: Not Given Documented By: DAVID Ondansetron HCl (Ondansetron Inj 2 Mg/Ml 2 Ml Vial) Confirm Administered Dose 4 mg .ROUTE .STK-MED ONE Stop: 04/10/25 14:14 Last Admin: 04/10/25 14:14 Dose: 4 mg Documented By: DAVID Pantoprazole Sodium (Pantoprazole 40 Mg Tab) 40 mg PO [facility] Stop: 05/10/25 08:59 Last Admin: 04/10/25 08:39 Dose: 40 mg Documented By: DAVID Pyridoxine HCl (Pyridoxine Hcl 50 Mg Tab) 100 [facility] [place] Stop: 05/10/25 08:59 Last Admin: 04/10/25 08:40 Dose: 100 mg Documented By: DAVID Vitamin D (Cholecalciferol 25 Mcg (1000 Units) Tab) 50 [facility] [place] Stop: 05/10/25 08:59 Last Admin: 04/10/25 08:40 Dose: 50 mcg Documented By: DAVID Imaging Data Radiologist's Impression: Renal Ultrasound 04/09/25 11:13 RENAL ULTRASOUND HISTORY: CAYETANO on CKD, stents in place COMPARISON: CT of 01/22/2025 FINDINGS: Right kidney measures 10 x 5 cm. There is mildly progressive moderate right hydronephrosis. Ureteral stent is partially visualized. Left kidney measures 7 x 3 cm. There is no hydronephrosis. There is Doppler flow to both kidneys. The distal aspect of the right ureteral stent is seen within the urinary bladder. Urinary bladder is otherwise grossly unremarkable. IMPRESSION: Mildly progressive moderate right hydronephrosis. ACT 112: Negative or not required by law. Electronically signed by: Sunil Gomez M.D. 04/09/2025 12:37 PM Discharge Plan Visit Data Chief Complaint: Abnormal Labs/Diagnostic Testing Stated Complaint: REF BY DOC, 5.7 POTASSIUM, 2.5 CREATININ ED Provider: Dyllan Fonseca Discharge Problem: Hyperkalemia, CAYETANO (acute kidney injury), Dehydration, Hydronephrosis Patient Disposition: Admitted As Inpatient Condition: Serious Discharge Instructions Interventions: ED Discharge Assessment Last Done: 04/09/25 13:48
[2025-04-09 12:03] LABS: Alanine Aminotransferase 12.0 U/L (7-52); Albumin Globulin Ratio 0.9 (0.9-2); Alkaline Phosphatase 141.0 U/L (34-104); Anion Gap 7.0 (3-11); Bilirubin,Total 0.3 mg/dl (0.2-1.0); Blood Urea Nitrogen 45.0 mg/dl (6-23); Calcium 8.1 mg/dl (8.6-10.3); Carbon Dioxide 20.0 mmol/L (21-32); Chloride 111.0 mmol/L (98-107); Creatinine Clr Calc Pharmacy 14.6 ml/min; Globulin 3.7 gm/dl (2.5-4.0); Glucose 167.0 mg/dl (70-99(Fasting)); Potassium 5.4 mmol/L (3.5-5.1); Sodium 138.0 mmol/L (136-145); Total Protein 7.2 gm/dl (6.0-8.3)
--- NOTE | 2025-04-09 12:40 | Ultrasound Report ---
RENAL ULTRASOUND HISTORY: CAYETANO on CKD, stents in place COMPARISON: CT of 01/22/2025 FINDINGS: Right kidney measures 10 x 5 cm. There is mildly progressive moderate right hydronephrosis. Ureteral stent is partially visualized. Left kidney measures 7 x 3 cm. There is no hydronephrosis. There is Doppler flow to both kidneys. The distal aspect of the right ureteral stent is seen within the urinary bladder. Urinary bladder is oth erwise grossly unremarkable. IMPRESSION: Mildly progressive moderate right hydronephrosis. ACT 112: Negative or not required by law. Electronically signed by: Sunil Gomez M.D. 04/09/2025 12:37 PM
[2025-04-09 13:12] LABS: Appearance Urine Clear (Clear); Bacteria Urine Automated None Seen (None Seen); Cast Urine Automated 0-2 /lpf (0-2); Epithelial Cell Urine Auto 0-2 /hpf (0-2); Glucose Urine UA Trace (Negative); RBC Urine Automated 0-2 /hpf (0-2); WBC Urine Automated 0-5 /hpf (0-5)
--- NOTE | 2025-04-09 13:25 | History & Physical Report ---
Date of Service April 09, 2025 Assessment & Plan (1) CAYETANO (acute kidney injury): Plan: Assessment: 1. Acute kidney injury with associated right-sided hydronephrosis with bilateral urological stents in place. Last time stents were exchanged was approximately November 2024. We will hydrate the patient and monitor creatinine carefully. Please refer to #2. We have placed the patient on 100 cc of saline per hour for now. Reassess creatinine in the morning. 2. Bilateral urological stents. With some right sided hydronephrosis by ultrasound. I personally discussed with JULIAN Hussein with urology, we will do a noncontrast CT of the abdomen pelvis per their request to analyze for current stent positioning. They will see the patient on consultation with decision for stent exchange versus possibly need for nephrostomy tube on the right side given the patient's current situation. The patient has already been eating a ham sandwich in the ER. Therefore will order her a diet and if she needs to go to the OR for stent exchange or nephrostomy tube she can be made n.p.o. after midnight by urology. We discussed all these details with urology by phone. 3. Mild hyperkalemia. We will hold all agents that could contribute to hyperkalemia. Med rec is pending at the time of this dictation. 4. [id number] diabetes mellitus. Accu-Cheks have been ordered to notify physician if less than 80 or greater than 180. Patient is on metformin at home it appears, med rec still not completed, if on metformin this will be held given the CAYETANO. Hemoglobin A1c in the morning. Insulin sliding scale should be considered pending patient's glycemic control. 5. Borderline pancytopenia secondary to chemotherapy. White blood cell count 3.3, hemoglobin 9.9, platelet count 142. Repeat CBC in the AM. 6. Widely metastatic uterine carcinoma. Currently under outpatient oncology treatment with chemotherapy reportedly to be Keytruda and carboplatinum. 7. Recent history of subacute occipital CVA. This was back in January of this year. 8. History of DVT. Was on Eliquis. I suspect she still is but again med rec is pending. Will follow-up on this and order Eliquis as indicated. 9. Dyslipidemia. Continue home statin therapy. Plan: As described above. Please refer to orders for further planning. History of Present Illness Chief Complaint: Abnormal labs. Primary Care Provider: Eliazar Peck DO This is a pleasant 70-year-old female who is undergoing active chemotherapy treatment with Keytruda and carboplatinum with oncology for widely metastatic uterine carcinoma. She had a routine appointment with oncology today for her chemo unfortunately labs showed some hyperkalemia and acute kidney injury with a creatinine of approximately 3.4. She was directed to the ER for further evaluation and treatment. In the ER mild hyperkalemia at 5.4 with a creatinine of 2.38. Her baseline creatinine appears to be approximately is approximately 1.4. Ultrasound in the ER showed some worsening right sided hydronephrosis with urological stent appearing to be in position. Course in the emergency department she received 500 cc of crystalloid solution. We are called admit the patient for further evaluation and treatment. Allergies Allergy/AdvReac Type Severity Reaction Status Date / Time levofloxacin Allergy Intermediate Chest Verified 02/24/25 08:51 tightness, rash - pt is not sure rxn details Bactrim AdvReac Intermediate GI Verified 03/15/18 11:06 UPSET,HEADACHE clarithromycin AdvReac Unknown GI upset Verified 02/24/25 08:51 famotidine AdvReac Unknown Chest Pain Verified 02/24/25 08:51 -"not that I know of " levothyroxine sodium AdvReac Unknown Dizziness, Verified 02/24/25 08:51 headache, nausea and vomiting- see notes lisinopril AdvReac Unknown Cough - pt Verified 02/24/25 08:51 denies cough sulfamethoxazole AdvReac Unknown GI upset, Verified 02/24/25 08:51 headache trimethoprim AdvReac Unknown GI upset, Verified 02/24/25 08:51 headache Home Medications Medication Instructions Recorded Confirmed Type pyridoxine (vitamin B6) 250 mg 250 mg PO QAM 12/31/18 02/24/25 History tablet (Vitamin B-6) cholecalciferol (vitamin D3) 50 50 mcg PO QAM 03/10/21 02/24/25 History mcg (2,000 unit) capsule miscellaneous medical supply #1 ea 10/27/21 02/24/25 Rx (Blood Pressure Cuff) ezetimibe 10 mg tablet (Zetia) 10 mg PO QAM 06/08/23 02/24/25 History carvedilol 6.25 mg tablet (Coreg) 6.25 mg PO BID 02/06/24 02/24/25 History clopidogrel 75 mg tablet (Plavix) 75 mg PO QAM 02/06/24 02/24/25 History isosorbide mononitrate 30 mg 30 mg PO BID 02/06/24 02/24/25 History tablet,extended release 24 hr pantoprazole 40 mg tablet,delayed 40 mg PO QAM 02/06/24 02/24/25 History release (Protonix) metformin 500 mg tablet 500 mg PO BID #90 tabs 02/28/24 02/24/25 Rx losartan 100 mg tablet 100 mg PO QAM #90 tabs 03/03/24 02/24/25 Rx amlodipine 5 mg tablet (Norvasc) 5 mg PO BID 03/11/24 02/24/25 History Carboplatin #1 ea 05/20/24 02/24/25 Rx Fosaprepitant #1 ea 05/20/24 02/24/25 Rx Paclitaxel #1 ea 05/20/24 02/24/25 Rx Palonsetron #1 ea 05/20/24 02/24/25 Rx Pembrolizumab #1 ea 05/20/24 02/24/25 Rx escitalopram oxalate 10 mg tablet 10 mg PO QAM #90 tabs 11/20/24 02/24/25 Rx (Lexapro) levothyroxine 50 mcg tablet 50 mcg PO QAM 11/24/24 02/24/25 History (Synthroid) nitroglycerin 0.4 mg sublingual 0.4 mg sublingual UD PRN chest pain 11/24/24 02/24/25 History tablet atorvastatin 80 mg tablet (Lipitor) 80 mg PO QAM 11/26/24 02/24/25 History dexamethasone 4 mg tablet 20 mg PO .BID/UD 02/11/25 02/24/25 History apixaban 5 mg tablet (Eliquis) 5 mg PO UD 30 days #30 tabs 02/14/25 02/24/25 Rx potassium 0 mg PO DAILY 04/09/25 04/09/25 History Past Med/Surg History Problem List Carotid stenosis Balint syndrome Headache (Acute) CVA (cerebral vascular accident) (Acute) Thrombocytopenia Vision loss Bilateral hydronephrosis DVT (deep venous thrombosis) Pneumothorax, left 09/2024 Ureteral stent present Uterine cancer Metastatic cancer Elevated LFTs Pulmonary nodule Retroperitoneal lymphadenopathy 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 Xerosis cutis (Acute) Hyperlipidemia Medical History CAD (coronary artery disease) History of blood transfusion Port-A-Cath in place Hydronephrosis History of myocardial infarction (07/2019) History of pneumothorax History of DVT (deep vein thrombosis) (09/2024) Hypothyroidism Hx of sepsis Anemia History of seizure History of stroke Metastatic cancer to lung Uterine cancer LBBB (left bundle branch block) Hyperlipidemia Multiple pulmonary nodules determined by computed tomography of lung Depression with anxiety DM type 2 (diabetes mellitus, type 2) Hypertension Fatty liver History of cerebral artery occlusion 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 Diverticular disease Chronic headache GERD (gastroesophageal reflux disease) Surgical History History of thoracentesis H/O insertion of central venous access port (10/13/24) Hx of left cataract extraction History of bronchoscopy S/P cystoscopy with ureteral stent placement Presence of stent in LAD coronary artery Hx of right cataract extraction History of esophagogastroduodenoscopy (EGD) History of colonoscopy History of cholecystectomy History of Family History Mother Family history of diabetes mellitus Acute myocardial infarction Heart disease Daughter Family history of diabetes mellitus Son Family history of diabetes mellitus Brother Cirrhosis of liver Father Prostate cancer Acute myocardial infarction Aunt Ovarian carcinoma Breast cancer Other No family history of adverse response to anesthesia Social History Smoking Status: Never smoker Tobacco Type: Cigarettes Age Started Using Tobacco: 14; Age Quit Using Tobacco: 33; packs per day: 2; Cigarettes Per Day: 2 packs or more per day; Second Hand Exposure: No; Do You Dip or Chew Tobacco: No; Hx Alcohol Use: No Hx Substance Use: No Preferred Language: Arabic Communication Ability: Effective Communication Ability Comment: Patient states ELIM IRA/vision not good Gleason Operator Required: No Beliefs That Will Affect Care: None marital status: Single Current Living Situation: Family Current Living Situation Comment: Pt rsides with her sonEmil current occupational status: retired How many Children do You have: 3 Feels Safe at Home: Yes caffeine: Yes during the past year weight has: decreased > 10 lbs Dental Care, Regularly: No Physical Activity Frequency: Does not Exercise Seatbelt Use: always Sunscreen Use: No Assistive Devices: Walker Review of Systems Review of Systems: A 10 point review of system was obtained and unless otherwise stated here or in history of present illness are negative and noncontributory to chief complaint. Physical Exam Physical Exam: In General: In general very pleasant 70-year-old female who is alert and oriented x 3 at the time of my examination. She is in no acute distress. She does admit to some right sided flank discomfort ongoing for the last week or 2. HEENT: Normocephalic atraumatic pupils are equal round and reactive to light bilaterally. No scleral icterus no conjunctival injection external auditory canals are patent septum is in the midline nose is without discharge oral mucosa is pink and mildly on the dry side without lesion. Chemotherapy-induced alopecia noted. NECK: Supple no rigidity no lymphadenopathy no thyromegaly no carotid bruits no JVD no masses. HEART: Regular rate and rhythm I do not appreciate any ectopy or rub. No murmur. LUNGS: Clear to auscultation bilaterally and anteriorly with no evidence of adventitious sounds/wheezes rales or rhonchi. Mediport noted in left chest wall accessed. ABDOMEN: Soft nontender, no rebound, no peritoneal signs, positive bowel sounds, no appreciable organomegaly. EXTREMITIES: Intact, no peripheral cyanosis, clubbing or edema. Strength is 5 out of 5 in extremities x4. NEUROLOGICAL: Cranial nerves II through XII are grossly intact with no focal deficit elicited upon examination. Results & Data Results & Data Vital Signs (Past 12 Hours) Vital Signs Temp Pulse Pulse Resp BP BP Pulse Ox 04/09/25 12:03 70 22 96 04/09/25 12:00 69 22 161/83 H 96 04/09/25 11:30 73 16 176/82 H 98 04/09/25 11:27 67 04/09/25 10:58 36.8 C 84 18 163/72 H 98 O2 Del Method 04/09/25 12:03 04/09/25 12:00 Room Air 04/09/25 11:30 Room Air 04/09/25 11:27 04/09/25 10:58 Room Air Code Status & VTE Plan Code Status Full code. I personally discussed with patient at the bedside. VTE Prophylaxis Plan VTE Prophylaxis will be ordered: Yes PG Care Time/CCT Total # of Minutes Spent Total Time Spent with Patient: Total time spent is greater than 50% in coordination of care (as documented) at patient's floor/unit and/or counseling patient: Coding Level of Care Code 75487 INT INP/OBS CARE 3/75MIN Diagnoses CAYETANO (acute kidney injury) N17.9
[2025-04-09] MEDS: SODIUM CHLORIDE 0.9% 1,000 ML IV SCH (13:28)
--- NOTE | 2025-04-09 13:49 | CT Scan Report ---
CT OF THE ABDOMEN AND PELVIS WITHOUT CONTRAST CLINICAL HISTORY: Acute kidney injury, hydronephrosis. Malignant neoplasm of uterus. COMPARISON STUDY: CT of the abdomen and pelvis January 22, 2025, PET/CT March 18, 2025 and renal ultras ound performed earlier today. TECHNIQUE: Axial images of the abdomen and pelvis were obtained without IV contrast. Images were revi ewed in the axial, sagittal, and coronal planes. Automated exposure control was utilized for the [place]. A dose lowering technique was utilized adhering to the principles of ALARA. FINDINGS: Small right and trace left pleural effusions have increased since PET/CT of March 18, 2025 . Subpleural right lower lobe opacity measuring approximately 5.4 x 2.6 cm is similar to prior PET/CT . Interlobular septal thickening within the lung bases is noted. Several nodular densities within the lungs are noted, including a 5 mm lingular density on image 1. Bilateral ureteral stents are in plac e. There are no urinary calculi. Severe right hydroureteronephrosis has mildly increased since PET/CT of March 18, 2025. There is no left hydronephrosis. A right adnexal mass measures approximately 3.7 x 3 cm. This is similar to PET/CT. Retroperitoneal lymphadenopathy similar to prior PET/CT. Multiple peritoneal nodules measuring up to 6 mm have slightly increased since CT of January 22, 2025 and prior PET/CT. There is no evidence for a bowel obstruction. Evaluation of the abdomen and pelvis is subopti mal on this unenhanced exam. Unenhanced images of the liver, spleen, adrenal glands and pancreas are unremarkable. Pelvic stranding is noted. This may be treatment related. IMPRESSION: 1. Bilateral ureteral stents in place. Severe right hydronephrosis which has mildly increased since P ET/CT of March 18, 2025. No left hydronephrosis. No urinary calculi. 2. No significant change in a right adnexal mass and retroperitoneal lymphadenopathy since PET/CT of March 18, 2025. Slight increase in size of peritoneal nodules which are suspicious for implants. 3. Increase in small right (partially loculated) and trace left pleural effusions. Evidence for inter stitial pulmonary edema within the lower lungs. 4. Several nodular densities within the visualized lungs. These may be infectious or inflammatory. Ho wever, imaging follow-up is recommended to exclude metastases. 5. No bowel obstruction. 6. Redemonstration of a 5.4 x 2.6 cm subpleural right lower lobe density with mild loss. Round atelec tasis is favored however this should be assessed on follow-up imaging studies. ACT 112: Negative or not required by law. Electronically signed by: Jonn Sanchez M.D. 04/09/2025 1:48 PM
--- NOTE | 2025-04-09 14:25 | Urology Consultation ---
<Statement entered by Ángel Morataya MD - 04/10/25 09:20> Patient assessed no acute distress, plan reviewed and agree as written. R PCN most definitive measure to protect kidney function and continue chemotherapy unfortunately though this does have worse QOL vs stent which appears to be failing. Date of Consultation April 09, 2025 Assessment & Plan (1) Bilateral hydronephrosis: (2) Metastatic cancer: 70-year-old female with metastatic uterine cancer with bilateral hydronephrosis and obstruction managed with bilateral indwelling ureteral stents (last exchanged in November 2024) admitted for hyperkalemia and CAYETANO. Patient afebrile and hemodynamically stable Labs reviewedcreatinine 2.38 (baseline ~1.4), WBC 3.3, hemoglobin 9.9, potassium 5.4 Urinalysis was not suggestive of infection Renal ultrasound showed mildly progression of moderate right hydronephrosis Discussed case with attending hospitalist and recommended CT for further evaluation and check stent positioning CTAP reviewedbilateral ureteral stents in appropriate position, severe right hydronephrosis which has increased mildly since PET/CT of 03/18/2025; no left hydronephrosis Bilateral ureteral stents were exchanged on 12/03/2024 Given CAYETANO and worsening right hydronephrosis, discussed recommendation for right percutaneous nephrostomy tube which would require transfer to tertiary center with interventional radiology Given she is undergoing chemotherapy, percutaneous nephrostomy is likely her best option to protect her kidneys and remain viable for chemotherapy Continue to trend labs and if renal function is not improving, then recommend transfer for right percutaneous nephrostomy tube Discussed with Dr. Irvin Plan of care reviewed with Dr. Ángel Morataya History of Present Illness Reason for Consultation: CAYETANO, hydronephrosis Attending Physician: Oscar Irvin, PhD, DO History of Present Illness This is a 70-year-old female with a history of metastatic uterine cancer with malignant obstruction and bilateral hydronephrosis, right greater than left, who has been managed with bilateral ureteral stents. She is status post cystoscopy and bilateral ureteral stent placement on 12/03/[address] Ceballos, long-term indwelling stents were placed. She is following with oncology and undergoing treatment with chemotherapy. She had a routine appointment with oncology today for her chemotherapy, but was referred to the emergency department due to abnormal labs with hyperkalemia (5.9) and acute kidney injury (2.54). On arrival to ED, she was afebrile, hypertensive. Lab work showed hyperkalemia with potassium 5.4, creatinine 2.38, hemoglobin 9.9. Urinalysis showed 1+ protein, trace glucose, trace LE, otherwise unremarkable. Renal ultrasound showed mild progression of moderate right hydronephrosis. She received IV fluids in the ED. She was admitted for further evaluation and management. Urology is consulted for CAYETANO and hydronephrosis. Patient seen and examined in the emergency department. She is awake and resting in litter. She reports mild right flank discomfort. Voiding spontaneously. No dysuria or hematuria. No fever or chills. Allergies Allergy/AdvReac Type Severity Reaction Status Date / Time levofloxacin Allergy Intermediate Chest Verified 02/24/25 08:51 tightness, rash - pt is not sure rxn details Bactrim AdvReac Intermediate GI Verified 03/15/18 11:06 UPSET,HEADACHE clarithromycin AdvReac Unknown GI upset Verified 02/24/25 08:51 famotidine AdvReac Unknown Chest Pain Verified 02/24/25 08:51 -"not that I know of " levothyroxine sodium AdvReac Unknown Dizziness, Verified 02/24/25 08:51 headache, nausea and vomiting- see notes lisinopril AdvReac Unknown Cough - pt Verified 02/24/25 08:51 denies cough sulfamethoxazole AdvReac Unknown GI upset, Verified 02/24/25 08:51 headache trimethoprim AdvReac Unknown GI upset, Verified 02/24/25 08:51 headache Home Medications Medication Instructions Recorded Confirmed Type pyridoxine (vitamin B6) 250 mg 250 mg PO QAM 12/31/18 04/09/25 History tablet (Vitamin B-6) cholecalciferol (vitamin D3) 50 50 mcg PO QAM 03/10/21 04/09/25 History mcg (2,000 unit) capsule miscellaneous medical supply #1 ea 10/27/21 02/24/25 Rx (Blood Pressure Cuff) ezetimibe 10 mg tablet (Zetia) 10 mg PO QAM 06/08/23 04/09/25 History carvedilol 6.25 mg tablet (Coreg) 6.25 mg PO BID 02/06/24 04/09/25 History clopidogrel 75 mg tablet (Plavix) 0 mg PO QAM 02/06/24 04/09/25 History isosorbide mononitrate 30 mg 30 mg PO BID 02/06/24 04/09/25 History tablet,extended release 24 hr pantoprazole 40 mg tablet,delayed 40 mg PO QAM 02/06/24 04/09/25 History release (Protonix) metformin 500 mg tablet 500 mg PO BID #90 tabs 02/28/24 04/09/25 Rx losartan 100 mg tablet 100 mg PO QAM #90 tabs 03/03/24 04/09/25 Rx amlodipine 5 mg tablet (Norvasc) 5 mg PO BID 03/11/24 04/09/25 History Carboplatin #1 ea 05/20/24 02/24/25 Rx Fosaprepitant #1 ea 05/20/24 02/24/25 Rx Paclitaxel #1 ea 05/20/24 02/24/25 Rx Palonsetron #1 ea 05/20/24 02/24/25 Rx Pembrolizumab #1 ea 05/20/24 02/24/25 Rx escitalopram oxalate 10 mg tablet 10 mg PO QAM #90 tabs 11/20/24 04/09/25 Rx (Lexapro) levothyroxine 50 mcg tablet 50 mcg PO QAM 11/24/24 04/09/25 History (Synthroid) nitroglycerin 0.4 mg sublingual 0.4 mg sublingual UD PRN chest pain 11/24/24 04/09/25 History tablet atorvastatin 80 mg tablet (Lipitor) 80 mg PO QAM 11/26/24 04/09/25 History dexamethasone 4 mg tablet 20 mg PO .BID/UD 02/11/25 04/09/25 History apixaban 5 mg tablet (Eliquis) 5 mg PO UD 30 days #30 tabs 02/14/25 04/09/25 Rx potassium 0 mg PO DAILY 04/09/25 04/09/25 History Patient History Medical History CAD (coronary artery disease) Stents x2 (07/2019) (LEANDER x 2 to LAD) - [facility] History of blood transfusion Port-A-Cath in place Hydronephrosis denies History of myocardial infarction (07/2019) x2 stents - [facility] History of pneumothorax - 10/16/24- left side- collapsed lung from port placement 10/13/24 per pt - s/p pig tail catheter during [facility] admission - chest tube removed 10/19/24 History of DVT (deep vein thrombosis) (09/2024) popliteal DVT 10/20/24 noted during [facility] admission for pneumothorax- has not started eliquis or restarted plavix d/t procedures Hypothyroidism Hx of sepsis 06/[address] [facility] - UTI/sepsis. no current issues. Anemia treated inpatient 06/2024 with blood transfusions at [facility] History of seizure Most recent seizure No issues since - no current neurologist History of stroke ~, no residual issues Taking Plavix Metastatic cancer to lung [facility] - most recent chemo 11/27/24 Uterine cancer "A few years ago" Dr Rivera [facility] [place] - metastatic to lung - currently undergoing chemotherapy, last treatment 11/27/24 (poor IV access) - next treatment in 3 weeks - awaiting further surgical intervention with C port in place current per pt LBBB (left bundle branch block) Chronic - [facility] Hyperlipidemia Multiple pulmonary nodules determined by computed tomography of lung Depression with anxiety DM type 2 (diabetes mellitus, type 2) NIDDM Hypertension Fatty liver History of cerebral artery occlusion CVA ~ 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 - urological procedure was cx d/t Right Pleural Effusion. Also 10/16/24 H/O insertion of central venous access port (10/13/24) Insertion Access Port with Fluoroscopy(Left) - [facility], Hx of left cataract extraction History of bronchoscopy robotic navigational bronchoscopy S/P cystoscopy with ureteral stent placement ureteral stent exchange most recent 06/[address] [facility] Presence of stent in LAD coronary artery 2020 > stents x2 - [facility] Hx of right cataract extraction 01/21/19: was given 3mg of IV versed History of esophagogastroduodenoscopy (EGD) History of colonoscopy History of cholecystectomy History of x3 Family History Mother Family history of diabetes mellitus Acute myocardial infarction Heart disease Daughter Family history of diabetes mellitus Son Family history of diabetes mellitus Brother Cirrhosis of liver Father Prostate cancer Acute myocardial infarction Aunt Ovarian carcinoma Breast cancer Other No family history of adverse response to anesthesia Social History Smoking Status: Never smoker Tobacco Type: Cigarettes Age Started Using Tobacco: 14; Age Quit Using Tobacco: 33; packs per day: 2; Cigarettes Per Day: 2 packs or more per day; Second Hand Exposure: No; Do You Dip or Chew Tobacco: No; Hx Alcohol Use: No Hx Substance Use: No Preferred Language: [place] Citizen Communication Ability: Effective Communication Ability Comment: Patient states [place]/vision not good Pharmaceutical Botanist Required: No Beliefs That Will Affect Care: None marital status: Single Current Living Situation: Family Current Living Situation Comment: [place] with her sonEmil current occupational status: retired How many Children do You have: 3 Feels Safe at Home: Yes caffeine: Yes during the past year weight has: decreased > 10 lbs Dental Care, Regularly: No Physical Activity Frequency: Does not Exercise Seatbelt Use: always Sunscreen Use: No Assistive Devices: Walker Review of Systems Review of Systems: All systems reviewed & are unremarkable except as noted in HPI & below Physical Exam Constitutional: no acute distress Chronically ill-appearing Respiratory: normal respiratory effort; no respiratory distress and no labored breathing Gastrointestinal (Abdomen): Inspection/Auscultation: abdomen normal to inspection Musculoskeletal: Head/Neck/Chest: normocephalic Neurologic: moves all extremities and awake Psychiatric: Orientation: alert and oriented x 3 Results & Data Vital Signs (Past 12 Hours) Vital Signs Temp Pulse Pulse Resp BP BP Pulse Ox 04/09/25 13:33 77 19 95 04/09/25 13:30 172/98 H 04/09/25 13:30 172/98 H 04/09/25 13:30 172/98 H 04/09/25 12:44 77 22 176/97 H 95 04/09/25 12:03 70 22 96 04/09/25 12:00 69 22 161/83 H 96 04/09/25 11:30 73 16 176/82 H 98 04/09/25 11:27 67 04/09/25 10:58 36.8 C 84 18 163/72 H 98 O2 Del Method 04/09/25 13:33 04/09/25 13:30 04/09/25 13:30 04/09/25 13:30 04/09/25 12:44 Room Air 04/09/25 12:03 04/09/25 12:00 Room Air 04/09/25 11:30 Room Air 04/09/25 11:27 04/09/25 10:58 Room Air PG Care Time/CCT Total # of Minutes Spent Total Time Spent with Patient: Total time spent is greater than 50% in coordination of care (as documented) at patient's floor/unit and/or counseling patient: Coding Level of Care Code 35959 INT INP/OBS CARE 2/55MIN Diagnoses Bilateral hydronephrosis N13.30 Metastatic cancer C79.9
[2025-04-09] MEDS: ACETAMINOPHEN 325 MG TAB PO PRN (16:12)
[2025-04-09] MEDS: ISOSORBIDE MONO EXTENDED REL 30 MG TABCR PO SCH (20:00)
[2025-04-09] MEDS: APIXABAN 5 MG TABLET PO SCH (20:00)
[2025-04-10] MEDS ORDERED: HEPARIN 100 UNIT/ML 5ML FLUSH FLUSH PRN (05:05)
[2025-04-10] MEDS: LEVOTHYROXINE SODIUM 50 MCG TABLET PO SCH (06:12)
[2025-04-10 06:42] LABS: Hematocrit (blood only) 23.4 % (37.0-47.0); Hemoglobin 7.5 g/dl (12.0-16.0); Immature Granulocytes # (auto) 0.01 K/uL (0.01-0.20); Immature Granulocytes % (auto) 0.2 %; Mean Corpuscular Hemoglobin 32.2 pg (25.0-34.0); Mean Corpuscular Volume 100.4 fL (80.0-100.0); Platelet Count 117 K/uL (130-400); RDW Standard Deviation 46.3 fL (36.4-46.3); Red Blood Count 2.33 M/uL (4.20-5.40); White Blood Count 4.41 K/ul (4.8-10.8)
[2025-04-10 07:03] LABS: Alanine Aminotransferase 10.0 U/L (7-52); Albumin Globulin Ratio 1.0 (0.9-2); Alkaline Phosphatase 95.0 U/L (34-104); Anion Gap 6.0 (3-11); Bilirubin,Total 0.2 mg/dl (0.2-1.0); Blood Urea Nitrogen 48.0 mg/dl (6-23); Calcium 7.4 mg/dl (8.6-10.3); Carbon Dioxide 19.0 mmol/L (21-32); Chloride 117.0 mmol/L (98-107); Cholesterol 168.0 mg/dl (0-200); Creatinine Clr Calc Pharmacy 13.2 ml/min; Globulin 2.7 gm/dl (2.5-4.0); Glucose 113.0 mg/dl (70-99(Fasting)); HDL Cholesterol 49.0 mg/dl; Magnesium 1.8 mg/dl (1.7-2.4); Potassium 4.9 mmol/L (3.5-5.1); Sodium 142.0 mmol/L (136-145); Total Protein 5.5 gm/dl (6.0-8.3); Triglycerides 84.0 mg/dl (0-150)
[2025-04-10 07:05] LABS: RBC Morphology Unremarkable
[2025-04-10 07:09] LABS: Hemoglobin A1C 5.6 % (4.5-5.6)
[2025-04-10 07:16] LABS: Thyroid Stimulating Hormone 2.977 uIu/ml (0.300-4.500)
[2025-04-10] MEDS: EZETIMIBE 10 MG TAB PO SCH (08:39)
[2025-04-10] MEDS: ESCITALOPRAM OXALATE 10 MG TAB PO SCH (08:39)
[2025-04-10] MEDS: CLOPIDOGREL BISULFATE 75 MG TAB PO SCH (08:39)
[2025-04-10] MEDS: CHOLECALCIFEROL 25 MCG (1000 UNITS) TAB PO SCH (08:40)
[2025-04-10] MEDS: PYRIDOXINE HCL 50 MG TAB PO SCH (08:40)
[2025-04-10] MEDS: ATORVASTATIN 40 MG TAB PO SCH (08:40)
--- NOTE | 2025-04-10 09:50 | Urology Progress Note ---
Date of Service April 10, 2025 Assessment & Plan (1) Bilateral hydronephrosis: (2) Ureteral stent present: (3) Metastatic cancer: Plan: 70-year-old female with metastatic uterine cancer with bilateral hydronephrosis and obstruction managed with bilateral indwelling ureteral stents (last exchanged in November 2024) admitted for hyperkalemia and CAYETANO. Patient afebrile and hemodynamically stable Labs reviewedcreatinine 2.69 today (baseline ~1.4), WBC 4.41, hemoglobin 7.5, potassium 4.9 Continue to trend labs, transfuse as necessary per hospital medicine service Urinalysis was not suggestive of infection CTAP showed bilateral ureteral stents in appropriate position, severe right hydronephrosis which has increased mildly since PET/CT of 03/18/2025; no left hydronephrosis Bilateral ureteral stents were exchanged on 12/03/2024 Given worsening CAYETANO and worsening right hydronephrosis with stent in position, recommend right percutaneous nephrostomy tube which would require transfer to facility with interventional radiology We discussed right PCN would be the most definitive measure to try to protect kidney function and continue chemotherapy Attempted to call Arabella's daughter at her request, but was unable to reach or leave a message, will try to update Continue supportive care and medical management per hospital medicine service Care discussed with hospitalist will follow peripherally, please contact our service with any additional questions or concerns Admission and Anticipated Discharge Date Admission Date: April 09, 2025 Subjective Patient seen and examined at bedside this morning. She is awake and sitting up in bed. No acute issues overnight. Reports intermittent right flank discomfort. No fever or chills. Review of Systems Constitutional: as per Subjective / HPI Genitourinary: as per Subjective / HPI Physical Exam Constitutional: no acute distress Respiratory: normal respiratory effort; no respiratory distress and no labored breathing Gastrointestinal (Abdomen): Inspection/Auscultation: abdomen normal to inspection Musculoskeletal: Head/Neck/Chest: normocephalic Neurologic: moves all extremities and awake Psychiatric: Orientation: alert and oriented x 3 Results & Data Vital Signs (Past 12 Hours) Vital Signs Temp Pulse Pulse Resp BP Pulse Ox O2 Del Method 04/10/25 07:54 36.6 C 83 18 147/79 H 95 Room Air 04/10/25 03:08 36.4 C L 79 16 112/50 L 93 Room Air 04/09/25 22:11 36.6 C 76 16 116/68 98 Room Air 04/09/25 22:00 91 H PG Care Time/CCT Total # of Minutes Spent Total Time Spent with Patient: Total time spent is greater than 50% in coordination of care (as documented) at patient's floor/unit and/or counseling patient: Coding Level of Care Code 21901 SUB INP/OBS CARE 3/50MIN Diagnoses Bilateral hydronephrosis N13.30 Ureteral stent present Z96.0 Metastatic cancer C79.9
[2025-04-10 10:48] VITALS: BP 137/77; RESP 16; TEMP 98.1; O2SAT 93
[2025-04-10] MEDS: ONDANSETRON INJ 2 MG/ML 2 ML VIAL ONE (14:14)
[2025-04-10] MEDS: ONDANSETRON INJ 2 MG/ML 2 ML VIAL IV STA (14:23)
[2025-04-10 14:41] VITALS: PULSE 73
--- NOTE | 2025-04-10 17:29 | Discharge Summary ---
Discharge Summary Date of Service April 10, 2025 Principal Dx & Hospital Course #1 = Principal Diagnosis (1) CAYETANO (acute kidney injury): Hospital Course: 1. Acute kidney injury with admission creatinine 2.38 mg/dL (04/09/2025, 11:26am) and associated right-sided hydronephrosis with bilateral ureteral stents in situ. Last time stents were exchanged was approximately November 2024. Patient received IV fluid rehydration therapy utilizing 0.9% NS @ 100 mL/hr. Subsequently, acute kidney injury worsened as demonstrated by an increasing creatinine 2.69 mg/dL (04/10/2025, 6:10am). cf., CKD stage III with baseline creatinine range, 1.22 - 1.39 mg/dL (10/29/2024 - ). 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 Etiology of CKD stage III is most likely due to non-insulin dependent DM2. 2. Bilateral ureteral stents. Right sided hydronephrosis and no left sided hydronephrosis by ultrasound (04/09/2025, 11:13am). [facility] Hospitalist Dr. Oscar Irvin spoke with Urology Service of [facility] Su[facility] on 04/09/2025, and jointly agreed to perform CT abd/pelvis without IV contrast to analyze for current stent position(s). In addition, [facility] would see the patient at the bedside in the 04/10/2025 am, to render a decision for stent exchange versus possible need for nephrostomy tube insertion @ tertiary facility on the right side given the patient's current situation. Subsequently, CT abd/pelvis without IV contrast (04/09/2025, 1:08pm) revealed: 1. Bilateral ureteral stents in place. Severe right hydronephrosis which has mildly increased since PET/CT of March 18, 2025. No left hydronephrosis. No urinary calculi. 2. No significant change in a right adnexal mass and retroperitoneal lymphadenopathy since PET/CT of March 18, 2025. Slight increase in size of peritoneal nodules which are suspicious for implants. 3. Increase in small right (partially loculated) and trace left pleural effusions. Evidence for interstitial pulmonary edema within the lower lungs. 4. Several nodular densities within the visualized lungs. These may be infectious or inflammatory. However, imaging follow-up is recommended to exclude metastases. 5. No bowel obstruction. 6. Re-demonstration of a 5.4 x 2.6 cm subpleural right lower lobe density with mild loss. Round atelectasis is favored however this should be assessed on follow-up imaging studies. Subsequently, Urology Service of [facility] recommended that patient be transferred to [facility] to undergo Interventional Radiology- guided right ureteral stent removal, followed by right ureteral stent insertion, which are two procedures not available to patient at [facility] on 04/10/2025. Subsequently, patient was transferred to [facility] on 04/10/2025 under accepting Gynecologic Oncologist Dr. Oscar Alejandra. 3. Acute hyperkalemia with admission K 5.9 mmol/L (04/09/2025, 8:00am), repeat K 5.7 mmol/L (04/09/2025, 9:40am), repeat K 5.4 mmol/L (04/09/2025, 11:26am). We held off any/all nephrotoxic agents and acute hyperkalemia RESOLVED with repeat K 4.9 mmol/L (04/10/2025, 6:10am). 4. Afb-puboxmo-easgblbep diabetes mellitus. cf., admission glucose 151 mg/dL (04/09/2025, 4:20pm). cf., repeat glucose 95 mg/dL (04/09/2025, 8:48pm). cf., repeat glucose 122 mg/dL (04/10/2025, 7:31am). cf., discharge glucose 90 mg/dL (04/10/2025, 11:17am). Accu-Cheks were ordered to notify physician if less than 80 or greater than 180. Patient is on metformin at home it appears, med rec still not completed, if on metformin this will be held given the CAYETANO. Long-term glycemic control remains unknown despite HbA1c 5.6% (03/31/2025, 6:10am) which might suggest at first glance that long-term glycemic control is excellent. The reason that long-term glycemic control remains unknown is because in patients who are anemic, including this patient with a history of chronic macrocytic, normochromic anemia with a progressively declining baseline Hb range of 11.9 g/dL (02/18/2024, 6:30pm) to 7.5 g/dL (04/10/2025, 6:10am), increased RBC turnover in anemic states leads to concomitant reductions in both Hb level(s) and HbA1c level(s). Hence, HbA1c level is artificially lowered in anemic states. In such cases, attention turns towards serum glucose levels or even serum fructose levels in order to characterize more accurately, short-term glycemic control in a diabetic patient. 5. 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 cf., WBC 3.30, Hb 9.9, platelet 142 (04/09/2025, 11:26am). cf., WBC 4.41, Hb 7.5, platelet 117 (04/10/2025, 6:10am). 6. 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 Hold off secondary prophylaxis against cerebro- vascular disease utilizing patient's home-scheduled plavix 75mg PO daily, atorvastatin 80mg PO qam, and ezetimibe 10mg PO qam as patient awaits Interventional Radiology-guided removal of right ureteral stent in situ and replacement with new right ureteral stent @ [facility] on 04/10/2025. 7. History of DVT, now on apixaban 5mg PO bid at home. Hold off home-scheduled apixaban 5mg PO bid (administered on 04/09/2025, 8:00pm; 04/10/2025, 8:39am) for at least 48 hours as patient awaits Interventional Radiology-guided removal of right ureteral stent in situ and replacement with new right ureteral stent @ [facility] on 04/10/2025. Admission HPI Per Admitting Provider This is a pleasant 70-year-old female who is undergoing active chemotherapy treatment with Keytruda and carboplatinum with oncology for widely metastatic uterine carcinoma. She had a routine appointment with oncology today for her chemo unfortunately labs showed some hyperkalemia and acute kidney injury with a creatinine of approximately 3.4. She was directed to the ER for further evaluation and treatment. In the ER mild hyperkalemia at 5.4 with a creatinine of 2.38. Her baseline creatinine appears to be approximately is approximately 1.4. Ultrasound in the ER showed some worsening right sided hydronephrosis with urological stent appearing to be in position. Course in the emergency department she received 500 cc of crystalloid solution. We are called admit the patient for further evaluation and treatment. Discharge Exam Constitutional General: Comfortable, cooperative, coherent. Wide awake and alert. Not confused, lethargic, or obtunded. Patient speaks in complete, fluent, and articulate sentences without pause, interruption, cough, or wheeze. HEENT: Normocephalic, atraumatic. Extra-ocular muscles intact. Pupils equally round and reactive to light. No nystagmus, gaze paresis, anisocoria, miosis, mydriasis, hyphema, chemosis, scleral injection, conjunctivitis, or pterygium. No otorrhea or rhinorrhea. No pharyngeal discharge or exudate. Neck: Supple, no stridor or bruit. Jugular venous pressure is estimated to be 3 cm above the sternal angle of Collin, which is, by definition, 5 cm above the level of the right atrium. Hence, jugular venous pressure of 8 cm is not elevated on discharge date 04/10/2025. Lymphatics: No anterior/posterior cervical, infraclavicular, supraclavicular, axillary, epitrochlear, or inguinal adenopathy. Chest: Symmetric rise and fall with respirations. Non-tender to palpation. Lungs: Clear to auscultation and percussion. No audible expiratory wheeze, egophony, pectoriloquy, increase in tactile fremitus, or flatness/dullness to percussion at the bases. Heart: Regular rate and rhythm. S1 and S2 noted. No S3 or S4 summation gallop. No tripartite friction rub. Grade II/ early systolic murmur at left lower sternal border without radiation to the carotids, axilla, or back, and which remains invariant in regards to the respiratory cycle. Abdomen: Soft, non-tender, non-distended. No rebound, guarding, Coelho's sign, or organomegaly. Bowel sounds auscultated in all 4 quadrants. Extremities: No clubbing, cyanosis, or edema. 2+ pedal pulses bilaterally. Skin: No decubitus ulcer, exanthem, or enanthem. Urology: No lundberg catheter. No purewick. No urethral discharge. Neurology: Alert and oriented in regards to person, place, time, and situation. DTR+. 5/5 motor strength in all 4 extremities, both proximally and distally. Psychiatry: No flat affect. No monotone voice. Smiles appropriately. Discharge Plan Discharge Items Patient Disposition: Transfer Acute Care Hospital Reason For Visit: CAYETANO, HYDRONPHROSIS, HYPERKALEMIA Discharge Diagnosis: Acute right hydronephrosis despite right ureteral stent in situ, probably due to uterine carcinoma with metastases with peritoneal implants, causing obstruction by direct external compression on right renal pelvis/calyx. Condition on Discharge: Serious Activity: Resume your previous activity Lifting: Gradually increase as tolerated Bathing: No limitations Sexual Activity: When tolerated Exercise/Sports: Gradually increase as tolerated Driving/Machine Use: No limitations Weightbearing: Full weightbearing Non-emergency contact: Primary Care Provider Call non-emergency contact if: you have any medication questions Follow-up/Referrals: Eliazar Peck, DO [Primary Care Provider] - Diet: Nothing by Mouth Addtl Attending Provider Instructions: See your PCP Dr. Eliazar Peck within 5 days of hospital discharge from [facility]. Pending Studies at Discharge: No Stand-Alone Forms: My [facility] Skilled Items Patient informed of condition?: Yes DNR: No Discharge Level of Care: Other Communicable Disease: No Discharge Prognosis: Deteriorating Lines: None Urinary Catheter: No Medications and DC Order Prescriptions: Discontinued cholecalciferol (vitamin D3) 50 mcg (2,000 unit) capsule 50 mcg PO QAM (DME) Blood Pressure Cuff Misc See Rx Instructions .Route Qty: 1 0RF Rx Instructions: BLOOD PRESSURE CUFF CHECK 2-3 TIMES DAILY DX: I10 metformin 500 mg tablet 500 mg PO BID Qty: 90 3RF Patient Comments: 04/09 per pt she is still taking this med but last filled 05/27/24 for 45 day supply losartan 100 mg tablet 100 mg PO QAM Qty: 90 3RF escitalopram oxalate [Lexapro] 10 mg tablet 10 mg PO QAM Qty: 90 3RF (DME) Pembrolizumab See Rx Instructions .Route .MEDSUPPLY Qty: 1 0RF Rx Instructions: 200 mg intravenously; (DME) Paclitaxel See Rx Instructions .Route .MEDSUPPLY Qty: 1 0RF Rx Instructions: 234 mg intravenously; (DME) Carboplatin See Rx Instructions .Route .MEDSUPPLY Qty: 1 0RF Rx Instructions: 310 mg intravenously; (DME) Fosaprepitant See Rx Instructions .Route .MEDSUPPLY Qty: 1 0RF Rx Instructions: IV; (DME) Palonsetron See Rx Instructions .Route .MEDSUPPLY Qty: 1 0RF Rx Instructions: IV; pyridoxine (vitamin B6) [Vitamin B-6] 250 mg Tablet 250 mg PO QAM ezetimibe [Zetia] 10 mg tablet 10 mg PO QAM carvedilol [Coreg] 6.25 mg tablet 6.25 mg PO BID isosorbide mononitrate 30 mg tablet extended release 24 hr 30 mg PO BID clopidogrel [Plavix] 75 mg tablet 0 mg PO QAM Hold Instructions: Resume on 10/16/24. Patient Comments: 04/09 per pt she takes both plavix and eliquis. Plavix last filled 09/05/24 for 90 days. Eliquis was filled 02/16/25 for 30 days. pantoprazole [Protonix] 40 mg tablet,delayed release (DR/EC) 40 mg PO QAM amlodipine [Norvasc] 5 mg tablet 5 mg PO BID levothyroxine [Synthroid] 50 mcg tablet 50 mcg PO QAM nitroglycerin 0.4 mg tablet, sublingual 0.4 mg sublingual UD PRN (Reason: chest pain) Patient Comments: haven't had to use it for a long time Rx Instructions: do not exceed 3 doses per episode atorvastatin [Lipitor] 80 mg tablet 80 mg PO QAM dexamethasone 4 mg tablet 20 mg PO .BID/UD Rx Instructions: 02/11/25 : ON THE DAY BEFORE GOING TO DOCTOR'S OFFICE FOR IV CHEMO TAKE FIVE 4MG TABLETS IN THE MORNING AND FIVE 4MG TABLETS IN THE EVENING. Eliquis 5 mg tablet 5 mg PO UD 30 Days Qty: 30 0RF Taper: Taper, Blank 10 mg TWICE A DAY for 6 Days 5 mg TWICE A DAY for 24 Days Patient Comments: 04/09 per pt she takes both plavix and eliquis. Plavix last filled 09/05/24 for 90 days. Eliquis was filled 02/16/25 for 30 days. Rx Instructions: for acute DVT potassium 0 mg PO DAILY Patient Comments: 04/09 pt not sure of dose, son takes care of her meds. Pt will verify with her dr about this med Discharge Orders: Discharge Order (Routine); Ordered 04/10/25 Ordered By: Sd Samuel Admission Data Admit Date/Time: 04/09/25 13:03 Attending Provider: Sd Samuel Admit Provider: Oscra Irvin Primary Care Provider: Eliazar Peck Other Providers: Oscar Irvin; Ángel Morataya Other Interventions: Discharge Summary Assessment (RN) Last Done: 04/10/25 14:40 Hospital Stay Data Consultations 04/09/25 12:51 ED Decision to Admit Stat 04/09/25 13:03 Consult Urology Routine Diagnostic Imagining Performed 04/09/25 11:13 US renal/blad retro comp Stat 04/09/25 13:08 CT Abd and Pelvis [CT abd pelvis wo con] Stat Pending Results Patient Have Any Pending Studies at Discharge: No Discharge Instructions Given to Patient (Per Discharging Provider) See your PCP Dr. Eliazar Peck within 5 days of hospital discharge from [facility]. Total Time Total Time Spent Total Time Spent (In Minutes): 35 minutes. Of this time period, 19 minutes were spent in coordinating patient's discharge/transfer to [facility] under accepting Gynecologic Oncologist Dr. Oscar Alejandra on 04/10/2025. Coding Level of Care Code 27427 INP/OBS DISCH >30 MIN Diagnoses CAYETANO (acute kidney injury) N17.9
--- NOTE | 2025-04-11 06:02 | Electrocardiogram Report ---
Test Reason : Blood Pressure : */* mmHG Vent. Rate : 71 BPM Atrial Rate : 71 BPM P-R Int : 190 ms QRS Dur : 132 ms QT Int : 462 ms P-R-T Axes : 33 -51 30 degrees QTcB Int : 502 ms Normal sinus rhythm Left axis deviation Left bundle branch block Abnormal ECG When compared with ECG of 11-Feb-2025 19:23, No significant change Confirmed by Daniel Back ([id number] on 04/11/2025 6:02:13 AM Referred By: Eliazar Peck Confirmed By: Daniel Back
== END 2025-04-10 14:41 | disposition short-term general hospital (02) | DRG 682 ==
LOC: ED 10:55 → 2E 13:03 → SUATTDRO 13:03 → 2E 13:50